=== PATIENT | female | born 1980 | race Caucasian/White ===

== ENCOUNTER → 2023-05-06 | Outpatient (CLI) | payer OTHER, SELFPAY | END | disposition home or self-care (01) | LOC: RAD 12:03 | PROVIDERS: PCP Internal Medicine; Referring Provider Chiropractor; Visit Provider Chiropractor | DX: M54.30 Sciatica, unspecified side (principal); M99.03 Segmental and somatic dysfunction of lumbar region; M99.05 Segmental and somatic dysfunction of pelvic region | CPT/HCPCS: 72110 ==

== ENCOUNTER 2023-05-29 17:00 | Outpatient (RCR) | payer OTHER, SELFPAY ==
--- NOTE | 2023-05-01 18:08 | HP.PTEVAL_ITS ---
Patient's Visit Information Visit Information Visit Information: SUSY MACIAS is a 43 year old F referred to Physical Therapy by ISACC Jaimes with a diagnosis of R LE sciatica. Date of Evaluation: 05/01/23 Physical Therapist: Constantine Valentin, PT, ATC Visit Plan Frequency: 2x /Week Duration: 2-4 Weeks Plan: Piriformis stretching, DTR R glute, core strengthening. Re-examine REIL with small intervals. Subjective Subjective: Pt reports she has had sciatica for 3 months now. Pt reports she has pain that originates in her R glute and descends down his R LE all the way to her foot. Pt reports she has had no recent Dx tests performed at this time. Pt reports she has had pain like this in the past, but nothing this severe. Pt reports she has no LBP at this time, its just in her leg. Pt reports sleep difficulty at this time secondary to pain. Pt reports increase pain with sit to stand transfers, prolonged standing, and exercising at the gym. Movement is the only thing that helps to decrease her pain. 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 9/10 pain in her R LE at this time while sitting here in the clinic, 10/10 pain when at worst. Pain R LE: Pain Intensity (Out of 10): 9 Pain Intensity Range: 10 Objective Objective: Neuro: B LE sensation is WNL to light touch. B patellar reflex= 1/3 MMT: B LE's are grossly 5/5 throughout ROM: Pt is minimally limited with flex and ext. Both movements increase R LE radiculopathy Special tests: pos piriformis sign Repeated movements: RFIS 10x3 worse, REIL and AMBER increases her pain in R LE Balance/Special Test Scores Lower Extremity Functional Score: 45 Goals Goal 1:: Decrease R LE radiculopathy x 50% to aid with sleep Goal Time Frame: 2-4 Weeks Goal 2:: Increase L/S ext ROM x 1 grade to aid with decreasing pain Goal Time Frame: 2-4 Weeks Goal 3:: I with HEP Rehabilitation Potential Physical Therapy Diagnosis: Pt has R LE radiculopathy, limited L/S ROM, and difficulty with prolonged standing secondary to piriformis syndrome Rehabilitation Potential: Good Anticipated Interventions Patient/Client Instruction: Educate patient on: Condition and Plan of Care For the Purpose of:: To improve self management Therapeutic Exercise to Include: Strength training, Postural training, Flexibilty training, Active ROM, Dynamic Lumbar Stabilization and Meagan Exercises For the Purpose of:: To decrease pain, To increase ROM and To improve muscle performance and motor function Text: Thank you for the opportunity to evaluate your patient. For Medicare and Medicare HMO plans, please review the plan of care and approve it. It will need to be FAXED BACK to us at [phone] for Medicare purposes. For Medicare only, by signing this I certify the plan of care. Please let me know if there are questions or concerns regarding this plan of care. Physician Signature: _Date:
--- NOTE | 2023-09-16 08:52 | HP.PT.NRP ---
Patient Information Patient Information: SUSY MACIAS was seen in my office for initial evaluation on 05/01/23. The following Plan of Care was established for this patient: POC Established Initial Frequency: 2x /Week Initial Duration: 2-4 Weeks Anticipated Interventions Patient/Client Instruction: Educate patient on: Condition and Plan of Care For the Purpose of:: To improve self management Therapeutic Exercise to Include: Strength training, Postural training, Flexibilty training, Active ROM, Dynamic Lumbar Stabilization and Meagan Exercises For the Purpose of:: To decrease pain, To increase ROM and To improve muscle performance and motor function Last Seen Last Seen: This patient was last seen in our office . Pertinent comments regarding their Physical therapy will appear below: Pt was treated for low back pain for 7 visits through the date of 05/29/23. Pt has not returned through todays date and is discontinued at this time. At this point I will be discontinuing this patient from physical therapy. I would be happy to see this patient again in the future if found appropriate by the physician. Thank you! Constantine Valentin, PT, ATC Balance/Gait/Functional tests Balance/Special Test Scores Lower Extremity Functional Score: 45
== END 2023-05-29 19:00 | disposition home or self-care (01) ==
LOC: PT 17:00
PROVIDERS: Referring Provider Physician Assistant Surgical; Visit Provider Physician Assistant Surgical
DX: M54.30 Sciatica, unspecified side (principal)
CPT/HCPCS: 97014; 97035; 97110; 97161; 97530; G0283

== ENCOUNTER → 2023-06-17 | Outpatient (CLI) | payer OTHER, SELFPAY ==
--- NOTE | 2023-06-17 06:40 | MRI_ITS ---
STUDY: MRI LUMBAR SPINE WITHOUT CONTRAST REASON FOR EXAM: Female, 43 years old. R sciatica TECHNIQUE: Standardized fat and water weighted pulse sequences were obtained in the sagittal and axial planes. COMPARISON: X-ray the lumbar spine dated May 06, 2023 FINDINGS: There is straightening of the normal lumbar lordosis. There is no substantial scoliosis. Normal conus medullaris that terminates at the T11-T12 level. No marrow edema or fracture or compression deformity is present. T12-L1: Normal endplates. Normal disc height, hydration and morphology. Normal bilateral facet joints. Normal central canal and bilateral lateral recesses. Normal bilateral intervertebral neural foramina. L1-2: Normal endplates. Normal disc height, hydration and morphology. Normal bilateral facet joints. Normal central canal and bilateral lateral recesses. Normal bilateral intervertebral neural foramina. L2-3: Normal endplates. Normal disc height, hydration and morphology. Normal bilateral facet joints. Normal central canal and bilateral lateral recesses. Normal bilateral intervertebral neural foramina. L3-4: Normal endplates. Normal disc height, hydration and morphology. Normal bilateral facet joints. Normal central canal and bilateral lateral recesses. Normal bilateral intervertebral neural foramina. L4-5: Normal endplates. Normal disc height. Diffuse disc desiccation with a small posterior annular tear of the disc but no bulging or herniation. Normal bilateral facet joints. Normal central canal and bilateral lateral recesses. Normal bilateral intervertebral neural foramina. L5-S1: Normal endplates. Diffuse disc desiccation with mild disc space narrowing and posterior annular bulging. Superimposed moderate size right paracentral disc protrusion measures 9.7 mm in diameter and causes right lateral recess stenosis with nerve root compression. Normal bilateral facet joints. Normal central canal and bilateral lateral recesses. Normal bilateral intervertebral neural foramina. Normal visualized sacral ala. Normal visualized paraspinous soft tissue structures. MRI/Spine Lumbar (Routine) IMPRESSION: 1. Moderate size 9.7 mm right paracentral disc protrusion at L5-S1 causing right lateral recess stenosis with nerve root compression Electronically Signed: Otto Tam MD at 11:56 EDT ,
== END | disposition home or self-care (01) ==
LOC: MRI 06:38
PROVIDERS: PCP Internal Medicine; Referring Provider Chiropractor; Visit Provider Chiropractor
DX: M54.30 Sciatica, unspecified side (principal); M99.03 Segmental and somatic dysfunction of lumbar region; M99.05 Segmental and somatic dysfunction of pelvic region
CPT/HCPCS: 72148

== ENCOUNTER → 2023-09-24 | Outpatient (CLI) | payer OTHER, SELFPAY ==
[2023-09-26 16:09] LABS: HPV APTIMA, High Risk Negative (Negative)
== END | disposition home or self-care (01) ==
LOC: LABSPEC 11:00
PROVIDERS: PCP Internal Medicine; Referring Provider Nurse Practitioner Women's Health; Visit Provider Nurse Practitioner Women's Health
DX: Z12.4 Encounter for screening for malignant neoplasm of cervix (principal)
CPT/HCPCS: 87624; 88175; G0145

== ENCOUNTER → 2023-10-03 | Outpatient (CLI) | payer OTHER, SELFPAY ==
--- NOTE | 2023-10-03 13:32 | BI_ITS ---
MAMMOGRAPHY - BILATERAL SCREENING 3-D TOMOSYNTHESIS REASON FOR EXAM: Female, 43 years old. Screening for breast cancer. PERTINENT HISTORY: No significant family history. TECHNIQUE: 2-D mammograms and 3-D Tomosynthesis of the breast (s) were performed. CAD was performed. COMPARISON: None. Baseline examination. FINDINGS: The breast composition is almost entirely fat. Normal lymph nodes and scattered benign calcifications. No dominant masses, suspicious microcalcifications, asymmetries, skin thickening or nipple retraction. BI/SCRN MAMM (CAD)W/DION BILAT IMPRESSION: No mammographic signs of malignancy. Routine yearly mammograms recommended. ASSESSMENT CATEGORY: BIRADS Category 2: Benign. A letter regarding these results will be sent to the patient by the facility within 30 days. FOLLOW UP RECOMMENDATION: Yearly follow up mammogram recommended. (A) Approximately 10% of breast cancers are not detected by mammography. A normal mammogram should not delay biopsy of a clinically suspicious abnormality. Electronically Signed: Delta Brown MD at 15:27 EST ,
== END | disposition home or self-care (01) ==
LOC: OPBI 13:30
PROVIDERS: PCP Internal Medicine; Referring Provider Nurse Practitioner Women's Health; Visit Provider Nurse Practitioner Women's Health
DX: Z12.31 Encounter for screening mammogram for malignant neoplasm of breast (principal)
CPT/HCPCS: 77063; 77067

== ENCOUNTER → 2023-11-28 | Outpatient (CLI) | payer OTHER, SELFPAY ==
--- OUTSIDE RECORDS SUMMARY | 2023-11-28 07:16 | XMS RPT_ITS | CCD ---
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 Name Role Phone Haagen POLISHER EYEGLASS FRAMES.JEN, Annie Primary Care Provider HAAGEN, ANNIE Primary Care Unavailable HAAGEN, ANNIE Attending Unavailable HAAGEN, ANNIE Primary Care Unavailable HAAGEN, ANNIE Attending Unavailable HAAGEN, ANNIE Primary Care Unavailable HAAGEN, ANNIE Primary Care Unavailable HAAGEN, ANNIE Attending Unavailable HAAGEN, ANNIE Primary Care Unavailable HAAGEN, ANNIE Attending Unavailable HAAGEN, ANNIE Primary Care Unavailable HAAGEN, ANNIE Attending Unavailable Haagen POLISHER EYEGLASS FRAMES.JEN, Annie Primary Care Provider Allergies Allergy Classification Reported Allergen(s) Allergy Type Date of Onset Reaction(s) Facility (14 sources) Oxymetazoline; Translations: [OXYMETAZOLINE HCL] Drug Allergy 0 [facility] Work Phone: (12 sources) Environmental allergies [Other] Propensity to adverse reactions 6 [facility] (2 sources) Grass pollen; Translations: [GRASS POLLEN] Propensity to adverse reactions to drug (disorder) 4 Other: See Comments [facility] (2 sources) Oxymetazoline; Translations: [OXYMETAZOLINE] Drug Allergy 3 Shortness of Breath [facility] (2 sources) Ragweed pollen; Translations: [RAGWEED POLLEN] Propensity to adverse reactions to drug (disorder) 4 Other: See Comments [facility] (2 sources) CAT DANDER; Translations: [CAT DANDER] Propensity to adverse reactions to drug (disorder) 4 Other: See Comments [facility] (2 sources) DOG DANDER; Translations: [DOG DANDER] Propensity to adverse reactions to drug (disorder) Other: See Comments [facility] (1 source) OTHER; Translations: [OTHER] Propensity to adverse reactions (disorder) 6 [facility] Medications Current Medications Medication Drug Class(es) Dates Sig (Normalized) Sig (Original) phentermine hydrochloride 37.5 mg oral tablet (4 sources) Sympathomimetic Amine Anorectic Start: 01-22-2023 End: 02-21-2023 take 1 tablet by mouth once daily Phentermine HCl (ADIPEX-P) 37.5 mg tablet Indications: Obesity, Class III, BMI 40-49.9 (morbid obesity) (HCC) Take 1 tablet by mouth once daily for 30 days. BMI - 40.95 30 tablet 2 01/22/2023 02/21/2023 Active Completed/Discontinued Medications Medication Drug Class(es) Dates Sig (Normalized) Sig (Original) acetaminophen 325 mg / HYDROcodone bitartrate 5 mg oral tablet (1 source) Opioid Agonist Start: 06-30-2023 HYDROcodone-aceta minophen (NORCO) 5-325 mg per tablet [id number] 200 actuat albuterol 0.09 mg/actuat metered dose inhaler (20 sources) beta2-Adrenergic Agonist Start: 09-09-2022 take 2.5 mg by inhalation every four hours as needed albuterol (PROVENTIL) 2.5 mg /3 mL (0.083 %) nebulizer solution Use 3 mL via nebulizer every 4 hours as needed for wheezing/shortnes s of breath. ONE TREATMENT EVERY 4 HOURS NEEDED 50 mL 1 09/09/2022 Active Problems Active Problems Problem Classification Problem Date Documented Da te Episodic/Chronic Anxiety disorders (4 sources) Mixed anxiety and depressive disorder; Translations: [Other specified anxiety disorders] Onset: 12-02-2022 Chronic Asthma (18 sources) Mild intermittent asthma; Translations: [Mild intermittent asthma, uncomplicated] Onset: 11-01-2006 Chronic Diabetes mellitus without complication (1 source) Impaired fasting glucose; Translations: [Elevated fasting glucose] Onset: 10-13-2023 Episodic Headache; including migraine (2 sources) Migraine; Translations: [Other migraine, not intractable, without status migrainosus] Onset: 11-04-2023 Chronic Other circulatory disease (1 source) Elevated blood-pressure reading, without diagnosis of hypertension; Translations: [Elevated blood pressure reading without diagnosis of hypertension] Onset: 11-04-2023 Episodic Other connective tissue disease (3 sources) Pain in left foot; Translations: [Pain in left foot] Episodic Other gastrointestinal disorders (17 sources) Irritable bowel syndrome; Translations: [Irritable bowel syndrome without diarrhea] Onset: 10-17-2009 Chronic Other gastrointestinal disorders (1 source) Irritable bowel syndrome without diarrhea; Translations: [Irritable bowel syndrome, unspecified type] Onset: 10-01-2021 Chronic Other nutritional; endocrine; and metabolic disorders (1 source) Body mass index 30+ - obesity; Translations: [Obesity, unspecified] Chronic Other nutritional; endocrine; and metabolic disorders (2 sources) Body mass index 40+ - severely obese; Translations: [Morbid (severe) obesity due to excess calories] Chronic Other nutritional; endocrine; and metabolic disorders (2 sources) Morbid (severe) obesity due to excess calories; Translations: [Class 3 severe obesity with body mass index (BMI) of 40.0 to 44.9 in adult, unspecified obesity type, unspecified whether serious comorbidity present (HCC)] Onset: 01-22-2023 Chronic Other nutritional; endocrine; and metabolic disorders (1 source) Body mass index (BMI) 40.0-44.9, adult; Translations: [Class 3 severe obesity with body mass index (BMI) of 40.0 to 44.9 in adult, unspecified obesity type, unspecified whether serious comorbidity present (HCC)] Onset: 11-04-2023 Chronic Other screening for suspected conditions (not mental disorders or infectious disease) (1 source) Patient encounter status; Translations: [Encounter for screening mammogram for malignant neoplasm of breast] Episodic Other upper respiratory disease (13 sources) Chronic rhinitis; Translations: [Chronic rhinitis] Onset: 09-01-2007 09-01-2007 Chronic Past or Other Problems Problem Classification Problem Date Documented Da te Episodic/Chronic Abdominal pain (13 sources) Finding of sensation of abdomen; Translations: [Unspecified abdominal pain] Onset: 05-31-2014 06-02-2014 Episodic Nausea and vomiting (13 sources) Nausea; Translations: [Nausea] Onset: 07-12-2013 07-12-2013 Episodic Other gastrointestinal disorders (13 sources) Diarrhea; Translations: [Diarrhea, unspecified] Onset: 06-10-2007 07-19-2013 Episodic Residual codes; unclassified (17 sources) Insomnia; Translations: [Insomnia, unspecified] Onset: 04-16-2011 Episodic Residual codes; unclassified (1 source) Insomnia, unspecified; Translations: [Insomnia, unspecified type] Onset: 07-19-2013 Episodic Spondylosis; intervertebral disc disorders; other back problems (2 sources) Acute back pain with sciatica; Translations: [Lumbago with sciatica, right side] Onset: 03-31-2023 Episodic Results Test Name Value Interpretation Reference Range Facil ity Vital Signs Date Time Vital Sign Value Performing Clinician Reyna villanueva 03-31-2023 17:44-0400 Body height 168.9 cm Annie Haagen POLISHER EYEGLASS FRAMES.CANE PUSHER Work Phone: [facility] 03-31-2023 17:44-0400 Body weight 112.49 kg Annie Haagen POLISHER EYEGLASS FRAMES.CANE PUSHER Work Phone: [facility] 03-31-2023 17:44-0400 Diastolic blood pressure 80 mm[Hg] Annie Haagen POLISHER EYEGLASS FRAMES.CANE PUSHER Work Phone: [facility] 03-31-2023 17:44-0400 Heart rate 74 /min Annie Haagen POLISHER EYEGLASS FRAMES.CANE PUSHER Work Phone: [facility] 03-31-2023 17:44-0400 Respiratory rate 16 /min Annie Haagen POLISHER EYEGLASS FRAMES.CANE PUSHER Work Phone: [facility] 03-31-2023 17:44-0400 Systolic blood pressure 138 mm[Hg] Annie Haagen POLISHER EYEGLASS FRAMES.CANE PUSHER Work Phone: [facility] 01-22-2023 15:38-0400 Body weight 112.49 kg Annie Haagen POLISHER EYEGLASS FRAMES.CANE PUSHER Work Phone: [facility] 01-22-2023 15:38-0400 Diastolic blood pressure 90 mm[Hg] Annie Haagen POLISHER EYEGLASS FRAMES.CANE PUSHER Work Phone: [facility] 01-22-2023 15:38-0400 Heart rate 88 /min Annie Haagen POLISHER EYEGLASS FRAMES.CANE PUSHER Work Phone: [facility] 01-22-2023 15:38-0400 Respiratory rate 18 /min Annie Haagen POLISHER EYEGLASS FRAMES.CANE PUSHER Work Phone: [facility] 01-22-2023 15:38-0400 SaO2% (BldA) [Mass fraction] 98 % Annie Haagen POLISHER EYEGLASS FRAMES.CANE PUSHER Work Phone: [facility] 01-22-2023 15:38-0400 Systolic blood pressure 132 mm[Hg] Annie Haagen POLISHER EYEGLASS FRAMES.CANE PUSHER Work Phone: [facility] 12-02-2022 15:39-0500 Body weight 112.95 kg Annie Haagen POLISHER EYEGLASS FRAMES.CANE PUSHER Work Phone: [facility] 12-02-2022 15:39-0500 Diastolic blood pressure 90 mm[Hg] Annie Haagen POLISHER EYEGLASS FRAMES.CANE PUSHER Work Phone: [facility] 12-02-2022 15:39-0500 Heart rate 81 /min Annie Haagen POLISHER EYEGLASS FRAMES.CANE PUSHER Work Phone: [facility] 12-02-2022 15:39-0500 Respiratory rate 18 /min Annie Haagen POLISHER EYEGLASS FRAMES.CANE PUSHER Work Phone: [facility] 12-02-2022 15:39-0500 SaO2% (BldA) [Mass fraction] 96 % Annie Haagen POLISHER EYEGLASS FRAMES.CANE PUSHER Work Phone: [facility] 12-02-2022 15:39-0500 Systolic blood pressure 124 mm[Hg] Annie Haagen POLISHER EYEGLASS FRAMES.CANE PUSHER Work Phone: [facility] 01-07-2022 14:06-0400 Body weight 108.86 kg Annie Haagen POLISHER EYEGLASS FRAMES.CANE PUSHER Work Phone: [facility] 01-07-2022 14:06-0400 Diastolic blood pressure 82 mm[Hg] Annie Haagen POLISHER EYEGLASS FRAMES.CANE PUSHER Work Phone: [facility] 01-07-2022 14:06-0400 Heart rate 83 /min Annie Haagen POLISHER EYEGLASS FRAMES.CANE PUSHER Work Phone: [facility] 01-07-2022 14:06-0400 Respiratory rate 18 /min Annie Cohen APRN.JEN Work Phone: [facility] 01-07-2022 14:06-0400 SaO2% (BldA) [Mass fraction] 98 % Annie Cohen APRN.JEN Work Phone: [facility] 01-07-2022 14:06-0400 Systolic blood pressure 150 mm[Hg] Annie Cohen APRN.CANE PUSHER Work Phone: [facility] Encounters Encounter Date Encounter Type Care Provider Facility Start: 11-16-2023 Orders Only Annie Cohen APRN.CNP Work Phone: [facility] Start: 11-04-2023 End: 11-05-2023 ambulatory [facility] Facility:[place] Start: 10-13-2023 End: 10-14-2023 ambulatory [facility] Facility:[place] Start: 03-31-2023 End: 04-01-2023 [facility] Facility:[place] Start: 03-31-2023 End: 03-31-2023 Office outpatient visit 15 minutes Annie Cohen APRN.CNP Work Phone: [facility] Procedures Date Procedure Procedure Detail Performing Clinician Start: 02-24-2021 Adult depression screening assessment Annie Cohen APRN.CNP Work Phone: Plan of Treatment Date Care Activity Detail Author Start: 01-29-2033 Urine microalbumin profile DTaP,Tdap,Td Vaccine (4 - Td or Tdap) [facility] Start: 11-04-2024 Annual PCP Team Chronic Disease Visit Annual PCP Team Chronic Disease Visit [facility] Start: 03-31-2024 ANNUAL PCP TEAM CHRONIC DISEASE VISIT ANNUAL PCP TEAM CHRONIC DISEASE VISIT [facility] Start: 01-23-2024 ANNUAL PCP TEAM CHRONIC DISEASE VISIT ANNUAL PCP TEAM CHRONIC DISEASE VISIT [facility] Start: 12-02-2023 ANNUAL PCP TEAM CHRONIC DISEASE VISIT ANNUAL PCP TEAM CHRONIC DISEASE VISIT [facility] Start: 10-06-2023 Depression Assessment Depression Assessment [facility] Start: 06-06-2023 Covid-19 Vaccine ( season) Covid-19 Vaccine ( season) [facility] Start: 06-06-2023 Influenza vaccination INFLUENZA (Season Ended) [facility] Start: 05-15-2023 HPV TESTING HPV TESTING [facility] Start: 05-15-2023 PAP TESTING PAP TESTING [facility] Start: 05-15-2023 Screening for malignant neoplasm of cervix [facility] Start: 02-04-2023 ANNUAL PCP TEAM CHRONIC DISEASE VISIT ANNUAL PCP TEAM CHRONIC DISEASE VISIT [facility] Start: 01-07-2023 ANNUAL PCP TEAM CHRONIC DISEASE VISIT ANNUAL PCP TEAM CHRONIC DISEASE VISIT [facility] Start: 10-06-2022 DEPRESSION ASSESSMENT DEPRESSION ASSESSMENT [facility] Start: 06-06-2022 Influenza vaccination [facility] Start: 2022 Mammography MAMMOGRAM [facility] Start: 2022 Screening for malignant neoplasm of breast Mammogram Screening [facility] Start: 02-24-2022 Adult depression screening assessment DEPRESSION SCREENING [facility] Start: 11-13-2021 COVID-19 VACCINE (4 - Booster for Moderna series) COVID-19 VACCINE (4 - Booster for Moderna series) [facility] Start: 10-06-2021 DEPRESSION ASSESSMENT DEPRESSION ASSESSMENT [facility] Start: 10-21-2018 Urine microalbumin profile DTAP,TDAP,TD (3 - Tdap) [facility] Start: 07-06-2014 Pneumococcal vaccination Pneumococcal Vaccine (2 of 2 - PCV) [facility] Start: 07-02-2014 PNEUMOCOCCAL (2 - PCV) PNEUMOCOCCAL (2 - PCV) [facility] Start: 10-22-2008 Urine microalbumin profile DTAP,TDAP,TD (1 - Tdap) [facility] Start: 2000 HEPATITIS C SCREENING HEPATITIS C SCREENING [facility] Start: 2000 Hepatitis C screening Hepatitis C Screening [facility] Start: 2000 HIV SCREENING HIV SCREENING [facility] Start: 2000 HIV screening HIV Screening [facility] Start: 2000 SPIROMETRY SPIROMETRY [facility] Start: 1982 HEPATITIS B (1 of 3 - 3-dose series) HEPATITIS B (1 of 3 - 3-dose series) [facility] Start: 1982 Hepatitis B Vaccine (1 of 3 - 3-dose series) Hepatitis B Vaccine (1 of 3 - 3-dose series) [facility] End: 06-14-2023 Screening mammography bi 2-view breast inc cad [facility] SCREENING Radiology Routine Encounter for screening mammogram for breast cancer 1 Occurrences starting 05/15/2022 until 06/14/2023 [facility] Work Phone: Immunizations Immunization Date Immunization Notes Care Provider Angela jaime 09-18-2021 COVID-19 original vaccine, full dose, monovalent (MODERNA) Annie Haagen POLISHER EYEGLASS FRAMES.CANE PUSHER Work Phone: [facility] 01-05-2021 COVID-19 original vaccine, full dose, monovalent (MODERNA) Annie Haagen POLISHER EYEGLASS FRAMES.CANE PUSHER Work Phone: [facility] 12-02-2020 COVID-19 original vaccine, full dose, monovalent (MODERNA) Annie Haagen POLISHER EYEGLASS FRAMES.CANE PUSHER Work Phone: [facility] 08-16-2016 influenza, injectabl e, quadrivalent, contains preservative Annie Haagen POLISHER E[employer]GL[employer] FRAMES.CANE PUSHER Work Phone: [facility] Work Phone: 07-02-2013 influenza virus vacc ine, unspecified formulation Annie Haagen POLISHER EYEGLASS FRAMES.CANE PUSHER Work Phone: [facility] Work Phone: 07-02-2013 pneumococcal polysaccharide vaccine, 23 valent Annie Haagen POLISHER E[employer]GLASS FRAMES.CANE PUSHER Work Phone: [facility] Work Phone: 07-05-2012 influenza virus vacc ine, unspecified formulation Annie Haagen POLISHER E[employer]GLASS FRAMES.CANE PUSHER Work Phone: [facility] Work Phone: 07-25-2011 influenza virus vacc ine, unspecified formulation Annie Haagen POLISHER EYEGLASS FRAMES.CANE PUSHER Work Phone: [facility] Work Phone: 08-08-2009 influenza virus vacc ine, unspecified formulation Annie Haagen POLISHER EYEGLASS FRAMES.CANE PUSHER Work Phone: [facility] 10-21-2008 tetanus and diphther ia toxoids, adsorbed, preservative free, for adult use (2 Lf of tetanus toxoid and 2 Lf of diphtheria toxoid) Annie Cohen POLISHER EYEGLASS FRAMES.CANE PUSHER Work Phone: [facility] Work Phone: 08-16-2008 influenza virus vacc ine, unspecified formulation Annie Cohen POLISHER EYEGLASS FRAMES.CANE PUSHER Work Phone: [facility] 09-01-2007 influenza virus vacc ine, unspecified formulation Annie Cohen POLISHER E[employer]GLASS FRAMES.CANE PUSHER Work Phone: [facility] 09-12-1997 diphtheria and tetan us toxoids, adsorbed for pediatric use Annie Cohen POLISHER EYEGLASS FRAMES.CANE PUSHER Work Phone: [facility] Payers Date Payer Category Payer Private Health Insurance [id number] 2023 Private Health Insurance [facility] [place] [facility] [id number] 2023-Present [phone] [address] [place] [address] PPO [id number] 2022 Medicaid [id number] 2022 Medicaid [id number] 2018 Medicaid [employer] [id number] 2018-Present [phone] [address] [place] [address] Medicaid [id number] 2018 Medicaid [id number] Social History Date Type Detail Facility Start: 10-28-2011 Tobacco smoking status NHIS Never smoked tobacco [facility] Start: 01-07-2022 End: 11-04-2023 Alcohol intake Current drinker of alcohol (finding) [facility] Start: 12-04-2021 End: 03-31-2023 History SDOH Alcohol Frequency 2 [facility] Start: 12-04-2021 End: 03-31-2023 History SDOH Alcohol Std Drinks 1 [facility] Start: 02-03-2013 History SDOH Alcohol Comment Rarely [facility] Start: 12-04-2021 End: 03-31-2023 History SDOH Social Connections Phone 5 [facility] Start: 12-04-2021 End: 03-31-2023 History SDOH Social Connections Get Together 3 [facility] Start: 12-04-2021 End: 03-31-2023 History SDOH Physical Activity MPS 6 [facility] Start: 12-04-2021 End: 03-31-2023 History SDOH Financial 4 [facility] Start: 05-17-2020 Education 21 [facility] Start: 1980 Sex Assigned At Female [facility] Start: 10-28-2011 Tobacco use and exposure Smokeless tobacco non-user [facility] Work Phone: Start: 03-31-2023 History SDOH Social Connections Living 7 [facility] Start: 02-24-2021 End: 03-30-2023 History of Social function [facility] Start: 02-24-2021 End: 03-30-2023 Social connection and isolation panel [facility] Do you belong to any clubs or organizations such as sabianist groups, unions, fraternal or athletic groups, or school groups? Yes [facility] Are you now , , , , never or living with a partner? Never [facility] How often to you hav e a drink containing alcohol? Monthly or less [facility] How many standard dr inks containing alcohol do you have on a typical day? 1 or 2 [facility] How often do you hav e 6 or more drinks on 1 occasion? Less than monthly [facility] How hard is it for y ou to pay for the very basics like food, housing, medical care, and heating Somewhat hard [facility] Adult Depression Screening Assessment 2 [facility] Do you feel stress - tense, restless, nervous, or anxious, or unable to sleep at night because your mind is troubled all the time - these days [OSQ] Very much [facility] (I/We) worried wheth er (my/our) food would run out before (I/we) got money to buy more. Never true [facility] In the past 12 month s, was there a time when you were not able to pay the mortgage or rent on time? No [facility] Start: 06-06-2019 Gender identity Identifies as female gender (finding) [facility] Start: 06-06-2019 Sexual orientation Heterosexual (finding) [facility] Clinical Notes 07-31-2007 to 11-04-2023 Patient InstructionsChristy APRN. NoelCANE PUSHER - 03/31/2023 6:10 PM EDTTelephone Encounter - Jp Rubio PERISHABLE FRUIT INSPECTOR - 02/14/2023 8:19 AM EDTPatient InstructionsPatient InstructionsPatient Instructions Note Date & Type Note Facility 11-04-2023 Note HNO ID: [id number] Author: ANNIE COHEN APRN.CANE PUSHER Service: ? Author Type: Nurse Practitioner Type: Progress Notes Filed: 11/04/2023 17:35 Note Text: This is a 43 year old female who presents today with: Patient presents with: Recheck: BP check HISTORY OF PRESENT ILLNESS: Susy Bateman is a 43 year old female. Patient presents with: Recheck: BP check Pt presents today for BP recheck. At last visit, BP was elevated. Prior to visit, patient had ingested caffeine, and Adipex, and used her albuterol inhaler. Today BP improved. Refers that she cut back caffeine. Headaches. Using the flexeril. Has found that this has been helpful. Using the qulipta, but was not aware that this was a daily prophylactic medication. No side effects to the Qulipta. PAST MEDICAL HISTORY: PAST MEDICAL HISTORY Diagnosis Date Anal fistula ASTHMA UNSPECIFIED 11/01/2006 Hospitalized in 08-08 for exacerbation: saw Nilda in 09-07 (Peak flows 300 on Advair) PFT 09-07: ratio 59%, FVC 2.49 (61%), FEV1 1.46 (44%)-10% p BD, TLC 3.76 (70%), NL D/VA-mixed CT chest normal in 12-07: ordered by Nilda for possible bronchiectasis IgE 50 (3.5-58), Alpha 1 AT 206 (100-220), Aspergillus Ab neg in 12-07 Titoo rec Xolair in 04-08: omalizumab-IgG monoclonal Ab that binds IgE to prevent Chronic rhinitis 09/01/2007 Rec nasal saline as of 08-12: consider nasal steroids if not satisfied DIARRHEA NOS 06/10/2007 Reportedly symptoms over the previous year from 05-12: eval for an anal fistula per Dakotah Gliadin Ab negative in 05-12 ESR 9 in 05-12 NL iron studies in 05-12 No studies done as of 06-12 as the stool was formed O and P negative in 07-12 Fecal leukocytes negative in 07-12: discuss at 08-12 appt IBS (irritable bowel syndrome) 10/17/2009 OBESITY NOS 07/31/2007 TSH 1 in 02-09 Unspecified asthma, with status asthmaticus PAST SURGICAL HISTORY Procedure Laterality Date COLONOSCOPY W/BIOPSY SINGLE/MULTIPLE 12/18/09 FISTULOTOMY SUBCUT anal PAST SURGICAL HISTORY OF staightening pectoral-breast bone SURG TX ANAL FISTULA 2ND STAGE 03/24/2007 TREATMENT OF COLLAPSED LUNG 10/05/13 tx by ALLERGIES Oxymetazoline, Afrin [Oxymetazoline Hcl], Cat Dander, Dog Dander, Grass Pollen, and Ragweed Pollen MEDICATIONS Current Outpatient Medications Medication Sig cyclobenzaprine (FLEXERIL) 10 mg tablet DULoxetine (CYMBALTA) 30 mg capsule gabapentin (NEURONTIN) 300 mg capsule HYDROcodone-acetaminophen (NORCO) 5-325 mg per tablet traZODone (DESYREL) 100 mg tablet Take 200 mg by mouth daily at bedtime. buPROPion XL (WELLBUTRIN XL) 150 mg 24 hr tablet atogepant (QULIPTA) 60 mg tablet Take 1 tablet (60 mg) by mouth once daily. hyoscyamine SR (LEVBID) 0.375 mg 12 hr tablet take 1 tablet by mouth once daily if needed for IBS FLARES etodolac (LODINE) 400 mg tablet Take 1 tablet by mouth twice daily. tiZANidine (ZANAFLEX) 4 mg tablet Take 1 tablet by mouth every 8 hours as needed (muscle spasms). Norethindrone, Contraceptive, (TULANA) 0.35 mg tablet Take 1 tablet by mouth once daily. albuterol HFA (VENTOLIN HFA) 90 mcg/actuation inhaler Inhale 2 Puffs as instructed every 6 hours as needed for wheezing/shortness of breath. sertraline (ZOLOFT) 100 mg tablet Take 1 tablet by mouth once daily. albuterol (PROVENTIL) 2.5 mg /3 mL (0.083 %) nebulizer solution Use 3 mL via nebulizer every 4 hours as needed for wheezing/shortness of breath. ONE TREATMENT EVERY 4 HOURS NEEDED buPROPion XL (WELLBUTRIN XL) 300 mg 24 hr tablet Take 1 tablet by mouth once daily. fluticasone-salmeterol (ADVAIR, WIXELA) 250-50 mcg/dose inhaler Inhale 1 Puff as instructed twice daily. SUMAtriptan (IMITREX) 100 mg tablet Take 1 tablet by mouth as needed when migraine starts. May repeat in 2 hours if headache continues or returns. Do not exceed 2 tablets in 24 hours. Nebulizers Use nebulizer every 4 hours as needed for wheeze/shortness of breath. riboflavin, vitamin B2, 400 mg tab Take 1 tablet by mouth once daily. Nebulizer 1 Each once daily. NEBULIZER/accessories FOR HOME USE. DX: J45.909 Nebulizer Accessories (REUSABLE NEBULIZER KIT) kit 1 Each once daily. NEBULIZERS KIT Nebulizer with accesories. Diagnosis: asthma 493.90 No current facility-administered medications for this visit. FAMILY HISTORY Problem Relation Age of Onset Thyroid Mother graves Hypertension Father Alzheimer's Disease Maternal Grandmother Prostate Cancer Maternal Grandfather Cancer Paternal Grandfather lung Social History Tobacco Use Smoking status: Never Smokeless tobacco: Never Substance Use Topics Alcohol use: Yes Comment: Rarely Drug use: No EXAM: BP 128/92 Pulse 98 Resp 16 LMP 01/13/2023 (Approximate) SpO2 98% PHYSICAL EXAM: General Appearance: Well appearing, alert, in no acute distress, well-hydrated, well nourished.. Skin: Skin color, texture, turgor normal, no suspicious rashes or lesions. Head: Normoce (more content not included)... [facility] 10-13-2023 Note HNO ID: [id number] Author: ANNIE COHEN APRN.CANE PUSHER Service: ? Author Type: Nurse Practitioner Type: Progress Notes Filed: 10/13/2023 19:57 Note Text: This is a 43 year old female who presents today with: Patient presents with: Follow Up HISTORY OF PRESENT ILLNESS: Susy Bateman is a 43 year old female. Patient presents with: Follow Up Pt presents today to follow-up. She hasn't been in for awhile. She is working at [employer]. Because she changed insurance, thought that she would eval primary care there; however, would like to stay here. Obesity Started on naltrexone with the wellbutrin. Wellbutrin increased to 450 mg daily. Didn't like how she felt with the naltrexone. Stopped that. Interested in seeing women's health discuss weight management. Back pain Seen by pain management. Refers has a bulging disc. Did see Dr. Bennett -- did not recommend surgery at this time. Injections in the back in July. Refers improved. Gabapentin at bedtime. Headaches. Changing from sertraline to cymbalta. Tried to get nurtec covered, but denied by insurance. Gets headaches several times a week. Will wake up overnight with the pain in head. Has tried triptans in the past, but had side effects or minimal effectiveness. Has an upcoming appt with Dr. Tafoya in February. Psychiatrist. Hoping to get adjusted on medications. Would like to get off the trazodone. PAST MEDICAL HISTORY: PAST MEDICAL HISTORY Diagnosis Date Anal fistula ASTHMA UNSPECIFIED 11/01/2006 Hospitalized in 08-08 for exacerbation: saw Nilda in 09-07 (Peak flows 300 on Advair) PFT 09-07: ratio 59%, FVC 2.49 (61%), FEV1 1.46 (44%)-10% p BD, TLC 3.76 (70%), NL D/VA-mixed CT chest normal in 12-07: ordered by Nilda for possible bronchiectasis IgE 50 (3.5-58), Alpha 1 AT 206 (100-220), Aspergillus Ab neg in 12-07 [facility] rec Xolair in 04-08: omalizumab-IgG monoclonal Ab that binds IgE to prevent Chronic rhinitis 09/01/2007 Rec nasal saline as of 08-12: consider nasal steroids if not satisfied DIARRHEA NOS 06/10/2007 Reportedly symptoms over the previous year from 05-12: eval for an anal fistula per [facility] Gliadin Ab negative in 05-12 ESR 9 in 05-12 NL iron studies in 05-12 No studies done as of 06-12 as the stool was formed O and P negative in 07-12 Fecal leukocytes negative in 07-12: discuss at 11-07 appt IBS (irritable bowel syndrome) 10/17/2009 OBESITY NOS 07/31/2007 TSH in - Unspecified asthma, with status asthmaticus PAST SURGICAL HISTORY Procedure Laterality Date COLONOSCOPY W/BIOPSY SINGLE/MULTIPLE 12/18/09 FISTULOTOMY SUBCUT anal PAST SURGICAL HISTORY OF staightening pectoral-breast bone SURG TX ANAL FISTULA 2ND STAGE 03/24/2007 TREATMENT OF COLLAPSED LUNG 10/05/13 tx by ALLERGIES Afrin [Oxymetazoline Hcl] and Environmental Allergies [Other] MEDICATIONS Current Outpatient Medications Medication Sig cyclobenzaprine (FLEXERIL) 10 mg tablet DULoxetine (CYMBALTA) 30 mg capsule gabapentin (NEURONTIN) 300 mg capsule HYDROcodone-acetaminophen (NORCO) 5-325 mg per tablet traZODone (DESYREL) 100 mg tablet Take 200 mg by mouth daily at bedtime. buPROPion XL (WELLBUTRIN XL) 150 mg 24 hr tablet hyoscyamine SR (LEVBID) 0.375 mg 12 hr tablet take 1 tablet by mouth once daily if needed for IBS FLARES etodolac (LODINE) 400 mg tablet Take 1 tablet by mouth twice daily. tiZANidine (ZANAFLEX) 4 mg tablet Take 1 tablet by mouth every 8 hours as needed (muscle spasms). Norethindrone, Contraceptive, (TULANA) 0.35 mg tablet Take 1 tablet by mouth once daily. albuterol HFA (VENTOLIN HFA) 90 mcg/actuation inhaler Inhale 2 Puffs as instructed every 6 hours as needed for wheezing/shortness of breath. sertraline (ZOLOFT) 100 mg tablet Take 1 tablet by mouth once daily. albuterol (PROVENTIL) 2.5 mg /3 mL (0.083 %) nebulizer solution Use 3 mL via nebulizer every 4 hours as needed for wheezing/shortness of breath. ONE TREATMENT EVERY 4 HOURS NEEDED buPROPion XL (WELLBUTRIN XL) 300 mg 24 hr tablet Take 1 tablet by mouth once daily. fluticasone-salmeterol (ADVAIR, WIXELA) 250-50 mcg/dose inhaler Inhale 1 Puff as instructed twice daily. SUMAtriptan (IMITREX) 100 mg tablet Take 1 tablet by mouth as needed when migraine starts. May repeat in 2 hours if headache continues or returns. Do not exceed 2 tablets in 24 hours. Nebulizers Use nebulizer every 4 hours as needed for wheeze/shortness of breath. riboflavin, vitamin B2, 400 mg tab Take 1 tablet by mouth once daily. Nebulizer 1 Each once daily. NEBULIZER/accessories FOR HOME USE. DX: J45.909 Nebulizer Accessories (REUSABLE NEBULIZER KIT) kit 1 Each once daily. NEBULIZERS KIT Nebulizer with accesories. Diagnosis: asthma 493.90 No current facility-administered medications for this visit. FAMILY HISTORY Problem Relation Age of Onset Thyroid Mother graves Hypertension Father Alzheimer's Disease Maternal Grandmoth (more content not included)... [facility] 04-23-2023 Note Patient Outreach (IN [facility]) SUSY BATEMAN ([id number]) 1980 F Date Time Provider Department 04/23/23 ANNIE COHEN During your visit today, we recorded the following information about you: Allergies As of Date: 04/23/2023 Noted Allergy Reaction AFRIN (OXYMETAZOLINE HCL) 01/02/2010 7 - Swelling Environmental allergies [Other] 07/10/2006 Comments: Cats, dogs, dust mites, weeds, ragweed, grasses Date Reviewed: 02/11/2023 Reviewed by: Jp Riojas APRN.CANE PUSHER - Fully Assessed Visit Diagnosis:Encounter for screening mammogram for breast cancer [Z12.31] Order(s):[facility] SCREENING [[id number]] Order #: [id number] FUTURE Prescriptions as of 04/28/2023 - hyoscyamine SR (LEVBID) 0.375 mg 12 hr tablet take 1 tablet by mouth once daily if needed for IBS FLARES - etodolac (LODINE) 400 mg tablet Take 1 tablet by mouth twice daily. - tiZANidine (ZANAFLEX) 4 mg tablet Take 1 tablet by mouth every 8 hours as needed (muscle spasms). - Norethindrone, Contraceptive, (TULANA) 0.35 mg tablet Take 1 tablet by mouth once daily. - traZODone (DESYREL) 100 mg tablet Take 2 tablets by mouth daily at bedtime. - albuterol HFA (VENTOLIN HFA) 90 mcg/actuation inhaler Inhale 2 Puffs as instructed every 6 hours as needed for wheezing/shortness of breath. - sertraline (ZOLOFT) 100 mg tablet Take 1 tablet by mouth once daily. - albuterol (PROVENTIL) 2.5 mg /3 mL (0.083 %) nebulizer solution Use 3 mL via nebulizer every 4 hours as needed for wheezing/shortness of breath. ONE TREATMENT EVERY 4 HOURS NEEDED - buPROPion XL (WELLBUTRIN XL) 300 mg 24 hr tablet Take 1 tablet by mouth once daily. - fluticasone-salmeterol (ADVAIR, WIXELA) 250-50 mcg/dose inhaler Inhale 1 Puff as instructed twice daily. - SUMAtriptan (IMITREX) 100 mg tablet Take 1 tablet by mouth as needed when migraine starts. May repeat in 2 hours if headache continues or returns. Do not exceed 2 tablets in 24 hours. - Nebulizers Use nebulizer every 4 hours as needed for wheeze/shortness of breath. - riboflavin, vitamin B2, 400 mg tab Take 1 tablet by mouth once daily. - Nebulizer 1 Each once daily. NEBULIZER/accessories FOR HOME USE. DX: J45.909 - Nebulizer Accessories (REUSABLE NEBULIZER KIT) kit 1 Each once daily. - NEBULIZERS KIT Nebulizer with accesories. Diagnosis: asthma 493.90 Problem List As Of Date 04/23/2023 Noted Resolved Asthma [J45.909] 11/01/2006 Anal Fistula [K60.3] 11/18/2006 09/26/2009 Diarrhea [R19.7] 06/10/2007 Routine general medical examination at [facility]*06/10/2007 03/01/2014 Obesity, Class III, BMI 40-49.9 (morbid obesity*07/31/2007 05/26/2018 CHRONIC RHINITIS [J31.0] 09/01/2007 IBS (irritable bowel syndrome) [K58.9] 10/17/2009 Insomnia [G47.00] 04/16/2011 Nausea [R11.0] 07/12/2013 Abdominal cramping [R10.9] 05/31/2014 Encounter Status:Closed by EPIC, PRODUSER on 04/28/23 [facility] 03-31-2023 Note HNO ID: [id number] Author: Annie Cohen APRN.CANE PUSHER Service: ? Author Type: Nurse Practitioner Type: Progress Notes Filed: 03/31/2023 7:45 PM Note Text: This is a 42 year old female who presents today with: Patient presents with: Nerve Pain HISTORY OF PRESENT ILLNESS: Susy Bateman is a 42 year old female. Patient presents with: Nerve Pain Pt presents today with c/o sciatic nerve pain. Refers that she went to urgent care about a month ago. Prescribed prednisone, which didn't work. Has been trying to walk. No injury. Refers frustrated because she can't go to the gym. Refers hurts in the bottom of her right buttock down the posterior leg to her ankle. Refers that she will get some numbness/tingling. No changes of bowel/bladder. No saddle anesthesia. Has been taking ibuprofen 800 mg. Has been working on stretching. PAST MEDICAL HISTORY: PAST MEDICAL HISTORY Diagnosis Date Anal fistula ASTHMA UNSPECIFIED 11/01/2006 Hospitalized in 08-08 for exacerbation: saw Nilda in 09-07 (Peak flows 300 on Advair) PFT 09-07: ratio 59%, FVC 2.49 (61%), FEV1 1.46 (44%)-10% p BD, TLC 3.76 (70%), NL D/VA-mixed CT chest normal in 12-07: ordered by Nilda for possible bronchiectasis IgE 50 (3.5-58), Alpha 1 AT 206 (100-220), Aspergillus Ab neg in 12-07 Nilda rec Xolair in 04-08: omalizumab-IgG monoclonal Ab that binds IgE to prevent Chronic rhinitis 09/01/2007 Rec nasal saline as of 08-12: consider nasal steroids if not satisfied DIARRHEA NOS 06/10/2007 Reportedly symptoms over the previous year from 05-12: eval for an anal fistula per [facility] Gliadin Ab negative in 05-12 ESR 9 in 05-12 NL iron studies in 05-12 No studies done as of 06-12 as the stool was formed O and P negative in 07-12 Fecal leukocytes negative in 07-12: discuss at 08-12 appt IBS (irritable bowel syndrome) 10/17/2009 OBESITY NOS 07/31/2007 TSH 1 in 02-09 Unspecified asthma, with status asthmaticus PAST SURGICAL HISTORY Procedure Laterality Date COLONOSCOPY W/BIOPSY SINGLE/MULTIPLE 12/18/09 FISTULOTOMY SUBCUT anal PAST SURGICAL HISTORY OF staightening pectoral-breast bone SURG TX ANAL FISTULA 2ND STAGE 03/24/2007 TREATMENT OF COLLAPSED LUNG 10/05/13 tx by ALLERGIES Afrin [Oxymetazoline Hcl] and Environmental Allergies [Other] MEDICATIONS Current Outpatient Medications Medication Sig Norethindrone, Contraceptive, (TULANA) 0.35 mg tablet Take 1 tablet by mouth once daily. traZODone (DESYREL) 100 mg tablet Take 2 tablets by mouth daily at bedtime. hyoscyamine SR (LEVBID) 0.375 mg 12 hr tablet take 1 tablet by mouth once daily if needed for IBS FLARES albuterol HFA (VENTOLIN HFA) 90 mcg/actuation inhaler Inhale 2 Puffs as instructed every 6 hours as needed for wheezing/shortness of breath. sertraline (ZOLOFT) 100 mg tablet Take 1 tablet by mouth once daily. albuterol (PROVENTIL) 2.5 mg /3 mL (0.083 %) nebulizer solution Use 3 mL via nebulizer every 4 hours as needed for wheezing/shortness of breath. ONE TREATMENT EVERY 4 HOURS NEEDED buPROPion XL (WELLBUTRIN XL) 300 mg 24 hr tablet Take 1 tablet by mouth once daily. ibuprofen (MOTRIN) 800 mg tablet Take 1 tablet by mouth every 8 hours as needed for pain. Take with food. fluticasone-salmeterol (ADVAIR, WIXELA) 250-50 mcg/dose inhaler Inhale 1 Puff as instructed twice daily. SUMAtriptan (IMITREX) 100 mg tablet Take 1 tablet by mouth as needed when migraine starts. May repeat in 2 hours if headache continues or returns. Do not exceed 2 tablets in 24 hours. Nebulizers Use nebulizer every 4 hours as needed for wheeze/shortness of breath. riboflavin, vitamin B2, 400 mg tab Take 1 tablet by mouth once daily. Nebulizer 1 Each once daily. NEBULIZER/accessories FOR HOME USE. DX: J45.909 Nebulizer Accessories (REUSABLE NEBULIZER KIT) kit 1 Each once daily. NEBULIZERS KIT Nebulizer with accesories. Diagnosis: asthma 493.90 No current facility-administered medications for this visit. FAMILY HISTORY Problem Relation Age of Onset Thyroid Mother graves Hypertension Father Alzheimer's Disease Maternal Grandmother Prostate Cancer Maternal Grandfather Cancer Paternal Grandfather lung Social History Tobacco Use Smoking status: Never Smokeless tobacco: Never Substance Use Topics Alcohol use: Yes Comment: Rarely Drug use: No EXAM: BP 138/80 Pulse 74 Resp 16 Ht 168.9 cm (5' 6.5 ) Wt 112.5 kg (248 lb) LMP 01/13/2023 (Approximate) BMI 39.43 kg/m? PHYSICAL EXAM: General Appearance: Well appearing, alert, in no acute distress, well-hydrated, well nourished.. Skin: Skin color, texture, turgor normal, no suspicious rashes or lesions. Head: Normocephalic, no masses, lesions, tenderness or abnormalities. Eyes: Anicteric sclera. Extraocular movements are intact. . Back:no pain to palpation of vertebrae, good flexion and extension, good range of motion, motor and sensory appear to be normal, no evidence o (more content not included)... [facility] 03-31-2023 Instructions Annie Cohen APRN.JEN - 03/31/2023 6:29 PM EDT Start the etodolac twice daily. Take with food. Try the tizanidine. Be careful taking with trazodone, it may make you too tired. Moist heat/ice to the back. Stretching. Consider physical therapy. documented in this encounter [facility] 03-31-2023 History of Presen t illness Narrative This is a 42 year old female who presents today with: Patient presents with: Nerve Pain HISTORY OF PRESENT ILLNESS: Susy Bateman is a 42 year old female. Patient presents with: Nerve Pain Pt presents today with c/o sciatic nerve pain. Refers that she went to urgent care about a month ago. Prescribed prednisone, which didn't work. Has been trying to walk. No injury. Refers frustrated because she can't go to the gym. Refers hurts in the bottom of her right buttock down the posterior leg to her ankle. Refers that she will get some numbness/tingling. No changes of bowel/bladder. No saddle anesthesia. Has been taking ibuprofen 800 mg. Has been working on stretching. PAST MEDICAL HISTORY: PAST MEDICAL HISTORY Diagnosis Date Anal fistula ASTHMA UNSPECIFIED 11/01/2006 Hospitalized in 08-08 for exacerbation: saw Nilda in 09-07 (Peak flows 300 on Advair) PFT 09-07: ratio 59%, FVC 2.49 (61%), FEV1 1.46 (44%)-10% p BD, TLC 3.76 (70%), NL D/VA-mixed CT chest normal in 12-07: ordered by Nilda for possible bronchiectasis IgE 50 (3.5-58), Alpha 1 AT 206 (100-220), Aspergillus Ab neg in 12-07 [facility] rec Xolair in 04-08: omalizumab-IgG monoclonal Ab that binds IgE to prevent Chronic rhinitis 09/01/2007 Rec nasal saline as of 08-12: consider nasal steroids if not satisfied DIARRHEA NOS 06/10/2007 Reportedly symptoms over the previous year from 05-12: eval for an anal fistula per [facility] Gliadin Ab negative in 05-12 ESR 9 in 05-12 NL iron studies in 05-12 No studies done as of 06-12 as the stool was formed O and P negative in 07-12 Fecal leukocytes negative in 07-12: discuss at 08-12 appt IBS (irritable bowel syndrome) 10/17/2009 OBESITY NOS 07/31/2007 TSH 1 in 02-09 Unspecified asthma, with status asthmaticus PAST SURGICAL HISTORY Procedure Laterality Date COLONOSCOPY W/BIOPSY SINGLE/MULTIPLE 12/18/09 FISTULOTOMY SUBCUT anal PAST SURGICAL HISTORY OF staightening pectoral-breast bone SURG TX ANAL FISTULA 2ND STAGE 03/24/2007 TREATMENT OF COLLAPSED LUNG 10/05/13 tx by ALLERGIES Afrin [Oxymetazoline Hcl] and Environmental Allergies [Other] MEDICATIONS Current Outpatient Medications Medication Sig Norethindrone, Contraceptive, (TULANA) 0.35 mg tablet Take 1 tablet by mouth once daily. traZODone (DESYREL) 100 mg tablet Take 2 tablets by mouth daily at bedtime. hyoscyamine SR (LEVBID) 0.375 mg 12 hr tablet take 1 tablet by mouth once daily if needed for IBS FLARES albuterol HFA (VENTOLIN HFA) 90 mcg/actuation inhaler Inhale 2 Puffs as instructed every 6 hours as needed for wheezing/shortness of breath. sertraline (ZOLOFT) 100 mg tablet Take 1 tablet by mouth once daily. albuterol (PROVENTIL) 2.5 mg /3 mL (0.083 %) nebulizer solution Use 3 mL via nebulizer every 4 hours as needed for wheezing/shortness of breath. ONE TREATMENT EVERY 4 HOURS NEEDED buPROPion XL (WELLBUTRIN XL) 300 mg 24 hr tablet Take 1 tablet by mouth once daily. ibuprofen (MOTRIN) 800 mg tablet Take 1 tablet by mouth every 8 hours as needed for pain. Take with food. fluticasone-salmeterol (ADVAIR, WIXELA) 250-50 mcg/dose inhaler Inhale 1 Puff as instructed twice daily. SUMAtriptan (IMITREX) 100 mg tablet Take 1 tablet by mouth as needed when migraine starts. May repeat in 2 hours if headache continues or returns. Do not exceed 2 tablets in 24 hours. Nebulizers Use nebulizer every 4 hours as needed for wheeze/shortness of breath. riboflavin, vitamin B2, 400 mg tab Take 1 tablet by mouth once daily. Nebulizer 1 Each once daily. NEBULIZER/accessories FOR HOME USE. DX: J45.909 Nebulizer Accessories (REUSABLE NEBULIZER KIT) kit 1 Each once daily. NEBULIZERS KIT Nebulizer with accesories. Diagnosis: asthma 493.90 No current facility-administered medications for this visit. FAMILY HISTORY Problem Relation Age of Onset Thyroid Mother graves Hypertension Father Alzheimer's Disease Maternal Grandmother Prostate Cancer Maternal Grandfather Cancer Paternal Grandfather lung Social History Tobacco Use Smoking status: Never Smokeless tobacco: Never Substance Use Topics Alcohol use: Yes Comment: Rarely Drug use: No EXAM: BP 138/80 Pulse 74 Resp 16 Ht 168.9 cm (5' 6.5 ) Wt 112.5 kg (248 lb) LMP 01/13/2023 (Approximate) BMI 39.43 kg/m PHYSICAL EXAM: General Appearance: Well appearing, alert, in no acute distress, well-hydrated, well nourished.. Skin: Skin color, texture, turgor normal, no suspicious rashes or lesions. Head: Normocephalic, no masses, lesions, tenderness or abnormalities. Eyes: Anicteric sclera. Extraocular movements are intact. . Back:no pain to palpation of vertebrae, good flexion and extension, good range of motion, motor and sensory appear to be normal, no evidence of scoliosis. Pain at the bottom of right buttock -- tender to palpate. + SLR. Extremities: No deformities, edema, skin discoloration, clubbing or cyanosis. Good capillary refill. = strength. No foot drop. Neurologic: Gait normal. ASSESSMENT/PLAN: 1. Acute right-sided low back pain with right-sided sciatica - ICD9: 724.2, 724.3, ICD10: M54.41 - Ice for localized tenderness - Warm moist heat for 20 min three times a day - NSAIDS- see orders - Muscle relaxant- see orders Declines physical therapy at this time. Stretching discussed. Update provider in two weeks, sooner if needed or new symptoms. Discussed treatment plan and patient voices understanding. Patient's questions answered appropriately. Medications and potential side effects were discussed and patient voices understanding. Return to the office as scheduled or as needed for worsening/no improvement. Annie Cohen APRN.JEN documented in this encounter [facility] 02-14-2023 Miscellaneous Notes Patient phones requesting refills as follows: Requested Prescriptions Pending Prescriptions Disp Refills hyoscyamine SR (LEVBID) 0.375 mg 12 hr tablet 15 tablet 2 Sig: take 1 tablet by mouth once daily if needed for IBS FLARES Please review and advise. Jp Rubio LPN documented in this encounter [facility] 02-11-2023 Note HNO ID: [id number] Author: Jp Riojas APRN.JEN Service: ? Author Type: Nurse Practitioner Type: Progress Notes Filed: 02/11/2023 5:46 PM Note Text: Subjective HPI Nontoxic-appearing female presents urgent care chief complaint back pain. Duration of symptoms 2 weeks. Associated symptoms right lower back pain. Patient states pain has been staying persistently has worsened over the last few days. Has been using Motrin. This is helped with discomfort. States pain is reproducible. Worse with sitting. Denies any known trauma. Denies any saddle anesthesia incontinence change in bowel or bladder habits. Denies chance is not breast-feeding. Denies any fever body aches chills productive cough chest pain shortness of breath pleuritic pain hemoptysis nausea vomiting abdominal pain change in bowel or bladder habits. Past medical history prescription medication use and allergies reviewed. .Patient presents with: Back Pain: Pt reported lower (RT) back pain x2 wks. PAST MEDICAL HISTORY Diagnosis Date Anal fistula ASTHMA UNSPECIFIED 11/01/2006 Hospitalized in 08-08 for exacerbation: saw Nilda in 09-07 (Peak flows 300 on Advair) PFT 09-07: ratio 59%, FVC 2.49 (61%), FEV1 1.46 (44%)-10% p BD, TLC 3.76 (70%), NL D/VA-mixed CT chest normal in 12-07: ordered by [facility] for possible bronchiectasis IgE 50 (3.5-58), Alpha 1 AT 206 (100-220), [facility] omalizumab-IgG monoclonal Ab that binds IgE to prevent Chronic rhinitis 09/01/2007 Rec nasal saline as of 08-12: consider nasal steroids if not satisfied DIARRHEA NOS 06/10/2007 Reportedly symptoms over the previous year from 05-12: eval for an anal fistula per [facility] Gliadin Ab negative in 05-12 ESR 9 in 05-12 NL iron studies in 05-12 No studies done as of 06-12 as the stool was formed O and P negative in 07-12 Fecal leukocytes negative in 07-12: discuss at 08-12 appt IBS (irritable bowel syndrome) 10/17/2009 OBESITY NOS 07/31/2007 TSH 1 in 02-09 Unspecified asthma, with status asthmaticus PAST SURGICAL HISTORY Procedure Laterality Date COLONOSCOPY W/BIOPSY SINGLE/MULTIPLE 12/18/09 FISTULOTOMY SUBCUT anal PAST SURGICAL HISTORY OF staightening pectoral-breast bone SURG TX ANAL FISTULA 2ND STAGE 03/24/2007 TREATMENT OF COLLAPSED LUNG 10/05/13 tx by ALLERGIES Afrin [Oxymetazoline Hcl] and Environmental Allergies [Other] MEDICATIONS Phentermine HCl (ADIPEX-P) 37.5 mg tablet Take 1 tablet by mouth once daily for 30 days. BMI - 40.95 albuterol HFA (VENTOLIN HFA) 90 mcg/actuation inhaler Inhale 2 Puffs as instructed every 6 hours as needed for wheezing/shortness of breath. hyoscyamine SR (LEVBID) 0.375 mg 12 hr tablet take 1 tablet by mouth once daily if needed for IBS FLARES sertraline (ZOLOFT) 100 mg tablet Take 1 tablet by mouth once daily. traZODone (DESYREL) 100 mg tablet Take 2 tablets by mouth daily at bedtime. albuterol (PROVENTIL) 2.5 mg /3 mL (0.083 %) nebulizer solution Use 3 mL via nebulizer every 4 hours as needed for wheezing/shortness of breath. ONE TREATMENT EVERY 4 HOURS NEEDED buPROPion XL (WELLBUTRIN XL) 300 mg 24 hr tablet Take 1 tablet by mouth once daily. ibuprofen (MOTRIN) 800 mg tablet Take 1 tablet by mouth every 8 hours as needed for pain. Take with food. fluticasone-salmeterol (ADVAIR, WIXELA) 250-50 mcg/dose inhaler Inhale 1 Puff as instructed twice daily. Norethindrone, Contraceptive, (TULANA) 0.35 mg tablet Take 1 tablet by mouth once daily. SUMAtriptan (IMITREX) 100 mg tablet Take 1 tablet by mouth as needed when migraine starts. May repeat in 2 hours if headache continues or returns. Do not exceed 2 tablets in 24 hours. Nebulizers Use nebulizer every 4 hours as needed for wheeze/shortness of breath. riboflavin, vitamin B2, 400 mg tab Take 1 tablet by mouth once daily. Nebulizer 1 Each once daily. NEBULIZER/accessories FOR HOME USE. DX: J45.909 Nebulizer Accessories (REUSABLE NEBULIZER KIT) kit 1 Each once daily. NEBULIZERS KIT Nebulizer with accesories. Diagnosis: asthma 493.90 FAMILY HISTORY Problem Relation Age of Onset Thyroid Mother graves Hypertension Father Alzheimer's Disease Maternal Grandmother Prostate Cancer Maternal Grandfather Cancer Paternal Grandfather lung Social History Tobacco Use Smoking status: Never Smokeless tobacco: Never Substance Use Topics Alcohol use: Yes Comment: Rarely Drug use: No BP 138/84 Pulse 82 Temp 37 ?C (98.6 ?F) (Tympanic) Resp 18 Wt 114.5 kg (252 lb 6.4 oz) LMP 01/13/2023 (Approximate) SpO2 97% BMI 41.68 kg/m? Review of Systems Constitutional: Negative for chills, fever and malaise/fatigue. HENT: Negative for congestion, ear discharge, ear pain, sinus pain and sore throat. Eyes: Negative for blurred vision, pain, discharge and redness. Respiratory: Negative for cough, hemoptysis, sputum production, shortness of breath, wheezing (more content not included)... [facility] 01-22-2023 Note HNO ID: [id number] Author: Annie Cohen APRN.CANE PUSHER Service: ? Author Type: Nurse Practitioner Type: Progress Notes Filed: 01/22/2023 5:14 PM Note Text: CC: Susy Bateman is a 42 year old female who presents for weight loss medication. HPI Currently taking nothing. Going to be starting a new job. Going to be working for [employer]. If DM any hypo/hyperglycemiaNot applicable DIET Serving of fruits:2-3 Servings of vegetables:2-3 Servings of protein:3-4 Fluid intake:Coffee/tea: three times weekly Water: 4 glasses per day Juice: 0 glasses per day Milk: once weekly Soda: 1 can of zero daily Sport Drink: once daily Other: ETOH - rarely: Do you Skip meals:NO Which meals do you tend to skip? Sometimes will skip breakfast if day off. If she eats breakfast, may skip lunch. Food Behaviors: Eat quickly and stress eating. Eating away from home:1-2 times weekly. Nutrition consult placed Not applicable Exercise routine: YES -- walking Weight/BMI Last 1 Encounter Wt Readings: Date: Wt: 01/22/2023 112.5 kg (248 lb) BMI 40.95 kg/(m2) Last visit Wt: 112.9 kg (249 lb) BMI: 41.12 kg/(m2) ROS as above, otherwise non-contributory. Reviewed PMHx, PSHx, social Hx, medications and allergies. PHYSICAL EXAM BP 132/90 Pulse 88 Resp 18 Wt 112.5 kg (248 lb) LMP 12/31/2021 SpO2 98% BMI 40.95 kg/m? General Appearance: well appearing, in no acute distress, alert, obese Pysch: mood and affect broad and appropriate Lungs: Lungs clear to auscultation. No wheezing, rhonchi, rales Heart: RRR without murmur, gallop, or rubs. No ectopy Abdomen: Abdomen soft, non-tender. Bowel sounds normal. No masses, organomegaly ASSESSMENT/PLAN: 1. Obesity, Class III, BMI 40-49.9 (morbid obesity) (HCC) - ICD9: 278.01, ICD10: E66.01 Stable - Pharmacological intervention - PHENTERMINE 37.5 MG TABLET - Continue diet consisting of portion control and healthy choices. - Reduce sugary drinks of artificial juices and sodas and replace with water and low calorie Crystal Light. - Healthy Snack alternatives have been discussed and will attempt more fruits and vegetables. - encouraged 3 meals a day - Continue exercise or meaningful activity for 20 minutes at lest 3 times a week PDMP website checked and validated. All prescriptions have been APPROPRIATELY filled. No suspicious activity was identified. 01/22/2023 by Annie Cohen APRN.JEN - reviewed SE, medication expectations, required weight loss of 5% -- Goal weight -- 235.6 pounds in three months. [facility] 01-22-2023 Instructions Annie Cohen APRN.CNP - 01/22/2023 4:06 PM EDT Recheck in 3 months. documented in this encounter [facility] 01-22-2023 History of Presen t illness Narrative CC: Susy Bateman is a 42 year old female who presents for weight loss medication. HPI Currently taking nothing. Going to be starting a new job. Going to be working for [employer]. If DM any hypo/hyperglycemiaNot applicable DIET Serving of fruits:2-3 Servings of vegetables:2-3 Servings of protein:3-4 Fluid intake:Coffee/tea: three times weekly Water: 4 glasses per day Juice: 0 glasses per day Milk: once weekly Soda: 1 can of zero daily Sport Drink: once daily Other: ETOH - rarely: Do you Skip meals:NO Which meals do you tend to skip? Sometimes will skip breakfast if day off. If she eats breakfast, may skip lunch. Food Behaviors: Eat quickly and stress eating. Eating away from home:1-2 times weekly. Nutrition consult placed Not applicable Exercise routine: YES -- walking Weight/BMI Last 1 Encounter Wt Readings: Date: Wt: 01/22/2023 112.5 kg (248 lb) BMI 40.95 kg/(m^2) Last visit Wt: 112.9 kg (249 lb) BMI: 41.12 kg/(m^2) ROS as above, otherwise non-contributory. Reviewed PMHx, PSHx, social Hx, medications and allergies. PHYSICAL EXAM BP 132/90 Pulse 88 Resp 18 Wt 112.5 kg (248 lb) LMP 12/31/2021 SpO2 98% BMI 40.95 kg/m General Appearance: well appearing, in no acute distress, alert, obese Pysch: mood and affect broad and appropriate Lungs: Lungs clear to auscultation. No wheezing, rhonchi, rales Heart: RRR without murmur, gallop, or rubs. No ectopy Abdomen: Abdomen soft, non-tender. Bowel sounds normal. No masses, organomegaly ASSESSMENT/PLAN: 1. Obesity, Class III, BMI 40-49.9 (morbid obesity) (HCC) - ICD9: 278.01, ICD10: E66.01 Stable - Pharmacological intervention - PHENTERMINE 37.5 MG TABLET - Continue diet consisting of portion control and healthy choices. - Reduce sugary drinks of artificial juices and sodas and replace with water and low calorie Crystal Light. - Healthy Snack alternatives have been discussed and will attempt more fruits and vegetables. - encouraged 3 meals a day - Continue exercise or meaningful activity for 20 minutes at lest 3 times a week PDMP website checked and validated. All prescriptions have been APPROPRIATELY filled. No suspicious activity was identified. 01/22/2023 by Annie Cohen APRN.CANE PUSHER - reviewed SE, medication expectations, required weight loss of 5% -- Goal weight -- 235.6 pounds in three months. documented in this encounter [facility] 12-02-2022 Note HNO ID: [id number] Author: Annie Cohen APRN.JEN Service: ? Author Type: Nurse Practitioner Type: Progress Notes Filed: 12/02/2022 4:36 PM Note Text: CC: Susy Bateman is a 42 year old female who presents for weight loss medication follow up. Also have some right back pain. Around shoulder blade. Some heart burn/indigestion. Started omeprazole. No abdominal pain. No known injury. Mood: Controlled on the wellbutrin and sertraline. Insomnia. Takes trazodone. Still early rises (around 4:30). HPI Currently taking nothing. Starting Month 1 of 3 Interested in restarting adipex. Restart mealplan. If DM any hypo/hyperglycemiaNot applicable DIET Serving of fruits: 2-3 Servings of vegetables: 2 Servings of protein: 3-4. Fluid intake:Coffee/tea: 1 glasses per day sometimes. Water: fills a large container twice (holds two 16 oz bottles). Juice: 0 glasses per day Milk: 1-2 times weekly, unless in protein shake. Soda: 4 ounces daily Sport Drink: 1/2-1 daily (like propel zero). Other: ETOH : 0 glasses per day Do you Skip meals:YES Which meals do you tend to skip? Either breakfast or lunch. Food Behaviors: Eat unitl uncomfortable, Eat when not hungry, Out of control eating, and Binge eating Eating away from home:YES 1 X weekly Nutrition consult placed Not applicable Exercise routine: YES -- going to the gym three times weekly. Weight/BMI Last 1 Encounter Wt Readings: Date: Wt: 12/02/2022 112.9 kg (249 lb) BMI 41.12 kg/(m2) Last visit Wt: 105.7 kg (233 lb) BMI: 38.48 kg/(m2) ROS as above, otherwise non-contributory. Reviewed PMHx, PSHx, social Hx, medications and allergies. PHYSICAL EXAM BP 124/90 Pulse 81 Resp 18 Wt 112.9 kg (249 lb) LMP 12/31/2021 SpO2 96% BMI 41.12 kg/m? General Appearance: well appearing, in no acute distress, alert, obese Pysch: mood and affect broad and appropriate Lungs: Lungs clear to auscultation. No wheezing, rhonchi, rales Heart: RRR without murmur, gallop, or rubs. No ectopy Abdomen: Abdomen soft, non-tender. Bowel sounds normal. No masses, organomegaly Back: some tenderness to palpation of the right thoracic back. ASSESSMENT/PLAN: 1. Obesity, Class III, BMI 40-49.9 (morbid obesity) (HCC) - ICD9: 278.01, ICD10: E66.01 (primary diagnosis) Weight increasing - Pharmacological intervention - PHENTERMINE 37.5 MG TABLET - Continue diet consisting of meal planning. - Reduce sugary drinks of artificial juices and sodas and replace with water and low calorie Crystal Light. - Healthy Snack alternatives have been discussed and will attempt more fruits and vegetables. - encouraged 3 meals a day - Continue exercise or meaningful activity for 20 minutes at lest 3 times a week - reviewed SE, medication expectations, required weight loss of 5%, required monthly monitoring and medication duration of use (3 months on 6 months off) 2. Mild intermittent asthma without complication - ICD9: 493.90, ICD10: J45.20 Mild intermittent Asthma stable - Continue current meds - Avoidance of triggers recommended - ALBUTEROL SULFATE HFA 90 MCG/ACTUATION AEROSOL INHALER 3. Irritable bowel syndrome, unspecified type - ICD9: 564.1, ICD10: K58.9 Stable. Keeps medication on hand for prn use. - HYOSCYAMINE ER 0.375 MG TABLET,EXTENDED RELEASE,12 HR 4. Anxiety with depression - ICD9: 300.4, ICD10: F41.8 Stable. - SERTRALINE 100 MG TABLET 5. Insomnia, unspecified type - ICD9: 780.52, ICD10: G47.00 Improved w/ medication. - TRAZODONE 100 MG TABLET PDMP website checked and validated. All prescriptions have been APPROPRIATELY filled. No suspicious activity was identified. 12/02/2022 by Annie Cohen APRN.CANE PUSHER Discussed treatment plan and patient voices understanding. Patient's questions answered appropriately. Medications and potential side effects were discussed and patient voices understanding. Return to the office as scheduled or as needed for worsening/no improvement. Annie Cohen APRN.CNP [facility] 12-02-2022 Instructions Annie Cohen APRN.JEN - 12/02/2022 4:06 PM EST Start the adipex. Recheck in a month. documented in this encounter [facility] 12-02-2022 History of Presen t illness Narrative CC: Susy Bateman is a 42 year old female who presents for weight loss medication follow up. Also have some right back pain. Around shoulder blade. Some heart burn/indigestion. Started omeprazole. No abdominal pain. No known injury. Mood: Controlled on the wellbutrin and sertraline. Insomnia. Takes trazodone. Still early rises (around 4:30). HPI Currently taking nothing. Starting Month 1 of 3 Interested in restarting adipex. Restart mealplan. If DM any hypo/hyperglycemiaNot applicable DIET Serving of fruits: 2-3 Servings of vegetables: 2 Servings of protein: 3-4. Fluid intake:Coffee/tea: 1 glasses per day sometimes. Water: fills a large container twice (holds two 16 oz bottles). Juice: 0 glasses per day Milk: 1-2 times weekly, unless in protein shake. Soda: 4 ounces daily Sport Drink: 1/2-1 daily (like propel zero). Other: ETOH : 0 glasses per day Do you Skip meals:YES Which meals do you tend to skip? Either breakfast or lunch. Food Behaviors: Eat unitl uncomfortable, Eat when not hungry, Out of control eating, and Binge eating Eating away from home:YES 1 X weekly Nutrition consult placed Not applicable Exercise routine: YES -- going to the gym three times weekly. Weight/BMI Last 1 Encounter Wt Readings: Date: Wt: 12/02/2022 112.9 kg (249 lb) BMI 41.12 kg/(m^2) Last visit Wt: 105.7 kg (233 lb) BMI: 38.48 kg/(m^2) ROS as above, otherwise non-contributory. Reviewed PMHx, PSHx, social Hx, medications and allergies. PHYSICAL EXAM BP 124/90 Pulse 81 Resp 18 Wt 112.9 kg (249 lb) LMP 12/31/2021 SpO2 96% BMI 41.12 kg/m General Appearance: well appearing, in no acute distress, alert, obese Pysch: mood and affect broad and appropriate Lungs: Lungs clear to auscultation. No wheezing, rhonchi, rales Heart: RRR without murmur, gallop, or rubs. No ectopy Abdomen: Abdomen soft, non-tender. Bowel sounds normal. No masses, organomegaly Back: some tenderness to palpation of the right thoracic back. ASSESSMENT/PLAN: 1. Obesity, Class III, BMI 40-49.9 (morbid obesity) (HCC) - ICD9: 278.01, ICD10: E66.01 (primary diagnosis) Weight increasing - Pharmacological intervention - PHENTERMINE 37.5 MG TABLET - Continue diet consisting of meal planning. - Reduce sugary drinks of artificial juices and sodas and replace with water and low calorie Crystal Light. - Healthy Snack alternatives have been discussed and will attempt more fruits and vegetables. - encouraged 3 meals a day - Continue exercise or meaningful activity for 20 minutes at lest 3 times a week - reviewed SE, medication expectations, required weight loss of 5%, required monthly monitoring and medication duration of use (3 months on 6 months off) 2. Mild intermittent asthma without complication - ICD9: 493.90, ICD10: J45.20 Mild intermittent Asthma stable - Continue current meds - Avoidance of triggers recommended - ALBUTEROL SULFATE HFA 90 MCG/ACTUATION AEROSOL INHALER 3. Irritable bowel syndrome, unspecified type - ICD9: 564.1, ICD10: K58.9 Stable. Keeps medication on hand for prn use. - HYOSCYAMINE ER 0.375 MG TABLET,EXTENDED RELEASE,12 HR 4. Anxiety with depression - ICD9: 300.4, ICD10: F41.8 Stable. - SERTRALINE 100 MG TABLET 5. Insomnia, unspecified type - ICD9: 780.52, ICD10: G47.00 Improved w/ medication. - TRAZODONE 100 MG TABLET PDMP website checked and validated. All prescriptions have been APPROPRIATELY filled. No suspicious activity was identified. 12/02/2022 by Annie Cohen APRN.CANE PUSHER Discussed treatment plan and patient voices understanding. Patient's questions answered appropriately. Medications and potential side effects were discussed and patient voices understanding. Return to the office as scheduled or as needed for worsening/no improvement. Annie Cohen APRN.CANE PUSHER documented in this encounter [facility] 09-09-2022 Miscellaneous Notes Opened in error Refills addressed on another encounter documented in this encounter [facility] 09-09-2022 Miscellaneous Notes Patient phones requesting refills as follows: Requested Prescriptions Pending Prescriptions Disp Refills fluticasone-salmeterol (ADVAIR, WIXELA) 250-50 mcg/dose inhaler 3 Each 3 Sig: Inhale 1 Puff as instructed twice daily. BASILIO-02/04/22 Labs-04/03/21 NOV-none med filled 04/09/22 Please review and advise. Florecita Dowd LPN documented in this encounter [facility] 09-09-2022 Miscellaneous Notes Patient phones requesting refills as follows: Requested Prescriptions Pending Prescriptions Disp Refills buPROPion XL (WELLBUTRIN XL) 300 mg 24 hr tablet 90 tablet 3 Sig: Take 1 tablet by mouth once daily. albuterol HFA (VENTOLIN HFA) 90 mcg/actuation inhaler 18 g 5 Sig: Inhale 2 Puffs as instructed every 6 hours as needed for wheezing/shortness of breath. hyoscyamine SR (LEVBID) 0.375 mg 12 hr tablet 15 tablet 2 Sig: take 1 tablet by mouth once daily if needed for IBS FLARES sertraline (ZOLOFT) 100 mg tablet 30 tablet 1 Sig: Take 1 tablet by mouth once daily. ibuprofen (MOTRIN) 800 mg tablet 60 tablet 1 Sig: Take 1 tablet by mouth every 8 hours as needed for pain. Take with food. traZODone (DESYREL) 100 mg tablet 60 tablet 2 Sig: Take 2 tablets by mouth daily at bedtime. BASILIO-02/04/22 Labs-04/03/21 NOV-none Please review and advise. Florecita Dowd LPN documented in this encounter [facility] 06-12-2022 Miscellaneous Notes Last office visit: 02/24/22 Next appointment scheduled: not scheduled as of this time Patient has been identified by name and date of : Yes Requested Prescriptions Pending Prescriptions Disp Refills traZODone (DESYREL) 100 mg tablet 60 tablet 2 Sig: Take 2 tablets by mouth daily at bedtime. RX INSTRUCTIONS: Patient aware RX will be sent to pharmacy. No need to notify patient. Fiona Lemons Pss documented in this encounter [facility] 05-27-2022 Miscellaneous Notes Patient phones requesting refills as follows: Requested Prescriptions Pending Prescriptions Disp Refills ibuprofen (MOTRIN) 800 mg tablet 60 tablet 1 Sig: Take 1 tablet by mouth every 8 hours as needed for pain. Take with food. BASILIO 02/04/22 NOV no upcoming appt Please review and advise. Jp Rubio LPN documented in this encounter [facility] 01-07-2022 Instructions Annie Cohen APRN.JEN - 01/07/2022 2:47 PM EDT 1. Increase the zoloft to 100 mg daily. 2. Continue the adipex. 3. Recheck in 1 month. documented in this encounter [facility] 01-07-2022 History of Presen t illness Narrative This is a 41 year old female who presents today with: Patient presents with: Recheck: 1 month follow up Adipex HISTORY OF PRESENT ILLNESS: Susy Bateman is a 41 year old female. Patient presents with: Recheck: 1 month follow up Adipex Pt presents today for adipex follow-up. Her weight is down about 2-1/2 pounds. She reports that this is been a stressful month. She has had some relationship issues with a potential boyfriend. She also had a of an acquaintance. She has been working 6 days a week. She continues to try to work on diet and exercise. She did change from the Prozac to the sertraline. She does feel that this is sometimes beneficial and sometimes not beneficial. PAST MEDICAL HISTORY: PAST MEDICAL HISTORY Diagnosis Date Anal fistula ASTHMA UNSPECIFIED 11/01/2006 Hospitalized in 08-08 for exacerbation: saw Nilda in 09-07 (Peak flows 300 on Advair) PFT 09-07: ratio 59%, FVC 2.49 (61%), FEV1 1.46 (44%)-10% p BD, TLC 3.76 (70%), NL D/VA-mixed CT chest normal in 12-07: ordered by Nilda for possible bronchiectasis IgE 50 (3.5-58), Alpha 1 AT 206 (100-220), Aspergillus Ab neg in 12-07 Leano rec Xolair in 04-08: omalizumab-IgG monoclonal Ab that binds IgE to prevent Chronic rhinitis 09/01/2007 Rec nasal saline as of 08-12: consider nasal steroids if not satisfied DIARRHEA NOS 06/10/2007 Reportedly symptoms over the previous year from 05-12: eval for an anal fistula per [facility] Gliadin Ab negative in 05-12 ESR 9 in 05-12 NL iron studies in 05-12 No studies done as of 06-12 as the stool was formed O and P negative in 07-12 Fecal leukocytes negative in 07-12: discuss at 08-12 appt IBS (irritable bowel syndrome) 10/17/2009 OBESITY NOS 07/31/2007 TSH 1 in 02-09 Unspecified asthma, with status asthmaticus PAST SURGICAL HISTORY Procedure Laterality Date COLONOSCOPY W/BIOPSY SINGLE/MULTIPLE 12/18/09 FISTULOTOMY SUBCUT anal PAST SURGICAL HISTORY OF staightening pectoral-breast bone SURG TX ANAL FISTULA 2ND STAGE 03/24/2007 TREATMENT OF COLLAPSED LUNG 10/05/13 tx by ALLERGIES Afrin [Oxymetazoline Hcl] and Environmental Allergies [Other] MEDICATIONS Current Outpatient Medications Medication Sig buPROPion XL (WELLBUTRIN XL) 300 mg 24 hr tablet Take 1 tablet by mouth once daily. sertraline (ZOLOFT) 50 mg tablet Week one: Take prozac 20 mg and sertraline 25 mg; Week two: Take prozac 10 mg and sertraline 50 mg; Week three: Stop the prozac and continue on the sertraline 50 mg. SUMAtriptan (IMITREX) 100 mg tablet Take 1 tablet by mouth as needed when migraine starts. May repeat in 2 hours if headache continues or returns. Do not exceed 2 tablets in 24 hours. traZODone (DESYREL) 100 mg tablet Take 2 tablets by mouth daily at bedtime. ibuprofen (MOTRIN) 800 mg tablet Take 1 tablet by mouth every 8 hours as needed for pain. Take with food. hyoscyamine SR (LEVBID) 0.375 mg 12 hr tablet take 1 tablet by mouth once daily if needed for IBS FLARES benzonatate (TESSALON PERLE) 100 mg capsule Take 1-2 capsules by mouth three times daily as needed for cough. albuterol HFA (VENTOLIN HFA) 90 mcg/actuation inhaler Inhale 2 Puffs as instructed every 6 hours as needed for wheezing/shortness of breath. Norethindrone, Contraceptive, (TULANA) 0.35 mg tablet Take 1 tablet by mouth once daily. fluticasone-salmeterol (ADVAIR, WIXELA) 250-50 mcg/dose Inhale 1 Puff as instructed twice daily. albuterol (PROVENTIL) 2.5 mg /3 mL (0.083 %) nebulizer solution Use 3 mL via nebulizer every 4 hours as needed for Wheezing/Shortness of Breath. ONE TREATMENT EVERY 4 HOURS NEEDED Nebulizers Use nebulizer every 4 hours as needed for wheeze/shortness of breath. Nebulizer 1 Each once daily. NEBULIZER/accessories FOR HOME USE. DX: J45.909 Nebulizer Accessories (REUSABLE NEBULIZER KIT) kit 1 Each once daily. NEBULIZERS KIT Nebulizer with accesories. Diagnosis: asthma 493.90 FLUoxetine (PROZAC) 10 mg capsule Week one: Take prozac 20 mg and sertraline 25 mg; Week two: Take prozac 10 mg and sertraline 50 mg; Week three: Stop the prozac and continue on the sertraline 50 mg. spironolactone (ALDACTONE) 50 mg tablet Take 1 tablet by mouth twice daily. riboflavin, vitamin B2, 400 mg tab Take 1 tablet by mouth once daily. No current facility-administered medications for this visit. FAMILY HISTORY Problem Relation Age of Onset Thyroid Mother graves Hypertension Father Alzheimer's Disease Maternal Grandmother Prostate Cancer Maternal Grandfather Cancer Paternal Grandfather lung Social History Tobacco Use Smoking status: Never Smoker Smokeless tobacco: Never Used Substance Use Topics Alcohol use: Yes Comment: Rarely Drug use: No EXAM: BP 150/82 Pulse 83 Resp 18 Wt 108.9 kg (240 lb) LMP 12/31/2021 SpO2 98% BMI 39.63 kg/m PHYSICAL EXAM: General Appearance: Well appearing, alert, in no acute distress, well-hydrated, well nourished.. Skin: Skin color, texture, turgor normal, no suspicious rashes or lesions. Head: Normocephalic, no masses, lesions, tenderness or abnormalities. Eyes: Anicteric sclera. Extraocular movements are intact.. Lungs: Lungs clear to auscultation. No wheezing, rhonchi, rales.. Heart: RRR without murmur, gallop, or rubs. No ectopy. Neurologic: Gait normal. ASSESSMENT/PLAN: 1. Obesity (BMI 35.0-39.9 without comorbidity) - ICD9: 278.00, ICD10: E66.9 (primary diagnosis) Weight decreasing - Pharmacological intervention and - Continue current medications - PHENTERMINE 37.5 MG TABLET Recheck in 1 month. 2. Mild intermittent asthma without complication - ICD9: 493.90, ICD10: J45.20 Mild intermittent Asthma stable - Continue current meds - Avoidance of triggers recommended - FLUTICASONE 250 MCG-SALMETEROL 50 MCG/DOSE BLISTR POWDR FOR INHALATION - ALBUTEROL SULFATE HFA 90 MCG/ACTUATION AEROSOL INHALER 3. Anxiety with depression - ICD9: 300.4, ICD10: F41.8 We will go ahead and increase sertraline to 100 mg daily. Recheck in 1 month. - SERTRALINE 100 MG TABLET 4. Foot pain, left - ICD9: 729.5, ICD10: M79.672 Refill: - IBUPROFEN 800 MG TABLET 5. Insomnia, unspecified type - ICD9: 780.52, ICD10: G47.00 Refill: - TRAZODONE 100 MG TABLET 6. Other migraine without status migrainosus, not intractable - ICD9: 346.80, ICD10: G43.809 Refill: - SUMATRIPTAN 100 MG TABLET 7. Irritable bowel syndrome, unspecified type - ICD9: 564.1, ICD10: K58.9 Refill: - HYOSCYAMINE ER 0.375 MG TABLET,EXTENDED RELEASE,12 HR Discussed treatment plan and patient voices understanding. Patient's questions answered appropriately. Medications and potential side effects were discussed and patient voices understanding. Return to the office as scheduled or as needed for worsening/no improvement. Annie Cohen APRN.JEN This note was partially generated using [employer] voice recognition system. Note was reviewed for accuracy. There may be minor misspellings or grammar miscues with [employer] voice recognition. documented in this encounter [facility] documented as of this encounter (statuses as of 01/08/2022) [facility]10-26-2007 History of Past illness Narrative* Problem Noted Date Resolved Date Obesity, Class III, BMI 40-49.9 (morbid obesity) 07/31/2007 05/26/2018 Overview: TSH 1 in 02-09 Last Assessment & Plan: Has lost 60 pounds In the last year which was intentional. Spoke to her about her current plateau as she wants to reduce weight. Spoke about portions sizs, carbs. She is doing really good. Routine general medical exam ination at a health care facility 06/10/2007 03/01/2014 Overview: Creat 0.8 in 05-12 Plans to get her Flu shot at [facility] as of 08-12 Strep positive in 12-11: [place] treated with Augmentin PPD negative in 10-14 Anal fistula 11/18/2006 09/26/2009 Overview: [facility] did anterior fisulotomy on 12-05-06 and 03-24-07 (loose stool preceded this) documented as of this encounter (statuses as of 05/20/2022) [facility] History of Past illness Narrative* Problem Noted Date Resolved Date Obesity, Class III, BMI 40-49.9 (morbid obesity) 07/31/2007 05/26/2018 Overview: TSH 1 in 02-09 Last Assessment & Plan: Has lost 60 pounds In the last year which was intentional. Spoke to her about her current plateau as she wants to reduce weight. Spoke about portions sizs, carbs. She is doing really good. Routine general medical exam ination at a [facility] care facility 06/10/2007 03/01/2014 Overview: Creat 0.8 in 05-12 Plans to get her Flu shot at [facility] as of 08-12 Strep positive in 12-11: [place] treated with Augmentin PPD negative in - Anal fistula 11/18/2006 09/26/2009 Overview: [place] did anterior fisulotomy on 12-05-06 and 03-24-07 (loose stool preceded this) documented as of this encounter (statuses as of 05/27/2022) [facility]10-26-2007 History of Past illness Narrative* Problem Noted Date Resolved Date Obesity, Class III, BMI 40-49.9 (morbid obesity) 07/31/2007 05/26/2018 Overview: TSH 1 in 02-09 Last Assessment & Plan: Has lost 60 pounds In the last year which was intentional. Spoke to her about her current plateau as she wants to reduce weight. Spoke about portions sizs, carbs. She is doing really good. Routine general medical exam ination at a health care facility 06/10/2007 03/01/2014 Overview: Creat 0.8 in 05-12 Plans to get her Flu shot at [facility] as of 08-12 Strep positive in 12-11: [place] treated with Augmentin PPD negative in - Anal fistula 11/18/2006 09/26/2009 Overview: [place] did anterior fisulotomy on 12-05-06 and 03-24-07 (loose stool preceded this) documented as of this encounter (statuses as of 06/12/2022) [facility]10-26-2007 History of Past illness Narrative* Problem Noted Date Resolved Date Obesity, Class III, BMI 40-49.9 (morbid obesity) 07/31/2007 05/26/2018 Overview: TSH 1 in 02-09 Last Assessment & Plan: Has lost 60 pounds In the last year which was intentional. Spoke to her about her current plateau as she wants to reduce weight. Spoke about portions sizs, carbs. She is doing really good. Routine general medical exam ination at a [facility] care facility 06/10/2007 03/01/2014 Overview: Creat 0.8 in 05-12 Plans to get her Flu shot at [facility] as of 08-12 Strep positive in 08: [place] treated with Augmentin PPD negative in - Anal fistula 11/18/2006 09/26/2009 Overview: [place] did anterior fisulotomy on 12-05-06 and 03-24-07 (loose stool preceded this) documented as of this encounter (statuses as of 09/09/2022) [facility]10-[facility]-2007 History of Past illness Narrative* Problem Noted Date Resolved Date Obesity, Class III, BMI 40-49.9 (morbid obesity) 07/31/2007 05/26/2018 Overview: TSH 1 in 02-09 Last Assessment & Plan: Has lost 60 pounds In the last year which was intentional. Spoke to her about her current plateau as she wants to reduce weight. Spoke about portions sizs, carbs. She is doing really good. Routine general medical exam ination at a health care facility 06/10/2007 03/01/2014 Overview: Creat 0.8 in 8- Plans to get her Flu shot at [facility] as of 08-12 Strep positive in 3-08: [place] treated with Augmentin PPD negative in 1- Anal fistula 11/18/2006 09/26/2009 Overview: [place] did anterior fisulotomy on 12-05-06 and 03-24-07 (loose stool preceded this) documented as of this encounter (statuses as of 09/09/2022) [facility]2007 History of Past illness Narrative* Problem Noted Date Resolved Date Obesity, Class III, BMI 40-49.9 (morbid obesity) 07/31/2007 05/26/2018 Overview: TSH 1 in 02-09 Last Assessment & Plan: Has lost 60 pounds In the last year which was intentional. Spoke to her about her current plateau as she wants to reduce weight. Spoke about portions sizs, carbs. She is doing really good. Routine general medical exam ination at a health care facility 06/10/2007 03/01/2014 Overview: Creat 0.8 in 05-12 Plans to get her Flu shot at [facility] as of 08-12 Strep positive in 3-08: [place] treated with Augmentin PPD negative in 1- Anal fistula 11/18/2006 09/26/2009 Overview: [place] did anterior fisulotomy on 12-05-06 and 03-24-07 (loose stool preceded this) documented as of this encounter (statuses as of 09/09/2022) [facility]2007 History of Past illness Narrative* Problem Noted Date Resolved Date Obesity, Class III, BMI 40-49.9 (morbid obesity) 07/31/2007 05/26/2018 Overview: TSH 1 in 02-09 Last Assessment & Plan: Has lost 60 pounds In the last year which was intentional. Spoke to her about her current plateau as she wants to reduce weight. Spoke about portions sizs, carbs. She is doing really good. Routine general medical exam ination at a health care facility 06/10/2007 03/01/2014 Overview: Creat 0.8 in 05-12 Plans to get her Flu shot at [facility] as of 08-12 Strep positive in 12-11: [place] treated with Augmentin PPD negative in 10-14 Anal fistula 11/18/2006 09/26/2009 Overview: [place] did anterior fisulotomy on 12-05-06 and 03-24-07 (loose stool preceded this) documented as of this encounter (statuses as of 09/09/2022) [facility]2007 History of Past illness Narrative* Problem Noted Date Resolved Date Obesity, Class III, BMI 40-49.9 (morbid obesity) 07/31/2007 05/26/2018 Overview: TSH 1 in 02-09 Last Assessment & Plan: Has lost 60 pounds In the last year which was intentional. Spoke to her about her current plateau as she wants to reduce weight. Spoke about portions sizs, carbs. She is doing really good. Routine general medical exam ination at a health care facility 06/10/2007 03/01/2014 Overview: Creat 0.8 in 05-12 Plans to get her Flu shot at [facility] as of 08-12 Strep positive in 12-11: [place] treated with Augmentin PPD negative in 10-14 Anal fistula 11/18/2006 09/26/2009 Overview: [place] did anterior fisulotomy on 12-05-06 and 03-24-07 (loose stool preceded this) documented as of this encounter (statuses as of 12/03/2022) [facility]2007 History of Past illness Narrative* Problem Noted Date Resolved Date Obesity, Class III, BMI 40-49.9 (morbid obesity) 07/31/2007 05/26/2018 Overview: TSH 1 in 02-09 Last Assessment & Plan: Has lost 60 pounds In the last year which was intentional. Spoke to her about her current plateau as she wants to reduce weight. Spoke about portions sizs, carbs. She is doing really good. Routine general medical exam ination at a health care facility 06/10/2007 03/01/2014 Overview: Creat 0.8 in 05-12 Plans to get her Flu shot at [facility] as of 08-12 Strep positive in 12-11: [place] treated with Augmentin PPD negative in 10-14 Anal fistula 11/18/2006 09/26/2009 Overview: [place] did anterior fisulotomy on 12-05-06 and 03-24-07 (loose stool preceded this) documented as of this encounter (statuses as of 01/23/2023) [facility] History of Past illness Narrative* Problem Noted Date Resolved Date Obesity, Class III, BMI 40-49.9 (morbid obesity) 07/31/2007 05/26/2018 Overview: TSH 1 in 02-09 Last Assessment & Plan: Has lost 60 pounds In the last year which was intentional. Spoke to her about her current plateau as she wants to reduce weight. Spoke about portions sizs, carbs. She is doing really good. Routine general medical exam ination at a health care facility 06/10/2007 03/01/2014 Overview: Creat 0.8 in 05-12 Plans to get her Flu shot at [facility] as of 08-12 Strep positive in 3-08: [place] treated with Augmentin PPD negative in 10-14 Anal fistula 11/18/2006 09/26/2009 Overview: [place] did anterior fisulotomy on 12-05-06 and 03-24-07 (loose stool preceded this) documented as of this encounter (statuses as of 02/14/2023) [facility]2007 History of Past illness Narrative* Problem Noted Date Resolved Date Obesity, Class III, BMI 40-49.9 (morbid obesity) 07/31/2007 05/26/2018 Overview: TSH 1 in 02-09 Last Assessment & Plan: Has lost 60 pounds In the last year which was intentional. Spoke to her about her current plateau as she wants to reduce weight. Spoke about portions sizs, carbs. She is doing really good. Routine general medical exam ination at a [facility] care facility 06/10/2007 03/01/2014 Overview: Creat 0.8 in 05-12 Plans to get her Flu shot at [facility] as of 08-12 Strep positive in 12-11: [place] treated with Augmentin PPD negative in 10-14 Anal fistula 11/18/2006 09/26/2009 Overview: [place] did anterior fisulotomy on 12-05-06 and 03-24-07 (loose stool preceded this) documented as of this encounter (statuses as of 04/01/2023) [facility] History of Past illness Narrative* Problem Noted Date Diagnosed Date Resolved Date Obesity, Class III, BMI 40-4 9.9 (morbid obesity) 07/31/2007 05/26/2018 Overview: TSH 1 in 02-09 Last Assessment & Plan: Has lost 60 pounds In the last year which was intentional. Spoke to her about her current plateau as she wants to reduce weight. Spoke about portions sizs, carbs. She is doing really good. Routine general medical exam ination at a health care facility 06/10/2007 03/01/2014 Overview: Creat 0.8 in 8- Plans to get her Flu shot at [facility] as of 08-12 Strep positive in 12-11: [place] treated with Augmentin PPD negative in 10-14 Anal fistula 11/18/2006 09/26/2009 Overview: [place] did anterior fisulotomy on 12-05-06 and 03-24-07 (loose stool preceded this) documented as of this encounter (statuses as of 11/16/2023) [facility] Diagnosis Obesity (BMI 35.0-39.9 without comorbidity)- Primary Obesity, unspecified Mild intermittent asthma without complication Unspecified asthma Anxiety with depression Foot pain, left Pain in limb Insomnia, unspecified type Other migraine without status migrainosus, not intractable Irritable bowel syndrome, unspecified type documented in this encounter [facility] note* Diagnosis Encounter for screening mammogram for breast cancer documented in this encounter [facility] note* Diagnosis Foot pain, left Pain in limb [facility]* Diagnosis Insomnia, unspecified type documented in this encounter [facility] note* Diagnosis Mild intermittent asthma without complication Unspecified asthma [facility] Diagnosis Anxiety with depression Mild intermittent asthma without complication Unspecified asthma Irritable bowel syndrome, unspecified type Foot pain, left Pain in limb Insomnia, unspecified type [facility] Diagnosis Obesity, Class III, BMI 40-49.9 (morbid obesity) (HCC)- Primary Morbid obesity Mild intermittent asthma without complication Unspecified asthma Irritable bowel syndrome, unspecified type Anxiety with depression Insomnia, unspecified type documented in this encounter [facility] note* Diagnosis Obesity, Class III, BMI 40-49.9 (morbid obesity) (HCC) Morbid obesity [facility] Diagnosis Irritable bowel syndrome, unspecified type documented in this encounter [facility] note* Diagnosis Acute right-sided low back pain with right-sided sciatica- Primary documented in this encounter [facility] for referral (narrative)* Diagnostic Procedure Only (Routine) - Pending Review Specialty Diagnoses / Procedures Referred By Contmerrill t Referred To Contact [facility] Diagnoses Encounter for screening mammogram for breast cancer Procedures BG SCREENING SCREENING MAMMOGRAPHY BI 2-VIEW BREAST INC Annie Mensah, POLISHER EYEGLASS FRAMES.CANE PUSHER [address] [place] [address] [facility] [address] [place] [address] Referral ID Status Reason Start Date Expiration Date Visits Requested Visits Authorized [id number] Pending Review Auto-Generat ed Referral 05/15/2022 06/14/2023 1 1 [facility] Reason for Referral Specialty Diagnoses / Procedures Referred By Jake lopez Referred To Contact Diagnoses Mild intermittent asthma without complication Annie Cohen APRN.CNP [address] [place] [address] Referral ID Status Reason Start Date Expiration Date Visits Re quested Visits Authorized [id number] Closed 1 1 Referral ID Status Reason Start Date Expiration Date Visits Re quested Visits Authorized [id number] Closed 1 1 Advance Directives Documents on File Type Date Recorded 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 Advance Directive(s) Summary Purpose Family History No Family History Records Found Additional Source Comments Source Comments (unrecognize d section and content) In the event this informatio n is protected by the Federal Confidentiality of Alcohol and Drug Abuse Patient Records regulations: The Federal rules restrict any use of the information to criminally investigate or prosecute any alcohol or drug abuse patient.[facility] this information is protected by the Federal Confidentiality of Alcohol and Drug Abuse Patient Records regulations: The Federal rules restrict any use of the information to criminally investigate or prosecute any alcohol or drug abuse patient.[facility] event this information is protected by the Federal Confidentiality of Alcohol and Drug Abuse Patient Records regulations: The Federal rules restrict any use of the information to criminally investigate or prosecute any alcohol or drug abuse patient.[facility] event this information is protected by the Federal Confidentiality of Alcohol and Drug Abuse Patient Records regulations: The Federal rules restrict any use of the information to criminally investigate or prosecute any alcohol or drug abuse patient.[facility] event this information is protected by the Federal Confidentiality of Alcohol and Drug Abuse Patient Records regulations: The Federal rules restrict any use of the information to criminally investigate or prosecute any alcohol or drug abuse patient.[facility] event this information is protected by the Federal Confidentiality of Alcohol and Drug Abuse Patient Records regulations: The Federal rules restrict any use of the information to criminally investigate or prosecute any alcohol or drug abuse patient.[facility] event this information is protected by the Federal Confidentiality of Alcohol and Drug Abuse Patient Records regulations: The Federal rules restrict any use of the information to criminally investigate or prosecute any alcohol or drug abuse patient.[facility] event this information is protected by the Federal Confidentiality of Alcohol and Drug Abuse Patient Records regulations: The Federal rules restrict any use of the information to criminally investigate or prosecute any alcohol or drug abuse patient.[facility] event this information is protected by the Federal Confidentiality of Alcohol and Drug Abuse Patient Records regulations: The Federal rules restrict any use of the information to criminally investigate or prosecute any alcohol or drug abuse patient.[facility] the event this information is protected by the Federal Confidentiality of Alcohol and Drug Abuse Patient Records regulations: The Federal rules restrict any use of the information to criminally investigate or prosecute any alcohol or drug abuse patient.[facility] event this information is protected by the Federal Confidentiality of Alcohol and Drug Abuse Patient Records regulations: The Federal rules restrict any use of the information to criminally investigate or prosecute any alcohol or drug abuse patient.[facility] event this information is protected by the Federal Confidentiality of Alcohol and Drug Abuse Patient Records regulations: The Federal rules restrict any use of the information to criminally investigate or prosecute any alcohol or drug abuse patient.[facility] event this information is protected by the Federal Confidentiality of Alcohol and Drug Abuse Patient Records regulations: The Federal rules restrict any use of the information to criminally investigate or prosecute any alcohol or drug abuse patient.[facility] Reason for Visit (unrecogniz ed section and content) Reason Onset Date Comments Refill Request 05/26/2022 Reason Onset Date Comments Refill Request 06/12/2022 Reason Comments Opened In Error Reason Onset Date Comments Refill Request 09/07/2022 Reason Comments Recheck Adipex refill Reason Onset Date Comments Refill Request 02/12/2023 Reason Comments Nerve Pain Care Teams (unrecognized sec tion and content) [employer]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 End Date Annie Cohen, POLISHER EYEGLASS FRAMES.CANE PUSHER [address] [facility] [place] [address] PCP - General Family Practice 02/22/19 [employer]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 End Date Annie Cohen, POLISHER EYEGLASS FRAMES.CANE PUSHER [address] [place] [address] PCP - General Family Practice 02/22/19 [employer]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 End Date Annie Cohen, POLISHER EYEGLASS FRAMES.CANE PUSHER [address] [place] [address] PCP - General Family Practice 02/22/19 [employer]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 End Date Annie Cohen, POLISHER EYEGLASS FRAMES.CANE PUSHER [address] [place] [address] PCP - General Family Medicine 02/22/19 [employer]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 End Date Annie Cohen, POLISHER EYEGLASS FRAMES.CANE PUSHER [address] [facility] [place] [address] PCP - General Family Medicine 02/22/19 [employer]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 End Date Annie Cohen, POLISHER EYEGLASS FRAMES.CANE PUSHER [address] [facility] [place] [address] PCP - General Family Medicine 02/22/19 [employer]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 End Date Annie Cohen, POLISHER EYEGLASS FRAMES.CANE PUSHER [address] [facility] [place] [address] PCP - General Family Medicine 02/22/19 [employer]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 End Date Annie Cohen, POLISHER EYEGLASS FRAMES.CANE PUSHER [address] [place] [address] PCP - General Family Medicine 02/22/19 [employer]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 This clinical summary was aggregated from multiple sources. Caution should be exercised in using it in the provision of clinical care. This summary normalizes information from multiple sources, and as a consequence, information in this document may materially change the coding, format and clinical context of patient data. In addition, data may be omitted in some cases. CLINICAL DECISIONS SHOULD BE BASED ON THE PRIMARY CLINICAL RECORDS. [facility]. provides no warranty or guarantee of the accuracy or completeness of information in this document.
[2023-11-28 07:41] LABS: Absolute Lymphocyte Count 1.77 X10^3/uL (0.83-4.51); Absolute Neutrophil Count 4.7 X10^3/uL (2.0-7.7); Basophil# 0.04 X10^3/uL; Basophil% 0.6 % (0-1); Eosinophil# 0.06 X10^3/uL; Eosinophils% 0.9 % (0-5); Hematocrit 39.3 % (37-47); Hemoglobin 12.4 g/dL (12.0-15.0); Lymphocyte # 1.77 X10^3/ul (0.83-4.51); Lymphocyte % 25.2 % (19-41); Mean Corp Hgb Conc 31.6 g/dL (32-36); Mean Corpuscular Hgb 27.3 pg (27.0-32.0); Mean Corpuscular Volume 86.4 fL (81-99); Mean Platelet Vol. 8.8 fl (6.2-12.0); Monocyte# 0.46 X10^3/uL; Monocyte% 6.5 % (0-10); NRBC Flagged by Analyzer 0 % (0-5); Neutrophil # 4.67 X10^3/uL (2.7-7.7); Neutrophil % 66.4 % (47-70); Platelet Count 249 K/mm3 (150-450); Red Blood Count 4.55 M/mm3 (4.2-5.4)
[2023-11-28 08:00] LABS: ALB/GLOB Ratio 0.9 RATIO (0.9-2.4); AST(SGOT) 10 U/L (15-37); Alanine Aminotransfer ALT/SGPT 21 U/L (13-56); Albumin, Serum 3.3 g/dL (3.2-5.0); Alkaline Phosphatase 72 U/L (45-117); Anion Gap 3 (5-15); BUN 13 mg/dL (7-18); BUN/Creat Ratio 14.6 RATIO (10-20); Calcium,Total 8.5 mg/dL (8.5-10.1); Chloride 108 mmol/L (98-107); Cholesterol 160 mg/dL (200); Creatinine, Serum 0.89 mg/dL (0.55-1.02); EST Glomerular Filtration Rate 74 mL/min (>60); Est Glom Filt Rate - Afr Amer 90 mL/min (>60); Globulin 3.6 g/dL (2.2-4.2); Glucose 130 mg/dL (74-106); High Density Lipoprotein 44 mg/dL; Potassium 4.2 mmol/L (3.5-5.1); Protein, Total 6.9 g/dL (6.4-8.2); Sodium Level 140 mmol/L (136-145); Thyroid Stim Hormone (TSH) 1.56 uIU/mL (0.358-3.74); Triglycerides 74 mg/dL; Very Low Density Lipoprotein 15 mg/dL (5-40)
[2023-11-28 08:07] LABS: Hemoglobin A1c 5.7 % (3.8-5.6)
== END | disposition home or self-care (01) ==
LOC: LAB 07:08
PROVIDERS: PCP Registered Nurse; Referring Provider Registered Nurse; Visit Provider Registered Nurse
DX: E66.01 Morbid (severe) obesity due to excess calories (principal); Z68.41 Body mass index [BMI] 40.0-44.9, adult; F41.8 Other specified anxiety disorders
CPT/HCPCS: 36415; 80053; 80061; 83036; 84443; 85025

== ENCOUNTER → 2023-12-09 | Outpatient (CLI) | payer OTHER, SELFPAY ==
--- OUTSIDE RECORDS SUMMARY | 2023-12-09 09:59 | XMS RPT_ITS | CCD ---
Author Name Unknown Address [address] [place] [address] Organization [facility] Care Team Providers Care Foreign Exchange Student Coordinator Name Role Phone Noel CONTENT PRODUCTION SPECIALIST.JEN, Annie Primary Care Provider ANNIE COHEN Attending Unavailable HAAGEN, ANNIE Primary Care Unavailable HAAGEN, ANNIE Primary Care Unavailable HAJOLYNN, ANNIE Attending Unavailable HAAGEN, ANNIE Primary Care Unavailable HAAGEN, ANNIE Referring Unavailable HAAGEN, ANNIE Primary Care Unavailable STEPHANIE GAYLE Attending Unavailable HAAGEN, ANNIE Primary Care Unavailable HAAGEN, ANNIE Attending Unavailable HAAGEN, ANNIE Attending Unavailable HAAGEN, ANNIE Primary Care Unavailable Allergies Allergy Classification Reported Allergen(s) Allergy Type Date of Onset Reaction(s) Facility (15 sources) Oxymetazoline; Translations: [OXYMETAZOLINE HCL] Drug Allergy 0 Swelling [facility] Work Phone: (12 sources) Environmental allergies [Other] Propensity to adverse reactions 6 [facility] (3 sources) Grass pollen; Translations: [GRASS POLLEN] Propensity to adverse reactions to drug 4 Other: See Comments [facility] (3 sources) Oxymetazoline; Translations: [OXYMETAZOLINE] Drug Allergy 3 Shortness of Breath [facility] (3 sources) Ragweed pollen; Translations: [RAGWEED POLLEN] Propensity to adverse reactions to drug 4 Other: See Comments [facility] (3 sources) Cat Dander; Translations: [CAT DANDER] Propensity to adverse reactions to drug 4 Other: See Comments [facility] (3 sources) Dog Dander; Translations: [DOG DANDER] Propensity to adverse reactions to drug 4 Other: See Comments [facility] (1 source) OTHER; Translations: [OTHER] Propensity to adverse reactions (disorder) 6 [facility] Repository Medications Current Medications Medication [...] / HYDROcodone bitartrate 5 mg oral tablet (2 sources) Opioid Agonist Start: 06-30-2023 HYDROcodone-aceta minophen (NORCO) 5-325 mg per tablet [id number] 200 actuat albuterol 0.09 mg/actuat metered dose [...] Date Documented Da te Episodic/Chronic Anxiety disorders (5 sources) Mixed anxiety and depressive disorder; Translations: [Other specified anxiety disorders] Onset: 3 Chronic Asthma (18 sources) Mild intermittent asthma; Translations: [Mild intermittent asthma, uncomplicated] Onset: 7 Chronic Diabetes mellitus without complication (1 source) Impaired fasting glucose; Translations: [Elevated fasting glucose] Onset: 4 Episodic Esophageal disorders (1 source) Gastroesophageal reflux disease; Translations: [Gastro-esophageal reflux disease without esophagitis] 11-28-2023 Chronic Headache; including migraine (3 sources) Migraine; Translations: [Other migraine, not intractable, without status migrainosus] Onset: 4 Chronic Headache; including migraine (1 source) Morning headache; Translations: [Morning headache] 11-28-2023 Episodic Malaise and fatigue (1 source) Malaise and fatigue; Translations: [Other malaise] 11-28-2023 Episodic Other circulatory disease (1 source) Elevated blood-pressure reading, without diagnosis of hypertension; Translations: [Elevated blood pressure reading without diagnosis of hypertension] Onset: 4 Episodic Other connective tissue disease (3 sources) Pain in left foot; Translations: [Pain in left foot] Episodic Other gastrointestinal disorders (18 sources) Irritable bowel syndrome; Translations: [Irritable bowel syndrome without diarrhea] Onset: 0 Chronic Other nutritional; endocrine; and metabolic disorders (1 source) Body mass index 30+ - obesity; Translations: [Obesity, unspecified] Chronic Other nutritional; endocrine; and metabolic disorders (2 sources) Body mass index 40+ - severely obese; Translations: [Morbid (severe) obesity due to excess calories] Chronic Other nutritional; endocrine; and metabolic disorders (1 source) Severe obesity; Translations: [Morbid (severe) obesity due to excess calories] 11-28-2023 Chronic Other nutritional; endocrine; and metabolic disorders (2 sources) Morbid (severe) obesity due to excess calories; Translations: [Class 3 severe obesity with body mass index (BMI) of 40.0 to 44.9 in adult, unspecified obesity type, unspecified whether serious comorbidity present (HCC)] Onset: 3 Chronic Other nutritional; endocrine; and metabolic disorders (1 source) Body mass index (BMI) 40.0-44.9, adult; Translations: [Class 3 severe obesity with body mass index (BMI) of 40.0 to 44.9 in adult, unspecified obesity type, unspecified whether serious comorbidity present (HCC)] Onset: 4 Chronic Other screening for suspected conditions (not mental disorders or infectious disease) (4 sources) Patient encounter status; Translations: [Encounter for screening mammogram for malignant neoplasm of breast] Episodic Other upper respiratory disease (14 sources) Chronic rhinitis; Translations: [Chronic rhinitis] Onset: 7 09-01-2007 Chronic Residual codes; unclassified (1 source) Daytime somnolence; Translations: [Other hypersomnia] 11-28-2023 Chronic Past or Other Problems Problem Classification Problem Date Documented Da te Episodic/Chronic Abdominal pain (14 sources) Finding of sensation of abdomen; Translations: [Unspecified abdominal pain] Onset: 05-31-2014 06-02-2014 Episodic Nausea and vomiting (14 sources) Nausea; Translations: [Nausea] Onset: 07-12-2013 07-12-2013 Episodic Other gastrointestinal disorders (14 sources) Diarrhea; Translations: [Diarrhea, unspecified] Onset: 06-10-2007 07-19-2013 Episodic Residual codes; unclassified (18 sources) Insomnia; Translations: [Insomnia, unspecified] Onset: 04-16-2011 Episodic Residual codes; unclassified (1 source) Insomnia, unspecified; Translations: [Insomnia, unspecified type] Onset: 07-19-2013 Episodic Spondylosis; intervertebral disc disorders; other back problems (2 sources) Acute back pain with sciatica; Translations: [Lumbago with sciatica, right side] Onset: 03-31-2023 Episodic Results Test Name Value Interpretation Reference Range [facility] it Vital Signs Date Time Vital Sign Value Performing Clinician Reyna villanueva 11-28-2023 07:49-0500 Body height 165.7 cm Stephanie Gayle APRN.DIVE MASTER Work Phone: [facility] 11-28-2023 07:49-0500 Body weight 122.47 kg Stephanie Gayle APRN.CNP Work Phone: [facility] 11-28-2023 07:49-0500 Diastolic blood pressure 79 mm[Hg] Stephanie Gayle APRN.DIVE MASTER Work Phone: [facility] 11-28-2023 07:49-0500 Heart rate 92 /min Stephanie Gayle APRN.DIVE MASTER Work Phone: [facility] 11-28-2023 07:49-0500 Systolic blood pressure 134 mm[Hg] Stephanie Gayle APRN.DIVE MASTER Work Phone: [facility] 03-31-2023 17:44-0400 Body height 168.9 cm Annie Cohen APRN.CNP Work Phone: [facility] 03-31-2023 17:44-0400 Body weight 112.49 kg Annie Haagen CONTENT PRODUCTION SPECIALIST.DIVE MASTER Work Phone: [facility] 03-31-2023 17:44-0400 Diastolic blood pressure 80 mm[Hg] Annie Haagen CONTENT PRODUCTION SPECIALIST.DIVE MASTER Work Phone: [facility] 03-31-2023 17:44-0400 Heart rate 74 /min Annie Haagen CONTENT PRODUCTION SPECIALIST.DIVE MASTER Work Phone: [facility] 03-31-2023 17:44-0400 Respiratory rate 16 /min Annie Haagen CONTENT PRODUCTION SPECIALIST.DIVE MASTER Work Phone: [facility] 03-31-2023 17:44-0400 Systolic blood pressure 138 mm[Hg] Annie Haagen CONTENT PRODUCTION SPECIALIST.DIVE MASTER Work Phone: [facility] 01-22-2023 15:38-0400 Body weight 112.49 kg Annie Haagen CONTENT PRODUCTION SPECIALIST.DIVE MASTER Work Phone: [facility] 01-22-2023 15:38-0400 Diastolic blood pressure 90 mm[Hg] Annie Haagen CONTENT PRODUCTION SPECIALIST.DIVE MASTER Work Phone: [facility] 01-22-2023 15:38-0400 Heart rate 88 /min Annie Haagen CONTENT PRODUCTION SPECIALIST.DIVE MASTER Work Phone: [facility] 01-22-2023 15:38-0400 Respiratory rate 18 /min Annie Haagen CONTENT PRODUCTION SPECIALIST.DIVE MASTER Work Phone: [facility] 01-22-2023 15:38-0400 SaO2% (BldA) [Mass fraction] 98 % Annie Haagen CONTENT PRODUCTION SPECIALIST.DIVE MASTER Work Phone: [facility] 01-22-2023 15:38-0400 Systolic blood pressure 132 mm[Hg] Annie Haagen CONTENT PRODUCTION SPECIALIST.DIVE MASTER Work Phone: [facility] 12-02-2022 15:39-0500 Body weight 112.95 kg Annie Haagen CONTENT PRODUCTION SPECIALIST.DIVE MASTER Work Phone: [facility] 12-02-2022 15:39-0500 Diastolic blood pressure 90 mm[Hg] Annie Haagen CONTENT PRODUCTION SPECIALIST.DIVE MASTER Work Phone: [facility] 12-02-2022 15:39-0500 Heart rate 81 /min Annie Haagen CONTENT PRODUCTION SPECIALIST.DIVE MASTER Work Phone: [facility] 12-02-2022 15:39-0500 Respiratory rate 18 /min Annie Haagen CONTENT PRODUCTION SPECIALIST.DIVE MASTER Work Phone: [facility] 12-02-2022 15:39-0500 SaO2% (BldA) [Mass fraction] 96 % Annie Hajolynn CONTENT PRODUCTION SPECIALIST.DIVE MASTER Work Phone: [facility] 12-02-2022 15:39-0500 Systolic blood pressure 124 mm[Hg] Annie Haagen CONTENT PRODUCTION SPECIALIST.DIVE MASTER Work Phone: [facility] 01-07-2022 14:06-0400 Body weight 108.86 kg Annie Cohen CONTENT PRODUCTION SPECIALIST.DIVE MASTER Work Phone: [facility] 01-07-2022 14:06-0400 Diastolic blood pressure 82 mm[Hg] Annie Haagen CONTENT PRODUCTION SPECIALIST.DIVE MASTER Work Phone: [facility] 01-07-2022 14:06-0400 Heart rate 83 /min Annie Haagen CONTENT PRODUCTION SPECIALIST.DIVE MASTER Work Phone: [facility] 01-07-2022 14:06-0400 Respiratory rate 18 /min Annie Hajolynn CONTENT PRODUCTION SPECIALIST.DIVE MASTER Work Phone: [facility] 01-07-2022 14:06-0400 SaO2% (BldA) [Mass fraction] 98 % Annie Cohen CONTENT PRODUCTION SPECIALIST.DIVE MASTER Work Phone: [facility] 01-07-2022 14:06-0400 Systolic blood pressure 150 mm[Hg] Annie Haagen CONTENT PRODUCTION SPECIALIST.DIVE MASTER Work Phone: [facility] Encounters Encounter Date Encounter Type Care Provider Facility Start: 11-28-2023 End: 11-28-2023 ambulatory ANNIE COHEN Facility:[facility] Start: 11-28-2023 End: 11-28-2023 Patient encounter procedure Stephanie Gayle APRN.DIVE MASTER Work Phone: OB/Gynecology Procedures Date Procedure Procedure Detail Performing Clinician Start: 02-24-2021 Adult depression screening assessment Annie Cohen APRN.CNP Work Phone: Plan of Treatment Date Care Activity Detail Author Start: 01-29-2033 Urine microalbumin profile DTaP,Tdap,Td Vaccine (4 - Td or Tdap) [facility] Start: 11-04-2024 Annual PCP Team Tennis Player geronimo Disease Visit Annual PCP Team Chronic Disease Visit [facility] Start: 03-31-2024 ANNUAL PCP TEAM REAL ESTATE EXECUTIVE ASSISTANT GERONIMO DISEASE VISIT ANNUAL PCP TEAM CHRONIC DISEASE VISIT [facility] Start: 01-23-2024 ANNUAL PCP TEAM REAL ESTATE EXECUTIVE ASSISTANT GERONIMO DISEASE VISIT ANNUAL PCP TEAM CHRONIC DISEASE VISIT [facility] Start: 12-02-2023 ANNUAL PCP TEAM REAL ESTATE EXECUTIVE ASSISTANT GERONIMO DISEASE VISIT ANNUAL PCP TEAM CHRONIC DISEASE VISIT [facility] Start: 11-28-2023 End: 02-27-2024 25-hydroxyvitamin D3 [Mass/volume] in Serum or Plasma VITAMIN D 25 HYDROXY Lab Routine Encounter for vitamin deficiency screening Morning headache Malaise and fatigue Expected: 11/28/2023, Expires: 02/27/2024 [facility] Work Phone: Immunizations Immunization Date Immunization Notes Care Provider Angela jaime 09-18-2021 COVID-19 original vaccine, full dose, monovalent (MODERNA) Annie Cohen APRN.DIVE MASTER Work Phone: [facility] 01-05-2021 COVID-19 original vaccine, full dose, monovalent (MODERNA) Annie Cohen APRN.DIVE MASTER Work Phone: [facility] 12-02-2020 COVID-19 original vaccine, full dose, monovalent (MODERNA) Annie Cohen APRN.DIVE MASTER Work Phone: [facility] 08-16-2016 influenza, injectabl e, quadrivalent, contains preservative Annie Cohen APRN.DIVE MASTER Work Phone: [facility] Work Phone: 07-02-2013 influenza virus vacc ine, unspecified formulation Annie Cohen APRN.DIVE MASTER Work Phone: [facility] Work Phone: 07-02-2013 pneumococcal polysaccharide vaccine, 23 valent Annie Cohen CONTENT PRODUCTION SPECIALIST.DIVE MASTER Work Phone: [facility] Work Phone: 07-05-2012 influenza virus vacc ine, unspecified formulation Annie Cohen CONTENT PRODUCTION SPECIALIST.DIVE MASTER Work Phone: [facility] Work Phone: 07-25-2011 influenza virus vacc ine, unspecified formulation Annie Cohen CONTENT PRODUCTION SPECIALIST.DIVE MASTER Work Phone: [facility] Work Phone: 08-08-2009 influenza virus vacc ine, unspecified formulation Annie Cohen CONTENT PRODUCTION SPECIALIST.DIVE MASTER Work Phone: [facility] 10-21-2008 tetanus and diphther ia toxoids, adsorbed, preservative free, for adult use (2 Lf of tetanus toxoid and 2 Lf of diphtheria toxoid) Annie Cohen CONTENT PRODUCTION SPECIALIST.[employer] Work Phone: [facility] Work Phone: 08-16-2008 influenza virus vacc ine, unspecified formulation Annie Cohen CONTENT PRODUCTION SPECIALIST.DIVE MASTER Work Phone: [facility] 09-01-2007 influenza virus vacc ine, unspecified formulation Annie Cohen CONTENT PRODUCTION SPECIALIST.DIVE MASTER Work Phone: [facility] 09-12-1997 diphtheria and tetan us toxoids, adsorbed for pediatric use Annie Cohen CONTENT PRODUCTION SPECIALIST.DIVE MASTER Work Phone: [facility] Payers Date Payer Category Payer Private Health Insurance [facility] [place] [facility] [id number] 2023-Present [phone] [address] [place] [id number] [facility] [id number] 2023 Private Health Insurance [id number] 2022 Medicaid [id number] 2018 Medicaid [employer] [id number] 2018-Present [phone] [address] [place] [address] Medicaid [id number] 2018 Medicaid [id number] Social History Date Type Detail Facility Start: 10-28-2011 Tobacco smoking status NHIS Never smoked tobacco [facility] Start: 01-07-2022 End: 11-30-2023 Alcohol intake Current drinker of alcohol (finding) [facility] Start: 12-04-2021 End: 03-31-2023 History SDOH Alcohol Frequency 2 [facility] Start: 12-04-2021 End: 03-31-2023 History SDOH Alcohol Std Drinks 1 [facility] Start: 02-03-2013 History SDOH Alcohol Comment Rarely [facility] Start: 12-04-2021 End: 03-31-2023 History SDOH Social Connections Phone 5 [facility] Start: 12-04-2021 End: 03-31-2023 History SDOH Social Connections Get Together 3 [facility] Start: 12-04-2021 End: 03-31-2023 History SDOH Physical Activity MPS 6 [facility] Start: 12-04-2021 End: 03-31-2023 History SDOH Financial 4 [facility] Start: 05-17-2020 Education 21 [facility] Start: 1980 Sex Assigned At Female [facility] Start: 10-28-2011 Tobacco use and exposure Smokeless tobacco non-user [facility] Work Phone: Start: 03-31-2023 History SDOH Social Connections Living 7 [facility] Start: 02-24-2021 End: 03-30-2023 History of Social function [facility] Start: 02-24-2021 End: 03-30-2023 Social connection and isolation panel [facility] Do you belong to any clubs or organizations such as latter-day groups, unions, fraternal or athletic groups, or school groups? Yes [facility] Are you now , , , , never or living with a partner? Never [facility] How often to you hav e a drink containing alcohol? Monthly or less [facility] How many standard dr inks containing alcohol do you have on a typical day? 1 or 2 [facility] How often do you hav e 6 or more drinks on 1 occasion? Less than monthly [facility] How hard is it for y ou to pay for the very basics like food, housing, medical care, and heating Somewhat hard [facility] Adult Depression Screening Assessment 2 [facility] Do you feel stress - tense, restless, nervous, or anxious, or unable to sleep at night because your mind is troubled all the time - these days [OSQ] Very much [facility] (I/We) worried wheth er (my/our) food would run out before (I/we) got money to buy more. Never true [facility] In the past 12 month s, was there a time when you were not able to pay the mortgage or rent on time? No [facility] Start: 06-06-2019 Gender identity Identifies as female gender (finding) [facility] Start: 06-06-2019 Sexual orientation Heterosexual (finding) [facility] Clinical Notes 07-31-2007 to 11-28-2023 Patient InstructionsStephanie Gayle APRN.CNP - 11/28/2023 7:42 AM ESTPatient InstructionsChristy MAIRSELA Cohen - 03/31/2023 6:10 PM EDTTelephone Encounter - Jp Allisonjean claude CLIENT DELIVERY MANAGER - 02/14/2023 8:19 AM EDT Note Date & Type Note Facility 11-28-2023 Note HNO ID: [id number] Author: STEPHANIE GAYLE APRN.JEN Service: ? Author Type: Nurse Practitioner Type: Progress Notes Filed: 11/30/2023 21:40 Note Text: Patient Summary: Susy Bateman is a 43 year old female with obesity who presents for an initial evaluation of overweight/obesity to treat and prevent co-morbidities and is interested in open to all options. Motivation for seeking treatment for the disease of overweight/obesity : wants to feel better about self Goal weight: 175 lbs Lowest recall weight: 198 lb Highest recall weight: 278 lb Patient identified barriers to weight loss: back pain, food cravings, lives alone and eats for comfort, parents comment on weight Weight History: She reports a strong family history of obesity and childhood weight gain. She states her weight gain is related to the following factors, including exposure to a weight gain promoting medication, gabapentin, SSRI. , reduced physical activity, and consumption of unhealthy foods. - Last Wt 11/28/23 : 270 lb (122.5 kg) 5% weight loss = 252 lbs, 10% weight loss = 239 lbs WEIGHT GRAPH: Diet/Nutrition overview: Awake - 0700 or 0900 B - 09 - yogurt parfait with granola and fruit if at work or SKIP on WE S - never L - 1200 or 1-2pm cafe soup or salad or tacos or chicken/noodles/ if at home - pizza, chicken, lunch meat, yogurt S - work - pickled eggs or pudding/home - pretzels or cheese or peanut butter on tortilla D - 5-8pm [employer] - tomato soup and mac n cheese or pizza [employer] thin crust with steak AND cheese or canned soup or frozen dinner or pork chop with veg S - cookies, chips, ice cream, cereal, sweetened, with milk Fluids - water, Diet pop, Smoothies/starbucks sometimes at office Bedtime - asleep 2300 Quality of diet: 24hr recall suggests unhealthy diet. Characterization of diet:Structured, unhealthy snacking, excessive cravings, and evening snacking. Bow Maker Gift Wrapping of impaired eating habits:lack of satiety, mindlessness , boredom, emotion, and stress Eating Disorder no Cravings: cereal, peanut butter Sleep: Duration: 7-8 hours. Not rested. RIA NO ; CPAP NO Loud snoring, PALOMO in am Takes trazodone. STOP BANG Questionnaire 1. Snoring Do you snore loudly (louder than talking or loud enough to be heard through closed doors)? YES 2. Tired Do you often feel tired, fatigued, or sleepy during daytime? YES 3. Observed Has anyone observed you stop breathing during your sleep? NO 4. Blood Pressure Do you have or are you being treated for high blood pressure? YES 5. BMI BMI more than 35 kg/m2? YES 6. Age Age over 50 yr old? NO 7. Neck circumference Neck circumference greater than 40 cm? YES 8. Gender Gender male? NO High risk of RIA: answering yes to three or more items Score - 5 Stress: Stress:yes , Cause:Work, personal, financial Obesity Related Comorbidities: Prior Weight Loss Surgery:No PAST MEDICAL HISTORY Diagnosis Date Anal fistula [...] TREATMENT OF COLLAPSED LUNG 10/05/13 tx by FAMILY HISTORY Problem Relation Age of Onset Thyroid Mother graves Hypertension Father Alzheimer's Disease Maternal Grandmother Prostate Cancer Maternal Grandfather Cancer Paternal Grandfather lung Social History Tobacco Use Smoking status: Never Smokeless tobacco: Never Substance Use Topics Alcohol use: Yes Comment: Rarely Drug use: No Medications: Bupropion 450 mg 24 hr tablet Naltrexone 50 mg once a day - bothers her stomach Weight Promoting Medications: Duloxetine - started 09/2023 Gabapentin 300 mg at bedtime back pain Diet/weight loss History: Past weight loss attempts? commercial diets, self-directed, exercise program, health coa (more content not included)... [facility] 11-28-2023 Instructions Stephanie Gayle APRN.[employer] - 11/28/2023 7:43 AM EST Weight Management: You have taken the initiative to become a healthier version of yourself and to decrease the risks that come with the diagnosis of obesity or being overweight. We are happy to help you along this journey but know this is a lifetime commitment to yourself. Losing just 3-10 % of your body weight can decrease your risks of many other serious diseases like diabetes, heart disease, osteoarthritis, hypertension, cancer and so many others. During this time you will have triumphs, setbacks and plateaus- your body will fight against you but we are here to give you the tools and the resources to continue to reach your goals. We recommend during this time that you track your weight daily or at least five times per week as well as tracking your nutrition. You may track your activity but do not use hitting your fitness goals as a reward system as this can derail your success. We recommend weekly physical activity of 150-200 min/week-although physical exercise can help with maintaining weight loss it adds only a little benefit for group home weight loss success. However, exercise can have many other benefits including improving mental health and cardiovascular health. Do not feel overwhelmed- we will discuss this more at your visits. Our time will be limited with each visit but we will try to touch on factors that are important to you and to your overall goals. We will try to set a goal at the end of each visit and then decide on what we want to accomplish with your upcoming visits. On your After Visit Summary (AVS), we will provide you with information that may be useful during this journey so please remember to read the information given. Check your AVS a few days after your appointment because we may have added more information specifically for you. Remember that if you are placed on medications, they are tools that can help you succeed but you must put in the work. Your nutrition will be the main factor. There are medications that work well for some and not for others- so it may take time to find the right combination for your body's needs. Please remember that factors such as other health co-morbidities one might have, as well as insurance coverage, will play a factor in determining which medications you can take. Most of the newer medications that are all the craze ,injectables, may not be covered or will only be covered if you fail months of oral medications- so please be patient with the process. It would be beneficial for you to determine what your insurance covers as far as Anti-Obesity Medications (AOMs), Nutritional Counseling, behavioral intervention and weight loss surgery. Please call your health insurance prior to your first appointment and write down coverage for each of those therapies. Most importantly, remember that ultimately our goal is to help you get to a healthier weight which will decrease your overall health risks. We will work together as a team and try to reach your personalized goals as well. We appreciate that you have entrusted us with your health and know that we are committed to this process with you. Sincerely, Gina Armstrong MD, ERIC MARIE & Stephanie Gayle, DIVE MASTER Obesity Obesity is a disease that affects nearly one-third of the adult [place] population (approximately 60 million). The number of overweight and obese Americans has continued to increase since 1959, a trend that is not slowing down. Today, 64.5 percent of adult Americans (about 127 million) are categorized as being overweight or obese. Each year, obesity causes at least 300,000 excess deaths in the [place] and healthcare costs of [place] adults with obesity amount to approximately $100 billion. (AOA) Obesity is a complex, multi-factorial chronic disease involving: Environmental (social and cultural) The tendency toward obesity is a result of our environment: lack of physical activity along with high-calorie, low-cost foods. Home, work, school, and even the community can inhibit a healthy lifestyle. Genetic (Hereditary plays a large role in determining how susceptible people are to overweight and obesity). Genes also influence how the body hirsch calories for energy and stores fat. Physiologic, metabolic, behavioral (eating too many calories while not getting enough exercise) and psychological components. It is the second leading cause of preventable in the [place] Behavioral changes brought on by economic development, modernization and urbanization have been linked to the rise in global obesity. Calculating BMI Body Mass Index (BMI) is a measurement tool used to determine excess body weight. Overweight is defined as a BMI of 25 or more, obesity is 30 or more, and severe obesity is 40 or more. You can visit www.nhlbi.nih.gov to estimate your BMI. Obesity Related Health Conditions The morbidity and mortality risk from being overweight is proportional to its degree. Individuals with morbid obesity, therefore, have the highest risk for developing numerous illnesses that often reduce mobility and quality of life due to their excess weight. In particular, type 2 diabetes, gallbladder disease and osteoarthritis have been found to increase concurrently with higher BMI. Premature , a 20-year shorter life span, has also been found in individuals with morbid obesity. All of the systems that make the body function are affected by morbid obesity. Type 2 diabetes Gallbladder disease and gallstones Liver disease Osteoarthritis, a disease in which the joints deteriorate. This is possibly the result of excess weight on the joints. Gout, another disease affecting the joints Pulmonary (breathing) problems, including sleep apnea in which a person can stop breathing for a short time during sleep Reproductive problems in women, including menstrual irregularities and infertility Gastroesophageal reflux/heartburn Hypertension Heart Disease Depression Psychological disorders/social impairments Urinary Stress Incontinence Obesity is also linked to higher rates of certain types of cancer. Obese men are more likely than non-obese men to from cancer of the colon, rectum, or prostate. Obese women are more likely than non-obese women to from cancer of the gallbladder, breast, uterus, cervix, or ovaries [email or web address]-[email or web address] Nutrition - Eat primarily whole foods. Limit carbs, especially processed carbs. - Do not drink your calories - 30 grams of protein for breakfast decreases your hunger during the day by up to 40 % Premier Protein or generic 30 gm protein 1 gm sugar - Walk for 15 minutes immediately a meal. Omron wrist BP - $70-80 range documented in this encounter [facility] 11-28-2023 History of Presen t illness Narrative Images from the original note were not included. Patient Summary: Susy Bateman is a 43 year old female with obesity who presents for an initial evaluation of overweight/obesity to treat and prevent co-morbidities and is interested in open to all options. Motivation for seeking treatment for the disease of overweight/obesity : wants to feel better about self Goal weight: 175 lbs Lowest recall weight: 198 lb Highest recall weight: 278 lb Patient identified barriers to weight loss: back pain, food cravings, lives alone and eats for comfort, parents comment on weight Weight History: She reports a strong family history of obesity and childhood weight gain. She states her weight gain is related to the following factors, including exposure to a weight gain promoting medication, gabapentin, SSRI. , reduced physical activity, and consumption of unhealthy foods. - Last Wt 11/28/23 : 270 lb (122.5 kg) 5% weight loss = 252 lbs, 10% weight loss = 239 lbs WEIGHT GRAPH: Diet/Nutrition overview: Awake - 0700 or 0900 B - 09 - yogurt parfait with granola and fruit if at work or SKIP on WE S - never L - 1200 or 1-2pm cafe soup or salad or tacos or chicken/noodles/ if at home - pizza, chicken, lunch meat, yogurt S - work - pickled eggs or pudding/home - pretzels or cheese or peanut butter on tortilla D - 5-8pm [employer] - tomato soup and mac n cheese or pizza Gulshan's thin crust with steak & cheese or canned soup or frozen dinner or pork chop with veg S - cookies, chips, ice cream, cereal, sweetened, with milk Fluids - water, Diet pop, Smoothies/starbucks sometimes at office Bedtime - asleep 2300 Quality of diet: 24hr recall suggests unhealthy diet. Characterization of diet:Structured, unhealthy snacking, excessive cravings, and evening snacking. Bow Maker Gift Wrapping of impaired eating habits:lack of satiety, mindlessness , boredom, emotion, and stress Eating Disorder no Cravings: cereal, peanut butter Sleep: Duration: 7-8 hours. Not rested. RIA NO ; CPAP NO Loud snoring, PALOMO in am Takes trazodone. STOP BANG Questionnaire 1. Snoring Do you snore loudly (louder than talking or loud enough to be heard through closed doors)? YES 2. Tired Do you often feel tired, fatigued, or sleepy during daytime? YES 3. Observed Has anyone observed you stop breathing during your sleep? NO 4. Blood Pressure Do you have or are you being treated for high blood pressure? YES 5. BMI BMI more than 35 kg/m2? YES 6. Age Age over 50 yr old? NO 7. Neck circumference Neck circumference greater than 40 cm? YES 8. Gender Gender male? NO High risk of RIA: answering yes to three or more items Score - 5 Stress: Stress:yes , Cause:Work, personal, financial Obesity Related Comorbidities: Prior Weight Loss Surgery:No PAST MEDICAL HISTORY Diagnosis Date Anal fistula [...] 206 (100-220), Aspergillus Ab neg in 12-07 [facility] rec Xolair in 04-08: omalizumab-IgG monoclonal Ab [...] TREATMENT OF COLLAPSED LUNG 10/05/13 tx by FAMILY HISTORY Problem Relation Age of Onset Thyroid Mother graves Hypertension Father Alzheimer's Disease Maternal Grandmother Prostate Cancer Maternal Grandfather Cancer Paternal Grandfather lung Social History Tobacco Use Smoking status: Never Smokeless tobacco: Never Substance Use Topics Alcohol use: Yes Comment: Rarely Drug use: No Medications: Bupropion 450 mg 24 hr tablet Naltrexone 50 mg once a day - bothers her stomach Weight Promoting Medications: Duloxetine - started 09/2023 Gabapentin 300 mg at bedtime back pain Diet/weight loss History: Past weight loss attempts? commercial diets, self-directed, exercise program, health college coach, dietitian, and anti-obesity medications Naltrexone/bupropion (Contrave). Atkins diet, Cabbage Soup diet, Caloric restriction, Diet pills, Imaging Clerk, Exercise/increased activity, HCG, Josseline Crowe, Keto, Low Carbohydrate diet, Low Fat diet, MyFitnessPal, Noom, Nutrisystems, Physician directed diet, Slimfast, [place] Diet, and Starvation, Weight watchers Phentermine caused hypertension Exercise: Regular exercise: no Strength/resistance exercise:yes Barriers to regular exercise? Yes. Back pain Work-related activity:Sedentary. 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 Current Contraception: Progestin - only contraceptives Obesity ROS/ FHx GEN: Fatigue:yes CV: h/o palpitations/cardiac arrhythmia, Chest pain: no HTN: yes- watching blood pressure currently PULM: Asthma:yes GI: GERD:yes ; Gallstones:no ; Fatty liver disease:no Pancreatitis: no MSK: Joint Pain:yes : Nephrolithiasis: no Symptoms of PCOS: no NEURO: Migraines/PALOMO: yes ; H/o seizures: no Glaucoma:no; Cataracts no Symptoms of or History of pseudotumor cerebri:no Family or personal History of MEN2 or Medullary thyroid cancer: no PE BP 134/79 Pulse 92 Ht 5' 5.25 (1.657 m) Wt 270 lb (122.5 kg) LMP 11/15/2023 (Approximate) BMI 44.59 kg/m Waist Circumference: 52.5 in Neck Circumference: 17.5 in GENERAL: Female in NAD. Central adiposity. SKIN: acanthosis nigricans yes , Skin tags: yes Hirsutism: yes HEENT: PERRL, No supraclavicular adiposity. No dorsal adiposity. RESPIRATORY: CBTA CARDIAC: RRR ABDOMEN: Small pannus; EXTREMITIES: peripheral edema: no Results: reviewed with the patient Results Only on 10/29/2023 Component Date Value Ref Range Status Global Program Manager 10/29/2023 In process Value:Provider BRIDGETT your patient SUSY BATEMAN has been assigned their Yair program. The date to complete this order is 11-28-2023 The Yari program is: [facility] WHAT TO EXPECT AT YOUR APPOINTMENT The patient access code to view the Yari program is: [id number] To view the Yari program go to: [email or web address] Impression: Susy Bateman is a 43 year old Female with Class III obesity (Body mass index is 44.59 kg/m .) who has childhood onset obesity with several periods of weight loss followed by weight gain . The causes of her obesity are multifactorial, biological, psychological and social and environmental. Specific factors include a genetic component related to a strong family of obesity, exposure to weight gain promoting medication(s) , increased consumption of high calorie/process foods, irregular eating patterns , suboptimal physical activity, and poor sleep quality. She has few weight-related medical comorbidities which increase her cardiovascular mortality risk. There are additional metabolic obesity complications including hypertension and obstructive sleep apnea. Other medical conditions as above. Regarding her lifestyle, as above, she has several behavioral contributors; her physical activity is non-existent. Overall, it is clear that her quality of life is moderately compromised by her weight. It is likely a combination of weight loss therapies will be needed. She appears motivated today. ASSESSMENT/PLAN: 1. Gastroesophageal reflux disease, unspecified whether esophagitis present - ICD9: 530.81, ICD10: K21.9 (primary diagnosis) - benefits of weight loss discussed - CONSULT TO NUTRITION THERAPY 2. Excessive daytime sleepiness - ICD9: 780.54, ICD10: G47.19 - CONSULT TO SLEEP MEDICINE - ADULT - StopBang score 5 3. Morning headache - ICD9: 784.0, ICD10: R51.9 - VITAMIN D 25 HYDROXY - INSULIN ASSAY BLOOD - CONSULT TO SLEEP MEDICINE - ADULT 4. Malaise and fatigue - ICD9: 780.79, ICD10: R53.81, R53.83 - VITAMIN D 25 HYDROXY - CONSULT TO SLEEP MEDICINE - ADULT 5. Intractable migraine without status migrainosus, unspecified migraine type - ICD9: 346.91, ICD10: G43.919 - atogepant Qulipta started 10/2023 - side effect of weight loss 6. Screening for diabetes mellitus - ICD9: V77.1, ICD10: Z13.1 - INSULIN ASSAY BLOOD 7. Screening for metabolic disorder - ICD9: V77.99, ICD10: Z13.228 - INSULIN ASSAY BLOOD 8. Encounter for vitamin deficiency screening - ICD9: V77.99, ICD10: Z13.21 - VITAMIN D 25 HYDROXY 9. Class 3 severe obesity with body mass index (BMI) of 40.0 to 44.9 in adult, unspecified obesity type, unspecified whether serious comorbidity present (HCC) - ICD9: 278.01, V85.41, ICD10: E66.01, Z68.41 Weight increasing-- Based on the severity and resistance of the obesity/overweight with co-morbidities, I believe a surgical intervention is the best and most appropriate group home therapeutic option. Surgery is an exclusion from her health insurance. We will use behavioral and pharmaceutical therapies. - [facility] employee - orders printed and given to pt - CONSULT TO SLEEP MEDICINE - ADULT - [facility] - CONSULT TO NUTRITION THERAPY - [facility] Whole food balanced protein low-carb nutrition - Currently taking bupropion 24 hr tab total of 450 mg daily and naltrexone 50 mg once day. The naltrexone has been causing stomach discomfort - she is instructed to take 1/2 tablet twice a day - encouraged to take BP to monitor BP -- We discussed several strategies to track food intake and increase mindfulness around eating while will decrease calorie intake. She was counseled on the following: Eating primarily whole foods. Limit carbs, especially processed carbs. Do not drink your calories 30 grams of protein for breakfast decreases your hunger during the day by up to 40 % Premier Protein or generic 30 gm protein 1 gm sugar Walk for 15 minutes immediately a meal. -- Encouraged the patient to improve her physical activity. Although cardiovascular exercise is most beneficial for weight loss initially, we discussed healthy muscle from a combination of resistance training and cardiovascular exercise is the best group home plan. An overall goal of 150-200 minutes per week of exercise has been effective in weight loss and maintenance. -- Reviewed that monitoring weight daily and food intake can have a positive impact on overall weight loss and maintenance of weight loss. Activity tracking can be used to stay on target for exercise however should not be used to reward oneself She understands that there can be limitations of pharmacotherapy due to contraindications, side effects and cost. Patient was told to contact her insurance company to see what AOMs and supervised behavioral medical appointments are currently covered. Patient understands she will have more success when following a healthy lifestyle. We reviewed continued use of online tracking of daily weights, food journal and if desired physical activity. We reviewed that during management she is to report any concerning side effects of any pharmacotherapy she is placed on. She understands that she will need routine follow up in the office. Prior to any virtual visits in the future she will need to check her Blood pressure, weight, and pulse. -- follow-up visit in 4 weeks for management of above interventions Stephanie Gayle APRN.CNP Advanced Education from the Obesity [employer] Association I spent a total of 74 minutes on the date of the service which included preparing to see the patient, [id number] patient care, completing clinical documentation, obtaining and/or reviewing separately obtained history, performing a medically appropriate examination, counseling and educating the patient/family/caregiver, and ordering medications, tests, or procedures. documented in this encounter [facility] 11-04-2023 Note HNO ID: [id number] Author: ANNIE COHEN APRN.CNP Service: ? Author Type: Nurse Practitioner Type: [...] lesions. Head: Normoce (more content not included)... [facility] 10-13-2023 Note HNO ID: [id number] Author: ANNIE COHEN APRN.DIVE MASTER Service: ? Author Type: Nurse Practitioner Type: Progress Notes Filed: 10/13/2023 19:57 Note Text: This is a 43 year old female who presents today with: Patient presents with: Follow Up HISTORY OF PRESENT ILLNESS: Susy Bateman is a 43 year old female. Patient presents with: Follow Up Pt presents today to follow-up. She hasn't been in for awhile. She is working at [employer]. Because she changed insurance, thought that she [...] 11/01/2006 Hospitalized in 08-08 for exacerbation: saw Titoo in 09-07 (Peak flows 300 on Advair) [...] Disease Maternal Grandmoth (more content not included)... [facility] 04-23-2023 Note Patient Outreach (IN TMMN) SUSY BATEMAN ([id number]) 1980 F Date Time Provider Department 04/23/23 ANNIE COHEN During your visit today, we recorded the following information about you: Allergies As of Date: 04/23/2023 Noted Allergy Reaction AFRIN (OXYMETAZOLINE HCL) 01/02/2010 7 - Swelling Environmental allergies [Other] 07/10/2006 Comments: Cats, dogs, dust mites, weeds, ragweed, grasses Date Reviewed: 02/11/2023 Reviewed by: pJ Riojas APRN.DIVE MASTER - Fully Assessed Visit Diagnosis:Encounter for screening mammogram for breast cancer [Z12.31] Order(s):[facility] SCREENING [[id number]] Order #: [id number] FUTURE Prescriptions as of 04/28/2023 - hyoscyamine [...] [R19.7] 06/10/2007 Routine general medical examination at [facility]*06/10/2007 03/01/2014 Obesity, Class III, BMI 40-49.9 (morbid obesity*07/31/2007 05/26/2018 CHRONIC RHINITIS [J31.0] 09/01/2007 IBS (irritable bowel syndrome) [K58.9] 10/17/2009 Insomnia [G47.00] 04/16/2011 Nausea [R11.0] 07/12/2013 Abdominal cramping [R10.9] 05/31/2014 Encounter Status:Closed by Crossfader, PRODUSER on 04/28/23 [facility] 03-31-2023 Note HNO ID: [id number] Author: Annie Cohen APRN.DIVE MASTER Service: ? Author Type: Nurse Practitioner Type: [...] no evidence o (more content not included)... [facility] 03-31-2023 Instructions Annie Cohne APRN.JEN - 03/31/2023 6:29 PM EDT Start the etodolac twice daily. Take with food. Try the tizanidine. Be careful taking with trazodone, it may make you too tired. Moist heat/ice to the back. Stretching. Consider physical therapy. documented in this encounter [facility] 03-31-2023 History of Presen t illness Narrative [...] as needed for worsening/no improvement. Annie Cohen APRN.DIVE MASTER documented in this encounter [facility] 02-14-2023 Miscellaneous Notes Patient phones requesting refills as follows: Requested Prescriptions Pending Prescriptions Disp Refills hyoscyamine SR (LEVBID) 0.375 mg 12 hr tablet 15 tablet 2 Sig: take 1 tablet by mouth once daily if needed for IBS FLARES Please review and advise. Jp Rubio LPN documented in this encounter [facility] 02-11-2023 Note HNO ID: [id number] Author: Jp Riojas APRN.JEN Service: ? Author [...] of breath, wheezing (more content not included)... [facility] 01-22-2023 Note HNO ID: [id number] Author: Annie Cohen APRN.DIVE MASTER Service: ? Author Type: Nurse Practitioner Type: Progress Notes Filed: 01/22/2023 5:14 PM Note Text: CC: Susy Bateman is a 42 year old female who presents for weight loss medication. HPI Currently taking nothing. Going to be starting a new job. Going to be working for [employer]. If DM any hypo/hyperglycemiaNot applicable DIET [...] activity was identified. 01/22/2023 by Annie Cohen APRN.DIVE MASTER - reviewed SE, medication expectations, required weight loss of 5% -- Goal weight -- 235.6 pounds in three months. [facility] 01-22-2023 Instructions Annie Cohen APRN.JEN - 01/22/2023 4:06 PM EDT Recheck in 3 months. documented in this encounter [facility] 01-22-2023 History of Presen t illness Narrative CC: Susy Bateman is a 42 year old female who presents for weight loss medication. HPI Currently taking nothing. Going to be starting a new job. Going to be working for [employer]. If DM any hypo/hyperglycemiaNot applicable DIET Serving [...] or [facility] PDMP website checked and validated. All prescriptions have been APPROPRIATELY filled. No suspicious activity was identified. 01/22/2023 by Annie Cohen APRN.CNP - reviewed SE, medication expectations, required weight loss of 5% -- Goal weight -- 235.6 pounds in three months. documented in this encounter [facility] 12-02-2022 Instructions Annie Cohen APRN.CNP - 12/02/2022 4:06 PM EST Start the adipex. Recheck in a month. documented in this encounter [facility] 12-02-2022 History of Presen t illness Narrative [...] activity was identified. 12/02/2022 by Annie Cohen APRN.DIVE MASTER Discussed treatment plan and patient voices understanding. Patient's questions answered appropriately. Medications and potential side effects were discussed and patient voices understanding. Return to the office as scheduled or as needed for worsening/no improvement. Annie Cohen APRN.DIVE MASTER documented in this encounter [facility] 09-09-2022 Miscellaneous Notes Opened in error Refills addressed on another encounter Electronically signed by Tanya Kelley [facility] at 09/09/2022 4:35 PM EST documented in this encounter [facility] 09-09-2022 Miscellaneous Notes Patient phones requesting refills as follows: Requested Prescriptions Pending Prescriptions Disp Refills fluticasone-salmeterol (ADVAIR, WIXELA) 250-50 mcg/dose inhaler 3 Each 3 Sig: Inhale 1 Puff as instructed twice daily. BASILIO-02/04/22 Labs-04/03/21 NOV-none med filled 04/09/22 Please review and advise. Florecita Dowd LPN documented in this encounter [facility] 09-09-2022 Miscellaneous Notes Patient phones requesting refills [...] Florecita Dowd LPN documented in this encounter [facility] 06-12-2022 Miscellaneous Notes Last office visit: 02/24/22 [...] Fiona Lemons Pss documented in this encounter [facility] 05-27-2022 Miscellaneous Notes Patient phones requesting refills as follows: Requested Prescriptions Pending Prescriptions Disp Refills ibuprofen (MOTRIN) 800 mg tablet 60 tablet 1 Sig: Take 1 tablet by mouth every 8 hours as needed for pain. Take with food. BASILIO 02/04/22 NOV no upcoming appt Please review and advise. Jp Rubio LPN documented in this encounter [facility] 01-07-2022 Instructions Annie Cohen APRN.DIVE MASTER - 01/07/2022 2:47 PM EDT 1. Increase the zoloft to 100 mg daily. 2. Continue the adipex. 3. Recheck in 1 month. documented in this encounter [facility] 01-07-2022 History of Presen t illness Narrative [...] APRN.JEN This note was partially generated using [employer] recognition system. Note was reviewed for accuracy. There may be minor misspellings or grammar miscues with [employer] voice recognition. documented in this encounter [facility] documented as of this encounter (statuses as of 01/08/2022) [facility]2007 History of Past illness Narrative* Problem Noted [...] Plans to get her Flu shot at [facility] as of 08-12 Strep positive in 12-11: [place] treated with Augmentin PPD negative in 10-14 Anal fistula 11/18/2006 09/26/2009 Overview: [place] did anterior fisulotomy on 12-05-06 and 03-24-07 (loose stool preceded this) documented as of this encounter (statuses as of 05/20/2022) [facility] History of Past illness Narrative* Problem Noted [...] Plans to get her Flu shot at [facility] as of 08-12 Strep positive in 3-08: [place] treated with Augmentin PPD negative in 10-14 Anal fistula 11/18/2006 09/26/2009 Overview: [place] did anterior fisulotomy on 12-05-06 and 03-24-07 (loose stool preceded this) documented as of this encounter (statuses as of 05/27/2022) [facility] History of Past illness Narrative* Problem Noted [...] Routine general medical exam ination at a [facility] 06/10/2007 03/01/2014 Overview: Creat 0.8 in 05-12 Plans to get her Flu shot at [facility] as of 08-12 Strep positive in 12-11: [place] treated with Augmentin PPD negative in - Anal fistula 11/18/2006 09/26/2009 Overview: [place] did anterior fisulotomy on 12-05-06 and 03-24-07 (loose stool preceded this) documented as of this encounter (statuses as of 06/12/2022) [facility] History of Past illness Narrative* Problem Noted [...] Plans to get her Flu shot at [facility] as of 08-12 Strep positive in 12-11: [place] treated with Augmentin PPD negative in - Anal fistula 11/18/2006 09/26/2009 Overview: [place] did anterior fisulotomy on 12-05-06 and 03-24-07 (loose stool preceded this) documented as of this encounter (statuses as of 09/09/2022) [facility] History of Past illness Narrative* Problem Noted [...] Routine general medical exam ination at a [facility] 06/10/2007 03/01/2014 Overview: Creat 0.8 in 05-12 Plans to get her Flu shot at [facility] as of 08-12 Strep positive in 12-11: [place] treated with Augmentin PPD negative in 10-14 Anal fistula 11/18/2006 09/26/2009 Overview: [place] did anterior fisulotomy on 12-05-06 and 03-24-07 (loose stool preceded this) documented as of this encounter (statuses as of 09/09/2022) [facility] History of Past illness Narrative* Problem Noted [...] Plans to get her Flu shot at [facility] as of 08-12 Strep positive in 3-08: [place] treated with Augmentin PPD negative in 1-09 Anal fistula 11/18/2006 09/26/2009 Overview: [place] did anterior fisulotomy on 12-05-06 and 03-24-07 (loose stool preceded this) documented as of this encounter (statuses as of 09/09/2022) [facility] History of Past illness Narrative* Problem Noted [...] Plans to get her Flu shot at [facility] as of 08-12 Strep positive in 3-08: [place] treated with Augmentin PPD negative in 1- Anal fistula 11/18/2006 09/26/2009 Overview: [place] did anterior fisulotomy on 12-05-06 and 03-24-07 (loose stool preceded this) documented as of this encounter (statuses as of 09/09/2022) [facility] History of Past illness Narrative* Problem Noted [...] Plans to get her Flu shot at [facility] as of 08-12 Strep positive in 12-11: [place] treated with Augmentin PPD negative in 10-14 Anal fistula 11/18/2006 09/26/2009 Overview: [place] did anterior fisulotomy on 12-05-06 and 03-24-07 (loose stool preceded this) documented as of this encounter (statuses as of 12/03/2022) [facility] History of Past illness Narrative* Problem Noted [...] Plans to get her Flu shot at [facility] as of 08-12 Strep positive in -: [place] treated with Augmentin PPD negative in 10-14 Anal fistula 11/18/2006 09/26/2009 Overview: [place] did anterior fisulotomy on 12-05-06 and 03-24-07 (loose stool preceded this) documented as of this encounter (statuses as of 01/23/2023) [facility] History of Past illness Narrative* Problem Noted [...] Plans to get her Flu shot at [facility] as of 08-12 Strep positive in 3-08: [place] treated with Augmentin PPD negative in - Anal fistula 11/18/2006 09/26/2009 Overview: [place] did anterior fisulotomy on 12-05-06 and 03-24-07 (loose stool preceded this) documented as of this encounter (statuses as of 02/14/2023) [facility] History of Past illness Narrative* Problem Noted [...] Plans to get her Flu shot at [facility] as of 08-12 Strep positive in 3-08: [place] treated with Augmentin PPD negative in - Anal fistula 11/18/2006 09/26/2009 Overview: [place] did anterior fisulotomy on 12-05-06 and 03-24-07 (loose stool preceded this) documented as of this encounter (statuses as of 04/01/2023) [facility] History of Past illness Narrative* Problem Noted [...] Routine general medical exam ination at a [facility] 06/10/2007 03/01/2014 Overview: Creat 0.8 in 05-12 Plans to get her Flu shot at [facility] as of 08-12 Strep positive in 12-11: [place] treated with Augmentin PPD negative in 10-14 Anal fistula 11/18/2006 09/26/2009 Overview: [place] did anterior fisulotomy on 12-05-06 and 03-24-07 (loose stool preceded this) documented as of this encounter (statuses as of 11/16/2023) [facility] History of Past illness Narrative* Problem Noted [...] Plans to get her Flu shot at [facility] as of 08-12 Strep positive in 12-11: [place] treated with Augmentin PPD negative in 10-14 Anal fistula 11/18/2006 09/26/2009 Overview: [place] did anterior fisulotomy on 12-05-06 and 03-24-07 (loose stool preceded this) documented as of this encounter (statuses as of 12/01/2023) [facility]* Diagnosis Obesity (BMI 35.0-39.9 without comorbidity)- Primary Obesity, unspecified Mild intermittent asthma without complication Unspecified asthma Anxiety with depression Foot pain, left Pain in limb Insomnia, unspecified type Other migraine without status migrainosus, not intractable Irritable bowel syndrome, unspecified type documented [facility]* Diagnosis Encounter for screening mammogram for breast cancer documented [facility] this encounter [facility]* Diagnosis Foot pain, left Pain in limb [facility] Diagnosis Insomnia, unspecified type documented [facility]* Diagnosis Mild intermittent asthma without complication Unspecified asthma documented [facility] encounter [facility]* Diagnosis Anxiety with depression Mild intermittent asthma without complication Unspecified asthma Irritable bowel syndrome, unspecified type Foot pain, left Pain in limb Insomnia, unspecified type [facility]* Diagnosis Obesity, Class III, BMI 40-49.9 (morbid obesity) ([facility])- Primary Morbid obesity Mild intermittent asthma without complication Unspecified asthma Irritable bowel syndrome, unspecified type Anxiety with depression Insomnia, unspecified type [facility] Diagnosis Obesity, Class III, BMI 40-49.9 (morbid obesity) ([facility]) Morbid obesity [facility]* Diagnosis Irritable bowel syndrome, unspecified type documented [facility] Diagnosis Acute right-sided low back pain with right-sided sciatica- Primary [facility]* Diagnosis Gastroesophageal reflux disease, unspecified whether esophagitis present- Primary Excessive daytime sleepiness Morning headache Headache Malaise and fatigue Other malaise and fatigue Intractable migraine without status migrainosus, unspecified migraine type Screening for diabetes mellitus Screening for metabolic disorder Encounter for vitamin deficiency screening Screening for other and unspecified endocrine, nutritional, metabolic, and immunity disorders Class 3 severe obesity with body mass index (BMI) of 40.0 to 44.9 in adult, unspecified obesity type, unspecified whether serious comorbidity present (HCC) [facility] this [facility]ative)* Diagnostic Procedure Only (Routine) - Pending Review Specialty Diagnoses / Procedures Referred By Contac t Referred To Contact [facility] Diagnoses Encounter for screening mammogram for breast cancer Procedures BG SCREENING SCREENING MAMMOGRAPHY BI 2-VIEW BREAST INC CAD Annie Cohen APRN.DIVE MASTER [address] [place] [address] [facility] [address] [place] [address] Referral ID Status Reason Start Date Expiration Date Visits Requested Visits Authorized [id number] Pending Review Auto-Generat ed Referral 05/15/2022 06/14/2023 1 1 [facility] Reason for Referral Specialty Diagnoses / Procedures Referred By Contmerrill t Referred To Contact Diagnoses Mild intermittent asthma without complication Annie Cohen APRN.DIVE MASTER [address] [place] [address] Referral ID Status Reason Start Date Expiration Date Visits Re quested Visits Authorized [id number] Closed 1 1 Referral ID Status Reason Start Date Expiration Date Visits Re quested Visits Authorized [id number] Closed 1 1 Specialty Diagnoses / Procedures Referred By Contac t Referred To Contact Nutrition Diagnoses Gastroesophageal reflux disease, unspecified whether esophagitis present Class 3 severe obesity with body mass index (BMI) of 40.0 to 44.9 in adult, unspecified obesity type, unspecified whether serious comorbidity present (HCC) Procedures CONSULT TO NUTRITION THERAPY MEDICAL NUTRITION ASSMT&IVNTJ INDIV EACH 15 MA MEDICAL NUTRITION ASSMT&IVNTJ INDIV EACH 15 MA MEDICAL NUTRITION ASSMT&IVNTJ INDIV EACH 15 MA MEDICAL NUTRITION ASSMT&IVNTJ INDIV EACH 15 MA Stephanie Gayle APRN.[place] [address] Referral ID Status Reason Start Date Expiration Date Visits Requested Visits Authorized [id number] Authorized PCP Requested Referral 11/28/2023 11/27/2024 1 1 Specialty Diagnoses / Procedures Referred By Jake lopez Referred To Contact Diagnoses Excessive daytime sleepiness Morning headache Malaise and fatigue Class 3 severe obesity with body mass index (BMI) of 40.0 to 44.9 in adult, unspecified obesity type, unspecified whether serious comorbidity present (HCC) Procedures CONSULT TO SLEEP MEDICINE - ADULT OFFICE/OUTPATIENT [facility] 60 MINUTES Stephanie Gayle APRN.DIVE MASTER [address] [place] [address] Referral ID Status Reason Start Date Expiration Date Visits Requested Visits Authorized [id number] Authorized PCP Requested Referral 11/28/2023 11/27/2024 1 1 Advance Directives No Advanced Directives Records FoundDocuments on File Type Date Recorded 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 Advance Directive(s) Summary Purpose Family History No Family History Records Found Additional Source Comments Source Comments (unrecognize d section and content) In the event this informatio n is protected by the Federal Confidentiality of Alcohol and Drug Abuse Patient Records regulations: The Federal rules restrict any use of the information to criminally investigate or prosecute any alcohol or drug abuse patient.[facility] the event this information is protected by the Federal Confidentiality of Alcohol and Drug Abuse Patient Records regulations: The Federal rules restrict any use of the information to criminally investigate or prosecute any alcohol or drug abuse patient.[facility] the event this information is protected by the Federal Confidentiality of Alcohol and Drug Abuse Patient Records regulations: The Federal rules restrict any use of the information to criminally investigate or prosecute any alcohol or drug abuse patient.[facility] the event this information is protected by the Federal Confidentiality of Alcohol and Drug Abuse Patient Records regulations: The Federal rules restrict any use of the information to criminally investigate or prosecute any alcohol or drug abuse patient.[facility] the event this information is protected by the Federal Confidentiality of Alcohol and Drug Abuse Patient Records regulations: The Federal rules restrict any use of the information to criminally investigate or prosecute any alcohol or drug abuse patient.[facility] the event this information is protected by the Federal Confidentiality of Alcohol and Drug Abuse Patient Records regulations: The Federal rules restrict any use of the information to criminally investigate or prosecute any alcohol or drug abuse patient.[facility] the event this information is protected by the Federal Confidentiality of Alcohol and Drug Abuse Patient Records regulations: The Federal rules restrict any use of the information to criminally investigate or prosecute any alcohol or drug abuse patient.[facility] the event this information is protected by the Federal Confidentiality of Alcohol and Drug Abuse Patient Records regulations: The Federal rules restrict any use of the information to criminally investigate or prosecute any alcohol or drug abuse patient.[facility] the event this information is protected by the Federal Confidentiality of Alcohol and Drug Abuse Patient Records regulations: The Federal rules restrict any use of the information to criminally investigate or prosecute any alcohol or drug abuse patient.[facility] the event this information is protected by the Federal Confidentiality of Alcohol and Drug Abuse Patient Records regulations: The Federal rules restrict any use of the information to criminally investigate or prosecute any alcohol or drug abuse patient.[facility] the event this information is protected by the Federal Confidentiality of Alcohol and Drug Abuse Patient Records regulations: The Federal rules restrict any use of the information to criminally investigate or prosecute any alcohol or drug abuse patient.[facility] the event this information is protected by the Federal Confidentiality of Alcohol and Drug Abuse Patient Records regulations: The Federal rules restrict any use of the information to criminally investigate or prosecute any alcohol or drug abuse patient.[facility] the event this information is protected by the Federal Confidentiality of Alcohol and Drug Abuse Patient Records regulations: The Federal rules restrict any use of the information to criminally investigate or prosecute any alcohol or drug abuse patient.[facility] the event this information is protected by the Federal Confidentiality of Alcohol and Drug Abuse Patient Records regulations: The Federal rules restrict any use of the information to criminally investigate or prosecute any alcohol or drug abuse patient.[facility] Reason for Visit (unrecogniz ed section and content) Reason Onset Date Comments Refill Request 05/26/2022 Reason Onset Date Comments Refill Request 06/12/2022 Reason Comments Opened In Error Reason Onset Date Comments Refill Request 09/07/2022 Reason Comments Recheck Adipex refill Reason Onset Date Comments Refill Request 02/12/2023 Reason Comments Nerve Pain Reason Onset Date Comments Weight Management 11/28/2023 Specialty Diagnoses / Procedures Referred By Jake lopez Referred To Contact Diagnoses Class 3 severe obesity with body mass index (BMI) of 40.0 to 44.9 in adult, unspecified obesity type, unspecified whether serious comorbidity present (HCC) Procedures CONSULT TO [facility] WEIGHT MANAGEMENT PROGRAM OFFICE/OUTPATIENT NEW HIGH MDM 60 MINUTES Annie Cohen APRN.DIVE MASTER [address] [place] [address] Referral ID Status Reason Start Date Expiration Date V isits Requested Visits Authorized [id number] Closed PCP Requested Referral Auto-Generated Referral 10/13/2023 10/12/2024 1 1 Care Teams (unrecognized sec tion and content) Foreign Exchange Student Coordinator Relationship Specialty Start Date End Date Annie Cohen APRN.DIVE MASTER [address], [place] [id number] PCP - General Family Practice 02/22/19 Foreign Exchange Student Coordinator Relationship Specialty Start Date End Date Annie Cohen APRN.DIVE MASTER [address], [place] [id number] PCP - General Family Practice 02/22/19 Foreign Exchange Student Coordinator Relationship Specialty Start Date End Date Annie Cohen APRN.DIVE MASTER [address], [place] [address] PCP - General Family Practice 02/22/19 Foreign Exchange Student Coordinator Relationship Specialty Start Date End Date Annie Cohen APRN.DIVE MASTER [address] [place] [address] PCP - General Family Medicine 02/22/19 Foreign Exchange Student Coordinator Relationship Specialty Start Date End Date Annie Cohen, CONTENT PRODUCTION SPECIALIST.DIVE MASTER [address] [place] [address] PCP - General Family Medicine 02/22/19 Foreign Exchange Student Coordinator Relationship Specialty Start Date End Date Annie Cohen, CONTENT PRODUCTION SPECIALIST.DIVE MASTER [address] [place] [address] PCP - General Family Medicine 02/22/19 Foreign Exchange Student Coordinator Relationship Specialty Start Date End Date Annie Cohen, CONTENT PRODUCTION SPECIALIST.DIVE MASTER [address] [place] [address] PCP - General Family Medicine 02/22/19 Foreign Exchange Student Coordinator Relationship Specialty Start Date End Date Annie Cohen, CONTENT PRODUCTION SPECIALIST.DIVE MASTER [address] [place] [address] PCP - General Family Medicine 02/22/19 Foreign Exchange Student Coordinator Relationship Specialty Start Date End Date Annie Cohen, CONTENT PRODUCTION SPECIALIST.DIVE MASTER [address] [place] [address] PCP - General Family Medicine 02/22/19 Foreign Exchange Student Coordinator Relationship Specialty Start Date End Date Annie Cohen, CONTENT PRODUCTION SPECIALIST.DIVE MASTER [address] [place] [address] PCP - General Family Medicine 02/22/19 Foreign Exchange Student Coordinator Relationship Specialty Start Date End Date Annie Cohen, CONTENT PRODUCTION SPECIALIST.DIVE MASTER [address] [place] [address] PCP - General Family Medicine 02/22/19 INFORMATION [...] BE BASED ON THE PRIMARY CLINICAL RECORDS. [facility]. provides no warranty or guarantee of the accuracy or completeness of information in this document.
[2023-12-09 10:08] LABS: Vitamin D,25 Hydroxy 41.3 ng/mL
== END | disposition home or self-care (01) ==
LOC: LAB 09:12
PROVIDERS: PCP Registered Nurse; Referring Provider Nurse Practitioner Family; Visit Provider Nurse Practitioner Family
DX: Z13.21 Encounter for screening for nutritional disorder (principal); R51.9 Headache, unspecified; R53.81 Other malaise; R53.83 Other fatigue; Z13.1 Encounter for screening for diabetes mellitus
CPT/HCPCS: 36415; 82306; 83525

== ENCOUNTER → 2024-03-11 | Outpatient (CLI) | payer OTHER, SELFPAY | END | disposition home or self-care (01) | LOC: CVS 08:59 | PROVIDERS: PCP Internal Medicine; Referring Provider Internal Medicine Cardiovascular Disease; Visit Provider Internal Medicine Cardiovascular Disease | DX: I10 Essential (primary) hypertension (principal) | CPT/HCPCS: 93788 ==

== ENCOUNTER → 2024-03-12 | Outpatient (CLI) | payer OTHER, SELFPAY ==
[2024-03-12 08:50] LABS: Hematocrit 40.2 % (37-47); Hemoglobin 12.5 g/dL (12.0-15.0); Mean Corp Hgb Conc 31.1 g/dL (32-36); Mean Corpuscular Hgb 26.5 pg (27.0-32.0); Mean Corpuscular Volume 85.4 fL (81-99); Mean Platelet Vol. 8.9 fl (6.2-12.0); Platelet Count 304 K/mm3 (150-450); RBC Distribution Width CV 13.1 % (11.6-14.6); RBC Distribution Width SD 40.3 fl (35.1-43.9); Red Blood Count 4.71 M/mm3 (4.2-5.4)
[2024-03-12 09:22] LABS: Cholesterol 166 mg/dL (200); High Density Lipoprotein 61 mg/dL; Triglycerides 130 mg/dL; Very Low Density Lipoprotein 26 mg/dL (5-40)
[2024-03-14 13:07] LABS: C-Peptide 4.1 ng/mL (1.1-4.4); Insulin Level 25.9 uIU/mL (2.6-24.9)
== END | disposition home or self-care (01) ==
LOC: LAB 07:51
PROVIDERS: PCP Internal Medicine; Referring Provider Internal Medicine Cardiovascular Disease; Visit Provider Internal Medicine Cardiovascular Disease
DX: R63.5 Abnormal weight gain (principal); I10 Essential (primary) hypertension; R73.03 Prediabetes; J45.909 Unspecified asthma, uncomplicated
CPT/HCPCS: 80061; 83525; 84681; 85027

== ENCOUNTER → 2024-03-23 | Day surgery (SDC) | payer OTHER, SELFPAY ==
[2024-03-23 08:45] LABS: Anion Gap 5 (5-15); BUN 13 mg/dL (7-18); BUN/Creat Ratio 14.7 RATIO (10-20); Calcium,Total 9.1 mg/dL (8.5-10.1); Chloride 102 mmol/L (98-107); Creatinine, Serum 0.88 mg/dL (0.55-1.02); EST Glomerular Filtration Rate 75 mL/min (>60); Est Glom Filt Rate - Afr Amer 90 mL/min (>60); Glucose 129 mg/dL (74-106); Potassium 4.2 mmol/L (3.5-5.1); Sodium Level 137 mmol/L (136-145)
[2024-03-23 13:38] LABS: Hemoglobin A1c 5.8 % (3.8-5.6)
== END | disposition home or self-care (01) ==
PROVIDERS: PCP Internal Medicine; Referring Provider Internal Medicine Cardiovascular Disease; Visit Provider Internal Medicine Cardiovascular Disease
DX: I10 Essential (primary) hypertension (principal); R73.01 Impaired fasting glucose; J45.909 Unspecified asthma, uncomplicated; E66.9 Obesity, unspecified; G47.10 Hypersomnia, unspecified
CPT/HCPCS: 36415; 80048; 83036

== ENCOUNTER → 2024-03-31 | Outpatient (CLI) | payer OTHER, SELFPAY ==
--- NOTE | 2024-03-31 06:47 | ECHOCS_ITS ---
Reason For Study: HTN Procedure This was a 2D Doppler, Color Flow transthoracic echocardiogram. The study was technically difficult. Exam performed in department. Left Ventricle Normal LV size. Left ventricular systolic function is normal. The estimated ejection fraction is 60 %. Normal diastololic function. No regional wall motion abnormalities noted. Right Ventricle Normal RV size. Normal systolic function. Atria The left and right atria are normal. Mitral Valve The mitral valve is structurally normal. No prolapse or stenosis seen. Tricuspid Valve Normal tricuspid valve. Unable to estimate RV systolic pressure due to insufficient tricuspid regurgitant envelope. Aortic Valve The aortic valve is not well visualized in the short axis view. There is no aortic stenosis. Pulmonic Valve The pulmonic valve is not well visualized. Great Vessels Normal aortic root. Pericardium/Pleural No pericardial effusion. Medication 22 gauge I.V. with prn adaptor inserted into right arm. Diluted definity 1.5ml given slow IV push to enhance endocardial definition. MMode/2D Measurements & Calculations LVIDd: 4.6 cm IVSd: 1.1 cm Ao root diam: 2.3 cm LVIDs: 3.1 cm LVPWd: 1.1 cm RVDd: 2.5 cm FS: 31.8 % LAV(MOD-bp): 23.4 ml LA A4 area: 11.7 cm2 LA dimension(2D): 3.6 cm LAV(MOD-bp) Indexed: 10.5 ml/m2 LAV(MOD-sp2): 21.8 ml LAV(MOD-sp4): 22.7 ml RA A4 area: 10.8 cm2 Time Measurements MV dec time: 0.19 sec Doppler Measurements & Calculations MV E max shahbaz: 69.1 cm/sec Lat Peak E' Shahbaz: 5.5 cm/sec Med Peak E' Shahbaz: 7.9 cm/sec MV A max shahbaz: 54.3 cm/sec E/E' lat: 12.6 E/E' med: 8.8 MV E/A: 1.3 MV dec slope: 374.5 cm/sec2 Ao V2 max: 141.5 cm/sec LV V1 max: 92.0 cm/sec Ao max P.0 mmHg LV V1 max P.4 mmHg Ao V2 mean: 97.6 cm/sec LV V1 mean P.0 mmHg Ao mean P.4 mmHg LV V1 mean: 67.4 cm/sec Ao V2 VTI: 28.2 cm LV V1 VTI: 18.2 cm AV (velocity ratio): 0.64 PA V2 max: 90.4 cm/sec PA V2 mean: 61.0 cm/sec ECHO/Echo Complete W/ Contrast Interpretation Summary The estimated ejection fraction is 60 %. Normal diastololic function. Structurally normal valves The study was technically difficult. Contrast injection was performed. Ordering Physician: Brook Cole Referring Physician: Zeke Xavier Performed By: Aure Geronimo RDCS, RVT
== END | disposition home or self-care (01) ==
LOC: CVS 06:46
PROVIDERS: PCP Internal Medicine; Referring Provider Internal Medicine Cardiovascular Disease; Visit Provider Internal Medicine Cardiovascular Disease
DX: I10 Essential (primary) hypertension (principal)
CPT/HCPCS: 93306; Q9957; A4216; C8929

== ENCOUNTER → 2024-04-06 | Outpatient (CLI) | payer OTHER, SELFPAY | END | disposition home or self-care (01) | LOC: SL 20:11 | PROVIDERS: PCP Internal Medicine; Visit Provider Nurse Practitioner Family | DX: G47.10 Hypersomnia, unspecified (principal) | CPT/HCPCS: 95810 ==

== ENCOUNTER → 2024-05-13 | Outpatient (CLI) | payer OTHER, SELFPAY ==
[2024-05-13 17:06] LABS: Absolute Lymphocyte Count 2.75 X10^3/uL (0.83-4.51); Absolute Neutrophil Count 7.2 X10^3/uL (2.0-7.7); Basophil# 0.07 X10^3/uL; Basophil% 0.7 % (0-1); Eosinophil# 0.08 X10^3/uL; Eosinophils% 0.7 % (0-5); Hematocrit 37.8 % (37-47); Hemoglobin 11.8 g/dL (12.0-15.0); Lymphocyte # 2.75 X10^3/ul (0.83-4.51); Lymphocyte % 25.6 % (19-41); Mean Corp Hgb Conc 31.2 g/dL (32-36); Mean Corpuscular Hgb 26.8 pg (27.0-32.0); Mean Corpuscular Volume 85.7 fL (81-99); Monocyte# 0.57 X10^3/uL; Monocyte% 5.3 % (0-10); NRBC Flagged by Analyzer 0 % (0-5); Neutrophil # 7.23 X10^3/uL (2.7-7.7); Neutrophil % 67.4 % (47-70); Platelet Count 289 K/mm3 (150-450); RBC Distribution Width CV 13.3 % (11.6-14.6); RBC Distribution Width SD 40.8 fl (35.1-43.9); Red Blood Count 4.41 M/mm3 (4.2-5.4); White Blood Count 10.7 K/mm3 (4.4-11.0)
[2024-05-13 17:31] LABS: ALB/GLOB Ratio 0.9 RATIO (0.9-2.4); AST(SGOT) 17 U/L (15-37); Alanine Aminotransfer ALT/SGPT 34 U/L (13-56); Albumin, Serum 3.6 g/dL (3.2-5.0); Alkaline Phosphatase 67 U/L (45-117); Amylase 31 U/L (25-115); Anion Gap 6 (5-15); BUN 16 mg/dL (7-18); BUN/Creat Ratio 17.8 RATIO (10-20); Calcium,Total 9.6 mg/dL (8.5-10.1); Chloride 102 mmol/L (98-107); EST Glomerular Filtration Rate 73 mL/min (>60); Est Glom Filt Rate - Afr Amer 89 mL/min (>60); Ferritin 12 ng/mL (8-252); Globulin 4.1 g/dL (2.2-4.2); Glucose 91 mg/dL (74-106); Iron 43 ug/dL (50-170); Iron Binding Capacity,Total 443 ug/dL (250-450); Lipase 22 U/L (13-75); Potassium 3.8 mmol/L (3.5-5.1); Protein, Total 7.7 g/dL (6.4-8.2); Sodium Level 136 mmol/L (136-145)
== END | disposition home or self-care (01) ==
LOC: SL 16:25
PROVIDERS: PCP Internal Medicine; Referring Provider Nurse Practitioner Family; Visit Provider Nurse Practitioner Family
DX: Z00.00 Encounter for general adult medical examination without abnormal findings (principal); I10 Essential (primary) hypertension; R73.03 Prediabetes; E66.9 Obesity, unspecified; K58.9 Irritable bowel syndrome, unspecified
CPT/HCPCS: 36415; 80053; 82150; 82728; 83540; 83550; 83690; 85025

== ENCOUNTER → 2024-10-19 | Outpatient (CLI) | payer SELFPAY | END | disposition home or self-care (01) | LOC: OPBD 08:19 | PROVIDERS: PCP Internal Medicine; Referring Provider Physician Assistant Medical; Visit Provider Physician Assistant Medical | DX: E66.812 Obesity, class 2 (principal); E66.01 Morbid (severe) obesity due to excess calories; Z68.38 Body mass index [BMI] 38.0-38.9, adult; Z76.89 Persons encountering health services in other specified circumstances ==

== ENCOUNTER → 2024-10-25 | Outpatient (CLI) | payer OTHER, SELFPAY ==
--- NOTE | 2024-10-25 16:11 | BI_ITS ---
MAMMOGRAPHY - BILATERAL SCREENING REASON FOR EXAM: Female, 44 years old. Routine annual screening examination. PERTINENT HISTORY: Non-contributory. TECHNIQUE: Digital bilateral breast dion (3D mammographic acquisition) in the CC and MLO projections. 2-D mediolateral oblique (MLO) and craniocaudad (CC) views of both breasts were obtained. CAD: Full Field Digital Mammography with Computer Added Detection was performed. COMPARISON: Comparison is made with prior study dated October 03, 2023. FINDINGS: Breast Composition: The breasts are almost entirely fatty. There are no dominant masses or suspicious calcifications. No other significant abnormalities are identified. There has been no significant change since the prior study. BI/SCRN MAMM (CAD)W/DION BILAT IMPRESSION: Stable bilateral screening mammogram. Yearly follow-up mammogram recommended. (A) ASSESSMENT CATEGORY: BIRADS Category 1: Negative. A letter regarding these results will be sent to the patient by the facility within 30 days. Approximately 10% of breast cancers are not detected by mammography. A normal mammogram should not delay biopsy of a clinically suspicious abnormality. [id number] Electronically Signed: Wesley Cabrera MD at 9:40 EST ,
== END | disposition home or self-care (01) ==
LOC: OPBI 16:10
PROVIDERS: PCP Physician Assistant; Referring Provider Nurse Practitioner Women's Health; Visit Provider Nurse Practitioner Women's Health
DX: Z12.31 Encounter for screening mammogram for malignant neoplasm of breast (principal)
CPT/HCPCS: 77063; 77067

== ENCOUNTER → 2024-10-27 | Outpatient (CLI) | payer OTHER, SELFPAY ==
[2024-10-27 10:00] LABS: Absolute Lymphocyte Count 1.63 X10^3/uL (0.83-4.51); Absolute Neutrophil Count 6.9 X10^3/uL (2.0-7.7); Basophil# 0.06 X10^3/uL; Basophil% 0.6 % (0-1); Eosinophil# 0.04 X10^3/uL; Eosinophils% 0.4 % (0-5); Hematocrit 40.7 % (37-47); Lymphocyte # 1.63 X10^3/ul (0.83-4.51); Lymphocyte % 17.6 % (19-41); Mean Corp Hgb Conc 31.9 g/dL (32-36); Mean Corpuscular Hgb 28.2 pg (27.0-32.0); Mean Corpuscular Volume 88.3 fL (81-99); Mean Platelet Vol. 9.2 fl (6.2-12.0); Monocyte% 6.5 % (0-10); NRBC Flagged by Analyzer 0 % (0-5); Neutrophil # 6.88 X10^3/uL (2.7-7.7); Neutrophil % 74.6 % (47-70); Platelet Count 320 K/mm3 (150-450); RBC Distribution Width CV 12.9 % (11.6-14.6); RBC Distribution Width SD 41.1 fl (35.1-43.9); Red Blood Count 4.61 M/mm3 (4.2-5.4); White Blood Count 9.2 K/mm3 (4.4-11.0)
[2024-10-27 10:32] LABS: AST(SGOT) 10 U/L (15-37); Alanine Aminotransfer ALT/SGPT 25 U/L (13-56); Albumin, Serum 3.6 g/dL (3.2-5.0); Alkaline Phosphatase 73 U/L (45-117); Amylase 50 U/L (25-115); Anion Gap 6 (5-15); BUN 17 mg/dL (7-18); BUN/Creat Ratio 20.6 RATIO (10-20); Calcium,Total 8.8 mg/dL (8.5-10.1); Chloride 106 mmol/L (98-107); Creatinine, Serum 0.82 mg/dL (0.55-1.02); EST Glomerular Filtration Rate 81 mL/min (>60); Est Glom Filt Rate - Afr Amer 97 mL/min (>60); Globulin 3.7 g/dL (2.2-4.2); Glucose 99 mg/dL (74-106); Iron 45 ug/dL (50-170); Lipase 39 U/L (13-75); Potassium 4.1 mmol/L (3.5-5.1); Protein, Total 7.3 g/dL (6.4-8.2); Sodium Level 139 mmol/L (136-145); T4 Free Direct 0.87 ng/dL (0.76-1.46)
== END | disposition home or self-care (01) ==
LOC: POLAB3 09:33
PROVIDERS: PCP Physician Assistant; Visit Provider Nurse Practitioner Family
DX: G47.10 Hypersomnia, unspecified (principal); R73.03 Prediabetes; I10 Essential (primary) hypertension; G47.33 Obstructive sleep apnea (adult) (pediatric); K58.9 Irritable bowel syndrome, unspecified; E66.9 Obesity, unspecified; F41.9 Anxiety disorder, unspecified; F32.A Depression, unspecified; Z76.89 Persons encountering health services in other specified circumstances
CPT/HCPCS: 36415; 80053; 82150; 83036; 83540; 83690; 84439; 84443; 85025

== ENCOUNTER → 2025-05-25 | Outpatient (CLI) | payer SELFPAY | END | disposition home or self-care (01) | PROVIDERS: PCP Physician Assistant; Referring Provider Physician Assistant; Visit Provider Physician Assistant | DX: E66.812 Obesity, class 2 (principal); E66.01 Morbid (severe) obesity due to excess calories; Z68.38 Body mass index [BMI] 38.0-38.9, adult; Z76.89 Persons encountering health services in other specified circumstances | CPT/HCPCS: 76499 ==

== ENCOUNTER → 2025-05-26 | Outpatient (CLI) | payer OTHER, SELFPAY | END | disposition home or self-care (01) | LOC: LABSPEC 14:30 | PROVIDERS: PCP Physician Assistant; Referring Provider Nurse Practitioner Family; Visit Provider Nurse Practitioner Family | DX: N89.8 Other specified noninflammatory disorders of vagina (principal) | CPT/HCPCS: 87070; 87205 ==

== ENCOUNTER → 2025-08-23 | Outpatient (CLI) | payer OTHER, SELFPAY ==
[2025-08-23 08:55] LABS: Hematocrit 40.9 % (37-47); Hemoglobin 13.2 g/dL (12.0-15.0); Immature Granulocytes Count 0.030 X10^3/uL (0.0-0.0); Mean Corp Hgb Conc 32.3 g/dL (32-36); Mean Corpuscular Volume 87.4 fL (81-99); Mean Platelet Vol. 8.9 fl (6.2-12.0); NRBC Flagged by Analyzer 0 % (0-5); Platelet Count 296 K/mm3 (150-450); RBC Distribution Width CV 11.8 % (11.6-14.6); RBC Distribution Width SD 37.6 fl (35.1-43.9); Red Blood Count 4.68 M/mm3 (4.2-5.4); White Blood Count 7.7 K/mm3 (4.4-11.0)
--- OUTSIDE RECORDS SUMMARY | 2025-08-23 09:30 | XMS RPT_ITS | CCD ---
Author Organization [facility] Care Team Providers Care Foreign Food Cook Specialty Name Role Phone Haagen MODEL BUILDER DISPLAY.MASON HELPER, Annie Primary Care Provider ISACC Falk Attending Provider [phone] Dr. Alida Andrade Attending Provider Dr. Zeke Xavier Primary Care Provider Dr. Zeke Xavier Referring Provider Haagen MODEL BUILDER DISPLAY.MASON HELPER, Annie Primary Care Provider Haagen MODEL BUILDER DISPLAY.MASON HELPER, [facility] Primary Care Provider Haagen MODEL BUILDER DISPLAY.MASON HELPER, Annie Primary Care Provider Quiana PA, Matt Primary Care Unavailable Gianni Cardenas Attending Unavailable Theresa Gianni Referring Unavailable Nicole Cardenass Attending Unavailable Wayt PA, Matt Primary Care Unavailable Oleghe, Efewongbe Primary Care Unavailable Madie Aburto Referring Unavail able Madie Aburto M Attending Unavail able Janeth Rodríguez Referring Unavailable Wayt PA, Matt Primary Care Unavailable Janeth Rodríguez Attending Unavailable Janina Middleton Attending Unavailable Oleghe, Efewongbe Primary Care Unavailable Wayt PA, Matt Primary Care Unavailable Wayt PA, Matt Referring Unavailable Wayt PA, Matt Attending Unavailable Janina Middleton Attending Unavailable Wayt PA, Matt Primary Care Unavailable [place] FRONT END WEB DESIGNER, Delfina Referring Unavailable [place] FRONT END WEB DESIGNER, Delfina Attending Unavailable Wayt PA, Matt Primary Care Unavailable aJnina Middleton Attending Unavailable Wayt PA, Matt Primary Care Unavailable Wayt PA, Matt Primary Care Unavailable Wayt PA, Matt Referring Unavailable Wayt PA, Matt Attending Unavailable Janina Middleton Attending Unavailable Wayt PA, Matt Primary Care Unavailable Janina Middleton Attending Unavailable Wayt PA, Matt Primary Care Unavailable Nunu Butler Attending Unavailable Wayt PA, Matt Primary Care Unavailable Wayt PA, Matt Primary Care Unavailable Wayt PA, Matt Referring Unavailable Wayt PA, Matt Attending Unavailable Nunu Butler Attending Unavailable Wayt PA, Matt Primary Care Unavailable Jnaina Middleton Attending Unavailable Wayt PA, Matt Primary Care Unavailable Wayt PA, Matt Referring Unavailable Wayt PA, Matt Attending Unavailable Wayt PA, Matt Primary Care Unavailable Janina Middleton Attending Unavailable Wayt PA, Matt Primary Care Unavailable Janina Middleton Attending Unavailable Wayt PA, Matt Primary Care Unavailable Oleghe, Efewongbe Referring Unavailable Wayt PA, Matt Primary Care Unavailable Wayt PA, Matt Attending Unavailable Janina Middleton Attending Unavailable Wayt PA, Matt Primary Care Unavailable Janeth Rodríguez Attending Unavailable Wayt PA, Matt Primary Care Unavailable Wayt PA, Matt Referring Unavailable Wayt PA, Matt Attending Unavailable Wayt PA, Matt Primary Care Unavailable Wayt PA, Matt Referring Unavailable Wayt PA, Matt Primary Care Unavailable Wayt PA, Matt Referring Unavailable Wayt PA, Matt Attending Unavailable Nunu Butler Attending Unavailable Wayt PA, Matt Primary Care Unavailable Janina Middleton Attending Unavailable Wayt PA, Matt Primary Care Unavailable Janina Middleton Attending Unavailable Wayt PA, Matt Primary Care Unavailable Janina Middleton Attending Unavailable Wayt PA, Matt Primary Care Unavailable Janina Middleton Attending Unavailable Wayt PA, Matt Primary Care Unavailable Oleghe, Efewongbe Primary Care Unavailable Oleghe, Efewongbe Referring Unavailable Schuyler FRONT END WEB DESIGNERDelfina Attending Unavailable Oleghe, Efewongbe Primary Care Unavailable Leonie Davis NP Attending Unavailable Oleghe, Efewongbe Referring Unavailable Nunu Butler Attending Unavailable Oleghe, Efewongbe Primary Care Unavailable Nunu Butler Attending Unavailable Wayt PA, Matt Primary Care Unavailable Janina Middleton Attending Unavailable Wayt PA, Matt Primary Care Unavailable Janina Middleton Attending Unavailable Wayt ISACC, Matt Primary Care Unavailable Janina Middleton Attending Unavailable Vicente Xavierbe Primary Care Unavailable Wayt ISACC, Matt Primary Care Unavailable Nunu Butler Attending Unavailable Wayt PA, Matt Primary Care Unavailable Janina Middleton Attending Unavailable Janina Middleton Attending Unavailable Wayt PA, Matt Primary Care Unavailable Nunu Butler Attending Unavailable Wayt PA, Matt Primary Care Unavailable Wayt PA, Matt Attending Unavailable Wayt PA, Matt Primary Care Unavailable Wayt PA, Matt Referring Unavailable Janina Middleton Attending Unavailable Wayt PA, Matt Primary Care Unavailable Zeke Xavier Referring Unavailable Ryan FRONT END WEB DESIGNER, Leonie Attending Unavailable Wayt PA, Matt Primary Care Unavailable Jamey Richard Attending Unavailable Wayt PA, Matt Primary Care Unavailable Allergies Allergy Classification Reported Allergen(s) Allergy Type Date of Onset Reaction(s) Facility Oxymetazoline (2 sources) Oxymetazoline Drug Allergy 0 Swelling, Shortness of Breath [facility] Pollen (2 sources) Grass pollen Substance Allergy 4 Other: See Comments [facility] (16 sources) Oxymetazoline Drug Allergy 0 Swelling [facility] Work Phone: (12 sources) Environmental allergies [Other] Propensity to adverse reactions 6 [facility] (6 sources) Oxymetazoline Drug Allergy 3 Shortness of Breath [facility] (4 sources) Grass pollen Propensity to adverse reactions to drug 4 Other: See Comments [facility] (4 sources) Ragweed pollen Propensity to adverse reactions to drug 4 Other: See Comments [facility] (5 sources) Cat Dander Propensity to adverse reactions to drug 4 Other: See Comments [facility] (5 sources) Dog Dander Propensity to adverse reactions to drug 4 Other: See Comments [facility] (1 source) Oxymetazoline Drug Allergy 5 [facility] Repository Medications Current Medications Medication Drug Class(es) Dates Sig (Normalized) Sig (Original) acetaminophen 325 mg / HYDROcodone bitartrate 5 mg oral tablet (5 sources) Opioid Agonist Start: 06-30-2023 HYDROcodone-aceta minophen (NORCO) 5-325 mg per tablet 06/30/2023 Active [id number] 200 actuat albuterol 0.09 mg/actuat metered dose inhaler (20 sources) beta2-Adrenergic Agonist Start: 09-09-2022 take 2.5 mg by inhalation every four hours as needed albuterol (PROVENTIL) 2.5 mg /3 mL (0.083 %) nebulizer solution Use 3 mL via nebulizer every 4 hours as needed for wheezing/shortnes s of breath. ONE TREATMENT EVERY 4 HOURS NEEDED 50 mL 1 09/09/2022 Active Start: 09-09-2022 End: 12-02-2022 take 2 puff(s) by inhalation every six hours as needed for wheezing albuterol HFA (VENTOLIN HFA) 90 mcg/actuation inhaler Indications: Mild intermittent asthma without complication (HCC) Inhale 2 Puffs as instructed every 6 hours as needed for wheezing/shortness of breath. 18 g 5 12/02/2022 Active Start: 04-02-2021 End: 09-07-2022 take 2 puff(s) by inhalation every six hours as needed for wheezing albuterol HFA (VENTOLIN HFA) 90 mcg/actuation inhaler Indications: Mild intermittent asthma without complication Inhale 2 Puffs as instructed every 6 hours as needed for wheezing/shortness of breath. 18 g 5 01/07/2022 09/07/2022 Discontinued Start: 11-18-2019 End: 09-07-2022 take 2.5 mg by inhalation every four hours as needed albuterol (PROVENTIL) 2.5 mg /3 mL (0.083 %) nebulizer solution Use 3 mL via nebulizer every 4 hours as needed for Wheezing/Shortness of Breath. ONE TREATMENT EVERY 4 HOURS NEEDED 50 Vial 3 11/18/2019 09/07/2022 Discontinued Start: 10-04-2013 take 2.5 mg by inhal ation every two hours as needed Albuterol Sulfate Active 2.5 MG INHALATION EVERY 2 HOURS NEEDED October 04, 2013 1:00am Comment on above: Use 3 mL via nebuliz er every 4 hours as needed for Wheezing/Shortness of Breath. ONE TREATMENT EVERY 4 HOURS NEEDED Inhale 2 Puffs as in structed every 6 hours as needed for wheezing/shortness of breath. Albuterol Sulfate (Proair Hfa) 1 PUFF inhaler (2 sources) Start: 013 take 1 puff(s) by inhalation every four hours as needed Albuterol Sulfate (Proair Hfa) 1 PUFF inhaler Active 1 PUFF INHALATION EVERY 4 HOURS NEEDED October 04, 2013 1:00am atogepant (QULIPTA) 60 mg tablet (5 sources) Start: 024 take 1 tablet by mouth once daily atogepant (QULIPTA) 60 mg tablet Indications: Other migraine without status migrainosus, not intractable Take 1 tablet (60 mg) by mouth once daily. 30 tablet 11 10/13/2023 Active Comment on above: Take 1 tablet (60 mg ) by mouth once daily. 24 hr buPROPion hydrochloride 150 mg extended release oral tablet (20 sources) Aminoketone Start: buPROPion XL (WELLBUTRIN XL) 150 mg 24 hr tablet 07/17/2023 Active Start: 04-21-2023 take 1 tablet by jerilny th once daily in the morning Bupropion Hcl (Wellbutrin Sr) 150 mg tablet sustained-release 12 hr Active 150 MG PO EVERY MORNING April 21, 2023 12:00am Start: 09-09-2022 take 1 tablet by jerilyn th once daily buPROPion XL (WELLBUTRIN XL) 300 mg 24 hr tablet Indications: Anxiety with depression Take 1 tablet by mouth once daily. 90 tablet 3 09/09/2022 Active Start: 12-05-2021 End: 09-07-2022 take 1 tablet by mouth once daily buPROPion XL (WELLBUTRIN XL) 300 mg 24 hr tablet Indications: Anxiety with depression Take 1 tablet by mouth once daily. 90 tablet 3 12/05/2021 09/07/2022 Discontinued Comment on above: Take 1 tablet by jerilyn th once daily. cyclobenzaprine hydrochloride 10 mg oral tablet (7 sources) Muscle Relaxant Start: 07-17-2023 cyclobenzaprine (FLEXERIL) 10 mg tablet 07/17/2023 Active Start: 04-21-2023 take 10 mg by mouth three times daily Cyclobenzaprine Active 10 MG PO THREE TIMES A DAY April 21, 2023 12:00am Dicyclomine (4 sources) Anticholinergic dicyclomine HCl (BENTYL ORAL) Take by mouth as needed. Active dicyclomine HCl (BENTYL ORAL) Take by mouth as needed. 0 Active Comment on above: Take by mouth as nee ded. DULoxetine 30 mg delayed release oral capsule (5 sources) Serotonin and Norepinephrine Reuptake Inhibitor Start: 3 DULoxetine (CYMBALTA) 30 mg capsule 10/03/2023 Active etodolac 400 mg oral tablet (3 sources) Nonsteroidal Anti-inflammatory Drug Start: 3 take 400 mg by mouth twice daily Etodolac Active 400 MG PO TWICE A DAY April 21, 2023 12:00am Start: 03-31-2023 take 1 tablet by jerilyn th twice daily etodolac (LODINE) 400 mg tablet Take 1 tablet by mouth twice daily. 60 tablet 0 03/31/2023 Active Comment on above: Take 1 tablet by jerilyn th twice daily. FLUoxetine 20 mg oral capsule (3 sources) Serotonin Reuptake Inhibitor Start: 04-21-2023 take 1 capsule by mouth once daily Fluoxetine (Prozac) 20 mg capsule Active 20 MG PO DAILY April 21, 2023 12:00am Start: 12-05-2021 End: 01-07-2022 FLUoxetine (PROZAC) 10 mg ca psule Indications: Anxiety with depression Week one: Take prozac 20 mg and sertraline 25 mg; Week two: Take prozac 10 mg and sertraline 50 mg; Week three: Stop the prozac and continue on the sertraline 50 mg. 21 capsule 0 12/05/2021 01/07/2022 Discontinued Comment on above: Week one: Take proza c 20 mg and sertraline 25 mg; Week two: Take prozac 10 mg and sertraline 50 mg; Week three: Stop the prozac and continue on the sertraline 50 mg. fluticasone / salmeterol (20 sources) Corticosteroid, beta2-Adrenergic Agonist Start: 09-09-20 take 1 puff(s) by inhalation twice daily fluticasone-salmeter ol (ADVAIR, WIXELA) 250-50 mcg/dose inhaler Indications: Mild intermittent asthma without complication (HCC) Inhale 1 Puff as instructed twice daily. 3 Each 3 09/09/2022 Active Start: 09-09-2022 take 1 puff(s) by in halation twice daily fluticasone-salmeterol (ADVAIR, WIXELA) 250-50 mcg/dose inhaler Indications: Mild intermittent asthma without complication Inhale 1 Puff as instructed twice daily. 3 Each 3 09/09/2022 Active Start: 04-09-2022 End: 09-07-2022 take 1 puff(s) by inhalation twice daily fluticasone-salmeterol (ADVAIR, WIXELA) 250-50 mcg/dose inhaler Indications: Mild intermittent asthma without complication Inhale 1 Puff as instructed twice daily. 3 Each 3 04/09/2022 09/07/2022 Discontinued Start: 04-09-2022 take 1 puff(s) by in halation twice daily fluticasone-salmeterol (ADVAIR, WIXELA) 250-50 mcg/dose inhaler Indications: Mild intermittent asthma without complication Inhale 1 Puff as instructed twice daily. 3 Each 3 04/09/2022 Active Start: 02-09-2021 End: 01-07-2022 take 1 puff(s) by inhalation twice daily fluticasone-salmeterol (ADVAIR, WIXELA) 250-50 mcg/dose inhaler Indications: Mild intermittent asthma without complication Inhale 1 Puff as instructed twice daily. 3 Each 3 01/07/2022 Active Start: 10-06-2013 take 1 puff(s) by in halation twice daily Fluticasone Propion-Salmeterol (Advair 250/50 Mcg Diskus) 1 PUFF inhaler Active 1 PUFF INHALATION TWICE A DAY October 06, 2013 1:00am for 10 days Comment on above: Inhale 1 Puff as ins tructed twice daily. gabapentin 300 mg oral capsule (5 sources) Anti-epileptic Agent Start: 3 take 1 capsule by mouth once daily at bedtime gabapentin (NEURONTIN) 300 mg capsule Take 300 mg by mouth daily at bedtime. 09/10/2023 Active Comment on above: Take 300 mg by mouth daily at bedtime. naltrexone hydrochloride 50 mg oral tablet (4 sources) Opioid Antagonist Start: 4 take 1 tablet by mouth once daily naltrexone 50 mg tablet Take 50 mg by mouth once daily. 11/17/2023 Active Comment on above: Take 50 mg by mouth once daily. Nebulizer (17 sources) Start: 6 Nebulizer 1 Each once daily. NEBULIZER/accessori es FOR HOME USE. DX: J45.909 1 Each 0 10/31/2015 Active Comment on above: 1 Each once daily. N EBULIZER/accessories FOR HOME USE. DX: J45.909 Nebulizer Accessories (REUSABLE NEBULIZER KIT) kit (17 sources) Start: 6 Nebulizer Accessories (REUSABLE NEBULIZER KIT) kit 1 Each once daily. 1 Kit 2 10/30/2015 Active Comment on above: 1 Each once daily. Nebulizers (17 sources) Start: 0 Nebulizers Use nebulizer every 4 hours as needed for wheeze/shortness of breath. 1 Each 11/18/2019 Active Start: 11-18-2019 Nebulizers Use nebulizer every 4 hours as needed for wheeze/shortness of breath. 1 Each 0 11/18/2019 Active Comment on above: Use nebulizer every 4 hours as needed for wheeze/shortness of breath. NEBULIZERS KIT (17 sources) Start: 12-29-19 08 NEBULIZERS KIT Nebulizer with accesories. Diagnosis: asthma 493.90 1 0 12/29/2007 Active Comment on above: Nebulizer with acces ories. Diagnosis: asthma 493.90 norethindrone 0.35 mg oral tablet (18 sources) Start: 02-25-20 23 take 1 tablet by mouth once daily Norethindrone, Contraceptive, (TULANA) 0.35 mg tablet Take 1 tablet by mouth once daily. 28 tablet 5 02/24/2023 Active Start: 09-03-2022 take 1 tablet by jerilyn th once daily Norethindrone, Contraceptive, (TULANA) 0.35 mg tablet Take 1 tablet by mouth once daily. 28 tablet 5 09/03/2022 Active Start: 02-09-2021 End: 01-07-2022 take 1 tablet by mouth once daily Norethindrone, Contraceptive, (TULANA) 0.35 mg tablet Take 1 tablet by mouth once daily. 28 tablet 5 01/07/2022 Active Comment on above: Take 1 tablet by jerilyn once daily. ondansetron 4 mg disintegrating oral tablet (4 sources) Serotonin-3 Receptor Antagonist Start: ondansetron orally disintegrating (ZOFRAN ODT) 4 mg disintegrating tablet 10/27/2023 Active phentermine hydrochloride 37.5 mg oral tablet (4 sources) Sympathomimetic Amine Anorectic Start: End: take 1 tablet by mouth once daily Phentermine HCl (ADIPEX-P) 37.5 mg tablet Indications: Obesity, Class III, BMI 40-49.9 (morbid obesity) ([facility]) Take 1 tablet by mouth once daily for 30 days. BMI - 40.95 30 tablet 2 01/22/2023 02/21/2023 Active Start: 12-02-2022 End: 01-01-2023 take 1 tablet by mouth once daily Phentermine HCl (ADIPEX-P) 37.5 mg tablet Indications: Obesity, Class III, BMI 40-49.9 (morbid obesity) (HCC) Take 1 tablet by mouth once daily for 30 days. BMI - 41.12 30 tablet 0 12/02/2022 01/01/2023 Active Start: 01-07-2022 End: 02-06-2022 take 1 tablet by mouth once daily Phentermine HCl (ADIPEX-P) 37.5 mg tablet Indications: Obesity (BMI 35.0-39.9 without comorbidity) Take 1 tablet by mouth once daily for 30 days. BMI - 40.03 30 tablet 0 01/07/2022 02/06/2022 Active Comment on above: Take 1 tablet by jerilyn once daily for 30 days. BMI - 40.03 Take 1 tablet by jerilyn once daily for 30 days. BMI - 41.12 Take 1 tablet by jerilyn once daily for 30 days. BMI - 40.95 predniSONE 10 mg oral tablet (3 sources) Start: 02-11-2023 End: 02-16-2023 take 4 tablets by mouth once daily predniSONE (DELTASONE) 10 mg tablet Take 4 tablets by mouth once daily for 5 days. 20 tablet 0 02/11/2023 02/16/2023 Active Start: 10-04-2013 End: 10-06-2013 take 10 mg by mouth once daily Prednisone Discontinued 10 MG PO DAILY October 04, 2013 1:00am October 06, 2013 9:50am Comment on above: Take 4 tablets by mo [facility] once daily for 5 days. tiZANidine 4 mg oral capsule (5 sources) Central alpha-2 Adrenergic Agonist Start: 04-21-2023 take 4 mg by mouth every eight hours Tizanidine Active 4 MG PO Q8H April 21, 2023 12:00am Start: 03-31-2023 End: 11-28-2023 take 1 tablet by mouth every eight hours as needed tiZANidine (ZANAFLEX) 4 mg tablet Take 1 tablet by mouth every 8 hours as needed (muscle spasms). 60 tablet 0 03/31/2023 11/28/2023 Discontinued Comment on above: [facility] as needed (muscle spasms). traZODone hydrochloride 100 mg oral tablet (20 sources) Serotonin Reuptake Inhibitor Start: take 2 tablets by mouth once daily at bedtime traZODone (DESYREL) 100 mg tablet Take 2 tablets by mouth daily at bedtime. 180 tablet 1 12/09/2023 Active Start: 09-10-2023 take 2 tablets by mo [facility] once daily at bedtime traZODone (DESYREL) 100 mg tablet Take 200 mg by mouth daily at bedtime. 0 09/10/2023 Active Start: 09-09-2022 End: 05-25-2023 take 2 tablets by mouth once daily at bedtime traZODone (DESYREL) 100 mg tablet Indications: Insomnia, unspecified type Take 2 tablets by mouth daily at bedtime. 180 tablet 1 02/24/2023 05/25/2023 Active Start: 10-10-2021 End: 09-07-2022 take 2 tablets by mouth once daily at bedtime traZODone (DESYREL) 100 mg tablet Indications: Insomnia, unspecified type Take 2 tablets by mouth daily at bedtime. 60 tablet 2 06/12/2022 09/07/2022 Discontinued Start: 10-04-2013 take 50 mg by mouth at bedtime Trazodone Active 50 MG PO AT BEDTIME October 04, 2013 1:00am Comment on above: Take 2 tablets by mo uth daily at bedtime. Take 200 mg by mouth daily at bedtime. Completed/Discontinued Medications Medication Drug Class(es) Dates Sig (Normalized) Sig (Original) benzonatate 100 mg oral capsule (9 sources) Non-narcotic Antitussive Start: 05-15-2021 End: 12-02-2022 take 1 capsule by mouth three times daily as needed benzonatate (TESSALON PERLE) 100 mg capsule Indications: Mild intermittent asthma with exacerbation Take 1-2 capsules by mouth three times daily as needed for cough. 30 capsule 0 05/15/2021 12/02/2022 Discontinued (Other) Comment on above: Take 1-2 capsules by mouth three times daily as needed for cough. Norgestimate-Ethin yl Estradiol (2 sources) Progestin, Estrogen Start: 10-04-2013 End: 04-21-2023 take 1 tablet by mouth once daily Norgestimate-Ethin yl Estradiol (Sprintec (28)) 1 EACH tablet Discontinued 1 EACH PO DAILY October 04, 2013 1:00am April 21, 2023 5:22pm 12 hr hyoscyamine sulfate 0.375 mg extended release oral tablet (18 sources) Start: 04-25-2023 End: 11-28-2023 take 1 tablet by mouth once daily hyoscyamine SR (LEVBID) 0.375 mg 12 hr tablet Indications: Irritable bowel syndrome, unspecified type take 1 tablet by mouth once daily if needed for IBS FLARES 15 tablet 2 04/25/2023 11/28/2023 Discontinued Start: 02-14-2023 take 1 tablet by jerilyn once daily hyoscyamine SR (LEVBID) 0.375 mg 12 hr tablet Indications: Irritable bowel syndrome, unspecified type take 1 tablet by mouth once daily if needed for IBS FLARES 15 tablet 2 02/14/2023 Active Start: 09-09-2022 End: 02-12-2023 take 1 tablet by mouth once daily hyoscyamine SR (LEVBID) 0.375 mg 12 hr tablet Indications: Irritable bowel syndrome, unspecified type take 1 tablet by mouth once daily if needed for IBS FLARES 15 tablet 2 12/02/2022 02/12/2023 Discontinued Start: 08-27-2021 End: 09-07-2022 take 1 tablet by mouth once daily hyoscyamine SR (LEVBID) 0.375 mg 12 hr tablet Indications: Irritable bowel syndrome, unspecified type take 1 tablet by mouth once daily if needed for IBS FLARES 15 tablet 2 01/07/2022 09/07/2022 Discontinued Comment on above: take 1 tablet by jerilyn th once daily if needed for IBS FLARES ibuprofen 800 mg oral tablet (15 sources) Nonsteroidal Anti-inflammatory Drug Start: 2 End: 3 take 1 tablet by mouth every eight hours as needed for pain ibuprofen (MOTRIN) 800 mg tablet Indications: Foot pain, left Take 1 tablet by mouth every 8 hours as needed for pain. Take with food. 60 tablet 1 09/09/2022 03/31/2023 Discontinued (Other) Start: 03-06-2022 End: 09-07-2022 take 1 tablet by mouth every eight hours as needed for pain ibuprofen (MOTRIN) 800 mg tablet Indications: Foot pain, left Take 1 tablet by mouth every 8 hours as needed for pain. Take with food. 60 tablet 1 05/27/2022 09/07/2022 Discontinued Start: 08-27-2021 End: 01-07-2022 take 1 tablet by mouth every eight hours as needed for pain ibuprofen (MOTRIN) 800 mg tablet Indications: Foot pain, left Take 1 tablet by mouth every 8 hours as needed for pain. Take with food. 60 tablet 1 01/07/2022 Active Comment on above: Take 1 tablet by jerilyn th every 8 hours as needed for pain. Take with food. levoFLOXacin 750 mg oral tablet (2 sources) Quinolone Antimicrobial Start: 10-06-19 14 End: 04-21-20 23 take 750 mg by mouth once daily Levofloxacin Discontinued 750 MG PO DAILY October 06, 2013 1:00am April 21, 2023 5:22pm riboflavin 400 mg oral tablet (12 sources) Start: 06-11-20 19 take 1 tablet by mouth once daily riboflavin, vitamin B2, 400 mg tab Indications: Other migraine without status migrainosus, not intractable Take 1 tablet by mouth once daily. 30 tablet 5 06/11/2019 Active Comment on above: Take 1 tablet by jerilyn th once daily. sertraline 100 mg oral tablet (17 sources) Serotonin Reuptake Inhibitor Start: 09-09-20 End: 11-28-19 24 take 1 tablet by mouth once daily sertraline (ZOLOFT) 100 mg tablet Indications: Anxiety with depression Take 1 tablet by mouth once daily. 90 tablet 1 12/02/2022 11/28/2023 Discontinued Start: 01-07-2022 End: 09-07-2022 take 1 tablet by mouth once daily sertraline (ZOLOFT) 100 mg tablet Indications: Anxiety with depression Take 1 tablet by mouth once daily. 30 tablet 1 01/07/2022 09/07/2022 Discontinued Start: 12-05-2021 End: 01-07-2022 sertraline (ZOLOFT) 50 mg ta blet Indications: Anxiety with depression Week one: Take prozac 20 mg and sertraline 25 mg; Week two: Take prozac 10 mg and sertraline 50 mg; Week three: Stop the prozac and continue on the sertraline 50 mg. 30 tablet 1 12/05/2021 01/07/2022 Discontinued Comment on above: Take 1 tablet by jerilyn th once daily. Week one: Take proza c 20 mg and sertraline 25 mg; Week two: Take prozac 10 mg and sertraline 50 mg; Week three: Stop the prozac and continue on the sertraline 50 mg. spironolactone 50 mg oral tablet (9 sources) Aldosterone Antagonist Start: 05-02-20 End: 12-02-19 take 1 tablet by mouth twice daily spironolactone (ALDACTONE) 50 mg tablet Indications: Acne vulgaris Take 1 tablet by mouth twice daily. 60 tablet 1 05/02/2021 12/02/2022 Discontinued (Other) Comment on above: Take 1 tablet by jerilyn th twice daily. SUMAtriptan 100 mg oral tablet (17 sources) Serotonin-1b and Serotonin-1d Receptor Agonist Start: 10-10-19 End: 11-28-19 24 take 1 tablet by mouth every two hours as needed, then take 2 tablets by mouth every twenty-four hours as needed SUMAtriptan (IMITREX) 100 mg tablet Indications: Other migraine without status migrainosus, not intractable Take 1 tablet by mouth as needed when migraine starts. May repeat in 2 hours if headache continues or returns. Do not exceed 2 tablets in 24 hours. 30 tablet 0 01/07/2022 11/28/2023 Discontinued Comment on above: Take 1 tablet by jerilyn th as needed when migraine starts. May repeat in 2 hours if headache continues or returns. Do not exceed 2 tablets in 24 hours. Problems Active Problems Problem Classification Problem Date Documented Da te Episodic/Chronic Anxiety disorders (8 sources) Mixed anxiety and depressive disorder; Translations: [Other specified anxiety disorders] Onset: 3 Chronic Asthma (20 sources) Mild intermittent asthma; Translations: [Mild intermittent asthma, uncomplicated] Onset: 7 Chronic Esophageal disorders (1 source) Gastroesophageal reflux disease; Translations: [Gastro-esophageal reflux disease without esophagitis] 11-28-2023 Chronic Essential hypertension (1 source) Essential (primary) hypertension; Translations: [Essential (primary) hypertension] Onset: 5 Chronic Headache; including migraine (2 sources) Migraine; Translations: [Other migraine, not intractable, without status migrainosus] Chronic Headache; including migraine (1 source) Morning headache; Translations: [Morning headache] 11-28-2023 Episodic Malaise and fatigue (2 sources) Malaise and fatigue; Translations: [Other malaise] Onset: 5 11-28-2023 Episodic Mood disorders (1 source) Major depressive disorder, recurrent, moderate; Translations: [Major depressive disorder, recurrent, moderate] Onset: 5 Chronic Other bone disease and musculoskeletal deformities (4 sources) Segmental and somatic dysfunction; Translations: [Segmental and somatic dysfunction of lumbar region] 05-05-2023 Episodic Other bone disease and musculoskeletal deformities (6 sources) Segmental and somatic dysfunction of lumbar region; Translations: [Nonallopathic lesions, lumbar region] 05-05-2023 Episodic Other bone disease and musculoskeletal deformities (6 sources) Segmental and somatic dysfunction of pelvic region; Translations: [Nonallopathic lesions, pelvic region] 05-05-2023 Episodic Other connective tissue disease (3 sources) Pain in left foot; Translations: [Pain in left foot] Episodic Other female genital disorders (1 source) Other specified noninflammatory disorders of vagina; Translations: [Other specified noninflammatory disorders of vagina] Onset: 5 Episodic Other gastrointestinal disorders (20 sources) Irritable bowel syndrome; Translations: [Irritable bowel syndrome without diarrhea] Onset: 0 Chronic Other nutritional; endocrine; and metabolic disorders (1 source) Body mass index 30+ - obesity; Translations: [Obesity, unspecified] Chronic Other nutritional; endocrine; and metabolic disorders (1 source) Severe obesity; Translations: [Morbid (severe) obesity due to excess calories] 11-28-2023 Chronic Other nutritional; endocrine; and metabolic disorders (1 source) Obesity, unspecified; Translations: [Obesity, unspecified] Onset: 5 Chronic Other nutritional; endocrine; and metabolic disorders (1 source) Morbid (severe) obesity due to excess calories; Translations: [Morbid (severe) obesity due to excess calories] Onset: 5 Chronic Other nutritional; endocrine; and metabolic disorders (1 source) Body mass index (BMI) 38.0-38.9, adult; Translations: [Body mass index [BMI] 38.0-38.9, adult] Onset: 5 Chronic Other upper respiratory disease (17 sources) Chronic rhinitis; Translations: [Chronic rhinitis] Onset: 7 09-01-2007 Chronic Residual codes; unclassified (1 source) Daytime somnolence; Translations: [Other hypersomnia] 11-28-2023 Chronic Residual codes; unclassified (1 source) Hypersomnia, unspecified; Translations: [Hypersomnia, unspecified] Onset: Chronic Spondylosis; intervertebral disc disorders; other back problems (17 sources) Acute back pain with sciatica; Translations: [Lumbago with sciatica, right side] Episodic Unclassified (1 source) Obesity, class 2; Translations: [Obesity, class 2] Onset: 5 Past or Other Problems Problem Classification Problem Date Documented Da te Episodic/Chronic Abdominal pain (17 sources) Finding of sensation of abdomen; Translations: [Unspecified abdominal pain] Onset: 05-31-2014 06-02-2014 Episodic Administrative/social admission (1 source) Persons encountering health services in other specified circumstances; Translations: [Persons encountering health services in other specified circumstances] Onset: 05-06-2025 Episodic Anal and rectal conditions (2 sources) Anal fistula; Translations: [Anal fistula] Onset: 11-18-2006 Resolved: 09-26-2009 09-26-2009 Episodic Nausea and vomiting (17 sources) Nausea; Translations: [Nausea] Onset: 07-12-2013 07-12-2013 Episodic Other gastrointestinal disorders (17 sources) Diarrhea; Translations: [Diarrhea, unspecified] Onset: 06-10-2007 07-19-2013 Episodic Other nutritional; endocrine; and metabolic disorders (4 sources) Body mass index 40+ - severely obese; Translations: [Morbid (severe) obesity due to excess calories] Onset: 07-31-2007 Resolved: 05-26-2018 Chronic Other screening for suspected conditions (not mental disorders or infectious disease) (8 sources) Patient encounter status; Translations: [Encounter for screening mammogram for malignant neoplasm of breast] Onset: 10-04-2024 Episodic Residual codes; unclassified (20 sources) Insomnia; Translations: [Insomnia, unspecified] Onset: 04-16-2011 Episodic Unclassified (1 source) Patient encounter status 03-01-2025 Results Test Name Value Interpretation Reference Range Facil ity MR/BMS.BPon 08-14-2025 MR/BMS.BP [address], [address] [place] [address] OFFICE VISIT Date of Service: 08/12/25 MR#: [id number] Acct: [id number] Name: SUSY BATEMAN Rep #: [id number] : 1980 [facility] Age/Sex: 45/F Location: [facility]BP Status: Signed Intake Vital Signs 01/21/25 14:32 07/30/25 09:49 08/14/25 10:04 Height 5 ft 7 in 5 ft 6 in 5 ft 6 in BP Intake Visit Reasons: Follow up Allergies oxymetazoline (From Afrin (oxymetazoline)) Adverse Reaction (Intermediate, Verified 08/12/25 15:08) Shortness of breath [facility] Medical History Hypertension Tremor Borderline type 2 diabetes mellitus Depression, unspecified Anxiety Status post pneumothorax Back problem Chronic back pain Obesity (BMI 30-39.9) Anxiety and depression 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 Anal fissure Pectus excavatum IBS (irritable bowel syndrome) Migraine Asthma Segmental and somatic dysfunction of pelvic region Segmental and somatic dysfunction of lumbar region Sciatica Surgical History Hx of chest tube placement Family History Mother Graves disease CVA (cerebral vascular accident) Father Diabetes Grandfather Myocardial infarction CAD (coronary artery disease) Pacemaker Social History adopted: No household members: none number of children: 0 current occupational status: employed 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 Susy identified ongoing sleep difficulties. She reported continuing to utilize medication, sleep hygiene strategies, and coping skills despite their ineffectiveness. Susy reported struggling with negative view of her body and past fitness abilities. She identified regularly exercising at the gym regardless of negative thoughts. Susy stated that she continues to feel sad, angry, and frustrated about not being accepted to participate in a special work program. She identified financial stressors and frequent feelings of loneliness. The main themes of the session were dealing with loneliness, exploration of body anxiety and body image, and working towards improved self-esteem and confidence. Encouraged verbalization of emotions while providing support. Reinforced attempts to use skills and good sleep hygiene to address sleep. Reinforced working out despite negative thoughts about exercise performance and body. Addressed self-critical thought patterns using CBT interventions and strategies. Explored triggers for negative body image. Reinforced efforts to explore education programs despite no being accepted into work program. Strategies for the next session will include interventions for loneliness and relaxation technique for sleep. No SI. Future-oriented. Exam Mental Status Exam - Psych Appearance well kempt Attitude cooperative, calm and engaged Activity/Motor Behavior MSE activity/motor behavior finding no adventitious movements and appropriate eye contact Speech regular rate, regular volume and regular prosody Mood sad, anxious and other (frustrated) Affect full range Thought Process linear, logical and coherent Thought Content no delusions and no hallucinations Suicidal Ideation none Homicidal Ideation none Attention impaired (Per pt. report.) Concentration impaired (Per pt. report.) Sensorium/Orientation awake, alert and oriented x3 Memory/Cognition intact Insight good Judgement good Assessment Plan Assessment Plan (1) ANNE (generalized anxiety disorder): Plan: BH therapy using CBT, DBT, and ACT interventions to address thought patterns contributing to anxious symptoms and to teach coping skills. Psychiatric services to monitor anxious symptoms and medication effectiveness. (2) MDD (major depressive disorder): Qualifiers: Major depression recurrence: recurrent Active/Remission status: currently active Major depression episode severity: moderate Qualified Code(s): F33.1 - Major depressive disorder, recurrent, moderate Plan: BH therapy using CBT, DBT, and ACT interventions to address thought patterns contrib (more content not included)... Normal [facility] Internal Medicine Office Vis iton 08-12-2025 Internal Medicine Office Visit [facility] Internal Medicine [address] [place] [address] [place] [address] OFFICE VISIT Date of Service: 08/12/25 MR#: [id number] Acct: [id number] Name: SUSY BATEMAN Rep #: [id number] : 1980 Provider: ISACC Fonseca Age/Sex: 45/F Location: [facility]BIM Status: Signed Intake Vital Signs 06/30/25 09:04 07/30/25 09:49 08/12/25 15:08 Height 5 ft 6 in 5 ft 6 in 5 ft 6 in Weight: 222 lb BMI 35.8 BP 128/78 H Blood Pressure Location Rt brachial Position Sitting Respiration 16 Pulse 90 Pulse Source Monitor Temp 97.8 F Temp Source Temporal Pulse Oximetry (%) 97 Oxygen Delivery Method room air Intake Visit Reasons: Chief Complaint: FOLLOW UP Stock Plan Administrator Required: No Accompanied by: Self Is patient in pain?: No Allergies oxymetazoline (From Afrin (oxymetazoline)) Adverse Reaction (Intermediate, Verified 08/12/25 15:08) Shortness of breath Medications ???Medication ???Instructions ???Recorded ???Confirmed ???Type albuterol sulfate 2.5 mg/3 mL 2.5 mg inhalation Q2H PRN PRN /08/12/25 History (0.083 %) solution for nebulization Shortness Of Breath dicyclomine 20 mg tablet 20 mg PO TID PRN abdominal pain 08/12/25 Rx #90 tabs cyclobenzaprine 10 mg tablet 10 mg PO TID PRN muscle spasm #90 11/17/23 08/12/25 Rx tabs fexofenadine 180 mg tablet 180 mg PO DAILY 02/13/24 08/12/25 History (May Allergy) blood builder PO 07/23/24 08/12/25 History pen needle, diabetic 32 gauge x #100 ea 09/28/24 08/12/25 Rx 10/11 (NovoFine Plus) norethindrone (contraceptive) 0.35 0.35 mg PO DAILY #84 tabs 08/12/25 Rx mg tablet beef organ capsule PO DAILY 01/21/25 08/12/25 History cholecalciferol (vitamin D3) 25 25 mcg PO QDAY 01/21/25 08/12/25 H istory mcg (1,000 unit) capsule gabapentin 300 mg capsule 600 mg PO QHS 01/21/25 08/12/25 Hi story PO DAILY 01/21/25 08/12/25 History metformin 500 mg tablet,extended 500 mg PO QDAY #90 tabs 02/01/25 1 10/12/24 Rx release 24 hr Held on 06/10/25. Instructions: Order Changed ibuprofen 800 mg tablet 800 mg PO DAILY PRN pain #30 tabs 02/23/25 08/12/25 Rx albuterol sulfate 90 mcg/actuation 2 inh inhalation Q4-6H PRN 03/1508/12/25 Rx breath activated powder inhaler shortness of breath or wheezing #1 ea budesonide-formoterol HFA 160 2 puff inhalation BID #10.2 grams 03/15/25 08/12/25 Rx mcg-4.5 mcg/actuation aerosol inhaler (Symbicort) trazodone 100 mg tablet 100 mg PO QHS #90 tabs 03/15/25 Rx buspirone 15 mg tablet 15 mg PO BID #180 tabs 05/05/25 Rx escitalopram oxalate 20 mg tablet 20 mg PO QDAY #90 tabs 05/05/25 1 10/12/24 Rx lorazepam 0.5 mg tablet 0.5 mg PO QDAY PRN anxiety #14 tab s 05/05/25 08/12/25 Rx tirzepatide 7.5 mg/0.5 mL 7.5 mg (0.5 mL) subcut QWEEK #2 mL 06/03/25 08/12/25 Rx subcutaneous pen injector phentermine 37.5 mg tablet 18.75 mg (1/2 x 37.5 mg) PO QDAY 0 06/10/25 08/12/25 Rx (Adipex-P) #30 tabs hydroxyzine HCl 25 mg tablet 25 mg PO QHS PRN anxiety #30 tabs 06/30/25 08/12/25 Rx ondansetron 4 mg disintegrating 4 mg PO Q8H PRN nausea and 5 08/12/25 Rx tablet vomiting #30 tabs Nurse's Note: discuss going back on metformin pamela is moving [facility] to [address] [place] [address] Medical History Hypertension Tremor Borderline type 2 diabetes mellitus Depression, unspecified Anxiety Status post pneumothorax Back problem Chronic back pain Obesity (BMI 30-39.9) Anxiety and depression 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 Anal fissure Pectus excavatum IBS (irritable bowel syndrome) Migraine Asthma Segmental and somatic dysfunction of pelvic region Segmental and somatic dysfunction of lumbar region Sciatica Surgical History Hx of chest tube placement Family History Mother Graves disease CVA (cerebral vascular accident) Father Diabetes Grandfather Myocardial infarction CAD (coronary artery disease) Pacemaker Social History adopted: No household members: none number of children: 0 current occupational status: employed 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 Normal [facility] MR/BMS.BPon 07-30-2025 MR/BMS.BP [facility] [address], [address] [place] [address] OFFICE VISIT Date of Service: 07/29/25 MR#: [id number] Acct: [id number] Name: SUSY BATEMAN Rep #: [id number] : 1980 [facility] Age/Sex: 45/F Location: [facility]BP Status: Signed Intake Vital Signs 01/21/25 14:32 07/17/25 06:53 07/30/25 09:49 Height 5 ft 7 in 5 ft 6 in 5 ft 6 in BP Intake Visit Reasons: Follow up Allergies oxymetazoline (From Afrin (oxymetazoline)) Adverse Reaction (Intermediate, Verified 06/10/25 13:28) Shortness of breath PFSH Medical History Hypertension Tremor Borderline type 2 diabetes mellitus Depression, unspecified Anxiety Status post pneumothorax Back problem Chronic back pain Obesity (BMI 30-39.9) Anxiety and depression 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 Anal fissure Pectus excavatum IBS (irritable bowel syndrome) Migraine Asthma Segmental and somatic dysfunction of pelvic region Segmental and somatic dysfunction of lumbar region Sciatica Surgical History Hx of chest tube placement Family History Mother Graves disease CVA (cerebral vascular accident) Father Diabetes Grandfather Myocardial infarction CAD (coronary artery disease) Pacemaker Social History adopted: No household members: none number of children: 0 current occupational status: employed 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 She reported a difficult two weeks resulting in her messaging this therapist the previous week regarding a high level of anxiety and sleep disturbance. Susy identified trying many of the skills suggested by this therapist and stated that they did not reduce symptoms. Encouraged verbalization of emotions while providing support. Normalized emotions. Explored triggers to increased negative emotions and sleep disturbance with Susy identifying not being approved for a work program, emergency while dog sitting, father having surgery, financial stressors, and general work stressors. She identified disappointment of not being excepted into the work program as the primary stressor that exacerbated her symptoms and made the other stressors difficult to manage. 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 Explored psychiatric services. Susy reported that she was prescribed good options for managing anxiety, panic, and sleep and did not need an earlier psychiatric appointment. Worked on coping with disappointment using a CBT approach. Reviewed writing she completed for coping. Susy continues to utilize a coping skills johny, which was also reinforced. No SI. Future-oriented. Exam Mental Status Exam - Psych Appearance well kempt Attitude cooperative, calm and engaged Activity/Motor Behavior MSE activity/motor behavior finding no adventitious movements and appropriate eye contact Speech regular rate, regular volume and regular prosody Mood sad, anxious and other (frustrated) Affect full range Thought Process linear, logical and coherent Thought Content no delusions and no hallucinations Suicidal Ideation none Homicidal Ideation none Attention impaired (Per pt. report.) Concentration impaired (Per pt. report.) Sensorium/Orientation awake, alert and oriented x3 Memory/Cognition intact Insight good Judgement good Assessment Plan Assessment Plan (1) ANNE (generalized anxiety disorder): Plan: therapy using CBT, DBT, and ACT interventions to address thought patterns contributing to anxious symptoms and to teach coping skills. Psychiatric services to monitor anxious symptoms and medication effectiveness. (2) MDD (major depressive disorder): Qualifiers: Major depression recurrence: recurrent Active/Remission status: currently active Major depression episode severity: moderate Qualified Code(s): F33.1 - Major depressive disorder, recurrent, moderate Plan: BH therapy using CBT, DBT, and ACT interventions to address thought patterns contributing (more content not included)... Normal [facility] MR/BMS.BPon 07-17-2025 MR/BMS.BP [facility], [address] [place] [address] OFFICE VISIT Date of Service: 07/15/25 MR#: [id number] Acct: [id number] Name: SUSY BATEMAN Rep #: [id number] : 1980 [facility] Age/Sex: 45/F Location: [facility].BP Status: Signed Intake Vital Signs 01/21/25 14:32 06/30/25 09:04 07/17/25 06:53 Height 5 ft 7 in 5 ft 6 in 5 ft 6 in BP Intake Visit Reasons: Follow up Allergies oxymetazoline (From Afrin (oxymetazoline)) Adverse Reaction (Intermediate, Verified 06/10/25 13:28) Shortness of breath PFSH Medical History Hypertension Tremor Borderline type 2 diabetes mellitus Depression, unspecified Anxiety Status post pneumothorax Back problem Chronic back pain Obesity (BMI 30-39.9) Anxiety and depression 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 Anal fissure Pectus excavatum IBS (irritable bowel syndrome) Migraine Asthma Segmental and somatic dysfunction of pelvic region Segmental and somatic dysfunction of lumbar region Sciatica Surgical History Hx of chest tube placement Family History Mother Graves disease CVA (cerebral vascular accident) Father Diabetes Grandfather Myocardial infarction CAD (coronary artery disease) Pacemaker Social History adopted: No household members: none number of children: 0 current occupational status: employed current occupation: [employer] pets and animals: No Smoking Status: Never smoker alcohol intake: current alcohol intake frequency: holidays/special occasions only substance use type: does not use caffeine: Yes (1) Type: other what type of physical activity do you participate in: none seatbelt use: always do you feel safe at home: Yes additional social history: Single HPI History of Present Illness HPI: Susy Bateman is a 45 year-old female returning for therapy. She reported not being accepted into a MA program and feeling disappointment. Susy identified that her anxiety and depression were fairly well managed in spite of recent disappointment. She reported that work was going well. Susy expressed some worry about father's health. She identified few stressors in interactions with her parents and avoiding areas of discussion that typically result in conflict. Susy described financial stressors and stressors related to organizing her household. Encouraged verbalization of emotions while providing support. Normalized emotions. Explored coping with Susy identifying that she is continuing to utilize a coping johny. and that she is consistently exercising. Reinforced use of coping skills. Worked on coping and self-care. Encouraged use of self-compassion. No SI. Future-oriented. Exam Mental Status Exam - Psych Appearance casually dressed and well kempt Attitude cooperative, calm, engaged, pleasant and friendly Activity/Motor Behavior MSE activity/motor behavior finding no adventitious movements and appropriate eye contact Speech regular rate, regular volume and regular prosody Mood euythmic and OK Affect full range Thought Process linear, logical and coherent Thought Content no delusions and no hallucinations Suicidal Ideation none Homicidal Ideation none Attention impaired (Per pt. report.) Concentration impaired (Per pt. report.) Sensorium/Orientation awake, alert and oriented x3 Memory/Cognition intact Insight good Judgement good Assessment Plan Assessment Plan (1) ANNE (generalized anxiety disorder): Plan: therapy using CBT, DBT, and ACT interventions to address thought patterns contributing to anxious symptoms and to teach coping skills. Psychiatric services to monitor anxious symptoms and medication effectiveness. (2) MDD (major depressive disorder): Qualifiers: Major depression recurrence: recurrent Active/Remission status: currently active Major depression episode severity: moderate Qualified Code(s): F33.1 - Major depressive disorder, recurrent, moderate Plan: therapy using CBT, DBT, and ACT interventions to address thought patterns contributing to depressive symptoms and teach coping skills. Continued psychiatric services to monitor depressive symptoms and medication effectiveness. Pt. to call 911, call suicide prevention hotline, or go to ER if experiencing suicidal ideation with plan and intent and/or feel unable to ensure own safety. Plan TREATMENT PLAN Goal 1 - Reduce overall frequency, intensity, and duration of anxiety so daily f (more content not included)... Normal [facility] MR/BMS.BPon 06-30-2025 MR/BMS.BP [facility] [address], [address] [place] [address] OFFICE VISIT Date of Service: 06/30/25 MR#: [id number] Acct: [id number] Name: SUSY BATEMAN Rep #: [id number] : 1980 Provider: JOSE ANGEL williamson Age/Sex: 45/F Location: [facility].BP Status: Signed Intake Vital Signs 05/05/25 07:52 06/23/25 17:18 06/30/25 09:04 Height 5 ft 6 in 5 ft 6 in 5 ft 6 in BP Intake Visit Reasons: 8wfu Allergies oxymetazoline (From Afrin (oxymetazoline)) Adverse Reaction (Intermediate, Verified 06/10/25 13:28) Shortness of breath PFSH Medical History Hypertension Tremor Borderline type 2 diabetes mellitus Depression, unspecified Anxiety Status post pneumothorax Back problem Chronic back pain Obesity (BMI 30-39.9) Anxiety and depression 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 Anal fissure Pectus excavatum IBS (irritable bowel syndrome) Migraine Asthma Segmental and somatic dysfunction of pelvic region Segmental and somatic dysfunction of lumbar region Sciatica Surgical History Hx of chest tube placement Family History Mother Graves disease CVA (cerebral vascular accident) Father Diabetes Grandfather Myocardial infarction CAD (coronary artery disease) Pacemaker Social History adopted: No household members: none number of children: 0 current occupational status: employed current occupation: [employer] pets and animals: No Smoking Status: Never smoker alcohol intake: current alcohol intake frequency: holidays/special occasions only substance use type: does not use caffeine: Yes (1) Type: other what type of physical activity do you participate in: none seatbelt use: always do you feel safe at home: Yes additional social history: Single HPI History of Present Illness History provided by: patient HPI: Susy Bateman is a 45 year old female patient presenting today for a follow up evaluation. Reports she has been well since last appointment. Does continue to have some concerns with sleep. Has been taking hydroxyzine at night sometimes and this is beneficial most nights. Reports some life stress that contributes to poor sleep. Energy is good throughout the day. Mostly is feeling well rested. Admits to sometime feelings of depression. Denies SI/HI. Has been going to the gym which has been beneficial. Anxiety is worsened at work but does try to use coping skills learning in counseling. Previous similar episode: Yes Age of first onset of symptoms: 21-30 years Review of Systems Constitutional Reports: change in weight (loss); Denies: fever(s), chills or fatigue Eyes Denies: change in vision Ears, Nose, Mouth, Throat Denies: throat pain Cardiovascular Denies: chest pain, palpitations or dyspnea Respiratory Denies: dyspnea or wheezing Gastrointestinal Denies: abdominal pain, nausea, vomiting or diarrhea Genitourinary Denies: dysuria, urinary frequency or urinary urgency Musculoskeletal Denies: back pain (had injection that has helped with pain) Integumentary/Breast Denies: rash or pruritus Neurological Denies: headache(s) (Reports been better since starting Duloxetine) Psychiatric Reports: anxiety, memory loss and difficulty concentrating; Denies: panic attacks, hopelessness, loss of interest, visual hallucinations, auditory hallucinations, suicidal ideation or homicidal ideation Endocrine Denies: polyuria, polydipsia or fatigue Hematologic/Lymphatic Denies: easy bruising or easy bleeding Allergic/Immunologic Denies: wheezing Exam Mental Status Exam - Psych Appearance casually dressed and well kempt Attitude cooperative, calm, engaged, pleasant and friendly Activity/Motor Behavior MSE activity/motor behavior finding no adventitious movements and appropriate eye contact Speech regular rate, regular volume and regular prosody Mood euythmic Affect full range Thought Process linear, logical and coherent Thought Content no delusions and no hallucinations Suicidal Ideation none Homicidal Ideation none Attention impaired (Per pt. report.) Concentration impaired (Per pt. report.) Sensorium/Orientation awake, alert and oriented x3 Memory/Cognition intact Insight good Judgement good Exam Constitutional Common normals: no acute distress, average body habitus and patient oriented x3 General appearance: well kempt Neuro Common normals: patient oriented x3 Speech: speech normal Gait (neuro): normal gait Psych (more content not included)... Normal [facility] MR/BMS.BPon 06-23-2025 MR/BMS.BP [facility] [address], [address] [place] [address] OFFICE VISIT Date of Service: 06/22/25 MR#: [id number] Acct: [id number] Name: SUSY BATEMAN Rep #: [id number] : 1980 Provider: JIMMY hill Age/Sex: 45/F Location: [facility].BP Status: Signed Intake Vital Signs 05/05/25 07:52 06/12/25 10:14 Height 5 ft 6 in 5 ft 6 in BP Intake Visit Reasons: Follow up Allergies oxymetazoline (From Afrin (oxymetazoline)) Adverse Reaction (Intermediate, Verified 06/10/25 13:28) Shortness of breath PFSH Medical History Hypertension Tremor Borderline type 2 diabetes mellitus Depression, unspecified Anxiety Status post pneumothorax Back problem Chronic back pain Obesity (BMI 30-39.9) Anxiety and depression 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 Anal fissure Pectus excavatum IBS (irritable bowel syndrome) Migraine Asthma Segmental and somatic dysfunction of pelvic region Segmental and somatic dysfunction of lumbar region Sciatica Surgical History Hx of chest tube placement Family History Mother Graves disease CVA (cerebral vascular accident) Father Diabetes Grandfather Myocardial infarction CAD (coronary artery disease) Pacemaker Social History adopted: No household members: none number of children: 0 current occupational status: employed current occupation: [employer] pets and animals: No Smoking Status: Never smoker alcohol intake: current alcohol intake frequency: holidays/special occasions only substance use type: does not use caffeine: Yes (1) Type: other what type of physical activity do you participate in: none seatbelt use: always do you feel safe at home: Yes additional social history: Single HPI History of Present Illness HPI: Susy Bateman is a 45 year-old female returning for therapy. She reported that she was doing well, routinely exercising, and experiencing reduced stressors and reduced anxiety. Susy stated that she is considering participating a work education program to earn a MA degree. She identified not scheduling [employer] we[employer] as heavily resulting in increased free time. Susy reported assisting her father with recovery from surgery. She identified some work stressors. Encouraged verbalization of emotions while providing support. Normalized emotions. Discussed ambivalence about whether or not to participate in education program. Assisted Susy in exploring the pros and cons of participation in the program. Discussed of ex's family member and plan to attend services. Explored history and relationship with late person and feelings of grief. Worked on coping skills. Reinforced use of exercise to lift mood. Problem solved strategies for managing work stressors. Reinforced Susy's continued use of coping johny. No SI. Future-oriented. Exam Mental Status Exam - Psych Appearance casually dressed and well kempt Attitude cooperative, calm, engaged, pleasant and friendly Activity/Motor Behavior MSE activity/motor behavior finding no adventitious movements and appropriate eye contact Speech regular rate, regular volume and regular prosody Mood euythmic Affect full range Thought Process linear, logical and coherent Thought Content no delusions and no hallucinations Suicidal Ideation none Homicidal Ideation none Attention impaired (Per pt. report.) Concentration impaired (Per pt. report.) Sensorium/Orientation awake, alert and oriented x3 Memory/Cognition intact Insight good Judgement good Assessment Plan Assessment Plan (1) ANNE (generalized anxiety disorder): Plan: therapy using CBT, DBT, and ACT interventions to address thought patterns contributing to anxious symptoms and to teach coping skills. Psychiatric services to monitor anxious symptoms and medication effectiveness. (2) MDD (major depressive disorder): Qualifiers: Major depression recurrence: recurrent Active/Remission status: currently active Major depression episode severity: moderate Qualified Code(s): F33.1 - Major depressive disorder, recurrent, moderate Plan: BH therapy using CBT, DBT, and ACT interventions to address thought patterns contributing to depressive symptoms and teach coping skills. Continued psychiatric services to monitor depressive symptoms and medication effectiveness. Pt. to call 911, call suicide prevention hotline, or go to ER if experiencing suicidal ideation with plan and intent and/or feel unable to ensure own sa (more content not included)... Normal [facility] MR/BMS.BPon 06-12-2025 MR/BMS.BP [facility] [address], [address] [place] [address] OFFICE VISIT Date of Service: 06/10/25 MR#: [id number] Acct: [id number] Name: SUSY BATEMAN Rep #: [id number] : 1980 Provider: JIMMY hill Age/Sex: 45/F Location: [facility].BP Status: Signed Intake Vital Signs 01/21/25 14:32 06/10/25 13:28 06/12/25 10:14 Height 5 ft 7 in 5 ft 6 in 5 ft 6 in BP Intake Visit Reasons: Follow up Allergies oxymetazoline (From Afrin (oxymetazoline)) Adverse Reaction (Intermediate, Verified 06/10/25 13:28) Shortness of breath PFSH Medical History Hypertension Tremor Borderline type 2 diabetes mellitus Depression, unspecified Anxiety Status post pneumothorax Back problem Chronic back pain Obesity (BMI 30-39.9) Anxiety and depression 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 Anal fissure Pectus excavatum IBS (irritable bowel syndrome) Migraine Asthma Segmental and somatic dysfunction of pelvic region Segmental and somatic dysfunction of lumbar region Sciatica Surgical History Hx of chest tube placement Family History Mother Graves disease CVA (cerebral vascular accident) Father Diabetes Grandfather Myocardial infarction CAD (coronary artery disease) Pacemaker Social History adopted: No household members: none number of children: 0 current occupational status: employed current occupation: [employer] pets and animals: No Smoking Status: Never smoker alcohol intake: current alcohol intake frequency: holidays/special occasions only substance use type: does not use caffeine: Yes (1) Type: other what type of physical activity do you participate in: none seatbelt use: always do you feel safe at home: Yes additional social history: Single HPI History of Present Illness HPI: Susy Bateman is a 45 year-old female returning for BH therapy. She reported that her anxiety had been a 6.5 on a scale from 1 to 10 with 10 being worst. 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 She expressed uncertainty as to why her anxiety had increased. She reported difficulty losing weight, recent medical appointment to address weight issues, and discontinuing Metformin. Susy identified resuming working out at the gym. Encouraged verbalization of emotions while providing support. Explored triggers to increase in anxiety with Susy recognizing work stressor and stressors related to father recently having surgery and her daily assisting her parents. She also recognized some stressors in recent conversations with parents about vacation. Reinforced resuming exercise exploring how she overcame barrier to do so and impact on mood (reduced depression). Explored family of origin family interaction patterns providing psychoeducation on family dynamics. Reinforced problem solving she reported using with work stressors. Reviewed coping. Susy identified continuing to use a coping johny. and finding it helpful. She reported continuing to utilize squared breathing. Taught 5-5-8-2 breathing as increased exhalation may provide more relaxation than squared breathing. Reinforced progress with household organization she reported with sorting and grouping items. Discussed how to continue applying. No reports of SI. Future-oriented. Exam Mental Status Exam - Psych Appearance casually dressed and well kempt Attitude cooperative, calm, engaged, pleasant and friendly Activity/Motor Behavior MSE activity/motor behavior finding no adventitious movements and appropriate eye contact Speech regular rate, regular volume and regular prosody Mood OK and anxious Affect anxious Thought Process linear, logical and coherent Thought Content no delusions and no hallucinations Suicidal Ideation none Homicidal Ideation none Attention impaired (Per pt. report.) Concentration impaired (Per pt. report.) Sensorium/Orientation awake, alert and oriented x3 Memory/Cognition intact Insight good Judgement good Assessment Plan Assessment Plan (1) ANNE (generalized anxiety disorder): Plan: BH therapy using CBT, DBT, and ACT interventions to address thought patterns contributing to anxious symptoms and to teach coping skills. Psychiatric services to monitor anxious symptoms and medication effectiveness. (2) MDD (major depressive disorder): Qualifiers: Major depression recurrence: recurrent Active/Remission status: currently active Major depression episod (more content not included)... Normal [facility] Internal Medicine Office Vis iton 06-10-2025 Internal Medicine Office Visit [facility] [address] [place], [place] [address] OFFICE VISIT Date of Service: 06/10/25 MR#: [id number] Acct: [id number] Name: SUSY BATEMAN Rep #: [id number] : 1980 Provider: ISACC Fonseca Age/Sex: 45/F Location: [facility]IM Status: Signed Intake Vital Signs 05/06/25 14:04 06/04/25 04:32 06/10/25 13:28 Height 5 ft 6 in 5 ft 6 in 5 ft 6 in Weight: 234 lb BMI 37.8 BP 126/74 H Blood Pressure Location Lt brachial Position Sitting Respiration 18 Pulse 82 Pulse Source Monitor Temp 97.8 F Temp Source Temporal Pulse Oximetry (%) 98 Oxygen Delivery Method room air Intake Visit Reasons: FOLLOW UP Chief Complaint: FOLLOW UP Is patient in pain?: No Allergies oxymetazoline (From Afrin (oxymetazoline)) Adverse Reaction (Intermediate, Verified 06/10/25 13:28) Shortness of breath Medications ???Medication ???Instructions ???Recorded ???Confirmed ???Type albuterol sulfate 2.5 mg/3 mL 2.5 mg inhalation Q2H PRN PRN 09/0706/10/25 History (0.083 %) solution for nebulization Shortness Of Breath dicyclomine 20 mg tablet 20 mg PO TID PRN abdominal pain 06/10/25 Rx #90 tabs cyclobenzaprine 10 mg tablet 10 mg PO TID PRN muscle spasm #90 11/17/23 06/10/25 Rx tabs fexofenadine 180 mg tablet 180 mg PO DAILY 02/13/24 06/10/25 History (May Allergy) ondansetron 4 mg disintegrating 4 mg PO Q8H PRN nausea and 4 06/10/25 Rx tablet vomiting #90 tabs blood builder PO 07/23/24 06/10/25 History pen needle, diabetic 32 gauge x #100 ea 09/28/24 06/10/25 Rx 1/6 (NovoFine Plus) norethindrone (contraceptive) 0.35 0.35 mg PO DAILY #84 tabs 06/10/25 Rx mg tablet beef organ capsule PO DAILY 01/21/25 06/10/25 History cholecalciferol (vitamin D3) 25 25 mcg PO QDAY 01/21/25 06/10/25 H istory mcg (1,000 unit) capsule gabapentin 300 mg capsule 600 mg PO QHS 01/21/25 06/10/25 Hi story PO DAILY 01/21/25 06/10/25 History metformin 500 mg tablet,extended 500 mg PO QDAY #90 tabs 02/01/25 0 06/10/25 Rx release 24 hr Held on 06/10/25. Instructions: Order Changed ibuprofen 800 mg tablet 800 mg PO DAILY PRN pain #30 tabs 02/23/25 06/10/25 Rx albuterol sulfate 90 mcg/actuation 2 inh inhalation Q4-6H PRN 03/1506/10/25 Rx breath activated powder inhaler shortness of breath or wheezing #1 ea budesonide-formoterol HFA 160 2 puff inhalation BID #10.2 grams 03/15/25 06/10/25 Rx mcg-4.5 mcg/actuation aerosol inhaler (Symbicort) trazodone 100 mg tablet 100 mg PO QHS #90 tabs 03/15/25 Rx buspirone 15 mg tablet 15 mg PO BID #180 tabs 05/05/25 Rx escitalopram oxalate 20 mg tablet 20 mg PO QDAY #90 tabs 05/05/25 0 06/10/25 Rx hydroxyzine HCl 25 mg tablet 25 mg PO QHS PRN anxiety #30 tabs 05/05/25 06/10/25 Rx lorazepam 0.5 mg tablet 0.5 mg PO QDAY PRN anxiety #14 tab s 05/05/25 06/10/25 Rx tirzepatide 7.5 mg/0.5 mL 7.5 mg (0.5 mL) subcut QWEEK #2 mL 06/03/25 06/10/25 Rx subcutaneous pen injector phentermine 37.5 mg tablet 18.75 mg (1/2 x 37.5 mg) PO QDAY 0 06/10/25 06/10/25 Rx (Adipex-P) #30 tabs Have you fallen in the past year?: No PFSH Medical History Hypertension Tremor Borderline type 2 diabetes mellitus Depression, unspecified Anxiety Status post pneumothorax Back problem Chronic back pain Obesity (BMI 30-39.9) Anxiety and depression 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 Anal fissure Pectus excavatum IBS (irritable bowel syndrome) Migraine Asthma Segmental and somatic dysfunction of pelvic region Segmental and somatic dysfunction of lumbar region Sciatica Surgical History Hx of chest tube placement Family History Mother Graves disease CVA (cerebral vascular accident) Father Diabetes Grandfather Myocardial infarction CAD (coronary artery disease) Pacemaker Social History adopted: No household members: none number of children: 0 current occupational status: employed current occupation: [employer] pets and animals: No Smoking Status: Never smoker alcohol intake: current alcohol intake frequency: holidays/special occasions only substance use type: does not use caffeine: Yes (1) Type: other what type of physical activity do you participate in: none seatbelt use: always do you feel safe at home: Yes additional social history: Single HPI HPI Chief Complaint: FOLLOW UP Details: SUSY COLLEEN, is a 45 F who (more content not included)... Normal [facility] MR/BMS.BPon 06-04-2025 MR/BMS.BP [facility] [address], [address] [place] [address] OFFICE VISIT Date of Service: 06/03/25 MR#: [id number] Acct: [id number] Name: SUSY BATEMAN Rep #: [id number] : 1980 Provider: [facility] Janina hill Age/Sex: 45/F Location: [facility].BP Status: Signed Intake Vital Signs 12/14/24 07:34 05/26/25 12:59 06/04/25 04:32 Height 5 ft 7 in 5 ft 6 in 5 ft 6 in BP Intake Visit Reasons: Follow up Allergies oxymetazoline (From Afrin (oxymetazoline)) Adverse Reaction (Intermediate, Verified 05/26/25 13:02) Shortness of breath PFSH Medical History Hypertension Tremor Borderline type 2 diabetes mellitus Depression, unspecified Anxiety Status post pneumothorax Back problem Chronic back pain Obesity (BMI 30-39.9) Anxiety and depression 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 Anal fissure Pectus excavatum IBS (irritable bowel syndrome) Migraine Asthma Segmental and somatic dysfunction of pelvic region Segmental and somatic dysfunction of lumbar region Sciatica Surgical History Hx of chest tube placement Family History Mother Graves disease CVA (cerebral vascular accident) Father Diabetes Grandfather Myocardial infarction CAD (coronary artery disease) Pacemaker Social History adopted: No household members: none number of children: 0 current occupational status: employed current occupation: [employer] pets and animals: No Smoking Status: Never smoker alcohol intake: current alcohol intake frequency: holidays/special occasions only substance use type: does not use caffeine: Yes (1) Type: other what type of physical activity do you participate in: none seatbelt use: always do you feel safe at home: Yes additional social history: Single HPI History of Present Illness HPI: Susy Bateman is a 45 year-old female returning for therapy. She reported work stressors associated with an increased workload. Susy identified that her father recently had surgery and assisting parents at times. 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 Susy identified that she continues to have many items in her home and some recent progress organizing and sorting items. Encouraged verbalization of emotions while providing support. Normalized emotions. Problem solved options for coping with work stressors. Encouraged Susy to evaluate pros and cons of options. Worked on value-based options as well as coping and self-care. Susy continues to use a MH johny. that tracks behaviors and use of skills. Discussed implementing johny. to assist with household needs/goals, which she will consider. Explored similarities to father related to dealing with items and pressure from mother regarding household tasks. No SI. FUture-oriented. Exam Mental Status Exam - Psych Appearance casually dressed and well kempt Attitude cooperative, calm, engaged, pleasant and friendly Activity/Motor Behavior MSE activity/motor behavior finding no adventitious movements and appropriate eye contact Speech regular rate, regular volume and regular prosody Mood OK and anxious Affect anxious Thought Process linear, logical and coherent Thought Content no delusions and no hallucinations Suicidal Ideation none Homicidal Ideation none Attention impaired (Per pt. report.) Concentration impaired (Per pt. report.) Sensorium/Orientation awake, alert and oriented x3 Memory/Cognition intact Insight good Judgement good Assessment Plan Assessment Plan (1) ANNE (generalized anxiety disorder): Plan: therapy using CBT, DBT, and ACT interventions to address thought patterns contributing to anxious symptoms and to teach coping skills. Psychiatric services to monitor anxious symptoms and medication effectiveness. (2) MDD (major depressive disorder): Qualifiers: Major depression recurrence: recurrent Active/Remission status: currently active Major depression episode severity: moderate Qualified Code(s): F33.1 - Major depressive disorder, recurrent, moderate Plan: therapy using CBT, DBT, and ACT interventions to address thought patterns contributing to depressive symptoms and teach coping skills. Continued psychiatric services to monitor depressive symptoms and medication effectiveness. Pt. to call 911, call suicide prevention hotline, or go to ER if experiencing suicidal ideation with plan and intent and/or feel unable to ensure own safety. Plan TREATMENT PLAN Goal 1 - Reduce overall frequency, intensity, and duration of anxiety so daily functioning i (more content not included)... Normal [facility] Genital Culture Comprehensiv ashley 05-29-2025 VAC Reason for Exam: vaginal irritation Normal genital maricruz isolated Normal [facility] Comment on above: Performed By: #### M 100.1999, M100.3200 ####[facility] [id number] [place], [place], [address] Gram Stainon 05-26-2025 GS Reason for Exam: vaginal irritation Gram Stain 4+ Gram positive rods 1+ Epithelial cells No Gram negative diplococci Score = 0 Interpretation: 0-3 Normal, 4-6 Intermediate, 7-10 Positive BV Normal [facility] Comment on above: Performed By: #### M 100.1999, M100.3200 ####[facility] [id number] 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 Report [facility] [address], [address] [place] [address] OFFICE VISIT Date of Service: 05/26/25 MR#: [id number] Acct: [id number] Name: SUSY BATEMAN Rep #: [id number] : 1980 Provider: JOSE ANGEL Mcallister Age/Sex: 45/F Location: [facility] Status: Signed Intake Vital Signs 05/23/25 06:39 05/26/25 12:59 Height 5 ft 6 in 5 ft 6 in Weight: 228 lb 3 oz BMI 36.8 BP 123/71 H Intake Visit Reasons: VAGINAL IRRITATION Stock Plan Administrator Required: No Is patient in pain?: No Allergies oxymetazoline (From Afrin (oxymetazoline)) Adverse Reaction (Intermediate, Verified 05/26/25 13:02) Shortness of breath Medications ???Medication ???Instructions ???Recorded ???Confirmed ???Type albuterol sulfate 2.5 mg/3 mL 2.5 mg inhalation Q2H PRN PRN 12/ 013 05/26/25 History (0.083 %) solution for nebulization Shortness Of Breath dicyclomine 20 mg tablet 20 mg PO TID PRN abdominal pain 05/26/25 Rx #90 tabs cyclobenzaprine 10 mg tablet 10 mg PO TID PRN muscle spasm #90 11/17/23 05/26/25 Rx tabs fexofenadine 180 mg tablet 180 mg PO DAILY 02/13/24 05/26/25 History (May Allergy) ondansetron 4 mg disintegrating 4 mg PO Q8H PRN nausea and 4 05/26/25 Rx tablet vomiting #90 tabs blood builder PO 07/23/24 05/26/25 History pen needle, diabetic 32 gauge x #100 ea 09/28/24 05/26/25 Rx 1 (NovoFine Plus) norethindrone (contraceptive) 0.35 0.35 mg PO DAILY #84 tabs 05/26/25 Rx mg tablet beef organ capsule PO DAILY 01/21/25 05/26/25 History cholecalciferol (vitamin D3) 25 25 mcg PO QDAY 01/21/25 05/26/25 H istory mcg (1,000 unit) capsule gabapentin 300 mg capsule 600 mg PO QHS 01/21/25 05/26/25 Hi story PO DAILY 01/21/25 05/26/25 History metformin 500 mg tablet,extended 500 mg PO QDAY #90 tabs 02/01/25 0 05/26/25 Rx release 24 hr ibuprofen 800 mg tablet 800 mg PO DAILY PRN pain #30 tabs 02/23/25 05/26/25 Rx albuterol sulfate 90 mcg/actuation 2 inh inhalation Q4-6H PRN 03/1505/26/25 Rx breath activated powder inhaler shortness of breath or wheezing #1 ea budesonide-formoterol HFA 160 2 puff inhalation BID #10.2 grams 03/15/25 05/26/25 Rx mcg-4.5 mcg/actuation aerosol inhaler (Symbicort) trazodone 100 mg tablet 100 mg PO QHS #90 tabs 03/15/25 Rx tirzepatide 5 mg/0.5 mL 5 mg (0.5 mL) subcut QWEEK #2 mL 0 03/21/25 05/26/25 Rx subcutaneous pen injector buspirone 15 mg tablet 15 mg PO BID #180 tabs 05/05/25 Rx escitalopram oxalate 20 mg tablet 20 mg PO QDAY #90 tabs 05/05/25 0 05/26/25 Rx hydroxyzine HCl 25 mg tablet 25 mg PO QHS PRN anxiety #30 tabs 05/05/25 05/26/25 Rx lorazepam 0.5 mg tablet 0.5 mg PO QDAY PRN anxiety #14 tab s 05/05/25 05/26/25 Rx phentermine 37.5 mg tablet 18.75 mg (1/2 x 37.5 mg) PO QDAY 0 05/10/25 05/26/25 Rx (Adipex-P) #30 tabs fluconazole 150 mg tablet 150 mg PO ONCE #1 TAB 05/20/25 Rx Is last menstrual period known: Yes Last Menstrual Period: 05/19/25 Post menopausal: No Patient : No : No Control Method[facility] Medical History Hypertension Tremor Borderline type 2 diabetes mellitus Depression, unspecified Anxiety Status post pneumothorax Back problem Chronic back pain Obesity (BMI 30-39.9) Anxiety and depression 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 Anal fissure Pectus excavatum IBS (irritable bowel syndrome) Migraine Asthma Segmental and somatic dysfunction of pelvic region Segmental and somatic dysfunction of lumbar region Sciatica Surgical History Hx of chest tube placement Family History Mother Graves disease CVA (cerebral vascular accident) Father Diabetes Grandfather Myocardial infarction CAD (coronary artery disease) Pacemaker Social History adopted: No household members: none number of children: 0 current occupational status: employed 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 This started about a week ago; reports this as a burning when she wipes (more content not included)... Normal [facility] MR/BMS.BPon 05-23-2025 MR/BMS.BP [facility] [address], [address] [place] [address] OFFICE VISIT Date of Service: 05/20/25 MR#: [id number] Acct: [id number] Name: SUSY BATEMAN Rep #: [id number] : 1980 Provider: JIMMY hill Age/Sex: 45/F Location: [facility].BP Status: Signed Intake Vital Signs 12/14/24 07:34 05/06/25 14:04 05/23/25 06:39 Height 5 ft 7 in 5 ft 6 in 5 ft 6 in BP Intake Visit Reasons: Follow up Allergies oxymetazoline (From Afrin (oxymetazoline)) Adverse Reaction (Intermediate, Verified 05/06/25 14:02) Shortness of breath PFSH Medical History Hypertension Tremor Borderline type 2 diabetes mellitus Depression, unspecified Anxiety Status post pneumothorax Back problem Chronic back pain Obesity (BMI 30-39.9) Anxiety and depression 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 Anal fissure Pectus excavatum IBS (irritable bowel syndrome) Migraine Asthma Segmental and somatic dysfunction of pelvic region Segmental and somatic dysfunction of lumbar region Sciatica Surgical History Hx of chest tube placement Family History Mother Graves disease CVA (cerebral vascular accident) Father Diabetes Grandfather Myocardial infarction CAD (coronary artery disease) Pacemaker Social History adopted: No household members: none number of children: 0 current occupational status: employed 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 She reported slight reduction in anxiety recently. Susy identified stressors being recent incident where car broke down, interactions with father, and incident at work where a patient was belligerent. Encouraged verbalization of emotions while providing support. Normalized emotions. Reinforced Susy's handling of stressors as she described appropriate value-based action. Worked on problem solving and self-care. Reviewed coping including relaxation strategies and utilization of supports. Susy continues to use a coping skills johny, which was also reinforced. No SI. Future-oriented. Exam Mental Status Exam - Psych Appearance casually dressed and well kempt Attitude cooperative, calm, engaged, pleasant and friendly Activity/Motor Behavior MSE activity/motor behavior finding no adventitious movements and appropriate eye contact Speech regular rate, regular volume and regular prosody Mood OK and anxious Affect anxious Thought Process linear, logical and coherent Thought Content no delusions and no hallucinations Suicidal Ideation none Homicidal Ideation none Attention impaired (Per pt. report.) Concentration impaired (Per pt. report.) Sensorium/Orientation awake, alert and oriented x3 Memory/Cognition intact Insight good Judgement good Assessment Plan Assessment Plan (1) ANNE (generalized anxiety disorder): Plan: BH therapy using CBT, DBT, and ACT interventions to address thought patterns contributing to anxious symptoms and to teach coping skills. Psychiatric services to monitor anxious symptoms and medication effectiveness. (2) MDD (major depressive disorder): Qualifiers: Major depression recurrence: recurrent Active/Remission status: currently active Major depression episode severity: moderate Qualified Code(s): F33.1 - Major depressive disorder, recurrent, moderate Plan: BH therapy using CBT, DBT, and ACT interventions to address thought patterns contributing to depressive symptoms and teach coping skills. Continued psychiatric services to monitor depressive symptoms and medication effectiveness. Pt. to call 911, call suicide prevention hotline, or go to ER if experiencing suicidal ideation with plan and intent and/or feel unable to ensure own safety. Plan TREATMENT PLAN Goal 1 - Reduce overall frequency, intensity, and duration of anxiety so daily functioning is not impaired AEB pt.'s self-report. Objective 1 - Understand role that cognitive biases play in excessive worry and persistent anxious symptoms. Intervention 1 - Assist pt. in recognizing times of overestimating the probability of threats and underestimating or overlooki (more content not included)... [facility] L3410.9992on 05-11-2025 [facility]. Normal [facility] Comment on above: Order Comment: [id number] 5HEPATITIS B AB Result Comment: TEST RESULTS LIMITS Hep B Surface Ab, Qual Reactive Non Reactive: Not immune to HBV infection. Equivocal: Unable to determine if anti-HBs is present at levels consistent with immunity. Reactive: Anti-HBs concentration detected at greater than 10 mIU/mL. Individual is considered to be immune to infection with HBV. TESTING PERFORMED AT [facility]. ORIGINAL REPORT ON FILE IN LAB CONTAINS ADDITIONAL TEST SITE INFORMATION. Performed By: #### L 3410.9996, L3100.0460, L3410.9992, L3890.6001 ####[facility] [id number] [place], [address] L3410.9996on 05-11-2025 [facility]. 3 [facility] Comment on above: Order Comment: [id number] 0HEP C AB Result Comment: TEST RESULTS LIMITS HCV Antibody RFX to Quant PCR HCV Ab Non Reactive Non Reactive Interpretation: Not infected with HCV unless early or acute infection is suspected (which may be delayed in an immunocompromised individual), or other evidence exists to indicate HCV infection. TESTING PERFORMED AT [facility]. ORIGINAL REPORT ON FILE IN LAB CONTAINS ADDITIONAL TEST SITE INFORMATION. Performed By: #### L 3410.9996, L3100.0460, L3410.9992, L3890.6001 ####[facility] [id number] [place], [address] L3890.6102on 05-11-2025 HEP B Surf Ag Non-Reactive Normal Nonreactive [facility] Comment on above: Result Comment: Reac tive: Presumptive evidence of HBV. Repeatedly reactive samples must be confirmed using a neutralization test ([employer] HBsAg Confirmatory Test) Non-Reactive: HBsAg not detected; does not exclude the possibility of exposure to HBV Performed By: #### L 3890.6102, L3890.6006 ####[facility] [id number] [place], [address] Internal Medicine Office Vis iton 05-06-2025 Internal Medicine Office Visit [facility] [address] [place] [address] [address] [place], [place] [address] OFFICE VISIT Date of Service: 05/06/25 MR#: [id number] Acct: [id number] Name: SUSY BATEMAN Rep #: [id number] : 1980 Provider: ISACC Fonseca Age/Sex: 45/F Location: [facility].BIM Status: Signed Intake Vital Signs 03/18/25 14:36 04/16/25 10:10 05/05/25 07:52 05/06/25 14:04 Height 5 ft 6 in 5 ft 6 in 5 ft 6 in 5 ft 6 in Weight: 231 lb 233 lb BMI 37.3 37.5 BP 126/85 H 138/80 H Blood Pressure Location Lt brachial Lt brachial Position Sitting Sitting Respiration 16 18 Pulse 88 90 Pulse Source Monitor Monitor Temp 97.9 F Temp Source Temporal Pulse Oximetry (%) 95 Oxygen Delivery Method room air Intake Visit Reasons: 6 wk FU Chief Complaint: 6 wk FU Is patient in pain?: No Allergies oxymetazoline (From Afrin (oxymetazoline)) Adverse Reaction (Intermediate, Verified 05/06/25 14:02) Shortness of breath Medications ???Medication ???Instructions ???Recorded ???Confirmed ???Type albuterol sulfate 2.5 mg/3 mL 2.5 mg inhalation Q2H PRN PRN 09/0705/06/25 History (0.083 %) solution for nebulization Shortness Of Breath dicyclomine 20 mg tablet 20 mg PO TID PRN abdominal pain 05/06/25 Rx #90 tabs cyclobenzaprine 10 mg tablet 10 mg PO TID PRN muscle spasm #90 11/17/23 03/18/25 Rx tabs fexofenadine 180 mg tablet 180 mg PO DAILY 02/13/24 05/06/25 History (May Allergy) ondansetron 4 mg disintegrating 4 mg PO Q8H PRN nausea and 4 05/06/25 Rx tablet vomiting #90 tabs blood builder PO 07/23/24 05/06/25 History pen needle, diabetic 32 gauge x #100 ea 09/28/24 03/18/25 Rx 1/6 (NovoFine Plus) norethindrone (contraceptive) 0.35 0.35 mg PO DAILY #84 tabs 05/06/25 Rx mg tablet beef organ capsule PO DAILY 01/21/25 05/06/25 History cholecalciferol (vitamin D3) 25 25 mcg PO QDAY 01/21/25 05/06/25 H istory mcg (1,000 unit) capsule gabapentin 300 mg capsule 600 mg PO QHS 01/21/25 05/06/25 Hi story PO DAILY 01/21/25 05/06/25 History metformin 500 mg tablet,extended 500 mg PO QDAY #90 tabs 02/01/25 0 05/06/25 Rx release 24 hr ibuprofen 800 mg tablet 800 mg PO DAILY PRN pain #30 tabs 02/23/25 05/06/25 Rx albuterol sulfate 90 mcg/actuation 2 inh inhalation Q4-6H PRN 03/1505/06/25 Rx breath activated powder inhaler shortness of breath or wheezing #1 ea budesonide-formoterol HFA 160 2 puff inhalation BID #10.2 grams 03/15/25 05/06/25 Rx mcg-4.5 mcg/actuation aerosol inhaler (Symbicort) trazodone 100 mg tablet 100 mg PO QHS #90 tabs 03/15/25 Rx phentermine 37.5 mg tablet 18.75 mg (1/2 x 37.5 mg) PO QDAY 0 03/18/25 05/06/25 Rx (Adipex-P) #30 tabs tirzepatide 5 mg/0.5 mL 5 mg (0.5 mL) subcut QWEEK #2 mL 0 03/21/25 05/06/25 Rx subcutaneous pen injector buspirone 15 mg tablet 15 mg PO BID #180 tabs 05/05/25 Rx escitalopram oxalate 20 mg tablet 20 mg PO QDAY #90 tabs 05/05/25 0 05/06/25 Rx hydroxyzine HCl 25 mg tablet 25 mg PO QHS PRN anxiety #30 tabs 05/05/25 05/06/25 Rx lorazepam 0.5 mg tablet 0.5 mg PO QDAY PRN anxiety #14 tab s 05/05/25 05/06/25 Rx PFSH Medical History Hypertension Tremor Borderline type 2 diabetes mellitus Depression, unspecified Anxiety Status post pneumothorax Back problem Chronic back pain Obesity (BMI 30-39.9) Anxiety and depression 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 Anal fissure Pectus excavatum IBS (irritable bowel syndrome) Migraine Asthma Segmental and somatic dysfunction of pelvic region Segmental and somatic dysfunction of lumbar region Sciatica Surgical History Hx of chest tube placement Family History Mother Graves disease CVA (cerebral vascular accident) Father Diabetes Grandfather Myocardial infarction CAD (coronary artery disease) Pacemaker Social History adopted: No household members: none number of children: 0 current occupational status: employed 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 Normal [facility] HIVon 05-05-2025 HIV Non-Reactive Normal Nonreactive [facility] Comment on above: Result Comment: Non- Reactive Reactive Repeatedly reactive samples must be confirmed according to CDC recommended confirmatory algorithms. The subresults for either HIVAG or AHIV can be used as an aid in the selection of the confirmation algorithm for reactive samples. Send out specimens with Reactive results to [facility] for confirmation. Order the HIV antibody detection and differentiation: lc#[id number] Performed By: #### L 3890.6102, L3890.6006 ####[facility] [id number] [place], [place], [id number] MR/BMS.BPon 05-05-2025 MR/BMS.BP [address], [address] [place] [address] OFFICE VISIT Date of Service: 05/05/25 MR#: [id number] Acct: [id number] Name: SUSY BATEMAN Rep #: [id number] : 1980 Provider: JOSE ANGEL williamson Age/Sex: 45/F Location: [facility].BP Status: Signed Intake Vital Signs 03/15/25 08:05 05/01/25 07:51 05/05/25 07:52 Height 5 ft 8 in 5 ft 6 in 5 ft 6 in Weight: 231 lb BMI 37.3 BP 126/85 H Blood Pressure Location Lt brachial Position Sitting Respiration 16 Pulse 88 Pulse Source Monitor BP Intake Visit Reasons: 6 wk FU Allergies oxymetazoline (From Afrin (oxymetazoline)) Adverse Reaction (Intermediate, Verified 03/18/25 14:35) Shortness of breath PFSH Medical History Hypertension Tremor Borderline type 2 diabetes mellitus Depression, unspecified Anxiety Status post pneumothorax Back problem Chronic back pain Obesity (BMI 30-39.9) Anxiety and depression 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 Anal fissure Pectus excavatum IBS (irritable bowel syndrome) Migraine Asthma Segmental and somatic dysfunction of pelvic region Segmental and somatic dysfunction of lumbar region Sciatica Surgical History Hx of chest tube placement Family History Mother Graves disease CVA (cerebral vascular accident) Father Diabetes Grandfather Myocardial infarction CAD (coronary artery disease) Pacemaker Social History adopted: No household members: none number of children: 0 current occupational status: employed current occupation: [employer] pets and animals: No Smoking Status: Never smoker alcohol intake: current alcohol intake frequency: holidays/special occasions only substance use type: does not use caffeine: Yes (1) Type: other what type of physical activity do you participate in: none seatbelt use: always do you feel safe at home: Yes additional social history: Single HPI History of Present Illness History provided by: patient HPI: Susy Bateman is a 45 year old female patient presenting today for a follow up evaluation. 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 Reports she has continued to have heightened anxiety. Has been struggling with sleep and has been staying up late and waking up early. Over the last 1-2 weeks anxiety has worsened. Does feel anxiety has worsened between 4-6PM. Admits to sometimes mild feelings of depression. Denies SI/HI. Is struggling to turn her mind off and reduce racing thoughts. Has continued on Monjaro and has lost about 11 pounds since transitioning. Previous similar episode: Yes Age of first onset of symptoms: 21-30 years Review of Systems Constitutional Reports: change in weight (los) and fatigue; Denies: fever(s) or chills Eyes Denies: change in vision Ears, Nose, Mouth, Throat Denies: throat pain Cardiovascular Denies: chest pain, palpitations or dyspnea Respiratory Denies: dyspnea or wheezing Gastrointestinal Denies: abdominal pain, nausea, vomiting or diarrhea Genitourinary Denies: dysuria, urinary frequency or urinary urgency Musculoskeletal Denies: back pain (had injection that has helped with pain) Integumentary/Breast Denies: rash or pruritus Neurological Denies: headache(s) (Reports been better since starting Duloxetine) Psychiatric Reports: anxiety, memory loss and difficulty concentrating; Denies: panic attacks, hopelessness, loss of interest, visual hallucinations, auditory hallucinations, suicidal ideation or homicidal ideation Endocrine Reports: fatigue; Denies: polyuria or polydipsia Hematologic/Lymphatic Denies: easy bruising or easy bleeding Allergic/Immunologic Denies: wheezing Exam Mental Status Exam - Psych Appearance casually dressed and well kempt Attitude cooperative, calm, engaged, pleasant and friendly Activity/Motor Behavior MSE activity/motor behavior finding no adventitious movements and appropriate eye contact Speech regular rate, regular volume and regular prosody Mood anxious Affect anxious Thought Process linear, logical and coherent Thought Content no delusions and no hallucinations Suicidal Ideation none Homicidal Ideation none Attention impaired (Per pt. report.) Concentration impaired (Per pt. report.) Sensorium/Orientation awake, alert and oriented x3 Memory/Cognition intact Insight good Judgement good Exam Constitutional Common normals: no acute distress, average body habitus and patient oriented x (more content not included)... Normal [facility] Hepatitis B Core Ab Totalon 05-03-2025 HEP B CORE,TOT Negative Normal Negative [facility] Comment on above: Result Comment: Perf ormed at: CB - [facility] [address] [id number] [employer] Craftsman: Franc Turpin PhD, Phone: [phone] Performed By: #### L 1222.3637, R2912.3522, X1859.0897, R2541.5007 #### [facility] [address] [place], [address] L3890.6001on 05-02-2025 HEP B Surf Ab Normal [facility] Comment on above: Order Comment: Pleas e add per Dr Cardenas Result Comment: ORDE R IS FOR PREVIOUS ANALYZER. EMAIL SENT TO LAB STAFF Performed By: #### L 3410.9996, L3100.0460, L3410.9992, L3890.6001 #### [facility] [address] [place], [address] HEP B Surf Ag Normal Nonreactive [facility] Comment on above: Order Comment: Pleas e add per Dr Cardenas Result Comment: ORDE R IS FOR PREVIOUS ANALYZER. EMAIL SENT TO LAB STAFF Performed By: #### L 3410.9996, L3100.0460, L3410.9992, L3890.6001 #### [facility] [address] [place], [address] Hepatitis C Ab Normal Nonreactive [facility] Comment on above: Order Comment: Pleas e add per Dr Cardenas Result Comment: ORDE R IS FOR PREVIOUS ANALYZER. EMAIL SENT TO LAB STAFF Performed By: #### L 3410.9996, L3100.0460, L3410.9992, L3890.6001 #### [facility] [address] [place], [place], [id number] MR/BMS.BPon 05-01-2025 MR/BMS.BP [place] [address] [place], [place] [address] OFFICE VISIT Date of Service: 04/29/25 MR#: [id number] Acct: [id number] Name: SUSY BATEMAN Rep #: [id number] : 1980 Provider: [facility] Janina hill Age/Sex: 45/F Location: [facility].BP Status: Signed Intake Vital Signs 12/14/24 07:34 04/16/25 10:10 05/01/25 07:51 Height 5 ft 7 in 5 ft 6 in 5 ft 6 in BP Intake Visit Reasons: Follow up Allergies oxymetazoline (From Afrin (oxymetazoline)) Adverse Reaction (Intermediate, Verified 03/18/25 14:35) Shortness of breath PFSH Medical History Hypertension Tremor Borderline type 2 diabetes mellitus Depression, unspecified Anxiety Status post pneumothorax Back problem Chronic back pain Obesity (BMI 30-39.9) Anxiety and depression 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 Anal fissure Pectus excavatum IBS (irritable bowel syndrome) Migraine Asthma Segmental and somatic dysfunction of pelvic region Segmental and somatic dysfunction of lumbar region Sciatica Surgical History Hx of chest tube placement Family History Mother Graves disease CVA (cerebral vascular accident) Father Diabetes Grandfather Myocardial infarction CAD (coronary artery disease) Pacemaker Social History adopted: No household members: none number of children: 0 current occupational status: employed current occupation: [employer] pets and animals: No Smoking Status: Never smoker alcohol intake: current alcohol intake frequency: holidays/special occasions only substance use type: does not use caffeine: Yes (1) Type: other what type of physical activity do you participate in: none seatbelt use: always do you feel safe at home: Yes additional social history: Single HPI History of Present Illness HPI: Susy Bateman is a 45 year-old female returning for therapy. She identified increase in anxiety over the last week attributing it to work stressors. Encouraged verbalization of emotions while providing support. Normalized emotions. Explored coping. Susy identified continuing to utilize coping skills including a coping skills johny, which was reinforced. Examined thought patterns that may be contributing to anxiety using CBT interventions. Worked with Susy to problem solve options for managing work stressors. 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 Susy reported no progress in organizing her home as her schedule has been busy. No SI. Future-oriented. Exam Mental Status Exam - Psych Appearance casually dressed and well kempt Attitude cooperative, calm, engaged, pleasant and friendly Activity/Motor Behavior MSE activity/motor behavior finding no adventitious movements and appropriate eye contact Speech regular rate, regular volume and regular prosody Mood anxious Affect full range Thought Process linear, logical and coherent Thought Content no delusions and no hallucinations Suicidal Ideation none Homicidal Ideation none Attention impaired (Per pt. report.) Concentration impaired (Per pt. report.) Sensorium/Orientation awake, alert and oriented x3 Memory/Cognition intact Insight good Judgement good Assessment Plan Assessment Plan (1) ANNE (generalized anxiety disorder): Plan: BH therapy using CBT, DBT, and ACT interventions to address thought patterns contributing to anxious symptoms and to teach coping skills. Psychiatric services to monitor anxious symptoms and medication effectiveness. (2) MDD (major depressive disorder): Qualifiers: Major depression recurrence: recurrent Active/Remission status: currently active Major depression episode severity: moderate Qualified Code(s): F33.1 - Major depressive disorder, recurrent, moderate Plan: BH therapy using CBT, DBT, and ACT interventions to address thought patterns contributing to depressive symptoms and teach coping skills. Continued psychiatric services to monitor depressive symptoms and medication effectiveness. Pt. to call 911, call suicide prevention hotline, or go to ER if experiencing suicidal ideation with plan and intent and/or feel unable to ensure own safety. Plan TREATMENT PLAN Goal 1 - Reduce overall frequency, intensity, and duration of anxiety so daily functioning is not impaired AEB pt.'s self-report. Objective 1 - Understand role that cognitive biases play in excessive worry and persistent anxious symptoms. Intervention 1 - Assist pt. in recognizing times of overestimating the proba (more content not included)... [facility] MR/BMS.BPon 04-16-2025 MR/BMS.BP [facility] [address], [address] [place] [address] OFFICE VISIT Date of Service: 04/15/25 MR#: [id number] Acct: [id number] Name: SUSY BATEMAN Rep #: [id number] : 1980 Provider: [facility] Janina hill Age/Sex: 45/F Location: BMS.BP Status: Signed Intake Vital Signs 12/14/24 07:34 03/18/25 17:47 04/16/25 10:10 Height 5 ft 7 in 5 ft 6 in 5 ft 6 in BP Intake Visit Reasons: follow up Allergies oxymetazoline (From Afrin (oxymetazoline)) Adverse Reaction (Intermediate, Verified 03/18/25 14:35) Shortness of breath PFSH Medical History Hypertension Tremor Borderline type 2 diabetes mellitus Depression, unspecified Anxiety Status post pneumothorax Back problem Chronic back pain Obesity (BMI 30-39.9) Anxiety and depression 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 Anal fissure Pectus excavatum IBS (irritable bowel syndrome) Migraine Asthma Segmental and somatic dysfunction of pelvic region Segmental and somatic dysfunction of lumbar region Sciatica Surgical History Hx of chest tube placement Family History Mother Graves disease CVA (cerebral vascular accident) Father Diabetes Grandfather Myocardial infarction CAD (coronary artery disease) Pacemaker Social History adopted: No household members: none number of children: 0 current occupational status: employed current occupation: [employer] pets and animals: No Smoking Status: Never smoker alcohol intake: current alcohol intake frequency: holidays/special occasions only substance use type: does not use caffeine: Yes (1) Type: other what type of physical activity do you participate in: none seatbelt use: always do you feel safe at home: Yes additional social history: Single HPI History of Present Illness HPI: Susy Bateman is a 45 year-old female returning for therapy. 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 Susy identified being asked to take on additional duties at work, which is concerning for her as her job is already busy. She was appropriately assertive with supervisors and is uncertain about what she will decide. Assisted Susy with identifying pros and cons of options suggesting she also complete a written pros and cons list to aid with her decision- making. 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 Worked on how she could appropriately assert herself with customers. Discussed her excellent organization at work and with her business but struggle with organization at home and with finances. Encouraged verbalization of emotions while providing support. Explored areas where she recently has been successful with her identifying several household tasks she was able to complete. Examined positive impact on her. Worked on reframing home organization related to her own enjoyment, pleasure, and self-care. Susy reported positive management of anxious symptoms but some physical tiredness. Worked on getting adequate rest and self-care. No SI. Future-oriented. Exam Mental Status Exam - Psych Appearance casually dressed and well kempt Attitude cooperative, calm, engaged, pleasant and friendly Activity/Motor Behavior MSE activity/motor behavior finding no adventitious movements and appropriate eye contact Speech regular rate, regular volume and regular prosody Mood OK and anxious Affect full range Thought Process linear, logical and coherent Thought Content no delusions and no hallucinations Suicidal Ideation none Homicidal Ideation none Attention impaired (Per pt. report.) Concentration impaired (Per pt. report.) Sensorium/Orientation awake, alert and oriented x3 Memory/Cognition intact Insight good Judgement good Assessment Plan Assessment Plan (1) ANNE (generalized anxiety disorder): Plan: therapy using CBT, DBT, and ACT interventions to address thought patterns contributing to anxious symptoms and to teach coping skills. Psychiatric services to monitor anxious symptoms and medication effectiveness. (2) MDD (major depressive disorder): Qualifiers: Active/Remission status: currently active Major depression episode severity: moderate Major depression recurrence: recurrent Qualified Code(s): F33.1 - Major depressive disorder, recurrent, moderate Plan: therapy using CBT, DBT, and ACT interventions to address thought patterns contributing to depressive symptoms and teach coping skills. Continued psychiatric services to monitor depressive symptoms and medication e (more content not included)... [facility] Internal Medicine Office Vis naresh 03-18-2025 Internal Medicine Office Visit [facility] [address] [place] [address] [address] [place], [place] [address] OFFICE VISIT Date of Service: 03/18/25 MR#: [id number] Acct: [id number] Name: SUSY BATEMAN Rep #: [id number] : 1980 Provider: [facility] Fonseca Age/Sex: 44/F Location: [facility] Status: Signed Intake Vital Signs 02/18/25 14:41 03/15/25 08:05 03/18/25 14:36 Height 5 ft 8 in 5 ft 8 in 5 ft 6 in Weight: 236 lb 227 lb BMI 35.9 36.6 BP 135/85 H 128/72 H Blood Pressure Location Lt brachial Lt brachial Position Sitting Sitting Respiration 16 18 Pulse 77 83 Pulse Source Monitor Monitor Temp 98.2 F Temp Source Temporal Pulse Oximetry (%) 96 Oxygen Delivery Method room air Intake Visit Reasons: 1 M FU Chief Complaint: 1 M FU Is patient in pain?: No Allergies oxymetazoline (From Afrin (oxymetazoline)) Adverse Reaction (Intermediate, Verified 03/18/25 14:35) Shortness of breath Medications ???Medication ???Instructions ???Recorded ???Confirmed ???Type albuterol sulfate 2.5 mg/3 mL 2.5 mg inhalation Q2H PRN PRN 09/0703/18/25 History (0.083 %) solution for nebulization Shortness Of Breath dicyclomine 20 mg tablet 20 mg PO TID PRN abdominal pain 03/18/25 Rx #90 tabs cyclobenzaprine 10 mg tablet 10 mg PO TID PRN muscle spasm #90 11/17/23 03/18/25 Rx tabs fexofenadine 180 mg tablet 180 mg PO DAILY 02/13/24 03/18/25 History (May Allergy) ondansetron 4 mg disintegrating 4 mg PO Q8H PRN nausea and 4 03/18/25 Rx tablet vomiting #90 tabs blood builder PO 07/23/24 03/18/25 History pen needle, diabetic 32 gauge x #100 ea 09/28/24 03/18/25 Rx / (NovoFine Plus) norethindrone (contraceptive) 0.35 0.35 mg PO DAILY #84 tabs 03/18/25 Rx mg tablet lorazepam 0.5 mg tablet 0.5 mg PO QDAY PRN anxiety #14 tab s 01/18/25 03/18/25 Rx fluconazole 150 mg tablet 150 mg PO Q3D 2 doses #2 tabs 01/0403/18/25 Rx beef organ capsule PO DAILY 01/21/25 03/18/25 History cholecalciferol (vitamin D3) 25 25 mcg PO QDAY 01/21/25 03/18/25 H istory mcg (1,000 unit) capsule gabapentin 300 mg capsule 600 mg PO QHS 01/21/25 03/18/25 Hi story PO DAILY 01/21/25 03/18/25 History tirzepatide 2.5 mg/0.5 mL 2.5 mg (0.5 mL) subcut QWEEK #2 mL 01/31/25 03/18/25 Rx subcutaneous pen injector (Mounjaro) metformin 500 mg tablet,extended 500 mg PO QDAY #90 tabs 02/01/25 0 03/18/25 Rx release 24 hr ibuprofen 800 mg tablet 800 mg PO DAILY PRN pain #30 tabs 02/23/25 03/18/25 Rx albuterol sulfate 90 mcg/actuation 2 inh inhalation Q4-6H PRN 03/1503/18/25 Rx breath activated powder inhaler shortness of breath or wheezing #1 ea budesonide-formoterol HFA 160 2 puff inhalation BID #10.2 grams 03/15/25 03/18/25 Rx mcg-4.5 mcg/actuation aerosol inhaler (Symbicort) buspirone 15 mg tablet 15 mg PO BID #60 tabs 03/15/25 Rx escitalopram oxalate 20 mg tablet 20 mg PO QDAY #30 tabs 03/15/25 0 03/18/25 Rx trazodone 100 mg tablet 100 mg PO QHS #90 tabs 03/15/25 Rx phentermine 37.5 mg tablet 18.75 mg (1/2 x 37.5 mg) PO QDAY 0 03/18/25 03/18/25 Rx (Adipex-P) #30 tabs PFSH Medical History Hypertension Tremor Borderline type 2 diabetes mellitus Depression, unspecified Anxiety Status post pneumothorax Back problem Chronic back pain Obesity (BMI 30-39.9) Anxiety and depression 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 Anal fissure Pectus excavatum IBS (irritable bowel syndrome) Migraine Asthma Segmental and somatic dysfunction of pelvic region Segmental and somatic dysfunction of lumbar region Sciatica Surgical History Hx of chest tube placement Family History Mother Graves disease CVA (cerebral vascular accident) Father Diabetes Grandfather Myocardial infarction CAD (coronary artery disease) Pacemaker Social History adopted: No household members: none number of children: 0 current occupational status: employed current occupation: [employer] pets and animals: No Smoking Status: Never smoker alcohol intake: current alcohol intake frequency: holidays/special occasions only substance use type: does not use caffeine: Yes (1) Type: other what type of physical activity do you participate in: none seatbelt use: always do you feel safe at home: Yes additional social history: Single HPI HPI Chief Complaint: 1 M FU Details: SUSY BATEMAN, is a 44 F who presents to the office today for one mon (more content not included)... [facility] MR/BMS.BPon 03-18-2025 MR/BMS.BP [address], [address] [place] [address] OFFICE VISIT Date of Service: 03/18/25 MR#: [id number] Acct: [id number] Name: SUSY BATEMAN Rep #: [id number] : 1980 [facility]/Sex: 44/F Location: [facility] Status: Signed Intake Vital Signs 12/14/24 07:34 03/15/25 08:05 03/18/25 17:47 Height 5 ft 7 in 5 ft 8 in 5 ft 6 in Weight: 236 lb BMI 35.9 BP 135/85 H Blood Pressure Location Lt brachial Position Sitting Respiration 16 Pulse 77 Pulse Source Monitor BP Intake Visit Reasons: follow up Allergies oxymetazoline (From Afrin (oxymetazoline)) Adverse Reaction (Intermediate, Verified 03/18/25 14:35) Shortness of breath PFSH Medical History Hypertension Tremor Borderline type 2 diabetes mellitus Depression, unspecified Anxiety Status post pneumothorax Back problem Chronic back pain Obesity (BMI 30-39.9) Anxiety and depression 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 Anal fissure Pectus excavatum IBS (irritable bowel syndrome) Migraine Asthma Segmental and somatic dysfunction of pelvic region Segmental and somatic dysfunction of lumbar region Sciatica Surgical History Hx of chest tube placement Family History Mother Graves disease CVA (cerebral vascular accident) Father Diabetes Grandfather Myocardial infarction CAD (coronary artery disease) Pacemaker Social History adopted: No household members: none number of children: 0 current occupational status: employed 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 She reported doing well until experiencing increased work stressors the last several days (increased workload). Susy had a recent psychiatric appointment with Nunu Butler CNP. Her Lexapro dose was increased from 10mg to 20mg. Another recent medication change is stopping Ozempic and starting Mounjaro. Susy is remaining busy with her [employer] business when she is not working. She is functioning at a high level at work with both jobs but struggling to maintain her home. Susy recognized that she has little energy left after both of her jobs. Her parents are being less critical of her. Encouraged verbalization of emotions while providing support. Explored and coping. Susy is using breathing, journaling, and grounding activities, which was reinforced. Discussed values contributing to her value-based action at both jobs using ACT interventions. No reports of SI. Future-oriented. Exam Mental Status Exam - Psych Appearance casually dressed and well kempt Attitude cooperative, calm, engaged, pleasant and friendly Activity/Motor Behavior MSE activity/motor behavior finding no adventitious movements and appropriate eye contact Speech regular rate, regular volume and regular prosody Mood OK and anxious Affect full range Thought Process linear, logical and coherent Thought Content no delusions and no hallucinations Suicidal Ideation none Homicidal Ideation none Attention impaired (Per pt. report.) Concentration impaired (Per pt. report.) Sensorium/Orientation awake, alert and oriented x3 Memory/Cognition intact Insight good Judgement good Assessment Plan Assessment Plan (1) ANNE (generalized anxiety disorder): Plan: BH therapy using CBT, DBT, and ACT interventions to address thought patterns contributing to anxious symptoms and to teach coping skills. Psychiatric services to monitor anxious symptoms and medication effectiveness. (2) MDD (major depressive disorder): Qualifiers: Major depression recurrence: recurrent Active/Remission status: currently active Major depression episode severity: moderate Qualified Code(s): F33.1 - Major depressive disorder, recurrent, moderate Plan: BH therapy using CBT, DBT, and ACT interventions to address thought patterns contributing to depressive symptoms and teach coping skills. Continued psychiatric services to monitor depressive symptoms and medication effectiveness. Pt. to call 911, call suicide prevention hotline, or go to ER if experiencing s (more content not included)... [facility] MR/BMS.BPon 03-15-2025 MR/BMS.BP [facility], [address] [place] [address] OFFICE VISIT Date of Service: 03/15/25 MR#: [id number] Acct: [id number] Name: SUSY BATEMAN Rep #: [id number] : 1980 Provider: JOSE ANGEL williamson Age/Sex: 44/F Location: [facility] Status: Signed Intake Vital Signs 01/18/25 08:00 03/15/25 08:05 Height 5 ft 7 in 5 ft 8 in Weight: 236 lb BMI 35.9 BP 135/85 H Blood Pressure Location Lt brachial Position Sitting Respiration 16 Pulse 77 Pulse Source Monitor BP Intake Visit Reasons: 8wfu Accompanied by: Self Allergies oxymetazoline (From Afrin (oxymetazoline)) Adverse Reaction (Intermediate, Verified 03/15/25 08:08) Shortness of breath Medications ???Medication ???Instructions ???Recorded ???Confirmed ???Type albuterol sulfate 2.5 mg/3 mL 2.5 mg inhalation Q2H PRN PRN 12 0/03/15/25 History (0.083 %) solution for nebulization Shortness Of Breath dicyclomine 20 mg tablet 20 mg PO TID PRN abdominal pain 03/15/25 Rx #90 tabs cyclobenzaprine 10 mg tablet 10 mg PO TID PRN muscle spasm #90 11/17/23 03/15/25 Rx tabs fexofenadine 180 mg tablet 180 mg PO DAILY 02/13/24 03/15/25 History (May Allergy) ondansetron 4 mg disintegrating 4 mg PO Q8H PRN nausea and 4 03/15/25 Rx tablet vomiting #90 tabs blood builder PO 07/23/24 03/15/25 History albuterol sulfate 90 mcg/actuation 2 inh inhalation Q4-6H PRN 09/0803/15/25 Rx breath activated powder inhaler shortness of breath or wheezing #1 ea pen needle, diabetic 32 gauge x #100 ea 09/28/24 03/15/25 Rx 1/6 (NovoFine Plus) norethindrone (contraceptive) 0.35 0.35 mg PO DAILY #84 tabs 03/15/25 Rx mg tablet atogepant 60 mg tablet (Qulipta) 60 mg PO .prn 10/22/24 03/15/25 Hi story budesonide-formoterol HFA 160 2 puff inhalation BID #10.2 grams 10/22/24 03/15/25 Rx mcg-4.5 mcg/actuation aerosol inhaler (Symbicort) lorazepam 0.5 mg tablet 0.5 mg PO QDAY PRN anxiety #14 tab s 01/18/25 03/15/25 Rx fluconazole 150 mg tablet 150 mg PO Q3D 2 doses #2 tabs 01/0403/15/25 Rx beef organ capsule PO DAILY 01/21/25 03/15/25 History cholecalciferol (vitamin D3) 25 25 mcg PO QDAY 01/21/25 03/15/25 H istory mcg (1,000 unit) capsule gabapentin 300 mg capsule 600 mg PO QHS 01/21/25 03/15/25 Hi story PO DAILY 01/21/25 03/15/25 History tirzepatide 2.5 mg/0.5 mL 2.5 mg (0.5 mL) subcut QWEEK #2 mL 01/31/25 03/15/25 Rx subcutaneous pen injector (Mounjaro) metformin 500 mg tablet,extended 500 mg PO QDAY #90 tabs 02/01/25 0 03/15/25 Rx release 24 hr phentermine 37.5 mg tablet 18.75 mg (1/2 x 37.5 mg) PO QDAY 0 02/18/25 03/15/25 Rx (Adipex-P) #21 tabs ibuprofen 800 mg tablet 800 mg PO DAILY PRN pain #30 tabs 02/23/25 03/15/25 Rx buspirone 15 mg tablet 15 mg PO BID #60 tabs 03/15/2507/30 Rx escitalopram oxalate 20 mg tablet 20 mg PO QDAY #30 tabs 03/15/25 0 03/15/25 Rx trazodone 100 mg tablet 100 mg PO QHS #90 tabs 03/15/25 Rx PFSH Medical History Hypertension Tremor Borderline type 2 diabetes mellitus Depression, unspecified Anxiety Status post pneumothorax Back problem Chronic back pain Obesity (BMI 30-39.9) Anxiety and depression 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 Anal fissure Pectus excavatum IBS (irritable bowel syndrome) Migraine Asthma Segmental and somatic dysfunction of pelvic region Segmental and somatic dysfunction of lumbar region Sciatica Surgical History Hx of chest tube placement Family History Mother Graves disease CVA (cerebral vascular accident) Father Diabetes Grandfather Myocardial infarction CAD (coronary artery disease) Pacemaker Social History adopted: No household members: none number of children: 0 current occupational status: employed 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 Reports she has been okay since last appointment. Does voice a large amount of frustr (more content not included)... [facility] Pulmonary Visit Reporton Pulmonary Visit Report [facility] of [address] [place] [address] OFFICE VISIT Date of Service: 03/15/25 MR#: [id number] Acct: [id number] Name: SUSY BATEMAN Rep #: [id number] : 1980 Provider: JOSE ANGEL Davis Age/Sex: 44/F Location: [facility] Status: Signed Assessment and Plan Assessment and Plan (1) Sleep apnea: Status: Chronic Qualifiers: Sleep apnea type: obstructive Qualified Code(s): G47.33 - Obstructive sleep apnea (adult) (pediatric) Comment: AHI 7.8 Plan: Symptomatically stable. Follow up in 6 months. She has been on a new weight loss drug for 2 weeks. We will continue to monitor over the next 6 months. If the patient has a stall in weight loss or suffers weight gain, she would be willing to preform a repeat PSG and consider PAP therapy. She admits that she really prefers not to be started on PAP therapy. (2) Obesity: Status: Chronic Qualifiers: Obesity type: due to excess calories Obesity classification: adult class 2 (BMI 35 - 39.9) Serious obesity comorbidity presence: with serious comorbidity Body mass index: BMI 38.0-38.9 Qualified Code(s): E66.812 - Obesity, class 2; E66.01 - Morbid (severe) obesity due to excess calories; Z68.38 - Body mass index [BMI] 38.0-38.9, adult Plan: Complicates exam, plan, care and prognosis. Was started on Mounjaro 2 weeks ago. Continue to encourage weight loss. (3) Asthma: Status: Chronic Qualifiers: Asthma severity: unspecified severity Asthma persistence: unspecified Asthma complication type: unspecified Qualified Code(s): J45.909 - Unspecified asthma, uncomplicated Plan: Stable, no signs of exacerbation of asthma today. No change in maintenance medications, continue Symbicort and May. No additional testing at this time. Contact the office with any signs of new or worsening symptoms. Follow-up in 6 months. Medications: Refilled budesonide-formoterol 160-4.5 mcg/actuation (Symbicort) 2 puffs inhalation BID 10.2 grams 11RF albuterol sulfate 90 mcg/actuation 2 inhalations inhalation Q4-6H PRN 1 ea 11RF shortness of breath or wheezing J45.909 - Unspecified asthma, uncomplicated Plan Details Additional Comments: This note was generated with [employer] dictation software. It may contain incorrect words, spelling, and punctuation that were not noted in checking the note before signing. Follow Up: 6 Months HPI 6 M FU Chief Complaint: Routine follow-up HPI Comments Details: This patient presents to the office today for follow-up of her obstructive sleep apnea and asthma. She is ambulatory and currently on room air. She has not recently been seen in the ED or urgent care for any respiratory illness. She has not required any antibiotics or prednisone for any breathing problems. She has not had an exacerbation of asthma in greater than 12 months. She is compliant with use of Symbicort 2 puffs twice daily. She does report rinsing her mouth out after each use. She denies any medication side effect such as or throat or thrush. She is also using May daily. She has not recently needed to use her albuterol rescue inhaler. She does occasionally have shortness of breath on exertion. She denies any cough, sputum production, or hemoptysis. She also denies any wheezing, chest tightness, chest pain or palpitations. She has not had any fever, chills or body aches. She continues weight loss with medication assistance. 2 weeks ago she was switched from Ozempic to Mounjaro. Overall the patient feels fairly rested when she wakes up in the morning. She continues to snore. She denies any difficulty with dry mouth or morning headaches. She is not having excessive nocturia. Intake Vital Signs 09/10/24 08:05 03/15/25 07:54 03/15/25 08:05 Height 5 ft 7 in 5 ft 8 in 5 ft 8 in Weight: 229 lb BMI 34.8 BP 135/73 H Blood Pressure Location Rt brachial Position Sitting Respiration 16 Pulse 81 Pulse Source NIBP Temp 97.0 F L Temperature Source Temporal Artery Pulse Oximetry (%) 97 Oxygen Delivery Method room air Intake Visit Reasons: 6 M FU Chief Complaint: 1 month fu Stock Plan Administrator Required: No DME Vendor: N/a Accompanied by: Self Is patient in pain?: No Allergies oxymetazoline (From Afrin (oxymetazoline)) Adverse Reaction (Intermediate, Verified 03/15/25 10:18) Shortness of breath Medications ???Medication ???Instructions ???Recorded ???Confirmed ???Type albuterol sulfate 2.5 mg/3 mL 2.5 mg inhalation Q2H PRN PRN 09/07 003/15/25 History (0.083 %) solution for nebulization Shortness Of Breath dicyclomine 20 mg tablet 20 mg PO TID PRN abdominal pain 03/15/25 Rx #90 tabs cyclobenzaprine 10 mg tablet 10 mg PO TID PRN muscle spasm #90 11/17/23 03/15/25 Rx tabs fexofenadine 180 mg tablet 180 (more content not included)... Normal [facility] MR/BMS.BPon 02-26-2025 MR/BMS.BP [facility] [address] [facility], [address] [place] [id number] OFFICE VISIT Date of Service: 02/25/25 MR#: [id number] Acct: [id number] Name: SUSY BATEMAN Rep #: [id number] : 1980 Provider: [facility] Janina hill Age/Sex: 44/F Location: [facility].BP Status: Signed Intake Vital Signs 12/14/24 07:34 02/18/25 14:41 02/26/25 10:42 Height 5 ft 7 in 5 ft 8 in 5 ft 8 in BP Intake Visit Reasons: Follow up Allergies oxymetazoline (From Afrin (oxymetazoline)) Adverse Reaction (Intermediate, Verified 02/18/25 14:37) Shortness of breath PFSH Medical History Hypertension Tremor Borderline type 2 diabetes mellitus Depression, unspecified Anxiety Status post pneumothorax Back problem Chronic back pain Obesity (BMI 30-39.9) Anxiety and depression 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 Anal fissure Pectus excavatum IBS (irritable bowel syndrome) Migraine Asthma Segmental and somatic dysfunction of pelvic region Segmental and somatic dysfunction of lumbar region Sciatica Surgical History Hx of chest tube placement Family History Mother Graves disease CVA (cerebral vascular accident) Father Diabetes Grandfather Myocardial infarction CAD (coronary artery disease) Pacemaker Social History adopted: No household members: none number of children: 0 current occupational status: employed 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 She denied any panic attacks since starting Escitalopram. Susy presented as considerably less anxious than recent sessions. She expressed uncertainty as to whether or not the Escitalopram was reducing anxious symptoms. Susy discussed frustration and anger regarding a co-worker's communication with her. 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 Encouraged verbalization of emotions while providing support. Normalized emotions. Susy discussed ongoing difficulty with organization at home, which has resulted in her feeling overwhelmed when attempting to improve the level of organization. Examined areas of her life where she has shown a high level of organization including having a history of working more than 1 job at a time and receiving feedback about her high level of organization at work. Explored times when home organization was not as difficult including when she was , when she had a roommate, and when she had more time (the pandemic). Discussed times where she has recently experienced some success. Susy recognized increased effectiveness during times when she does not plan in detail and is spontaneous and times where her anxiety is reduced. Explored thought patterns making it difficult to get rid of items including having spent significant amount on a item or believing she will want the item in the future. Worked on thoughts using CBT interventions. No reports of SI. Future-oriented. Exam Mental Status Exam - Psych Appearance no apparent distress and well kempt Attitude cooperative, calm, engaged, pleasant and friendly Activity/Motor Behavior MSE activity/motor behavior finding no adventitious movements and appropriate eye contact Speech regular rate, regular volume and regular prosody Mood euythmic Affect full range Thought Process linear, logical, coherent and goal directed Thought Content no delusions and no hallucinations Suicidal Ideation none Homicidal Ideation none Attention impaired (Per pt. report.) Concentration impaired (Per pt. report.) Sensorium/Orientation alert and oriented x3 Memory/Cognition intact Insight good Judgement good Assessment Plan Assessment Plan (1) ANNE (generalized anxiety disorder): Plan: BH therapy using CBT, DBT, and ACT interventions to address thought patterns contributing to anxious symptoms and to teach coping skills. Psychiatric services to monitor anxious symptoms and medication effectiveness. (2) MDD (major depressive disorder): Qualifiers: Major depression recurrence: recurrent Activ (more content not included)... Normal [facility] Internal Medicine Office Vis iton 02-18-2025 Internal Medicine Office Visit [facility] [address] [place] [address] OFFICE VISIT Date of Service: 02/18/25 MR#: [id number] Acct: [id number] Name: SUSY BATEMAN Rep #: [id number] : 1980 Provider: ISACC Fonseca Age/Sex: 44/F Location: [facility].BIM Status: Signed Intake Vital Signs 01/21/25 14:32 02/18/25 14:41 Height 5 ft 7 in 5 ft 8 in Weight: 232 lb 229 lb BMI 36.3 34.8 BP 128/82 H 121/79 H Blood Pressure Location Lt brachial Lt brachial Position Sitting Sitting Respiration 18 16 Pulse 91 90 Pulse Source Monitor Monitor Temp 97.6 F L 97.1 F L Temp Source Temporal Temporal Pulse Oximetry (%) 95 95 Oxygen Delivery Method room air room air Intake Visit Reasons: 1 M FU Chief Complaint: 1 month fu Stock Plan Administrator Required: No Accompanied by: Self Is patient in pain?: No Allergies oxymetazoline (From Afrin (oxymetazoline)) Adverse Reaction (Intermediate, Verified 02/18/25 14:37) Shortness of breath Medications ???Medication ???Instructions ???Recorded ???Confirmed ???Type albuterol sulfate 2.5 mg/3 mL 2.5 mg inhalation Q2H PRN PRN 09/07 002/18/25 History (0.083 %) solution for nebulization Shortness Of Breath dicyclomine 20 mg tablet 20 mg PO TID PRN abdominal pain 02/18/25 Rx #90 tabs cyclobenzaprine 10 mg tablet 10 mg PO TID PRN muscle spasm #90 11/17/23 02/18/25 Rx tabs fexofenadine 180 mg tablet 180 mg PO DAILY 02/13/24 02/18/25 History (May Allergy) ondansetron 4 mg disintegrating 4 mg PO Q8H PRN nausea and 4 02/18/25 Rx tablet vomiting #90 tabs blood builder PO 07/23/24 02/18/25 History albuterol sulfate 90 mcg/actuation 2 inh inhalation Q4-6H PRN 09/0802/18/25 Rx breath activated powder inhaler shortness of breath or wheezing #1 ea pen needle, diabetic 32 gauge x #100 ea 09/28/24 02/18/25 Rx 1/6 (NovoFine Plus) norethindrone (contraceptive) 0.35 0.35 mg PO DAILY #84 tabs 02/18/25 Rx mg tablet atogepant 60 mg tablet (Qulipta) 60 mg PO .prn 10/22/24 02/18/25 Hi story budesonide-formoterol HFA 160 2 puff inhalation BID #10.2 grams 10/22/24 02/18/25 Rx mcg-4.5 mcg/actuation aerosol inhaler (Symbicort) trazodone 100 mg tablet 100 mg PO QHS #90 tabs 12/14/24 Rx escitalopram oxalate 10 mg tablet 10 mg PO QDAY #30 tabs 01/18/25 0 02/18/25 Rx lorazepam 0.5 mg tablet 0.5 mg PO QDAY PRN anxiety #14 tab s 01/18/25 02/18/25 Rx fluconazole 150 mg tablet 150 mg PO Q3D 2 doses #2 tabs 01/0402/18/25 Rx beef organ capsule PO DAILY 01/21/25 02/18/25 History buspirone 15 mg tablet 15 mg PO BID 01/21/25 02/18/25 His tory cholecalciferol (vitamin D3) 25 25 mcg PO QDAY 01/21/25 02/18/25 H istory mcg (1,000 unit) capsule gabapentin 300 mg capsule 600 mg PO QHS 01/21/25 02/18/25 Hi story ibuprofen 800 mg tablet 800 mg PO DAILY PRN pain 01/21/25 02/18/25 History PO DAILY 01/21/25 02/18/25 History tirzepatide 2.5 mg/0.5 mL 2.5 mg (0.5 mL) subcut QWEEK #2 mL 01/31/25 02/18/25 Rx subcutaneous pen injector (Keeganunrhiannaro) metformin 500 mg tablet,extended 500 mg PO QDAY #90 tabs 02/01/25 0 02/18/25 Rx release 24 hr phentermine 37.5 mg tablet 18.75 mg (1/2 x 37.5 mg) PO QDAY 0 02/18/25 02/18/25 Rx (Adipex-P) #21 tabs Have you fallen in the past year?: No [facility] Medical History Hypertension Tremor Borderline type 2 diabetes mellitus Depression, unspecified Anxiety Status post pneumothorax Back problem Chronic back pain Obesity (BMI 30-39.9) Anxiety and depression 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 Anal fissure Pectus excavatum IBS (irritable bowel syndrome) Migraine Asthma Segmental and somatic dysfunction of pelvic region Segmental and somatic dysfunction of lumbar region Sciatica Surgical History Hx of chest tube placement Family History Mother Graves disease CVA (cerebral vascular accident) Father Diabetes Grandfather Myocardial infarction CAD (coronary artery disease) Pacemaker Social History adopted: No household members: none number of children: 0 current occupational status: employed current occupation: [employer] pets and animals: No Smoking Status: Never smoker alcohol intake: current alcohol intake frequency: holidays/special occasions only substance use type: does not use caffeine: Yes (1) Type: other what type of physical activity do you participate in: none seatbelt use: always do you feel safe at home: Yes a (more content not included)... Normal [facility] MR/BMS.BPon 02-11-2025 MR/BMS.BP [facility] [address], [address] [place] [address] OFFICE VISIT Date of Service: 02/11/25 MR#: [id number] Acct: [id number] Name: SUSY BATEMAN Rep #: [id number] : 1980 [facility] Age/Sex: 44/F Location: [facility]BP Status: Signed Intake Vital Signs 11/12/24 17:31 01/21/25 14:32 02/11/25 09:51 Height 5 ft 7 in 5 ft 7 in 5 ft 7 in Weight: 232 lb BMI 36.3 BP 128/82 H Blood Pressure Location Lt brachial Position Sitting Respiration 18 Pulse 91 Pulse Source Monitor Temp 97.6 F L Pulse Oximetry (%) 95 Oxygen Delivery Method room air BP Intake Visit Reasons: Follow up Allergies oxymetazoline (From Afrin (oxymetazoline)) Adverse Reaction (Intermediate, Verified 01/21/25 14:27) Shortness of breath PFSH Medical History Hypertension Tremor Borderline type 2 diabetes mellitus Depression, unspecified Anxiety Status post pneumothorax Back problem Chronic back pain Obesity (BMI 30-39.9) Anxiety and depression 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 Anal fissure Pectus excavatum IBS (irritable bowel syndrome) Migraine Asthma Segmental and somatic dysfunction of pelvic region Segmental and somatic dysfunction of lumbar region Sciatica Surgical History Hx of chest tube placement Family History Mother Graves disease CVA (cerebral vascular accident) Father Diabetes Grandfather Myocardial infarction CAD (coronary artery disease) Pacemaker Social History adopted: No household members: none number of children: 0 current occupational status: employed current occupation: [employer] pets and animals: No Smoking Status: Never smoker alcohol intake: current alcohol intake frequency: holidays/special occasions only substance use type: does not use caffeine: Yes (1) Type: other what type of physical activity do you participate in: none seatbelt use: always do you feel safe at home: Yes additional social history: Single HPI History of Present Illness HPI: Susy Bateman is a 44 year-old female returning for therapy. 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 Susy identified stressors related to her father's memory and maintaining household tasks/organization. She presented as less depressed and anxious than previous session. Encouraged verbalization of emotions while providing support. Problem solved options for addressing her concerns with father and addressing his health issues medically. Normalized her emotions. Explored recent times where she has experienced success with household tasks. Explored what led to success doing things, which included doing things as she thinks of them vs. excessive planning and adding to task when she gains momentum. Provided psychoeducation on routines and habits. No SI. Future-oriented. Exam Mental Status Exam - Psych Appearance no apparent distress and well kempt Attitude cooperative, calm, engaged, pleasant and friendly Activity/Motor Behavior MSE activity/motor behavior finding no adventitious movements and appropriate eye contact Speech regular rate, regular volume and regular prosody Mood euythmic Affect full range Thought Process linear, logical, coherent and goal directed Thought Content no delusions, no hallucinations and ruminations (Related to father's health.) Suicidal Ideation none Homicidal Ideation none Attention impaired (Per pt. report.) Concentration impaired (Per pt. report.) Sensorium/Orientation alert and oriented x3 Memory/Cognition intact Insight good Judgement good Assessment Plan Assessment Plan (1) ANNE (generalized anxiety disorder): Plan: BH therapy using CBT, DBT, and ACT interventions to address thought patterns contributing to anxious symptoms and to teach coping skills. Psychiatric services to monitor anxious symptoms and medication effectiveness. (2) MDD (major depressive disorder): Qualifiers: Major depression recurrence: recurrent Active/Remission status: currently active Major depression episode severity: moderate Qualified Code(s): F33.1 - Major depressive disorder, recurrent, moderate Plan: BH therapy using CBT, DBT, and ACT interventions to address thought patterns contributing to depressive symptoms and teach coping skills. Continued psychiatric services to monitor depressive symptoms and medication effectiveness. Pt. to call 911, call suicide prevention hotline, or go to ER if experiencing suicidal ideation with plan and intent and/ (more content not included)... Normal [facility] Internal Medicine Office Vis iton 01-21-2025 Internal Medicine Office Visit [facility] [address] [place] [address] OFFICE VISIT Date of Service: 01/21/25 MR#: [id number] Acct: [id number] Name: SUSY BATEMAN Rep #: [id number] : 1980 Provider: [facility] Fonseca Age/Sex: 44/F Location: [facility] Status: Signed Intake Vital Signs 10/22/24 14:58 01/21/25 06:25 01/21/25 14:32 Height 5 ft 7 in 5 ft 7 in 5 ft 7 in Weight: 232 lb BMI 36.3 BP 128/82 H Blood Pressure Location Lt brachial Position Sitting Respiration 18 Pulse 91 Pulse Source Monitor Temp 97.6 F L Temp Source Temporal Pulse Oximetry (%) 95 Oxygen Delivery Method room air Intake Visit Reasons: 3 M FU Chief Complaint: 3 M FU Is patient in pain?: No Allergies oxymetazoline (From Afrin (oxymetazoline)) Adverse Reaction (Intermediate, Verified 01/21/25 14:27) Shortness of breath Medications ???Medication ???Instructions ???Recorded ???Confirmed ???Type albuterol sulfate 2.5 mg/3 mL 2.5 mg inhalation Q2H PRN PRN 09/0701/21/25 History (0.083 %) solution for nebulization Shortness Of Breath dicyclomine 20 mg tablet 20 mg PO TID PRN abdominal pain 01/21/25 Rx #90 tabs cyclobenzaprine 10 mg tablet 10 mg PO TID PRN muscle spasm #90 11/17/23 01/21/25 Rx tabs fexofenadine 180 mg tablet 180 mg PO DAILY 02/13/24 01/21/25 History (May Allergy) ondansetron 4 mg disintegrating 4 mg PO Q8H PRN nausea and 4 01/21/25 Rx tablet vomiting #90 tabs blood builder PO 07/23/24 01/21/25 History albuterol sulfate 90 mcg/actuation 2 inh inhalation Q4-6H PRN 09/0801/21/25 Rx breath activated powder inhaler shortness of breath or wheezing #1 ea pen needle, diabetic 32 gauge x #100 ea 09/28/24 01/21/25 Rx 1/6 (NovoFine Plus) norethindrone (contraceptive) 0.35 0.35 mg PO DAILY #84 tabs 01/18/25 Rx mg tablet atogepant 60 mg tablet (Qulipta) 60 mg PO .prn 10/22/24 01/21/25 Hi story budesonide-formoterol HFA 160 2 puff inhalation BID #10.2 grams 10/22/24 01/21/25 Rx mcg-4.5 mcg/actuation aerosol inhaler (Symbicort) trazodone 100 mg tablet 100 mg PO QHS #90 tabs 12/14/24 Rx escitalopram oxalate 10 mg tablet 10 mg PO QDAY #30 tabs 01/18/25 0 01/18/25 Rx lorazepam 0.5 mg tablet 0.5 mg PO QDAY PRN anxiety #14 tab s 01/18/25 01/21/25 Rx semaglutide 2 mg/dose (8 mg/3 mL) 2 mg (0.75 mL) subcut QWEEK #3 mL 01/19/25 01/21/25 Rx subcutaneous pen injector (Ozempic) valsartan 160 mg tablet 160 mg PO QDAY #90 tabs 01/19/25 0 01/21/25 Rx valsartan 320 mg tablet 320 mg PO DAILY #90 tabs 01/19/25 01/21/25 Rx fluconazole 150 mg tablet 150 mg PO Q3D 2 doses #2 tabs 01/04 04/29 Rx beef organ capsule PO DAILY 01/21/25 History buspirone 15 mg tablet 15 mg PO BID 01/21/25 History cholecalciferol (vitamin D3) 25 25 mcg PO QDAY 01/21/25 01/21/25 H istory mcg (1,000 unit) capsule gabapentin 300 mg capsule 600 mg PO QHS 01/21/25 01/21/25 Hi story ibuprofen 800 mg tablet 800 mg PO DAILY PRN pain 01/21/25 History metformin 500 mg tablet,extended 500 mg PO QDAY 01/21/25 History release 24 hr PO DAILY 01/21/25 History phentermine 37.5 mg tablet 18.75 mg (1/2 x 37.5 mg) PO QDAY 0 01/25/25 01/25/25 Rx (Adipex-P) #21 tabs Nurse's Note: pt reports that she feels she is not losing any more weight asking if there is something she could take in conjunction with her Ozempic. [facility] Medical History Hypertension Tremor Borderline type 2 diabetes mellitus Depression, unspecified Anxiety Status post pneumothorax Back problem Chronic back pain Obesity (BMI 30-39.9) Anxiety and depression 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 Anal fissure Pectus excavatum IBS (irritable bowel syndrome) Migraine Asthma Segmental and somatic dysfunction of pelvic region Segmental and somatic dysfunction of lumbar region Sciatica Surgical History Hx of chest tube placement Family History Mother Graves disease CVA (cerebral vascular accident) Father Diabetes Grandfather Myocardial infarction CAD (coronary artery disease) Pacemaker Social History adopted: No household members: none number of children: 0 current occupational status: employed current occupation: [employer] pets and animals: No Smoking Status: Never smoker alcohol intake: current alcohol intake frequency: holidays/special occasions only substance use type: does not use caffeine: Yes (1) Type: other what type (more content not included)... Normal [facility] MR/BMS.BPon 01-21-2025 MR/BMS.BP [facility] [address] [place] [address], [address] [place] [address] OFFICE VISIT Date of Service: 01/18/25 MR#: [id number] Acct: [id number] Name: SUSY BATEMAN Roselia Rep #: [id number] : 1980 Provider: JIMMY hill Age/Sex: 44/F Location: [facility]BP Status: Signed Intake Vital Signs 11/02/24 07:39 01/18/25 08:00 01/21/25 06:25 Height 5 ft 7 in 5 ft 7 in 5 ft 7 in BP Intake Visit Reasons: follow up Allergies oxymetazoline (From Afrin (oxymetazoline)) Adverse Reaction (Intermediate, Verified 01/18/25 08:05) Shortness of breath PFSH Medical History Hypertension Tremor Borderline type 2 diabetes mellitus Depression, unspecified Anxiety Status post pneumothorax Back problem Chronic back pain Obesity (BMI 30-39.9) Anxiety and depression 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 Anal fissure Pectus excavatum IBS (irritable bowel syndrome) Migraine Asthma Segmental and somatic dysfunction of pelvic region Segmental and somatic dysfunction of lumbar region Sciatica Surgical History Hx of chest tube placement Family History Mother Graves disease CVA (cerebral vascular accident) Father Diabetes Grandfather Myocardial infarction CAD (coronary artery disease) Pacemaker Social History adopted: No household members: none number of children: 0 current occupational status: employed 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 She reported recent increase in depressive and anxious symptoms, increased work stressors, and stressors related to interactions with parents. Susy had a recent psychiatric appointment and is in the process of changing medications from Fluoxetine to Escitalopram. Encouraged verbalization of emotions while providing support. Normalized emotions. Explored ways to avoid internalization of emotions and increase use of coping skills. Reviewed coping skills. Susy has had success utilizing a [employer] johny. with coping skills. No SI. Future-oriented. Exam Mental Status Exam - Psych Appearance well kempt Attitude cooperative, calm, engaged and pleasant Activity/Motor Behavior MSE activity/motor behavior finding no adventitious movements and appropriate eye contact Speech regular rate, regular volume and regular prosody Mood OK and anxious Affect full range Thought Process linear, logical and coherent Thought Content no delusions and no hallucinations Suicidal Ideation none Homicidal Ideation none Attention impaired (Per pt. report.) Concentration impaired (Per pt. report.) Sensorium/Orientation alert and oriented x3 Memory/Cognition intact Insight good Judgement good Assessment Plan Assessment Plan (1) ANNE (generalized anxiety disorder): Plan: therapy using CBT, DBT, and ACT interventions to address thought patterns contributing to anxious symptoms and to teach coping skills. Psychiatric services to monitor anxious symptoms and medication effectiveness. (2) MDD (major depressive disorder): Qualifiers: Active/Remission status: currently active Major depression episode severity: moderate Major depression recurrence: recurrent Qualified Code(s): F33.1 - Major depressive disorder, recurrent, moderate Plan: therapy using CBT, DBT, and ACT interventions to address thought patterns contributing to depressive symptoms and teach coping skills. Continued psychiatric services to monitor depressive symptoms and medication effectiveness. Pt. to call 911, call suicide prevention hotline, or go to ER if experiencing suicidal ideation with plan and intent and/or feel unable to ensure own safety. Plan TREATMENT PLAN Goal 1 - Reduce overall frequency, intensity, and duration of anxiety so daily functioning is not impaired AEB pt.'s self-report. Objective 1 - Understand role that cognitive biases play in excessive worry and persistent anxious symptoms. Intervention 1 - Assist pt. in recognizing times of overestimating the probability of threats and underestimating or overlooking his ability to manage realistic demands. Intervention 2 - Assist pt. in analyzing his worrie (more content not included)... Normal [facility] MR/BMS.BPon 01-18-2025 MR/BMS.BP [facility] [facility] [address], [address] [place] [address] OFFICE VISIT Date of Service: 01/18/25 MR#: [id number] Acct: [id number] Name: SUSY BATEMAN Roselia Rep #: [id number] : 1980 Provider: JOSE ANGEL williamson Age/Sex: 44/F Location: [facility].BP Status: Signed Intake Vital Signs 12/14/24 07:34 01/18/25 08:00 Height 5 ft 7 in 5 ft 7 in Weight: 234 lb 230 lb BMI 36.6 36.0 BP 115/77 130/78 H Blood Pressure Location Lt brachial Rt radial Position Sitting Sitting Respiration 16 16 Pulse 86 80 Pulse Source Monitor Monitor BP Intake Visit Reasons: 5-6 wfu Accompanied by: Self Allergies oxymetazoline (From Afrin (oxymetazoline)) Adverse Reaction (Intermediate, Verified 01/18/25 08:05) Shortness of breath Medications ???Medication ???Instructions ???Recorded ???Confirmed ???Type albuterol sulfate 2.5 mg/3 mL 2.5 mg inhalation Q2H PRN PRN 09/0701/18/25 History (0.083 %) solution for nebulization Shortness Of Breath dicyclomine 20 mg tablet 20 mg PO TID PRN abdominal pain 01/18/25 Rx #90 tabs cyclobenzaprine 10 mg tablet 10 mg PO TID PRN muscle spasm #90 02/12/24 04/15/25 Rx tabs fexofenadine 180 mg tablet 180 mg PO DAILY 02/13/24 01/18/25 History (May Allergy) gabapentin 300 mg capsule 300 mg PO BID 02/13/24 01/18/25 Hi story ondansetron 4 mg disintegrating 4 mg PO Q8H PRN nausea and 4 01/18/25 Rx tablet vomiting #90 tabs blood builder PO 07/23/24 01/18/25 History ibuprofen 800 mg tablet 800 mg PO Q8H PRN pain #90 tabs 01/18/25 Rx metformin 500 mg tablet,extended 500 mg PO QPM #60 tabs 08/23/24 Rx release 24 hr semaglutide 2 mg/dose (8 mg/3 mL) 2 mg (0.75 mL) subcut QWEEK #3 mL 08/23/24 01/18/25 Rx subcutaneous pen injector (Ozempic) albuterol sulfate 90 mcg/actuation 2 inh inhalation Q4-6H PRN 09/0801/18/25 Rx breath activated powder inhaler shortness of breath or wheezing #1 ea pen needle, diabetic 32 gauge x #100 ea 09/28/24 01/18/25 Rx 1/6 (NovoFine Plus) norethindrone (contraceptive) 0.35 0.35 mg PO DAILY #84 tabs 01/18/25 Rx mg tablet atogepant 60 mg tablet (Qulipta) 60 mg PO .prn 10/22/24 01/18/25 Hi story budesonide-formoterol HFA 160 2 puff inhalation BID #10.2 grams 10/22/24 01/18/25 Rx mcg-4.5 mcg/actuation aerosol inhaler (Symbicort) valsartan 320 mg tablet 320 mg PO DAILY 10/22/24 01/18/25 History buspirone 15 mg tablet 15 mg PO TID #90 tabs 12/14/24 Rx trazodone 100 mg tablet 100 mg PO QHS #90 tabs 12/14/24 Rx escitalopram oxalate 10 mg tablet 10 mg PO QDAY #30 tabs 01/18/25 0 01/18/25 Rx lorazepam 0.5 mg tablet 0.5 mg PO QDAY PRN anxiety #14 tab s 01/18/25 01/18/25 Rx PFSH Medical History Hypertension Tremor Borderline type 2 diabetes mellitus Depression, unspecified Anxiety Status post pneumothorax Back problem Chronic back pain Obesity (BMI 30-39.9) Anxiety and depression 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 Anal fissure Pectus excavatum IBS (irritable bowel syndrome) Migraine Asthma Segmental and somatic dysfunction of pelvic region Segmental and somatic dysfunction of lumbar region Sciatica Surgical History Hx of chest tube placement Family History Mother Graves disease CVA (cerebral vascular accident) Father Diabetes Grandfather Myocardial infarction CAD (coronary artery disease) Pacemaker Social History adopted: No household members: none number of children: 0 current occupational status: employed current occupation: [employer] pets and animals: No Smoking Status: Never smoker alcohol intake: current alcohol intake frequency: holidays/special occasions only substance use type: does not use caffeine: Yes (1) Type: other what type of physical activity do you participate in: none seatbelt use: always do you feel safe at home: Yes additional social history: Single HPI History of Present Illness History provided by: patient HPI: Susy Bateman is a 44 year old female patient presenting today for a follow up evaluation. Reports she has been busy with work lately. Her parents have returned from their vacation so she is also busy with them. Reports she has been okay in terms of mental health. Has been taking lorazepam on the weekend when she is having a panic attack or feels one coming on. Does not feel that is knocks me out but does calm her down and she like this. Admits to feeli (more content not included)... Normal [facility] MR/BMS.BPon 12-30-2024 MR/BMS.BP [facility] [address], [address] [place] [address] OFFICE VISIT Date of Service: 12/28/24 MR#: [id number] Acct: [id number] Name: SUSY BATEMAN Rep #: [id number] : 1980 Provider: JIMMY hill Age/Sex: 44/F Location: [facility].BP Status: Signed Intake Vital Signs 11/02/24 07:39 12/14/24 07:34 12/30/24 09:19 Height 5 ft 7 in 5 ft 7 in 5 ft 7 in Weight: 234 lb BMI 36.6 BP 115/77 Blood Pressure Location Lt brachial Position Sitting Respiration 16 Pulse 86 Pulse Source Monitor BP Intake Visit Reasons: follow up Allergies oxymetazoline (From Afrin (oxymetazoline)) Adverse Reaction (Intermediate, Verified 12/14/24 07:39) Shortness of breath PFSH Medical History Hypertension Tremor Borderline type 2 diabetes mellitus Depression, unspecified Anxiety Status post pneumothorax Back problem Chronic back pain Obesity (BMI 30-39.9) Anxiety and depression 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 Anal fissure Pectus excavatum IBS (irritable bowel syndrome) Migraine Asthma Segmental and somatic dysfunction of pelvic region Segmental and somatic dysfunction of lumbar region Sciatica Surgical History Hx of chest tube placement Family History Mother Graves disease CVA (cerebral vascular accident) Father Diabetes Grandfather Myocardial infarction CAD (coronary artery disease) Pacemaker Social History adopted: No household members: none number of children: 0 current occupational status: employed current occupation: [employer] pets and animals: No Smoking Status: Never smoker alcohol intake: current alcohol intake frequency: holidays/special occasions only substance use type: does not use caffeine: Yes (1) Type: other what type of physical activity do you participate in: none seatbelt use: always do you feel safe at home: Yes additional social history: Single HPI History of Present Illness HPI: Susy Bateman is a 44 year-old female returning for therapy. She identified that work was going well and that she has resumed a dating relationship. Susy identified recent panic resulting in her needing to take Lorazepam. She reported ongoing significant difficulty organizing and maintaining her home, which leads to conflict with parents who own the home and her inability to have dating partner to the home. She had been staying in her parents' home while they were out of state and experienced panic about them returning and the amount of work required to prepare their home for their return. Encouraged verbalization of emotions while providing support. Reinforced Susy's problem solving that allowed her to clean and prepare her parents' home. Explored how parents criticism impacts her functioning resulting in her shutting down. Susy completed and had her mother complete questionnaires for her psychiatric provider to rule out ADHD symptoms. No SI. Future-oriented. Exam Mental Status Exam - Psych Appearance casually dressed and adequately groomed Attitude cooperative, calm, engaged and pleasant Activity/Motor Behavior MSE activity/motor behavior finding no adventitious movements and appropriate eye contact Speech regular rate, regular volume and regular prosody Mood OK and anxious Affect full range Thought Process linear, logical and coherent Thought Content no delusions and no hallucinations Suicidal Ideation none Homicidal Ideation none Attention impaired (Per pt. report.) Concentration impaired (Per pt. report.) Sensorium/Orientation awake, alert and oriented x3 Memory/Cognition intact Insight good Judgement good Assessment Plan Assessment Plan (1) ANNE (generalized anxiety disorder): Plan: therapy using CBT, DBT, and ACT interventions to address thought patterns contributing to anxious symptoms and to teach coping skills. Psychiatric services to monitor anxious symptoms and medication effectiveness. (2) MDD (major depressive disorder): Qualifiers: Major depression recurrence: recurrent Active/Remission status: currently active Major depression episode severity: moderate Qualified Code(s): F33.1 - Major depressive disorder, recurrent, moderate Plan: therapy using CBT, DBT, and ACT interventions to address thought patterns contributing to depressive symptoms and teach coping skills. Continued psychiatric services to monitor depressive symptoms and medication effectiveness. Pt. to call 911, call suicide prevention hotline, or go to ER if experiencing (more content not included)... Normal [facility] MR/BMS.BPon 12-14-2024 MR/BMS.BP [facility] [address], [address] [place] [address] OFFICE VISIT Date of Service: 12/14/24 MR#: [id number] Acct: [id number] Name: SUSY BATEMAN Rep #: [id number] : 1980 Provider: JOSE ANGEL williamson Age/Sex: 44/F Location: [facility].BP Status: Signed Intake Vital Signs 11/02/24 07:39 12/07/24 15:18 12/14/24 07:34 Height 5 ft 7 in 5 ft 7 in 5 ft 7 in Weight: 234 lb BMI 36.6 BP 115/77 Blood Pressure Location Lt brachial Position Sitting Respiration 16 Pulse 86 Pulse Source Monitor BP Intake Visit Reasons: 6wfu Accompanied by: Self Allergies oxymetazoline (From Afrin (oxymetazoline)) Adverse Reaction (Intermediate, Verified 12/14/24 07:39) Shortness of breath Medications ???Medication ???Instructions ???Recorded ???Confirmed ???Type albuterol sulfate 2.5 mg/3 mL 2.5 mg inhalation Q2H PRN PRN 09/07 0/12/14/24 History (0.083 %) solution for nebulization Shortness Of Breath dicyclomine 20 mg tablet 20 mg PO TID PRN abdominal pain 12/14/24 Rx #90 tabs cyclobenzaprine 10 mg tablet 10 mg PO TID PRN muscle spasm #90 11/17/23 12/14/24 Rx tabs fexofenadine 180 mg tablet 180 mg PO DAILY 02/13/24 12/14/24 History (May Allergy) gabapentin 300 mg capsule 300 mg PO BID 02/13/24 12/14/24 Hi story ondansetron 4 mg disintegrating 4 mg PO Q8H PRN nausea and 4 12/14/24 Rx tablet vomiting #90 tabs blood builder PO 07/23/24 12/14/24 History ibuprofen 800 mg tablet 800 mg PO Q8H PRN pain #90 tabs 12/14/24 Rx metformin 500 mg tablet,extended 500 mg PO QPM #60 tabs 08/23/24 Rx release 24 hr semaglutide 2 mg/dose (8 mg/3 mL) 2 mg (0.75 mL) subcut QWEEK #3 mL 08/23/24 12/14/24 Rx subcutaneous pen injector (Ozempic) albuterol sulfate 90 mcg/actuation 2 inh inhalation Q4-6H PRN 09/0812/14/24 Rx breath activated powder inhaler shortness of breath or wheezing #1 ea pen needle, diabetic 32 gauge x #100 ea 09/28/24 12/14/24 Rx 1/6 (NovoFine Plus) norethindrone (contraceptive) 0.35 0.35 mg PO DAILY #84 tabs 12/14/24 Rx mg tablet atogepant 60 mg tablet (Qulipta) 60 mg PO .prn 10/22/24 12/14/24 Hi story budesonide-formoterol HFA 160 2 puff inhalation BID #10.2 grams 10/22/24 12/14/24 Rx mcg-4.5 mcg/actuation aerosol inhaler (Symbicort) valsartan 320 mg tablet 320 mg PO DAILY 10/22/24 12/14/24 History fluoxetine 20 mg capsule 20 mg PO QDAY #90 caps 11/02/24 Rx buspirone 15 mg tablet 15 mg PO TID #90 tabs 12/14/2408/30 Rx fluoxetine 40 mg capsule 40 mg PO DAILY #90 caps 12/14/24 0 12/14/24 Rx lorazepam 0.5 mg tablet 0.5 mg PO QDAY PRN anxiety #14 tab s 12/14/24 12/14/24 Rx trazodone 100 mg tablet 100 mg PO QHS #90 tabs 12/14/24 Rx PFSH Medical History Hypertension Tremor Borderline type 2 diabetes mellitus Depression, unspecified Anxiety Status post pneumothorax Back problem Chronic back pain Obesity (BMI 30-39.9) Anxiety and depression 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 Anal fissure Pectus excavatum IBS (irritable bowel syndrome) Migraine Asthma Segmental and somatic dysfunction of pelvic region Segmental and somatic dysfunction of lumbar region Sciatica Surgical History Hx of chest tube placement Family History Mother Graves disease CVA (cerebral vascular accident) Father Diabetes Grandfather Myocardial infarction CAD (coronary artery disease) Pacemaker Social History adopted: No household members: none number of children: 0 current occupational status: employed current occupation: [employer] pets and animals: No Smoking Status: Never smoker alcohol intake: current alcohol intake frequency: holidays/special occasions only substance use type: does not use caffeine: Yes (1) Type: other what type of physical activity do you participate in: none seatbelt use: always do you feel safe at home: Yes additional social history: Single HPI History of Present Illness History provided by: patient HPI: Susy Bateman is a 44 year old female patient presenting today for a follow up evaluation. Reports she has not been doing well since last appointment. States she has been having panic attacks relatively frequently. Does feel work stress contributes to her panic. Was off of work last week so had a large amount of things to do the week before which increased stress and anxiety. Reports energy has been low. Has not been s (more content not included)... Normal [facility] MR/BMS.BPon 12-07-2024 MR/BMS.BP [facility], [address] [place] [address] OFFICE VISIT Date of Service: 12/07/24 MR#: [id number] Acct: [id number] Name: SUSY BATEMAN Rep #: [id number] : 1980 [facility] Age/Sex: 44/F Location: [facility].BP Status: Signed Intake Vital Signs 11/02/24 07:39 11/12/24 17:31 12/07/24 15:18 Height 5 ft 7 in 5 ft 7 in 5 ft 7 in BP Intake Visit Reasons: follow up Allergies oxymetazoline (From Afrin (oxymetazoline)) Adverse Reaction (Intermediate, Verified 10/22/24 14:52) Shortness of breath PFSH Medical History Hypertension Tremor Borderline type 2 diabetes mellitus Depression, unspecified Anxiety Status post pneumothorax Back problem Chronic back pain Obesity (BMI 30-39.9) Anxiety and depression 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 Anal fissure Pectus excavatum IBS (irritable bowel syndrome) Migraine Asthma Segmental and somatic dysfunction of pelvic region Segmental and somatic dysfunction of lumbar region Sciatica Surgical History Hx of chest tube placement Family History Mother Graves disease CVA (cerebral vascular accident) Father Diabetes Grandfather Myocardial infarction CAD (coronary artery disease) Pacemaker Social History adopted: No household members: none number of children: 0 current occupational status: employed current occupation: [employer] pets and animals: No Smoking Status: Never smoker alcohol intake: current alcohol intake frequency: holidays/special occasions only substance use type: does not use caffeine: Yes (1) Type: other what type of physical activity do you participate in: none seatbelt use: always do you feel safe at home: Yes additional social history: Single HPI History of Present Illness HPI: Susy Bateman is a 44 year-old female returning for therapy. She identified being on vacation but struggling with need for increased sleep. Susy also identified recent panic attacks and difficulty focusing and completing tasks outside of work. Tasks at work now have to be broken down and spread throughout the day. She has a 12-14-2024 psychiatric appointment and will address concentration issues. Encouraged verbalization of emotions while providing support. Normalized emotions.Explored triggers to recent panic with work stressors triggering panic at least some of the time. Susy is also triggered by pressure to clean/organize her home. Worked on coping including breathing and grounding activities. Strategies Susy has previously successfully utilized to increase focus are no longer effective like 600 second rule as she states she is unable to focus longer than 3 minutes on tasks outside of work. No reports of SI. Future-oriented. Exam Mental Status Exam - Psych Appearance casually dressed and well kempt Attitude cooperative, calm, engaged, pleasant and friendly Activity/Motor Behavior appropriate eye contact and fidgeting Speech regular rate, regular volume and regular prosody Mood OK and anxious Affect full range Thought Process linear, logical and coherent Thought Content no delusions and no hallucinations Suicidal Ideation none Homicidal Ideation none Attention impaired (Per pt. report.) Concentration impaired (Per pt. report.) Sensorium/Orientation awake, alert and oriented x3 Memory/Cognition intact Insight good Judgement good Assessment Plan Assessment Plan (1) ANNE (generalized anxiety disorder): Plan: therapy using CBT, DBT, and ACT interventions to address thought patterns contributing to anxious symptoms and to teach coping skills. Psychiatric services to monitor anxious symptoms and medication effectiveness. (2) MDD (major depressive disorder): Qualifiers: Major depression recurrence: recurrent Active/Remission status: currently active Major depression episode severity: moderate Qualified Code(s): F33.1 - Major depressive disorder, recurrent, moderate Plan: therapy using CBT, DBT, and ACT interventions to address thought patterns contributing to depressive symptoms and teach coping skills. Continued psychiatric services to monitor depressive symptoms and medication effectiveness. Pt. to call 911, call suicide prevention hotline, or go to ER if experiencing suicidal ideation with plan and intent and/or feel unable to ensure own safety. Plan Detail Assessment: TREATMENT PLAN (10/12/2024) Goal 1 - Reduce overall frequency, intensity, and duration of anxiety so daily functioning is not impaired (more content not included)... Normal [facility] MR/BMS.BPon 11-12-2024 MR/BMS.BP [facility], [address] [place] [id number] OFFICE VISIT Date of Service: 11/12/24 MR#: [id number] Acct: [id number] Name: SUSY BATEMAN Rep #: [id number] : 1980 [facility] Age/Sex: 44/F Location: [facility]. Status: Signed Intake Vital Signs 11/05/24 11:00 11/12/24 17:31 Height 5 ft 7 in 5 ft 7 in BP Intake Visit Reasons: Follow up Allergies oxymetazoline (From Afrin (oxymetazoline)) Adverse Reaction (Intermediate, Verified 10/22/24 14:52) Shortness of breath PFSH Medical History Hypertension Tremor Borderline type 2 diabetes mellitus Depression, unspecified Anxiety Status post pneumothorax Back problem Chronic back pain Obesity (BMI 30-39.9) Anxiety and depression 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 Anal fissure Pectus excavatum IBS (irritable bowel syndrome) Migraine Asthma Segmental and somatic dysfunction of pelvic region Segmental and somatic dysfunction of lumbar region Sciatica Surgical History Hx of chest tube placement Family History Mother Graves disease CVA (cerebral vascular accident) Father Diabetes Grandfather Myocardial infarction CAD (coronary artery disease) Pacemaker Social History adopted: No household members: none number of children: 0 current occupational status: employed current occupation: [employer] pets and animals: No Smoking Status: Never smoker alcohol intake: current alcohol intake frequency: holidays/special occasions only substance use type: does not use caffeine: Yes (1) Type: other what type of physical activity do you participate in: none seatbelt use: always do you feel safe at home: Yes additional social history: Single HPI History of Present Illness HPI: Susy Bateman is a 44 year-old female returning for therapy. She requested an earlier appointment. Susy reported 2 panic attacks, which occurred 11-08-2024 and 11-10-2024. Explored triggers to panic attacks and skills utilized for coping. Reinforced use of breathing and not avoiding regular activities. Discussed coping thoughts for panic attacks using CBT interventions. Susy stated that she utilized her medication but did not believe it was effective. Nunu Butler CNP briefly joined the session to discuss Susy's symptoms and medication options increasing noon Buspirone dose to 15mg and taking 2 Hydroxyzine during panic attacks. Susy is to call next week to report how she is doing. Met again with Susy discussing continued use of breathing and mindfulness skill for grounding. Discussed implementing breathing regularly to reduce baseline level of anxiety and increase likely that skills would transfer better during times of panic. Discussed johny Susy is using to increase her motivation and routine, which she reports is helpful. Susy reported that she is spending time at home thinking about work. Discussed containing amount of time she spends thinking about work by writing down concern for next day so it does not have to be thought about again and can be used the next day. Worked on transition routine from work to home. No SI. Future-oriented. Exam Mental Status Exam - Psych Appearance well kempt Attitude cooperative, engaged and pleasant Activity/Motor Behavior MSE activity/motor behavior finding no adventitious movements and appropriate eye contact Speech regular rate, regular volume and regular prosody Mood anxious Affect anxious Thought Process linear, logical and coherent Thought Content no delusions, no hallucinations and ruminations (about having panic attacks) Suicidal Ideation none Homicidal Ideation none Attention intact Concentration intact Sensorium/Orientation alert and oriented x3 Memory/Cognition intact Insight good Judgement good Assessment Plan Assessment Plan (1) ANNE (generalized anxiety disorder): Plan: therapy using CBT, DBT, and ACT interventions to address thought patterns contributing to anxious symptoms and to teach coping skills. Psychiatric services to monitor anxious symptoms and medication effectiveness. (2) MDD (major depressive disorder): Qualifiers: Major depression recurrence: recurrent Active/Remission status: currently active Major depression episode severity: moderate Qualified Code(s): F33.1 - Major depressive disorder, recurrent, moderate Plan: therapy using CBT, DBT, and ACT interventions to address thought patterns contributing to depressive symptoms and teach coping skills. Continued p (more content not included)... Normal [facility] MR/BMS.BPon 11-05-2024 MR/BMS.BP [facility], [address] [place] [id number] OFFICE VISIT Date of Service: 11/02/24 MR#: [id number] Acct: [id number] Name: SUSY BATEMAN Rep #: [id number] : 1980 [facility] Age/Sex: 44/F Location: [facility].BP Status: Signed Intake Vital Signs 09/21/24 07:32 11/02/24 07:39 11/05/24 11:00 Height 5 ft 7 in 5 ft 7 in 5 ft 7 in Weight: 231 lb BMI 36.1 BP 126/81 H Blood Pressure Location Lt brachial Position Sitting Respiration 16 Pulse 88 Pulse Source Monitor BP Intake Visit Reasons: Follow up Allergies oxymetazoline (From Afrin (oxymetazoline)) Adverse Reaction (Intermediate, Verified 10/22/24 14:52) Shortness of breath PFSH Medical History Hypertension Tremor Borderline type 2 diabetes mellitus Depression, unspecified Anxiety Status post pneumothorax Back problem Chronic back pain Obesity (BMI 30-39.9) Anxiety and depression 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 Anal fissure Pectus excavatum IBS (irritable bowel syndrome) Migraine Asthma Segmental and somatic dysfunction of pelvic region Segmental and somatic dysfunction of lumbar region Sciatica Surgical History Hx of chest tube placement Family History Mother Graves disease CVA (cerebral vascular accident) Father Diabetes Grandfather Myocardial infarction CAD (coronary artery disease) Pacemaker Social History adopted: No household members: none number of children: 0 current occupational status: employed current occupation: [employer] pets and animals: No Smoking Status: Never smoker alcohol intake: current alcohol intake frequency: holidays/special occasions only substance use type: does not use caffeine: Yes (1) Type: other what type of physical activity do you participate in: none seatbelt use: always do you feel safe at home: Yes additional social history: Single HPI History of Present Illness HPI: Susy Bateman is a 44 year-old female returning for therapy. She reported work has been less stressful. Susy identified recently avoiding maintaining her home as she is staying at her parents while they are out of state. She is making some effort to do some things each week, which was reinforced. Addressed using motivational interviewing. Susy stated that she plans to take vacation to work on her home before her parents return identifying reasons why she wants to resume work on her home. Discussed frustration with dating. Encouraged verbalization of emotions while providing support. Normalized emotions and worked on coping and thought patterns using CBT. No reports of SI. Future-oriented. Exam Mental Status Exam - Psych Appearance well kempt Attitude cooperative, calm, engaged, pleasant and friendly Activity/Motor Behavior MSE activity/motor behavior finding no adventitious movements and appropriate eye contact Speech regular rate, regular volume and regular prosody Mood euythmic Affect full range Thought Process linear, logical and coherent Thought Content no delusions and no hallucinations Suicidal Ideation none Homicidal Ideation none Attention impaired (Per pt. report.) Concentration impaired (Per pt. report.) Sensorium/Orientation alert and oriented x3 Memory/Cognition intact Insight good Judgement good Assessment Plan Assessment Plan (1) ANNE (generalized anxiety disorder): Plan: therapy using CBT, DBT, and ACT interventions to address thought patterns contributing to anxious symptoms and to teach coping skills. Psychiatric services to monitor anxious symptoms and medication effectiveness. (2) MDD (major depressive disorder): Qualifiers: Active/Remission status: currently active Major depression episode severity: moderate Major depression recurrence: recurrent Qualified Code(s): F33.1 - Major depressive disorder, recurrent, moderate Plan: therapy using CBT, DBT, and ACT interventions to address thought patterns contributing to depressive symptoms and teach coping skills. Continued psychiatric services to monitor depressive symptoms and medication effectiveness. Pt. to call 911, call suicide prevention hotline, or go to ER if experiencing suicidal ideation with plan and intent and/or feel unable to ensure own safety. Plan TREATMENT PLAN (10/12/2024) Goal 1 - Reduce overall frequency, intensity, and duration of anxiety so daily functioning is not impaired AEB pt.'s self-report. Objective 1 - Understand role that cognitive biases play in (more content not included)... Normal [facility] MR/BMS.BPon 11-02-2024 MR/BMS.BP [facility] [address], [address] [place] [address] OFFICE VISIT Date of Service: 11/02/24 MR#: [id number] Acct: [id number] Name: SUSY BATEMAN Rep #: [id number] : 1980 Provider: JOSE ANGEL williamson Age/Sex: 44/F Location: [facility] Status: Signed with Addenda ADDENDUM by Yani Pitts on 11/02/24 at 0806 Vital Signs 09/21/24 07:32 10/22/24 14:58 11/02/24 07:39 Height 5 ft 7 in 5 ft 7 in 5 ft 7 in Weight: 231 lb BMI 36.1 BP 126/81 H Blood Pressure Location Lt brachial Position Sitting Respiration 16 Pulse 88 Pulse Source Monitor 11/02/24 0810 Date CarrieAbdielNunu FRONT END WEB DESIGNER-C cc: * Signed Intake Vital Signs 09/21/24 07:32 10/22/24 14:58 11/02/24 07:39 Height 5 ft 7 in 5 ft 7 in 5 ft 7 in Weight: 234 lb BMI 36.6 BP 118/62 Blood Pressure Location Lt brachial Position Sitting Respiration 16 Pulse 96 Pulse Source Monitor Temp 97.6 F L Pulse Oximetry (%) 97 Oxygen Delivery Method room air BP Intake Visit Reasons: 6-8 wfu Allergies oxymetazoline (From Afrin (oxymetazoline)) Adverse Reaction (Intermediate, Verified 10/22/24 14:52) Shortness of breath PFSH Medical History Hypertension Tremor Borderline type 2 diabetes mellitus Depression, unspecified Anxiety Status post pneumothorax Back problem Chronic back pain Obesity (BMI 30-39.9) Anxiety and depression 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 Anal fissure Pectus excavatum IBS (irritable bowel syndrome) Migraine Asthma Segmental and somatic dysfunction of pelvic region Segmental and somatic dysfunction of lumbar region Sciatica Surgical History Hx of chest tube placement Family History Mother Graves disease CVA (cerebral vascular accident) Father Diabetes Grandfather Myocardial infarction CAD (coronary artery disease) Pacemaker Social History adopted: No household members: none number of children: 0 current occupational status: employed current occupation: [employer] pets and animals: No Smoking Status: Never smoker alcohol intake: current alcohol intake frequency: holidays/special occasions only substance use type: does not use caffeine: Yes (1) Type: other what type of physical activity do you participate in: none seatbelt use: always do you feel safe at home: Yes additional social history: Single HPI History of Present Illness History provided by: patient HPI: Susy Bateman is a 44 year old female patient presenting today for a follow up evaluation. Reports she has lost about 45 pounds while on Ozempic and has been trying to work out more recently but does voice concern about her back injections not being effective enough. Has been doing home workout but does plan to resume going to the gym. Does report she is doing okay with mental health. Her parents are snow birding in [place] and she feels this has been some relief. States Xu was weird with her current relationship as he struggles with becoming distant in their relationship. Does still have feelings of depression but feels it is a lot situational with her relationship and with work. Denies SI/HI. Does report having some heightened anxiety as well. States she has been sleeping a lot more than normal. Will get 10 hours of sleep and sometimes still need to nap during the day. Is not ever feeling well rested. Has discontinued use of caffeine as often. Previous similar episode: Yes Age of first onset of symptoms: 21-30 years Review of Systems Constitutional Reports: change in weight (loss of nearly 45 since being on Ozempic) and fatigue; Denies: fever(s) or chills Eyes Denies: change in vision Ears, Nose, Mouth, Throat Denies: throat pain Cardiovascular Denies: chest pain, palpitations or dyspnea Respiratory Denies: dyspnea or wheezing Gastrointestinal Denies: abdominal pain, nausea, vomiting or diarrhea Genitourinary Denies: dysuria, urinary frequency or urinary urgency Musculoskeletal Denies: back pain (had injection that has helped with pain) Integumentary/Breast Denies: rash or pruritus Neurological Denies: headache(s) (Reports been better since starting Duloxetine) Psychiatric Reports: anxiety and difficulty concentrating; Denies: panic attacks, hopelessness (in regards to weight loss ), suicidal ideation or homicidal ideation Endocrine Reports: fatigue; Denies: polyuria or polydipsia Hematologic/Lymphatic Denies: easy bruisin (more content not included)... Normal [facility] Amylaseon 10-27-2024 STEPHANIE 50 U/L Normal 25-115 [facility] Comment on above: Performed By: #### L 100.0100, L506.0400, L503.6150, L500.4050, L501.9520, L501.2400, L501.2450, L501.9985 ####[facility] [address] [place], [address] CBC W/Diff, Automatedon 10-07 Absolute Lymph 1.63 X10 3/uL Normal 0.83-4.51 [facility] Comment on above: Performed By: #### L 100.0100, L506.0400, L503.6150, L500.4050, L501.9520, L501.2400, L501.2450, L501.9985 ####[facility] [address] [place], [address] Absolute Neut 6.9 X10 3/uL Normal 2.0-7.7 [facility] Comment on above: Performed By: #### L 100.0100, L506.0400, L503.6150, L500.4050, L501.9520, L501.2400, L501.2450, L501.9985 ####[facility] [address] [place], [address] Basophils/100 WBC (Bld) 0.6 % Normal 0-1 [facility] Comment on above: Performed By: #### L 100.0100, L506.0400, L503.6150, L500.4050, L501.9520, L501.2400, L501.2450, L501.9985 ####[facility] [address] [place], [address] Eosinophils/100 WBC (Bld) 0.4 % Normal 0-5 [facility] Comment on above: Performed By: #### L 100.0100, L506.0400, L503.6150, L500.4050, L501.9520, L501.2400, L501.2450, L501.9985 ####[facility] [address] [place], [address] Erythrocyte distribution width (RBC) [Ratio] 12.9 % Normal 11.6-14.6 [facility] Comment on above: Performed By: #### L 100.0100, L506.0400, L503.6150, L500.4050, L501.9520, L501.2400, L501.2450, L501.9985 ####[facility] [address] [place], [address] Hematocrit (Bld) [Volume fraction] 40.7 % Normal 37-47 [facility] Comment on above: Performed By: #### L 100.0100, L506.0400, L503.6150, L500.4050, L501.9520, L501.2400, L501.2450, L501.9985 ####[facility] [address], [address] Hemoglobin (Bld) [Mass/Vol] 13.0 g/dL Normal 12.0-15.0 [facility] Comment on above: Performed By: #### L 100.0100, L506.0400, L503.6150, L500.4050, L501.9520, L501.2400, L501.2450, L501.9985 ####[facility] [address] [place], [address] IG% 0.300 Normal 0.0-0.9 [facility] Comment on above: Result Comment: IG% - Immature Granulocytes (promyelocytes, myelocytes and metamyelocytes) > 1% indicates that a LEFT SHIFT is Present. Performed By: #### L 100.0100, L506.0400, L503.6150, L500.4050, L501.9520, L501.2400, L501.2450, L501.9985 ####[facility] [address] [place], [address] Lymphocytes/100 WBC (Bld) 17.6 % Low 19-41 [facility] Comment on above: Performed By: #### L 100.0100, L506.0400, L503.6150, L500.4050, L501.9520, L501.2400, L501.2450, L501.9985 ####[facility] [address] [place], [address] MCH (RBC) [Entitic mass] 28.2 pg Normal 27.0-32.0 [facility] Comment on above: Performed By: #### L 100.0100, L506.0400, L503.6150, L500.4050, L501.9520, L501.2400, L501.2450, L501.9985 ####[facility] [address] [place], [address] MCHC (RBC) [Mass/Vol] 31.9 g/dL Low 32-36 [facility] Comment on above: Performed By: #### L 100.0100, L506.0400, L503.6150, L500.4050, L501.9520, L501.2400, L501.2450, L501.9985 ####[facility] [address] [place], [address] MCV (RBC) [Entitic vol] 88.3 fL Normal 81-99 [facility] Comment on above: Performed By: #### L 100.0100, L506.0400, L503.6150, L500.4050, L501.9520, L501.2400, L501.2450, L501.9985 ####[facility] [address] [place], [address] Monocytes/100 WBC (Bld) 6.5 % Normal 0-10 [facility] Comment on above: Performed By: #### L 100.0100, L506.0400, L503.6150, L500.4050, L501.9520, L501.2400, L501.2450, L501.9985 ####[facility] [address] [place], [address] Neutrophils/100 WBC (Bld) 74.6 % High 47-70 [facility] Comment on above: Performed By: #### L 100.0100, L506.0400, L503.6150, L500.4050, L501.9520, L501.2400, L501.2450, L501.9985 ####[facility] [address] [place], [address] Nucleated RBC (Bld) [#/Vol] 0 10*3/uL Normal 0-5 [facility] Comment on above: Performed By: #### L 100.0100, L506.0400, L503.6150, L500.4050, L501.9520, L501.2400, L501.2450, L501.9985 ####[facility] [address] [place], [address] Platelet mean volume (Bld) [Entitic vol] 9.2 fL Normal 6.2-12.0 [facility] Comment on above: Performed By: #### L 100.0100, L506.0400, L503.6150, L500.4050, L501.9520, L501.2400, L501.2450, L501.9985 ####[facility] [address] [place], [address] Platelets (Bld) [#/Vol] 320 10*3/uL Normal 150-450 [facility] Comment on above: Performed By: #### L 100.0100, L506.0400, L503.6150, L500.4050, L501.9520, L501.2400, L501.2450, L501.9985 ####[facility] [address] [place], [address] RBC (Bld) [#/Vol] 4.61 10*6/uL Normal 4.2-5.4 [facility] Comment on above: Performed By: #### L 100.0100, L506.0400, L503.6150, L500.4050, L501.9520, L501.2400, L501.2450, L501.9985 ####[facility] [address] [place], [address] RDW SD 41.1 fl Normal 35.1-43.9 [facility] Comment on above: Performed By: #### L 100.0100, L506.0400, L503.6150, L500.4050, L501.9520, L501.2400, L501.2450, L501.9985 ####[facility] [address] [place], [address] WBC (Bld) [#/Vol] 9.2 10*3/uL Normal 4.4-11.0 [facility] Comment on above: Performed By: #### L 100.0100, L506.0400, L503.6150, L500.4050, L501.9520, L501.2400, L501.2450, L501.9985 ####[facility] [address] [place], [place], [phone]41) Comprehensive Metabolic Prof ilon 10-27-2024 Albumin [Mass/Vol] 3.6 g/dL Normal 3.2-5.0 [facility] Comment on above: Performed By: #### L 100.0100, L506.0400, L503.6150, L500.4050, L501.9520, L501.2400, L501.2450, L501.9985 ####[facility] [address] [place], [address] Albumin/Globulin [Mass ratio] 1.0 {ratio} Normal 0.9-2.4 [facility] Comment on above: Performed By: #### L 100.0100, L506.0400, L503.6150, L500.4050, L501.9520, L501.2400, L501.2450, L501.9985 ####[facility] [address] [place], [address] ALK P 73 U/L Normal 45-117 [facility] Comment on above: Performed By: #### L 100.0100, L506.0400, L503.6150, L500.4050, L501.9520, L501.2400, L501.2450, L501.9985 ####[facility] [address] [place], [address] ALT [Catalytic activity/Vol] 25 U/L Normal 13-56 [facility] Comment on above: Performed By: #### L 100.0100, L506.0400, L503.6150, L500.4050, L501.9520, L501.2400, L501.2450, L501.9985 ####[facility] [address] [place], [address] AST [Catalytic activity/Vol] 10 U/L Low 15-37 [facility] Comment on above: Performed By: #### L 100.0100, L506.0400, L503.6150, L500.4050, L501.9520, L501.2400, L501.2450, L501.9985 ####[facility] [address] [place], [address] Bilirubin [Mass/Vol] 0.20 mg/dL Normal 0.20-1.00 [facility] Comment on above: Result Comment: For patients on eltrombopag therapy, use of Dimension [place] TBIL is not recommended. Performed By: #### L 100.0100, L506.0400, L503.6150, L500.4050, L501.9520, L501.2400, L501.2450, L501.9985 ####[facility] [address] [place], [address] BUN/CRE 20.6 RATIO High 10-20 [facility] Comment on above: Performed By: #### L 100.0100, L506.0400, L503.6150, L500.4050, L501.9520, L501.2400, L501.2450, L501.9985 ####[facility] [address] [place], [address] CA,Total 8.8 mg/dL Normal 8.5-10.1 [facility] Comment on above: Performed By: #### L 100.0100, L506.0400, L503.6150, L500.4050, L501.9520, L501.2400, L501.2450, L501.9985 ####[facility] [address] [place], [address] Chloride [Moles/Vol] 106 mmol/L Normal 98-107 [facility] Comment on above: Performed By: #### L 100.0100, L506.0400, L503.6150, L500.4050, L501.9520, L501.2400, L501.2450, L501.9985 ####[facility] [address] [place], [address] CO2 [Moles/Vol] 27.0 mmol/L Normal 21.0-32.0 [facility] Comment on above: Performed By: #### L 100.0100, L506.0400, L503.6150, L500.4050, L501.9520, L501.2400, L501.2450, L501.9985 ####[facility] [address] [place], [place], [phone](262) Creatinine [Mass/Vol] 0.82 mg/dL Normal 0.55-1.02 [facility] Comment on above: Result Comment: The validity of the calculated GFR GFRAA in patients over 70 years has not been determined. Clinical correlation is essential. Performed By: #### L 100.0100, L506.0400, L503.6150, L500.4050, L501.9520, L501.2400, L501.2450, L501.9985 ####[facility] [address] [place], [place], [phone] EST GFR - AA 97 mL/min Normal >60 [facility] Comment on above: Result Comment: Afri can Filipino GFR Calc Performed By: #### L 100.0100, L506.0400, L503.6150, L500.4050, L501.9520, L501.2400, L501.2450, L501.9985 ####[facility] [address] [place], [place], [phone]285) GAP 6 Normal 5-15 [facility] Comment on above: Performed By: #### L 100.0100, L506.0400, L503.6150, L500.4050, L501.9520, L501.2400, L501.2450, L501.9985 ####[facility] [address] [place], [address] GFR/1.73 sq M.predicted among non-blacks MDRD (S/P/Bld) [Vol rate/Area] 81 mL/min/{1.73_m2} Normal >60 [facility] Comment on above: Result Comment: Non- GFR Calc Performed By: #### L 100.0100, L506.0400, L503.6150, L500.4050, L501.9520, L501.2400, L501.2450, L501.9985 ####[facility] [address] [place], [address] Globulin (S) [Mass/Vol] 3.7 g/dL Normal 2.2-4.2 [facility] Comment on above: Performed By: #### L 100.0100, L506.0400, L503.6150, L500.4050, L501.9520, L501.2400, L501.2450, L501.9985 ####[facility] [address] [place], [address] Glucose [Mass/Vol] 99 mg/dL Normal 74-106 [facility] Comment on above: Performed By: #### L 100.0100, L506.0400, L503.6150, L500.4050, L501.9520, L501.2400, L501.2450, L501.9985 ####[facility] [address] [place], [address] Potassium [Moles/Vol] 4.1 mmol/L Normal 3.5-5.1 [facility] Comment on above: Performed By: #### L 100.0100, L506.0400, L503.6150, L500.4050, L501.9520, L501.2400, L501.2450, L501.9985 ####[facility] [address] [place], [address] Sodium [Moles/Vol] 139 mmol/L Normal 136-145 [facility] Comment on above: Performed By: #### L 100.0100, L506.0400, L503.6150, L500.4050, L501.9520, L501.2400, L501.2450, L501.9985 ####[facility] [address] [place], [address] T PROT 7.3 g/dL Normal 6.4-8.2 [facility] Comment on above: Performed By: #### L 100.0100, L506.0400, L503.6150, L500.4050, L501.9520, L501.2400, L501.2450, L501.9985 ####[facility] [address] [place], [address] Urea nitrogen [Mass/Vol] 17 mg/dL Normal 7-18 [facility] Comment on above: Performed By: #### L 100.0100, L506.0400, L503.6150, L500.4050, L501.9520, L501.2400, L501.2450, L501.9985 ####[facility] [address] [place], [address] Hemoglobin A1con 10-27-2024 HbA1c (Bld) [Mass fraction] 5.0 % Normal 3.8-5.6 [facility] Comment on above: Result Comment: Norm al < 5.7 % Prediabetic 5.7 - 6.4 % Diabetic >or= 6.5 % Please note range changes. Performed By: #### L 100.0100, L506.0400, L503.6150, L500.4050, L501.9520, L501.2400, L501.2450, L501.9985 ####[facility] [address] [place], [address] Ironon 10-27-2024 Iron [Mass/Vol] 45 ug/dL Low 50-170 [facility] Comment on above: Performed By: #### L 100.0100, L506.0400, L503.6150, L500.4050, L501.9520, L501.2400, L501.2450, L501.9985 ####[facility] [address] [place], [address] Lipaseon 10-27-2024 Lipase [Catalytic activity/Vol] 39 U/L Normal 13-75 [facility] Comment on above: Result Comment: Cat rosado note: LIPASE revised reference range effective 23. New Lipase methodology. Expected to produce lower values than the previous assay method. NEW Reference Range: 13 - 75 U/L Performed By: #### L 100.0100, L506.0400, L503.6150, L500.4050, L501.9520, L501.2400, L501.2450, L501.9985 ####[facility] [address] [facility] [place], [address] T4 Free Directon 10-27-2024 T4 FREE DIRECT 0.87 ng/dL Normal 0.76-1.46 [facility] Comment on above: Performed By: #### L 100.0100, L506.0400, L503.6150, L500.4050, L501.9520, L501.2400, L501.2450, L501.9985 ####[facility] [address] [facility] [address] [place], [place], [id number] Thyroid Stim Hormone (TSH)on 10-27-2024 TSH 1.220 uIU/mL Normal 0.358-3.740 [facility] Comment on above: Performed By: #### L 100.0100, L506.0400, L503.6150, L500.4050, L501.9520, L501.2400, L501.2450, L501.9985 ####[facility] [address] 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 Routine annual screening examination. PERTINENT HISTORY: Non-contributory. TECHNIQUE: Digital bilateral breast dion (3D mammographic acquisition) in the CC and MLO projections. 2-D mediolateral oblique (MLO) and craniocaudad (CC) views of both breasts were obtained. CAD: Full Field Digital Mammography with Computer Added Detection was performed. COMPARISON: Comparison is made with prior study dated October 03, 2023. FINDINGS: Breast Composition: The breasts are almost entirely fatty. There are no dominant masses or suspicious calcifications. No other significant abnormalities are identified. There has been no significant change since the prior study. BI/SCRN MAMM (CAD)W/DION BILAT IMPRESSION: Stable bilateral screening mammogram. Yearly follow-up mammogram recommended. (A) ASSESSMENT CATEGORY: BIRADS Category 1: Negative. A letter regarding these results will be sent to the patient by the facility within 30 days. Approximately 10% of breast cancers are not detected by mammography. A normal mammogram should not delay biopsy of a clinically suspicious abnormality. [id number] Electronically Signed: Wesley Cabrera MD at 9:40 EST , CC: JOSE ANGEL Payan; ISACC Fonseca [employer] Screen Watcher: Signed [facility] Internal Medicine Office Vis iton 10-22-2024 Internal Medicine Office Visit [facility] [address] [place] [address] [place] [address] OFFICE VISIT Date of Service: 10/22/24 MR#: [id number] Acct: [id number] Name: SUSY BATEMAN Rep #: [id number] : 1980 Provider: ISACC Fonseca Age/Sex: 44/F Location: [facility] Status: Signed Intake Vital Signs 07/27/24 07:35 10/12/24 16:12 10/22/24 14:58 Height 5 ft 7 in 5 ft 7 in 5 ft 7 in Weight: 234 lb BMI 36.6 BP 118/62 Blood Pressure Location Lt brachial Position Sitting Respiration 16 Pulse 96 Pulse Source Monitor Temp 97.6 F L Temp Source Temporal Pulse Oximetry (%) 97 Oxygen Delivery Method room air Intake Visit Reasons: Booked from other vendor Chief Complaint: medication managment Stock Plan Administrator Required: No Accompanied by: Self Is patient in pain?: No Allergies oxymetazoline (From Afrin (oxymetazoline)) Adverse Reaction (Intermediate, Verified 10/22/24 14:52) Shortness of breath Medications ???Medication ???Instructions ???Recorded ???Confirmed ???Type albuterol sulfate 2.5 mg/3 mL 2.5 mg inhalation Q2H PRN PRN 10/04/13 10/22/24 History (0.083 %) solution for nebulization Shortness Of Breath dicyclomine 20 mg tablet 20 mg PO TID PRN abdominal pain 10/03/23 10/22/24 Rx #90 tabs cyclobenzaprine 10 mg tablet 10 mg PO TID PRN muscle spasm #90 11/17/23 10/22/24 Rx tabs fexofenadine 180 mg tablet 180 mg PO DAILY 02/13/24 10/22/24 History (May Allergy) gabapentin 300 mg capsule 300 mg PO BID 02/13/24 10/22/24 History ondansetron 4 mg disintegrating 4 mg PO Q8H PRN nausea and 04/16/24 10/22/24 Rx tablet vomiting #90 tabs fluoxetine 40 mg capsule 40 mg PO DAILY #90 caps 06/09/24 10/22/24 Rx blood builder PO 07/23/24 10/22/24 History propranolol 10 mg tablet 10 mg PO BID PRN anxiety #90 tabs 07/27/24 10/22/24 Rx trazodone 100 mg tablet 100 mg PO QHS #90 tabs 07/27/24 10/22/24 Rx ibuprofen 800 mg tablet 800 mg PO Q8H PRN pain #90 tabs 07/28/24 10/22/24 Rx hydroxyzine HCl 25 mg tablet 25 mg PO TID PRN anxiety #60 tabs 08/18/24 10/22/24 Rx metformin 500 mg tablet,extended 500 mg PO QPM #60 tabs 08/23/24 10/22/24 Rx release 24 hr semaglutide 2 mg/dose (8 mg/3 mL) 2 mg (0.75 mL) subcut QWEEK #3 mL 08/23/24 10/22/24 Rx subcutaneous pen injector (Ozempic) albuterol sulfate 90 mcg/actuation 2 inh inhalation Q4-6H PRN 09/08/24 10/22/24 Rx breath activated powder inhaler shortness of breath or wheezing #1 ea buspirone 15 mg tablet 15 mg PO BID #60 tabs 09/15/24 10/22/24 Rx fluoxetine 20 mg capsule 20 mg PO QDAY #30 caps 09/21/24 10/22/24 Rx pen needle, diabetic 32 gauge x #100 ea 09/28/24 10/22/24 Rx 1/6 (NovoFine Plus) norethindrone (contraceptive) 0.35 0.35 mg PO DAILY #84 tabs 10/04/24 10/22/24 Rx mg tablet atogepant 60 mg tablet (Qulipta) 60 mg PO .prn 10/22/24 10/22/24 History budesonide-formoterol HFA 160 2 puff inhalation BID #10.2 grams 10/22/24 10/22/24 Rx mcg-4.5 mcg/actuation aerosol inhaler (Symbicort) valsartan 320 mg tablet 320 mg PO DAILY 10/22/24 History PFSH Medical History Hypertension Tremor Borderline type 2 diabetes mellitus Depression, unspecified Anxiety Status post pneumothorax Back problem Chronic back pain Obesity (BMI 30-39.9) Anxiety and depression 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 Anal fissure Pectus excavatum IBS (irritable bowel syndrome) Migraine Asthma Segmental and somatic dysfunction of pelvic region Segmental and somatic dysfunction of lumbar region Sciatica Surgical History Hx of chest tube placement Family History Mother Graves disease CVA (cerebral vascular accident) Father Diabetes Grandfather Myocardial infarction CAD (coronary artery disease) Pacemaker Social History adopted: No household members: none number of children: 0 current occupational status: employed current occupation: [employer] pets and animals: No Smoking Status: Never smoker alcohol intake: current alcohol intake frequency: holidays/special occasions only substance use type: does not use caffeine: Yes (1) Type: other what type of physical activity do you participate in: none seatbelt use: always do you feel safe at home: Yes additional social history: Single HPI HPI Chief Complaint: medication managment Details: SUSY BATEMAN, is a 44 F who presents to the office today for refills of her Ozempic. Patient has been Ozempic since April and has lost around 45 pounds. She has been really doing a lot better watching her di (more content not included)... [facility] MR/BMS.BPon 10-12-2024 MR/BMS.BP [facility] [address], [address] [place] [address] OFFICE VISIT Date of Service: 10/12/24 MR#: [id number] Acct: [id number] Name: SUSY BATEMAN Rep #: [id number] : 1980 Provider: [facility] Jnaina hill Age/Sex: 44/F Location: [facility] Status: Signed Intake Vital Signs 09/21/24 07:32 10/04/24 14:43 10/12/24 16:12 Height 5 ft 7 in 5 ft 7 in 5 ft 7 in BP Intake Visit Reasons: Follow up Allergies oxymetazoline (From Afrin (oxymetazoline)) Adverse Reaction (Intermediate, Verified 10/04/24 14:37) Shortness of breath PFSH Medical History Hypertension Tremor Borderline type 2 diabetes mellitus Depression, unspecified Anxiety Status post pneumothorax Back problem Chronic back pain Obesity (BMI 30-39.9) Anxiety and depression 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 Anal fissure Pectus excavatum IBS (irritable bowel syndrome) Migraine Asthma Segmental and somatic dysfunction of pelvic region Segmental and somatic dysfunction of lumbar region Sciatica Surgical History Hx of chest tube placement Family History Mother Graves disease CVA (cerebral vascular accident) Father Diabetes Grandfather Myocardial infarction CAD (coronary artery disease) Pacemaker Social History adopted: No household members: none number of children: 0 current occupational status: employed current occupation: P[employer] pets and animals: No Smoking Status: Never smoker alcohol intake: current alcohol intake frequency: holidays/special occasions only substance use type: does not use caffeine: Yes (1) Type: other what type of physical activity do you participate in: none seatbelt use: always do you feel safe at home: Yes additional social history: Single HPI History of Present Illness HPI: Pt. is a 44 year-old female returning for therapy. She reported increased anxiety stating that it was an 8 or 9 on a scale of 1 to 10 with 10 being worst. Pt. attributed increased anxiety to work stressors about work load and chronic back pain. She has recently set some boundaries at work. Pt. is scheduled to get injections soon. She asked aunt to help her clean and organize her home. However, aunt cannot help for a while. Pt. reported excessive buying of items and difficulty getting rid of excessive stuff. She denied hoarding but stated space very cluttered and unorganized. No SI. Future-oriented Therapeutic interventions - Encouraged verbalization of emotions while providing support. Normalized emotions. Reinforced use of boundaries and asking for help. Worked on organization of home and getting rid of excessive items. Examined thought patterns pt. is using that prevent her from getting rid of items and alternative thinking. Worked with pt. to create a list of questions she can use to help with decision making. Exam Mental Status Exam - Psych Appearance casually dressed and well kempt Attitude calm, engaged and pleasant Activity/Motor Behavior MSE activity/motor behavior finding no adventitious movements and appropriate eye contact Speech regular rate, regular volume and regular prosody Mood anxious and irritable Affect congruent Thought Process linear, logical and coherent Thought Content no delusions and no hallucinations Suicidal Ideation none Homicidal Ideation none Attention impaired (Per pt. report.) Concentration impaired (Per pt. report) Sensorium/Orientation alert and oriented x3 Memory/Cognition intact Insight good Judgement good Assessment Plan Assessment Plan (1) Anxiety: Plan: therapy using CBT, DBT, and ACT interventions to address thought patterns contributing to anxious symptoms and to teach coping skills. Psychiatric services to monitor anxious symptoms and medication effectiveness. (2) Depression, unspecified: Qualifiers: Depression Type: unspecified Qualified Code(s): F32.A - Depression, unspecified Plan: therapy using CBT, DBT, and ACT interventions to address thought patterns contributing to depressive symptoms and teach coping skills. Continued psychiatric services to monitor depressive symptoms and medication effectiveness. Pt. to call 911, call suicide prevention hotline, or go to ER if experiencing suicidal ideation with plan and intent and/or feel unable to ensure own safety. Plan TREATMENT PLAN (10/12/2024) Goal 1 - Reduce overall frequency, intensity, and duration of anxiety so daily functioning is not impaired AEB pt.'s self-report. Objective 1 - Understand role that cog (more content not included)... [facility] Escort Vehicle Driver Office Visit Reporton 10-04-2024 Escort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 07-29-2025 ambulatory Janina Middleton [facility] Start: 07-15-2025 End: 07-15-2025 ambulatory Matt Araya PA Facility:[facility] Start: 06-30-2025 End: 06-30-2025 ambulatory Matt Araya PA [facility] Start: 06-22-2025 End: 06-22-2025 ambulatory Janina Middleton [facility] Start: 06-10-2025 End: 06-10-2025 ambulatory Janina Middleton [facility] Start: 06-10-2025 End: 06-10-2025 ambulatory Matt Araya PA Facility:[facility] Start: 06-03-2025 End: 06-03-2025 ambulatory Janina Middleton [facility] Start: 05-26-2025 End: 05-26-2025 ambulatory Janeth Rodríguez [facility] Start: 05-26-2025 End: 05-26-2025 ambulatory Janeth Rodríguez Facility:[facility] Start: 05-25-2025 End: 05-25-2025 ambulatory Matt DEXTER Facility:[facility] Start: 05-20-2025 End: 05-20-2025 ambulatory Janina Middleton [facility] Start: 05-06-2025 End: 05-06-2025 ambulatory Matt DEXTER Facility:[facility] Start: 05-05-2025 ambulatory Matt DEXTER Facilit y:[facility] Start: 05-05-2025 End: 05-05-2025 ambulatory Nunu Butler Facility:[facility] Start: 05-02-2025 ambulatory Gianni Thompsoni ty:[facility] Start: 04-29-2025 End: 04-29-2025 ambulatory Janina Middleton Facility:[facility] Start: 04-15-2025 End: 04-15-2025 ambulatory Janina Middleton Facility:[facility] Start: 03-18-2025 End: 03-18-2025 ambulatory Matt DEXTER Facility:[facility] Start: 03-18-2025 End: 03-18-2025 ambulatory Janina Middleton Facility:[facility] Start: 03-15-2025 End: 03-15-2025 ambulatory Zeke Xavier [facility] Start: 03-15-2025 End: 03-15-2025 ambulatory Nunu Butler Facility:[facility] Start: 03-01-2025 End: 04-01-2025 ambulatory Annie Cohen APRN.CNP Work Phone: [facility] Start: 02-25-2025 End: 02-25-2025 ambulatory Janina Middleton [facility] Start: 02-18-2025 End: 02-18-2025 ambulatory Matt DEXTER Facility:[facility] Start: 02-11-2025 End: 02-11-2025 ambulatory Janina Middleton [facility] Start: 01-21-2025 End: 01-21-2025 ambulatory Matt DEXTER Facility:[facility] Start: 01-18-2025 End: 01-18-2025 ambulatory Janina Middleton [facility] Start: 01-18-2025 End: 01-18-2025 ambulatory Nunu Butler Facility:[facility] Start: 12-28-2024 End: 12-28-2024 ambulatory Janina Middleton [facility] Start: 12-14-2024 End: 12-14-2024 ambulatory Nunu Butler Facility:[facility] Start: 12-07-2024 End: 12-07-2024 ambulatory Janina Middleton [facility] Start: 11-12-2024 End: 11-12-2024 ambulatory Janina Sksarah [facility] Start: 11-02-2024 End: 11-02-2024 [facility] Start: 11-02-2024 End: 11-02-2024 ambulatory Nunu Butler Facility:[facility] Start: 10-27-2024 End: 10-27-2024 ambulatory Jamey Richard Facility:[facility] Start: 10-25-2024 End: 10-25-2024 ambulatory Delfina Payan NP Facility:[facility] Start: 10-22-2024 End: 10-22-2024 ambulatory [facility] Start: 10-19-2024 End: 10-19-2024 ambulatory [facility] Facility:[facility] Start: 10-12-2024 End: 10-12-2024 ambulatory [facility] Start: 10-04-2024 Encounter for gynecological examination (general) (routine) without abnormal findings Delfina Payan NP [facility] Start: 10-04-2024 End: 10-04-2024 ambulatory [facility] Start: 09-21-2024 End: 09-21-2024 [facility] Start: 09-21-2024 End: 09-21-2024 ambulatory Nunu Butler [facility] Start: 09-10-2024 End: 09-10-2024 ambulatory [facility] Start: 03-31-2024 ambulatory Annie Cohen APRN.CNP Work Phone: Internal Medicine [place] [id number] Start: 12-23-2023 Telephone encounter Stephanie shaw APRN.CNP Work Phone: OB/Gynecology Comment on above: referral update Start: 11-28-2023 End: 11-28-2023 Patient encounter procedure Stephanie Gayle APRN.CNP Work Phone: OB/Gynecology Comment on above: Gastroesophageal ref lux disease, unspecified whether esophagitis present (Primary Dx); Excessive daytime sleepiness; Morning headache; Malaise and fatigue; Intractable migraine without status migrainosus, unspecified migraine type; Screening for diabetes mellitus; Screening for metabolic disorder; Encounter for vitamin deficiency screening; Class 3 severe obesity with body mass index (BMI) of 40.0 to 44.9 in adult, unspecified obesity type, unspecified whether serious comorbidity present ([facility]) Start: 11-16-2023 Orders Only Annie Cohen APRN.CNP Work Phone: [facility] Start: 06-19-2023 End: 06-19-[address] Zeke [facility] Work Phone: Start: 06-17-2023 End: 06-17-[address] Zeke Xavier Work Phone: [facility] Work Phone: Start: 06-17-2023 End: 06-17-[address] Zeke Xavier Work Phone: [facility] Work Phone: Start: 06-05-2023 End: 06-05-[address] Zeke [facility] Work Phone: Start: 05-29-[address] Bibi Xavier Work Phone: [facility]-Physical Therapy Work Phone: Start: 05-22-2023 End: 05-22-[address] Zeke [facility] Work Phone: Start: 05-13-2023 End: 05-13-[address] Zeke [facility] Work Phone: Start: 05-12-2023 Registered Recurring ISACC DEXTER Work Phone: [facility]-Physical Therapy Work Phone: Start: 05-12-2023 Non-patient / Non-visit Dr. Perry Xavier [facility] Work Phone: Start: 05-06-2023 End: 05-06-2023 ambulatory ISACC DEXTER Work Phone: [facility] Work Phone: Start: 05-06-2023 End: 05-06-2023 Patient encounter procedure ISACC DEXTER Work Phone: [facility]-Radiology, [facility] Work Phone: Start: 05-05-2023 End: 05-05-2023 Patient encounter procedure ISACC DEXTER Work Phone: [facility] Work Phone: Start: 04-21-2023 End: 04-21-2023 Patient encounter procedure ISACC DEXTER Work Phone: [facility] Work Phone: Start: 03-31-2023 End: 03-31-2023 Office outpatient visit 15 minutes Annie Cohen APRN.MASON HELPER Work Phone: [facility] Comment on above: Acute right-sided lo w back pain with right-sided sciatica (Primary Dx) Start: 02-12-2023 Refill Annie Cohen APRN.MASON HELPER Work Phone: [facility] Comment on above: Refill Request Start: 01-29-2023 Registered Referred ISACC DEXTER Work Phone: [facility] Start: 01-22-2023 End: 01-22-2023 Office outpatient visit 25 minutes Annie Cohen MODEL BUILDER DISPLAY.MASON HELPER Work Phone: [facility] [place] Comment on above: Obesity, Class III, BMI 40-49.9 (morbid obesity) (HCC) Start: 01-22-2023 Registered Recurring ISACC DEXTER Work Phone: [facility] Start: 12-02-2022 End: 12-02-2022 Office outpatient visit 25 minutes Annie Cohen MODEL BUILDER DISPLAY.MASON HELPER Work Phone: [facility] [place] Comment on above: Obesity, Class III, BMI 40-49.9 (morbid obesity) ([facility]) (Primary Dx); Mild intermittent asthma without complication; Irritable bowel syndrome, unspecified type; Anxiety with depression; Insomnia, unspecified type Start: 09-09-2022 Telephone encounter Annie neil MODEL BUILDER DISPLAY.MASON HELPER Work Phone: [facility] [place] Comment on above: Opened In Error Start: 09-07-2022 Refill Carolina Stephens MODEL BUILDER DISPLAY.MASON HELPER Work Phone: [facility] [place] Comment on above: Refill Request Start: 06-12-2022 Refill Annie Cohen MODEL BUILDER DISPLAY.MASON HELPER Work Phone: [facility] [place] Comment on above: Refill Request Start: 05-26-2022 Refill Annie Cohen MODEL BUILDER DISPLAY.MASON HELPER Work Phone: [facility] [place] Comment on above: Refill Request Start: 05-15-2022 ambulatory Annie Cohen MODEL BUILDER DISPLAY.MASON HELPER Work Phone: [facility] [place] Start: 01-07-2022 End: 01-07-2022 Patient encounter procedure Annie Cohen MODEL BUILDER DISPLAY.MASON HELPER Work Phone: [facility] [place] Comment on above: Obesity (BMI 35.0-39 .9 without comorbidity) (Primary Dx); Mild intermittent asthma without complication; Anxiety with depression; Foot pain, left; Insomnia, unspecified type; Other migraine without status migrainosus, not intractable; Irritable bowel syndrome, unspecified type Start: 06-10-2007 End: 03-01-2014 Patient encounter status Annie Cohen MODEL BUILDER DISPLAY.MASON HELPER Work Phone: [facility] Work Phone: Procedures Date Procedure Procedure Detail Performing Clinician Start: 06-17-2023 MRI of lumbar spine Dr. Zeke Xavier Work Phone: Start: 05-06-2023 X-ray of lumbosacral spine ISACC DEXTER Work Phone: Start: 02-24-2021 Adult depression scr eening assessment Annie Cohen MODEL BUILDER DISPLAY.MASON HELPER Work Phone: Plan of Treatment Date Care Activity Detail Author Start: 01-29-2033 Urine microalbumin profile DTaP,Tdap,Td Vaccine (4 - Td or Tdap) [facility] Start: 06-06-2025 Influenza vaccination Influenz a Vaccine (Season Ended) [facility] Start: 11-04-2024 Annual PCP Team Staff Pharmacist geronimo Disease Visit Annual PCP Team Chronic Disease Visit [facility] Start: 06-06-2024 Covid-19 Vaccine ( season) Covid-19 Vaccine ( season) [facility] Start: 06-06-2024 Influenza vaccination Influenza Vacc ine (#1) [facility] Start: 03-31-2024 ANNUAL PCP TEAM SCENARIO WRITER GERONIMO DISEASE VISIT ANNUAL PCP TEAM CHRONIC DISEASE VISIT [facility] Start: 01-23-2024 ANNUAL PCP TEAM SCENARIO WRITER GERONIMO DISEASE VISIT ANNUAL PCP TEAM CHRONIC DISEASE VISIT [facility] Start: 12-02-2023 ANNUAL PCP TEAM SCENARIO WRITER GERONIMO DISEASE VISIT ANNUAL PCP TEAM CHRONIC DISEASE VISIT [facility] Start: 11-28-2023 End: 02-27-2024 25-hydroxyvitamin D3 [Mass/volume] in Serum or Plasma VITAMIN D 25 HYDROXY Lab Routine Encounter for vitamin deficiency screening Morning headache Malaise and fatigue Expected: 11/28/2023, Expires: 02/27/2024 [facility] Work Phone: Comment on above: Expected: 11/28/2023 , Expires: 02/27/2024 Start: 11-28-2023 End: 02-27-2024 Insulin [Units/volume] in Serum or Plasma INSULIN ASSAY BLOOD Lab Routine Screening for diabetes mellitus Morning headache Expected: 11/28/2023, Expires: 02/27/2024 [facility] Work Phone: Comment on above: Expected: 11/28/2023 , Expires: 02/27/2024 Start: 10-06-2023 Behavioral Health Screening Behavioral Health Screening [facility] Start: 10-06-20[address] [facility] Start: 06-19-2023 Patient referral [facility] Work Phone: Start: 06-06-2023 Covid-19 Vaccine ( season) Covid-19 Vaccine () [facility] Start: 06-06-2023 Influenza vaccination INFLUENZ A (Season Ended) [facility] Start: 05-15-2023 HPV TESTING HPV TESTING [facility] Start: 05-15-2023 PAP TESTING PAP TESTING [facility] Start: 05-15-2023 Screening for malign ant neoplasm of cervix [facility] Start: 04-21-2023 Patient referral [facility] Work Phone: Start: 02-04-2023 ANNUAL PCP TEAM SCENARIO WRITER GERONIMO DISEASE VISIT ANNUAL PCP TEAM CHRONIC DISEASE VISIT [facility] Start: 01-07-2023 ANNUAL PCP TEAM SCENARIO WRITER GERONIMO DISEASE VISIT ANNUAL PCP TEAM CHRONIC DISEASE VISIT [facility] Start: 10-06-2022 [facility] Start: 06-06-2022 Influenza vaccination C [facility] Start: 2022 Mammography MAMMOGRAM [facility] Start: 2022 Screening for malign ant neoplasm of breast Mammogram Screening [facility] Start: 02-24-2022 Adult depression screening assessment DEPRESSION SCREENING [facility] Start: 11-13-2021 COVID-19 VACCINE (4 - Booster for Moderna series) COVID-19 VACCINE (4 - Booster for Moderna series) [facility] Start: 10-06-2021 DEPRESSION ASSESSMENT DEPRESSION ASS ESSMENT [facility] Start: 10-21-2018 Urine microalbumin profile DTAP,TDAP,TD (3 - Tdap) [facility] Start: 07-06-2014 Pneumococcal vaccination Pneumococcal Vaccine (2 of 2 - PCV) [facility] Start: 07-02-2014 PNEUMOCOCCAL (2 - PCV) PNEUMOCOCCAL (2 - PCV) [facility] Start: 10-22-2008 Urine microalbumin profile DTAP,TDAP,TD (1 - Tdap) [facility] Start: 2001 Hepatitis B Vaccine (1 of 3 - 19+ 3-dose series) Hepatitis B Vaccine (1 of 3 - 19+ 3-dose series) [facility] Start: 2000 Depression Screening Depression Scre ening [facility] Start: 2000 HEPATITIS C SCREENING HEPATITIS C [facility] Start: 2000 Hepatitis C screening Hepatitis C [facility] Start: 2000 HIV SCREENING HIV SCREENING [facility] Start: 2000 HIV screening HIV Screening [facility] Start: 2000 SPIROMETRY SPIROMETRY [facility] Start: 1982 HEPATITIS B (1 of 3 - 3-dose series) HEPATITIS B (1 of 3 - 3-dose series) [facility] Start: 1982 Hepatitis B Vaccine (1 of 3 - 3-dose series) Hepatitis B Vaccine (1 of 3 - 3-dose series) [facility] End: 04-30-2025 DBT Breast - bilateral screening [facility] Routine Encounter for screening mammogram for breast cancer 1 Occurrences starting 03/31/2024 until 04/30/2025 [facility] Work Phone: Comment on above: 1 Occurrences starti ng 03/31/2024 until 04/30/2025 End: 03-31-2026 DBT Breast - bilateral screening [facility] Routine Encounter for screening mammogram for breast cancer 1 Occurrences starting 03/01/2025 until 03/31/2026 [facility] Work Phone: Comment on above: 1 Occurrences starti ng 03/01/2025 until 03/31/2026 Patient referral [facility] Work Phone: End: 06-14-2023 Screening mammography bi 2-view breast inc cad [facility] Routine Encounter for screening mammogram for breast cancer 1 Occurrences starting 05/15/2022 until 06/14/2023 [facility] Work Phone: Comment on above: 1 Occurrences starti ng 05/15/2022 until 06/14/2023 [facility] Immunizations Immunization Date Immunization Notes Care Provider Angela jaime 08-14-2023 influenza virus vacc ine, unspecified formulation Annie Haagen MODEL BUILDER DISPLAY.MASON HELPER Work Phone: [facility] 03-11-2023 measles, mumps and rubella virus vaccine [facility]ACC D[facility]TER Work Phone: [facility] 02-07-2023 measles, mumps and rubella virus vaccine ISACC DEXTER Work Phone: [facility] 01-29-2023 tetanus toxoid, redu margarito diphtheria toxoid, and acellular pertussis vaccine, adsorbed [facility]ACC DEXTER Work Phone: [facility] 09-18-2021 COVID-19 original vaccine, full dose, monovalent (MODERNA) Annie Haagen MODEL BUILDER DISPLAY.MASON HELPER Work Phone: [facility] 01-05-2021 COVID-19 original vaccine, full dose, monovalent (MODERNA) Annie Haagen MODEL BUILDER DISPLAY.MASON HELPER Work Phone: [facility] 12-02-2020 COVID-19 original vaccine, full dose, monovalent (MODERNA) Annie Haagen MODEL BUILDER DISPLAY.MASON HELPER Work Phone: [facility] 08-16-2016 influenza, injectabl e, quadrivalent, contains preservative Annie Haagen MODEL BUILDER DISPLAY.MASON HELPER Work Phone: [facility] Work Phone: 07-06-2013 Influenza virus vaccine ISACC DEXTER Work Phone: [facility] 07-06-2013 pneumococcal vaccine , unspecified formulation ISACC DEXTER Work Phone: [facility] 07-02-2013 influenza virus vacc ine, unspecified formulation Annie Haagen MODEL BUILDER DISPLAY.MASON HELPER Work Phone: [facility] Work Phone: 07-02-2013 pneumococcal polysaccharide vaccine, 23 valent Annie Haagen MODEL BUILDER DISPLAY.MASON HELPER Work Phone: [facility] Work Phone: 07-05-2012 influenza virus vacc ine, unspecified formulation Annie Haagen MODEL BUILDER DISPLAY.MASON HELPER Work Phone: [facility] Work Phone: 07-25-2011 influenza virus vacc ine, unspecified formulation Annie Haagen MODEL BUILDER DISPLAY.MASON HELPER Work Phone: [facility] Work Phone: 08-08-2009 influenza virus vacc ine, unspecified formulation Annie Haagen MODEL BUILDER DISPLAY.MASON HELPER Work Phone: [facility] 10-21-2008 tetanus and diphther ia toxoids, adsorbed, preservative free, for adult use (2 Lf of tetanus toxoid and 2 Lf of diphtheria toxoid) Annie Cohen MODEL BUILDER DISPLAY.MASON HELPER Work Phone: [facility] Work Phone: 10-21-2008 tuberculin skin test ; purified protein derivative solution, intradermal Annie Cohen APRN.MASON HELPER Work Phone: [facility] 08-16-2008 influenza virus vacc ine, unspecified formulation Annie Haagen MODEL BUILDER DISPLAY.MASON HELPER Work Phone: [facility] 09-01-2007 influenza virus vacc ine, unspecified formulation Annie Haagen MODEL BUILDER DISPLAY.MASON HELPER Work Phone: [facility] 09-12-1997 diphtheria and tetan us toxoids, adsorbed for pediatric use Annie Cohen MODEL BUILDER DISPLAY.MASON HELPER Work Phone: [facility] Payers Date Payer Category Payer Unknown [id number] 2024 Self-pay [id number] 2023 Unknown [id number] 2023 Private Health Insurance [id number] 2018 Medicaid [employer] [id number] 2018-Present [phone] [address] [place] [address] Medicaid [id number] 2018 Medicaid [id number] .[id number] Unknown [id number] 2.16.840.1.817814.3.579.2 .462 Unknown [id number] 2.16.840.1.695242.3.579.2 .462 Unknown [id number] 2.16.840.1.068883.3.579.2 .462 Unknown [id number] 2.16.840.1.256087.3.579.2 .462 Unknown [id number] 2.16.840.1.760892.3.579.2 .462 Unknown [id number] 2.16.840.1.960864.3.579.2 .462 Unknown [id number] 2.16.840.1.860115.3.579.2 .462 Unknown [id number] 2.16.840.1.149440.3.579.2 .462 Unknown [id number] 2.16.840.1.999698.3.579.2 .462 Unknown [id number] 2.16.840.1.664889.3.579.2 .462 Unknown [id number] 2.16.840.1.344864.3.579.2 .462 Unknown [id number] 2.16.840.1.579586.3.579.2 .462 Unknown [id number] 2.16.840.1.465549.3.579.2 .462 Unknown [id number] 2.16.840.1.010066.3.579.2 .462 Unknown [id number] 2.16.840.1.267567.3.579.2 .462 Unknown [id number] 2.840.1.800177.3.579.2 .462 Unknown [id number] 2.840.1.844822.3.579.2 .462 Unknown [id number] 2.840.1.542668.3.579.2 .462 Unknown [id number] 2.840.1.410769.3.579.2 .462 Unknown [id number] 2.840.1.752335.3.579.2 .462 Unknown [id number] 2.840.1.277560.3.579.2 .462 Unknown [id number] 2.840.1.274688.3.579.2 .462 Unknown [id number] 2.840.1.214924.3.579.2 .462 Unknown [id number] 2.840.1.425008.3.579.2 .462 Unknown [id number] 2.840.1.238290.3.579.2 .462 Unknown [id number] .840.1.788555.3.579.2 .462 Unknown [id number] 2.840.1.747264.3.579.2 .462 Unknown [id number] 2.840.1.925685.3.579.2 .462 Unknown [id number] .840.1.897919.3.579.2 .462 Unknown [id number] .840.1.804040.3.579.2 .462 Unknown [id number] 2.840.1.463337.3.579.2 .462 Unknown [id number] 2.840.1.948482.3.579.2 .462 Unknown [id number] 2.840.1.746656.3.579.2 .462 Unknown [id number] 2.16.840.1.607860.3.579.2 .462 Unknown [id number] 2.16.840.1.636046.3.579.2 .462 Unknown [id number] 2.16.840.1.453822.3.579.2 .462 Unknown [id number] 2.16.840.1.078096.3.579.2 .462 Unknown [id number] 2.16.840.1.654645.3.579.2 .462 Unknown [id number] 2.16.840.1.323526.3.579.2 .462 Unknown [id number] 2.16.840.1.109601.3.579.2 .462 Unknown [id number] 2.16.840.1.417346.3.579.2 .462 Unknown [id number] 2.16.840.1.375650.3.579.2 .462 Unknown [id number] 2.16.840.1.395896.3.579.2 .462 Unknown [id number] 2.16.840.1.447416.3.579.2 .462 Social History Date Type Detail Facility Start: 10-28-2011 Tobacco smoking status NHIS Never smoked tobacco [facility] Start: 01-07-2022 End: 11-30-2023 Alcohol intake Current drinker of alcohol (finding) [facility] Start: 12-04-2021 End: 03-31-2023 History SDOH Alcohol Frequency 2 [facility] Start: 12-04-2021 End: 03-31-2023 History SDOH Alcohol Std Drinks 1 [facility] Start: 02-03-2013 History SDOH Alcohol Comment Rarely [facility] Start: 12-04-2021 End: 03-31-2023 History SDOH Social Connections Phone 5 [facility] Start: 12-04-2021 End: 03-31-2023 History SDOH Social Connections Get Together 3 [facility] Start: 12-04-2021 End: 03-31-2023 History SDOH Physical Activity MPS 6 [facility] Start: 12-04-2021 End: 03-31-2023 History SDOH Financial 4 [facility] Start: 05-17-2020 Education 21 [facility] Start: 1980 Sex Assigned At Female [facility] Start: 10-28-2011 Tobacco use and exposure Smokeless tobacco non-user [facility] Work Phone: Start: 03-31-2023 History SDOH Social Connections Living 7 [facility] Start: 05-05-2023 End: 06-19-2023 Tobacco smoking status NHIS Unknown if ever smoked [facility] Start: 10-05-2013 None [facility] Start: 10-05-2013 Alone [facility] Start: 10-05-2013 Cigarettes [facility] Start: 02-24-2021 End: 03-30-2023 History of Social function [facility] Start: 02-24-2021 End: 03-30-2023 Social connection and isolation panel [facility] Do you belong to any clubs or organizations such as sikh groups, unions, fraternal or athletic groups, or school groups? Yes [facility] Are you now , , , , never or living with a partner? Never [facility] How often to you hav e a drink containing alcohol? Monthly or less [facility] How many standard dr inks containing alcohol do you have on a typical day? 1 or 2 [facility] How often do you hav e 6 or more drinks on 1 occasion? Less than monthly [facility] How hard is it for y ou to pay for the very basics like food, housing, medical care, and heating Somewhat hard [facility] Adult Depression Screening Assessment 2 [facility] Do you feel stress - tense, restless, nervous, or anxious, or unable to sleep at night because your mind is troubled all the time - these days [OSQ] Very much [facility] (I/We) worried wheth er (my/our) food would run out before (I/we) got money to buy more. Never true [facility] In the past 12 month s, was there a time when you were not able to pay the mortgage or rent on time? No [facility] Start: 06-06-2019 Gender identity Identifies as female gender (finding) [facility] Start: 06-06-2019 Sexual orientation Heterosexual (finding) [facility] Goals Date Patient Goal Desired Activity /State Functional Status Date Assessment Result Facility 03-14-2015 Are you deaf, or do you have serious difficulty hearing No 03/14/2015 1:39 PM EDT Stefani Mendes MA No [facility] 03-14-2015 Are you blind, or do you have serious difficulty seeing, even when wearing glasses No 03/14/2015 1:39 PM EDT Stefani Mendes MA No [facility] 03-14-2015 Do you have serious difficulty walking or climbing stairs No 03/14/2015 1:39 PM EDT Stefani Mendes MA No [facility] 03-14-2015 Do you have difficul ty dressing or bathing No 03/14/2015 1:39 PM EDT Stefani Mendes MA No [facility] 03-14-2015 Because of a physica l, mental, or emotional condition, do you have difficulty doing errands alone such as visiting a physician's office or shopping No 03/14/2015 1:39 PM EDT Stefani Mendes MA [facility] Mental Status Date Assessment Result Facility 03-14-2015 Because of a physica l, mental, or emotional condition, do you have serious difficulty concentrating, remembering, or making decisions No 03/14/2015 1:39 PM EDT Stefani Mendes MA [facility] Clinical Notes 07-31-2007 to 03-01-2025 Telephone Encounter - Jerica Head RN - 12/23/2023 4:43 PM EDTPatient Stephanie Cardona APRN.CNP - 11/28/2023 7:42 AM ESTPatient InstructionsPatient InstructionsPatient Instructions Note Date & Type Note Facility 03-01-2025 Note Patient Outreach (FA MPWS) SUSY BATEMAN ([id number]) 1980 F Date Time Provider Department 03/01/25 ANNIE COHEN During your visit today, we recorded the following information about you: Allergies As of Date: 03/01/2025 Noted Allergy Reaction OXYMETAZOLINE 04/21/2023 12 - Shortness of Breath AFRIN (OXYMETAZOLINE HCL) 01/02/2010 7 - Swelling CAT DANDER 10/13/2023 14 - Other: See Comments DOG DANDER 10/13/2023 14 - Other: See Comments GRASS POLLEN 10/13/2023 14 - Other: See Comments Comments: Congestion, wheezing RAGWEED POLLEN 10/13/2023 14 - Other: See Comments Date Reviewed: 11/30/2023 Reviewed by: Stephanie Gayle APRN.MASON HELPER - Fully Assessed Visit Diagnosis:Encounter for screening mammogram for breast cancer [Z12.31] Order(s):[facility] SCRE[facility] [9034025] Order #: [id number] FUTURE Prescriptions as of 04/01/2025 - traZODone (DESYREL) 100 mg tablet Take 2 tablets by mouth daily at bedtime. - ondansetron orally disintegrating (ZOFRAN ODT) 4 mg disintegrating tablet - naltrexone 50 mg tablet Take 50 mg by mouth once daily. - dicyclomine HCl (BENTYL ORAL) Take by mouth as needed. - cyclobenzaprine (FLEXERIL) 10 mg tablet - DULoxetine (CYMBALTA) 30 mg capsule - gabapentin (NEURONTIN) 300 mg capsule Take 300 mg by mouth daily at bedtime. - HYDROcodone-acetaminophen (NORCO) 5-325 mg per tablet - buPROPion XL (WELLBUTRIN XL) 150 mg 24 hr tablet - atogepant (QULIPTA) 60 mg tablet Take 1 tablet (60 mg) by mouth once daily. - Norethindrone, Contraceptive, (TULANA) 0.35 mg tablet Take 1 tablet by mouth once daily. - albuterol HFA (VENTOLIN HFA) 90 mcg/actuation inhaler Inhale 2 Puffs as instructed every 6 hours as needed for wheezing/shortness of breath. - albuterol (PROVENTIL) 2.5 mg /3 mL (0.083 %) nebulizer solution Use 3 mL via nebulizer every 4 hours as needed for wheezing/shortness of breath. ONE TREATMENT EVERY 4 HOURS NEEDED - buPROPion XL (WELLBUTRIN XL) 300 mg 24 hr tablet Take 1 tablet by mouth once daily. - fluticasone-salmeterol (ADVAIR, WIXELA) 250-50 mcg/dose inhaler Inhale 1 Puff as instructed twice daily. - Nebulizers Use nebulizer every 4 hours as needed for wheeze/shortness of breath. - Nebulizer 1 Each once daily. NEBULIZER/accessories FOR HOME USE. DX: J45.909 - Nebulizer Accessories (REUSABLE NEBULIZER KIT) kit 1 Each once daily. - NEBULIZERS KIT Nebulizer with accesories. Diagnosis: asthma 493.90 Problem List As Of Date 03/01/2025 Noted Resolved Asthma [J45.909] 11/01/2006 Anal Fistula [K60.30] 11/18/2006 09/26/2009 Diarrhea [R19.7] 06/10/2007 Routine general medical examination at [facility]*06/10/2007 03/01/2014 Obesity, Class III, BMI 40-49.9 (morbid obesity*07/31/2007 05/26/2018 CHRONIC RHINITIS [J31.0] 09/01/2007 IBS (irritable bowel syndrome) [K58.9] 10/17/2009 Insomnia [G47.00] 04/16/2011 Nausea [R11.0] 07/12/2013 Abdominal cramping [R10.9] 05/31/2014 Anxiety disorder, unspecified [F41.9] 07/16/2023 Diagnosed: 11/28/2023 Encounter Status:Closed by TSERING ESQUIVEL on 04/01/25 [facility] 12-23-2023 Miscellaneous Notes Received referral status update from [facility] Nutrition that they have been unable to reach patient. [employer] message sent with information to contact schedule. Jerica Head RN documented in this encounter [facility] 11-28-2023 Instructions Stephanie Gayle APRN.JEN - 11/28/2023 7:43 AM EST Weight Management: [...] it adds only a little benefit for terminal manager weight loss success. However, exercise can have [...] Armstrong MD, ERIC MARIE & Stephanie Gayle, JEN Obesity Obesity is a disease that affects nearly one-third of the adult [place] population (approximately 60 million). The number of overweight and obese Americans has continued to increase since 1959, a trend that is not slowing down. Today, 64.5 percent of adult Americans (about 127 million) are categorized as being overweight or obese. Each year, obesity causes at least 300,000 excess deaths in the [place] and healthcare costs of [place] adults with obesity amount to approximately $100 [...] the gallbladder, breast, uterus, cervix, or ovaries [email or web address] Nutrition - Eat primarily whole foods. Limit carbs, especially processed carbs. - Do not drink your calories - 30 grams of protein for breakfast decreases your hunger during the day by up to 40 % Premier Protein or generic 30 gm protein 1 gm sugar - Walk for 15 minutes immediately a meal. Omron wrist BP - $70-80 range documented in this encounter [facility] 11-28-2023 History of Presen t illness Narrative [...] soup and mac n cheese or pizza [employer] thin crust with steak & cheese or canned soup or frozen dinner or pork chop with veg S - cookies, chips, ice cream, cereal, sweetened, with milk Fluids - water, Diet pop, Smoothies/starbucks sometimes at office Bedtime - asleep 2300 Quality of diet: 24hr recall suggests unhealthy diet. Characterization of diet:Structured, unhealthy snacking, excessive cravings, and evening snacking. Endoscopy Support Specialist of impaired eating habits:lack of satiety, mindlessness [...] attempts? commercial diets, self-directed, exercise program, health process coach, dietitian, and anti-obesity medications Naltrexone/bupropion (Contrave). Atkins diet, Cabbage Soup diet, Caloric restriction, Diet pills, Terminal Worker, Exercise/increased activity, HCG, Josseline Crowe, Keto, Low Carbohydrate diet, Low Fat diet, MyFitnessPal, Noom, Nutrisystems, Physician directed diet, Slimfast, Brandon Diet, and Starvation, Weight watchers Phentermine caused hypertension Exercise: Regular exercise: no Strength/resistance exercise:yes Barriers to regular exercise? Yes. Back pain Work-related activity:Sedentary. 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 The date to complete this order is 11-28-2023 The Yari program is: [facility]ITE [facility] WHAT TO EXPECT AT YOUR APPOINTMENT The patient access code to view the Yari program is: [id number] To view the Yari program go to: [email or web address] Impression: Susy Bateman is a 43 year [...] intervention is the best and most appropriate prison therapeutic option. Surgery is an exclusion from her health insurance. We will use behavioral and pharmaceutical therapies. - [facility] employee - orders printed and given to pt - CONSULT TO SLEEP MEDICINE - ADULT - [facility] - CONSULT TO NUTRITION THERAPY - [facility] Whole food balanced protein low-carb nutrition - [...] training and cardiovascular exercise is the best terminal manager plan. An overall goal of 150-200 minutes [...] which included preparing to see the patient, [id number] patient care, completing clinical documentation, obtaining and/or reviewing separately obtained history, performing a medically appropriate examination, counseling and educating the patient/family/caregiver, and ordering medications, tests, or procedures. documented in this encounter [facility] 03-31-2023 Instructions Annie Cohen APRN.CNP - 03/31/2023 6:29 PM EDT Start the etodolac twice daily. Take with food. Try the tizanidine. Be careful taking with trazodone, it may make you too tired. Moist heat/ice to the back. Stretching. Consider physical therapy. documented in this encounter [facility] 03-31-2023 History of Presen t illness Narrative [...] 74 Resp 16 Ht 168.9 cm (5' 6.5) Wt 112.5 kg (248 lb) LMP 01/13/2023 [...] Annie Cohen APRN.JEN documented in this encounter [facility] 02-14-2023 Miscellaneous Notes Patient phones requesting refills as follows: Requested Prescriptions Pending Prescriptions Disp Refills hyoscyamine SR (LEVBID) 0.375 mg 12 hr tablet 15 tablet 2 Sig: take 1 tablet by mouth once daily if needed for IBS FLARES Please review and advise. Jp Rubio LPN documented in this encounter [facility] 01-22-2023 Instructions Annie Cohen APRN.CNP - 01/22/2023 4:06 PM EDT Recheck in 3 months. documented in this encounter [facility] 01-22-2023 History of Presen t illness Narrative CC: Susy Bateman is a 42 year old female who presents for weight loss medication. HPI Currently taking nothing. Going to be starting a new job. Going to be working for [employer]. If DM any hypo/hyperglycemiaNot applicable DIET [...] in three months. documented in this encounter [facility] 12-02-2022 Instructions Annie Cohen APRN.CNP - 12/02/2022 4:06 PM EST Start the adipex. Recheck in a month. documented in this encounter [facility] 12-02-2022 History of Presen t illness Narrative [...] w/ medication. - [facility] and [facility]. All prescriptions have been APPROPRIATELY filled. No suspicious activity was identified. 12/02/2022 by Annie Cohen APRN.MASON HELPER Discussed treatment plan and patient voices understanding. Patient's questions answered appropriately. Medications and potential side effects were discussed and patient voices understanding. Return to the office as scheduled or as needed for worsening/no improvement. Annie Cohen APRN.MASON HELPER documented in this encounter [facility] 09-09-2022 Miscellaneous Notes Opened in error Refills addressed on another encounter documented in this encounter [facility] 09-09-2022 Miscellaneous Notes Patient phones requesting refills as follows: Requested Prescriptions Pending Prescriptions Disp Refills fluticasone-salmeterol (ADVAIR, WIXELA) 250-50 mcg/dose inhaler 3 Each 3 Sig: Inhale 1 Puff as instructed twice daily. BASILIO-02/04/22 Labs-04/03/21 NOV-none med filled 04/09/22 Please review and advise. Florecita Dowd LPN documented in this encounter [facility] 09-09-2022 Miscellaneous Notes Patient phones requesting refills [...] Florecita Dowd LPN documented in this encounter [facility] 06-12-2022 Miscellaneous Notes Last office visit: 02/24/22 [...] Fiona Lemons Pss documented in this encounter [facility] 05-27-2022 Miscellaneous Notes Patient phones requesting refills as follows: Requested Prescriptions Pending Prescriptions Disp Refills ibuprofen (MOTRIN) 800 mg tablet 60 tablet 1 Sig: Take 1 tablet by mouth every 8 hours as needed for pain. Take with food. [facility] 02/04/22 NOV no upcoming appt Please review and advise. Jp Rubio LPN documented in this encounter [facility] 01-07-2022 Instructions Annie Cohen APRN.CNP - 01/07/2022 2:47 PM EDT 1. Increase the zoloft to 100 mg daily. 2. Continue the adipex. 3. Recheck in 1 month. documented in this encounter [facility] 01-07-2022 History of Presen t illness Narrative [...] as needed for worsening/no improvement. Annie Cohen APRN.MASON HELPER This note was partially generated using [employer] voice recognition system. Note was reviewed for accuracy. There may be minor misspellings or grammar miscues with [employer] voice recognition. documented in this encounter [facility] 07-31-2007 History of Past i llness Narrative Problem Noted Date Resolved Date Obesity, Class III, BMI 40-49.9 (morbid obesity) 07/31/2007 05/26/2018 Overview: TSH 1 in 5-07 Last Assessment & Plan: Has lost 60 pounds In the last year which was intentional. Spoke to her about her current plateau as she wants to reduce weight. Spoke about portions sizs, carbs. She is doing really good. Routine general medical exam ination at a health care facility 06/10/2007 03/01/2014 Overview: Creat 0.8 in 05-12 Plans to get her Flu shot at [facility] as of 08-12 Strep positive in 08: [place] treated with Augmentin PPD negative in - Anal fistula 11/18/2006 09/26/2009 Overview: [place] did anterior fisulotomy on 12-05-06 and 03-24-07 (loose stool preceded this) documented as of this encounter (statuses as of 01/08/2022) [facility] History of Past illness Narrative* Problem Noted [...] Plans to get her Flu shot at [facility] as of 08-12 Strep positive in 08: [place] treated with Augmentin PPD negative in - Anal fistula 11/18/2006 09/26/2009 Overview: [place] did anterior fisulotomy on 12-05-06 and 03-24-07 (loose stool preceded this) documented as of this encounter (statuses as of 05/20/2022) [facility] History of Past illness Narrative* Problem Noted [...] Plans to get her Flu shot at [facility] as of 08-12 Strep positive in 12-11: [place] treated with Augmentin PPD negative in 10-14 Anal fistula 11/18/2006 09/26/2009 Overview: [place] did anterior fisulotomy on 12-05-06 and 03-24-07 (loose stool preceded this) documented as of this encounter (statuses as of 05/27/2022) [facility] History of Past illness Narrative* Problem Noted [...] Plans to get her Flu shot at [facility] as of 08-12 Strep positive in 12-11: [place] treated with Augmentin PPD negative in 10-14 Anal fistula 11/18/2006 09/26/2009 Overview: [place] did anterior fisulotomy on 12-05-06 and 03-24-07 (loose stool preceded this) documented as of this encounter (statuses as of 06/12/2022) [facility] History of Past illness Narrative* Problem Noted [...] Plans to get her Flu shot at [facility] as of 08-12 Strep positive in 3-08: [place] treated with Augmentin PPD negative in - Anal fistula 11/18/2006 09/26/2009 Overview: [place] did anterior fisulotomy on 12-05-06 and 03-24-07 (loose stool preceded this) documented as of this encounter (statuses as of 09/09/2022) [facility] History of Past illness Narrative* Problem Noted [...] Plans to get her Flu shot at [facility] as of 08-12 Strep positive in 3-08: [place] treated with Augmentin PPD negative in - Anal fistula 11/18/2006 09/26/2009 Overview: [place] did anterior fisulotomy on 12-05-06 and 03-24-07 (loose stool preceded this) documented as of this encounter (statuses as of 09/09/2022) [facility] History of Past illness Narrative* Problem Noted [...] Routine general medical exam ination at a [facility] care facility 06/10/2007 03/01/2014 Overview: Creat 0.8 in 05-12 Plans to get her Flu shot at [facility] as of 08-12 Strep positive in 12-11: [place] treated with Augmentin PPD negative in - Anal fistula 11/18/2006 09/26/2009 Overview: [place] did anterior fisulotomy on 12-05-06 and 03-24-07 (loose stool preceded this) documented as of this encounter (statuses as of 09/09/2022) [facility] History of Past illness Narrative* Problem Noted [...] Plans to get her Flu shot at [facility] as of 08-12 Strep positive in 12-11: [place] treated with Augmentin PPD negative in - Anal fistula 11/18/2006 09/26/2009 Overview: [place] did anterior fisulotomy on 12-05-06 and 03-24-07 (loose stool preceded this) documented as of this encounter (statuses as of 09/09/2022) [facility] History of Past illness Narrative* Problem Noted [...] Routine general medical exam ination at a [facility] care facility 06/10/2007 03/01/2014 Overview: Creat 0.8 in 05-12 Plans to get her Flu shot at [facility] as of 08-12 Strep positive in 12-11: [place] treated with Augmentin PPD negative in - Anal fistula 11/18/2006 09/26/2009 Overview: [place] did anterior fisulotomy on 12-05-06 and 03-24-07 (loose stool preceded this) documented as of this encounter (statuses as of 12/03/2022) [facility] History of Past illness Narrative* Problem Noted [...] Plans to get her Flu shot at [facility] as of 08-12 Strep positive in 3-08: [place] treated with Augmentin PPD negative in 1- Anal fistula 11/18/2006 09/26/2009 Overview: [place] did anterior fisulotomy on 12-05-06 and 03-24-07 (loose stool preceded this) documented as of this encounter (statuses as of 01/23/2023) [facility] History of Past illness Narrative* Problem Noted [...] Plans to get her Flu shot at [facility] as of 08-12 Strep positive in 3-08: [place] treated with Augmentin PPD negative in 1- Anal fistula 11/18/2006 09/26/2009 Overview: [place] did anterior fisulotomy on 12-05-06 and 03-24-07 (loose stool preceded this) documented as of this encounter (statuses as of 02/14/2023) [facility] History of Past illness Narrative* Problem Noted [...] Plans to get her Flu shot at [facility] as of 08-12 Strep positive in 12-11: [place] treated with Augmentin PPD negative in 10-14 Anal fistula 11/18/2006 09/26/2009 Overview: [place] did anterior fisulotomy on 12-05-06 and 03-24-07 (loose stool preceded this) documented as of this encounter (statuses as of 04/01/2023) [facility] History of Past illness Narrative* Problem Noted [...] Plans to get her Flu shot at [facility] as of 08-12 Strep positive in 12-11: [place] treated with Augmentin PPD negative in 10-14 Anal fistula 11/18/2006 09/26/2009 Overview: [place] did anterior fisulotomy on 12-05-06 and 03-24-07 (loose stool preceded this) documented as of this encounter (statuses as of 11/16/2023) [facility] History of Past illness Narrative* Problem Noted [...] Plans to get her Flu shot at [facility] as of 08-12 Strep positive in 3-08: [place] treated with Augmentin PPD negative in - Anal fistula 11/18/2006 09/26/2009 Overview: [place] did anterior fisulotomy on 12-05-06 and 03-24-07 (loose stool preceded this) documented as of this encounter (statuses as of 12/01/2023) [facility] History of Past illness Narrative* Problem Noted [...] Plans to get her Flu shot at [facility] as of 08-12 Strep positive in 3-08: [place] treated with Augmentin PPD negative in - Anal fistula 11/18/2006 09/26/2009 Overview: [place] did anterior fisulotomy on 12-05-06 and 03-24-07 (loose stool preceded this) documented as of this encounter (statuses as of 12/24/2023) [facility]* Diagnosis Obesity (BMI 35.0-39.9 without comorbidity)- Primary Obesity, unspecified Mild intermittent asthma without complication Unspecified asthma Anxiety with depression Foot pain, left Pain in limb Insomnia, unspecified type Other migraine without status migrainosus, not intractable Irritable bowel syndrome, unspecified type documented [facility]* Diagnosis Encounter for screening mammogram for breast cancer documented [facility]* Diagnosis Foot pain, left Pain in limb documented [facility]* Diagnosis Insomnia, unspecified type [facility]* Diagnosis Mild intermittent asthma without complication Unspecified asthma [facility]* Diagnosis Anxiety with depression Mild intermittent asthma without complication Unspecified asthma Irritable bowel syndrome, unspecified type Foot pain, left Pain in limb Insomnia, unspecified type [facility]* Diagnosis Obesity, Class III, BMI 40-49.9 (morbid obesity) ([facility])- Primary Morbid obesity Mild intermittent asthma without complication Unspecified asthma Irritable bowel syndrome, unspecified type Anxiety with depression Insomnia, unspecified type [facility]* Diagnosis Obesity, Class III, BMI 40-49.9 (morbid obesity) (HCC) Morbid obesity [facility]* Diagnosis Irritable bowel syndrome, unspecified type documented in this encounter [facility] note* Diagnosis Acute right-sided low back pain with right-sided sciatica- Primary documented in this encounter [facility] note* Diagnosis Onset Date Resolution Status Sciatica acute Sciatica acute Segmental and somatic dysfunction of lumbar region acute Segmental and somatic dysfunction of pelvic region acute [facility] Work Phone: Evaluation note* Diagnosis Onset Date Resolution Status Sciatica acute Sciatica acute Segmental and somatic dysfunction of lumbar region acute Segmental and somatic dysfunction of pelvic region acute Sciatica acute Segmental and somatic dysfunction of lumbar region acute Segmental and somatic dysfunction of pelvic region acute Back pain noneactive Sciatica acute Segmental and somatic dysfunction of lumbar region acute Segmental and somatic dysfunction of pelvic region acute Back pain noneactive Sciatica acute Segmental and somatic dysfunction of lumbar region acute Segmental and somatic dysfunction of pelvic region acute Back pain noneactive Herniation of lumbar interve rtebral disc with radiculopathy acute Sciatica acute Segmental and somatic dysfunction of lumbar region acute Segmental and somatic dysfunction of pelvic region acute Back pain noneactive [facility] Work Phone: Evaluation note* Diagnosis Gastroesophageal reflux disease, unspecified whether [...] comorbidity present (HCC) [facility]* Diagnosis Encounter for screening mammogram for breast cancer documented in this encounter [facility] note* Diagnosis IBS (irritable bowel syndrome)- Primary Irritable bowel syndrome ASTHMA UNSPECIFIED Unspecified asthma OBESITY NOS Obesity, unspecified Need for prophylactic vaccination and inoculation against influenza ASTHMA UNSPECIFIED- Primary Unspecified asthma IBS (irritable bowel syndrome) Irritable bowel syndrome Insomnia Insomnia, unspecified Insomnia- Primary Insomnia, unspecified ASTHMA UNSPECIFIED Unspecified asthma IBS (irritable bowel syndrome) Irritable bowel syndrome Need for prophylactic vaccination against Streptococcus pneumoniae (pneumococcus) Need for prophylactic vaccination against streptococcus pneumoniae (pneumococcus) Need for prophylactic vaccination and inoculation against influenza Diarrhea- Primary Nausea Nausea alone DIARRHEA NOS- Primary Diarrhea OBESITY NOS Obesity, unspecified Annual physical exam Routine general medical examination at a health care facility Unspecified asthma(493.90) Unspecified asthma Insomnia Insomnia, unspecified Routine health maintenance- Primary Routine general medical examination at a health care facility Abdominal cramping Abdominal pain, unspecified site Encounter for screening mammogram for breast cancer documented in this encounter [facility] Discharge instructionsAmbulatory Orders* Pain Management Location: None Selected [facility] Work Phone: Reason for referral (narrative)* Diagnostic Procedure Only (Routine) - Pending Review Specialty Diagnoses / Procedures Referred By Jake lopez Referred To Contact [facility] Diagnoses Encounter for screening mammogram for breast cancer Procedures BG SCREENING SCREENING MAMMOGRAPHY BI 2-VIEW BREAST INC CAD Annie Cohen APRN.MASON HELPER [address] [place] [address] [facility] [address] [place] [address] Referral ID Status Reason Start Date Expiration Date Visits Requested Visits Authorized [id number] Pending Review Auto-Generat ed Referral 05/15/2022 06/14/2023 1 1 [facility] Diagnostic Procedure Only (Routine) - Pending Review Specialty Diagnoses / Procedures Referred By Jake t Referred To Contact [facility] Diagnoses Encounter for screening mammogram for breast cancer Procedures BG SCREENING W DION SCREENING DIGITAL BREAST TOMOSYNTHESIS BI SCREENING MAMMOGRAPHY BI 2-VIEW BREAST INC CAD Annie Cohen APRN.MASON HELPER [address] [place] [address] [facility] [address] [place] [address] Referral ID Status Reason Start Date Expiration Date Visits Requested Visits Authorized [id number] Pending Review Auto-Generat ed Referral 03/31/2024 04/30/2025 1 1 [facility] Reason for Referral Specialty Diagnoses / Procedures Referred By Jake t Referred To Contact Diagnoses Mild intermittent asthma without complication Annie Cohen APRN.MASON HELPER [address] [place] [address] Referral ID Status Reason Start Date Expiration Date Visits Re quested Visits Authorized [id number] Closed 1 1 Referral ID Status Reason Start Date Expiration Date Visits Re quested Visits Authorized [id number] Closed 1 1 Specialty Diagnoses / Procedures Referred By Jake t Referred To Contact Nutrition Diagnoses Gastroesophageal reflux disease, unspecified whether esophagitis present Class 3 severe obesity with body mass index (BMI) of 40.0 to 44.9 in adult, unspecified obesity type, unspecified whether serious comorbidity present (HCC) Procedures CONSULT TO NUTRITION THERAPY MEDICAL NUTRITION ASSMT&IVNTJ INDIV EACH 15 ID MEDICAL NUTRITION ASSMT&IVNTJ INDIV EACH 15 ID MEDICAL NUTRITION ASSMT&IVNTJ INDIV EACH 15 ID MEDICAL NUTRITION ASSMT&IVNTJ INDIV EACH 15 ID Stephanie Gayle APRN.MASON HELPER [address] [place] [address] Referral ID Status Reason Start Date Expiration Date Visits Requested Visits Authorized [id number] Authorized PCP Requested Referral 11/28/2023 11/27/2024 1 1 Specialty Diagnoses / Procedures Referred By Contmerrill t Referred To Contact Diagnoses Excessive daytime sleepiness Morning headache Malaise and fatigue Class 3 severe obesity with body mass index (BMI) of 40.0 to 44.9 in adult, unspecified obesity type, unspecified whether serious comorbidity present (HCC) Procedures CONSULT TO SLEEP MEDICINE - ADULT OFFICE/OUTPATIENT [facility] 60 MINUTES Stephanie Gayle, SYLVESTER.MASON HELPER [address] [place] [address] Referral ID Status Reason Start Date Expiration Date Visits Requested Visits Authorized [id number] Authorized PCP Requested Referral 11/28/2023 11/27/2024 1 1 Advance Directives No Advanced Directives Records FoundDocuments on File Type Date Recorded Patient Delivery Nurse Expl anation Advance Directive(s) Advance Directive Response Recorded Date/ Time Advance Directives No September 3:58am Living Will No October 05 013 3:58am [employer] of [employer] System Maintenance Supervisor No October 05, 2013 3:58am Advance Directive Response Recorded Date/ Time Advance Directives No May 22, 2023 5:29pm Living Will No May 22 3 5:29pm [employer] of [employer] System Maintenance Supervisor No May 22 2 023 5:29pm Chief Complaint and Reason for Visit Chief Complaint [employer]EE [employer] RIGHT LEG/CONCERN FOR SCIATICA EST CARE SCIATICA, UNSPECIFIED SIDE. RX HERE Reason for Visit Sciatica Sciatica Segmental and somatic dysfunction of lumbar region Segmental and somatic dysfunction of pelvic region Chief Complaint RIGHT LEG/CONCERN FO R SCIATICA EST CARE Back pain Back pain SCIATICA, UNSPECIFIED SIDE. RX HERE Back pain SCIATICA, SEGMENTAL/SOMATIC DYSFUNCTION PELVIC/LUM Back pain Reason for Visit Sciatica Sciatica Segmental and somatic dysfunction of lumbar region Segmental and somatic dysfunction of pelvic region Sciatica Segmental and somatic dysfunction of lumbar region Segmental and somatic dysfunction of pelvic region Back pain Sciatica Segmental and somatic dysfunction of lumbar region Segmental and somatic dysfunction of pelvic region Back pain Sciatica Segmental and somatic dysfunction of lumbar region Segmental and somatic dysfunction of pelvic region Back pain Herniation of lumbar intervertebral disc with radiculopathy Sciatica Segmental and somatic dysfunction of lumbar region Segmental and somatic dysfunction of pelvic region Back pain Summary Purpose Family History No Family History Records FoundNo Family History Records Found Additional Source Comments Source Comments (unrecognize d section and content) In the event this informatio n is protected by the Federal Confidentiality of Alcohol and Drug Abuse Patient Records regulations: The Federal rules restrict any use of the information to criminally investigate or prosecute any alcohol or drug abuse patient.[facility] the event this information is protected by the Federal Confidentiality of Alcohol and Drug Abuse Patient Records regulations: The Federal rules restrict any use of the information to criminally investigate or prosecute any alcohol or drug abuse patient.[facility] the event this information is protected by the Federal Confidentiality of Alcohol and Drug Abuse Patient Records regulations: The Federal rules restrict any use of the information to criminally investigate or prosecute any alcohol or drug abuse patient.[facility] System[facility] the event this information is protected by the Federal Confidentiality of Alcohol and Drug Abuse Patient Records regulations: The Federal rules restrict any use of the information to criminally investigate or prosecute any alcohol or drug abuse patient.[facility] System[facility] the event this information is protected by the Federal Confidentiality of Alcohol and Drug Abuse Patient Records regulations: The Federal rules restrict any use of the information to criminally investigate or prosecute any alcohol or drug abuse patient.[facility] System[facility] the event this information is protected by the Federal Confidentiality of Alcohol and Drug Abuse Patient Records regulations: The Federal rules restrict any use of the information to criminally investigate or prosecute any alcohol or drug abuse patient.[facility] System[facility] the event this information is protected by the Federal Confidentiality of Alcohol and Drug Abuse Patient Records regulations: The Federal rules restrict any use of the information to criminally investigate or prosecute any alcohol or drug abuse patient.[facility] System[facility] the event this information is protected by the Federal Confidentiality of Alcohol and Drug Abuse Patient Records regulations: The Federal rules restrict any use of the information to criminally investigate or prosecute any alcohol or drug abuse patient.[facility] System[facility] the event this information is protected by the Federal Confidentiality of Alcohol and Drug Abuse Patient Records regulations: The Federal rules restrict any use of the information to criminally investigate or prosecute any alcohol or drug abuse patient.[facility] System[facility] the event this information is protected by the Federal Confidentiality of Alcohol and Drug Abuse Patient Records regulations: The Federal rules restrict any use of the information to criminally investigate or prosecute any alcohol or drug abuse patient.[facility] System[facility] the event this information is protected by the Federal Confidentiality of Alcohol and Drug Abuse Patient Records regulations: The Federal rules restrict any use of the information to criminally investigate or prosecute any alcohol or drug abuse patient.[facility] System[facility] the event this information is protected by the Federal Confidentiality of Alcohol and Drug Abuse Patient Records regulations: The Federal rules restrict any use of the information to criminally investigate or prosecute any alcohol or drug abuse patient.[facility] System[facility] the event this information is protected by the Federal Confidentiality of Alcohol and Drug Abuse Patient Records regulations: The Federal rules restrict any use of the information to criminally investigate or prosecute any alcohol or drug abuse patient.[facility] System[facility] the event this information is protected by the Federal Confidentiality of Alcohol and Drug Abuse Patient Records regulations: The Federal rules restrict any use of the information to criminally investigate or prosecute any alcohol or drug abuse patient.[facility] System[facility] the event this information is protected by the Federal Confidentiality of Alcohol and Drug Abuse Patient Records regulations: The Federal rules restrict any use of the information to criminally investigate or prosecute any alcohol or drug abuse patient.[facility] System[facility] the event this information is protected by the Federal Confidentiality of Alcohol and Drug Abuse Patient Records regulations: The Federal rules restrict any use of the information to criminally investigate or prosecute any alcohol or drug abuse patient.[facility] System[facility] the event this information is protected by the Federal Confidentiality of Alcohol and Drug Abuse Patient Records regulations: The Federal rules restrict any use of the information to criminally investigate or prosecute any alcohol or drug abuse patient.[facility] Reason for Visit (unrecogniz ed section and content) Reason Comments Recheck 1 month follow up Ad ipex Reason Onset Date Comments Refill Request 05/26/2022 [...] serious comorbidity present (HCC) Procedures CONSULT TO [facility] OFFICE/OUTPATIENT NEW HIGH MDM 60 MINUTES Annie Cohen, MODEL BUILDER DISPLAY.MASON HELPER [address] [place] [address] Referral ID Status Reason Start Date Expiration Date V isits Requested Visits Authorized [id number] Closed PCP Requested Referral Auto-Generated Referral 10/13/2023 10/12/2024 1 1 Reason Comments referral update Care Teams (unrecognized sec tion and content) Foreign Food Cook Specialty Relationship Specialty Start Date End Date Annie Cohen, MODEL BUILDER DISPLAY.MASON HELPER [address] [place] [address] PCP - General Family Practice 02/22/19 Foreign Food Cook Specialty Relationship Specialty Start Date End Date Annie Cohen, MODEL BUILDER DISPLAY.MASON HELPER [address] [place] [address] PCP - General Family Practice 02/22/19 Foreign Food Cook Specialty Relationship Specialty Start Date End Date Annie Cohen, MODEL BUILDER DISPLAY.MASON HELPER [address] [place] [address] PCP - General Family Practice 02/22/19 Foreign [employer] Specialty Relationship Specialty Start Date End Date Annie Cohen, [employer]DEL [employer] HEL[employer] [address] [place] [address] PCP - General Family Practice 02/22/19 Foreign [employer] Cook Specialty Relationship Specialty Start Date End Date Annie Cohen, [employer]DEL [employer]ON HELPER [address] [place] [address] PCP - General Family Medicine 02/22/19 Foreign Food Cook Specialty Relationship Specialty Start Date End Date Annie Cohen, MODEL BU[employer]ON HELPER [address] [place] [address] PCP - General Family Medicine 02/22/19 Foreign Food Cook Specialty Relationship Specialty Start Date End Date Annie Cohen, MODEL BUILDER [employer]ON HELPER [address] [place] [address] PCP - General Family Medicine 02/22/19 Foreign Food Cook Specialty Relationship Specialty Start Date End Date Haagen, Annie, MODEL BUILDER [employer]ON HELPER [address], [place] [id number] PCP - General Family Medicine 02/22/19 Foreign Food Cook Specialty Relationship Specialty Start Date End Date Haagen, Annie, MODEL [employer]ON HELPER [address], [place] [address] PCP - General Family Medicine 02/22/19 Foreign [employer] Cook Specialty Relationship Specialty Start Date End Date Haagen, Annie, [employer] HEL[employer] [address], [place] [id number] PCP - General Family Medicine 02/22/19 Team Status: Active Member Role Status Dates Out of Town Doctor Family Provider Active Dr. Zeke Xavier MD Primary Care Provider Active Team Status: Inactive Member Role Status Dates [employer] Virk Attending Provider Active Team Status: Inactive Member Role Status Dates Dr. Alida Andrade [place] Attending Provider Active Team Status: Active Member Role Status Dates Employee Health Attending Provider Active Team Status: Active Member Role Status Dates Health Risk Assessment Attending Provider, Referring P krystal Active Team Status: Active Member Role Status Dates [facility] Virk Attending Provider, Referring Provi scott Active Team Status: Inactive Member Role Status Dates Dr. Zeke Xavier MD Primary Care Provider Active Dr. Alida Andrade DC Attending Provider, Referring Pro vider Active Team Status: Inactive Member Role Status Dates Dr. Alida Andrade DC Attending Provider Active Dr. Zeke Xavier MD Primary Care Provider, Refer ring Provider Active Team Status: Active Member Role Status Dates Dr. Zeke Xavier MD Primary Care Provider Active Dr. Alida Andrade DC Attending Provider Active Team Status: Inactive Member Role Status Dates Dr. Zeke Xavier MD Primary Care Provider, Refer ring Provider Active Dr. Alida Andrade DC Attending Provider Active [employer] Specialty Relationship Specialty Start Date End Date Haagen, Annie, [employer]DEL [employer]IL[employer] HEL[employer] [address], [place] [id number] PCP - General Family Medicine 02/22/19 Foreign Food Cook Specialty Relationship Specialty Start Date End Date Annie Cohen APRN.M[employer] HEL[employer] [address] [place] [address] PCP - General Family Medicine 02/22/19 Foreign Food Cook Specialty Relationship Specialty Start Date End Date Annie Cohen APRN.M[employer]ON HEL[employer] [address] [place] [address] PCP - General Family Medicine 02/22/19 Foreign Food Cook Specialty Relationship Specialty Start Date End Date Annie Cohen APRN.M[employer] HEL[employer] [address] [place] [address] PCP - General Family Medicine 02/22/19 Foreign Food Cook Specialty Relationship Specialty Start Date End Date Annie Cohen APRN.M[employer]ON HELPER [address] [place] [address] PCP - General Family Medicine 02/22/19 INFORMATION SOURCE (unrecogn ized section and content) DATE CREATED AUTHOR 04/02/2025 [facility] DATE CREATED AUTHOR AUTHOR'S GLEN KRISHNAMURTHY 08/15/2025 [facility] FOR RECORDS PERTAINING TO PATIENTS WHO ARE [...] BE BASED ON THE PRIMARY CLINICAL RECORDS. [facility]. provides no warranty or guarantee of the accuracy or completeness of information in this document.
[2025-08-23 09:44] LABS: AST(SGOT) 20 U/L (<=31); Alanine Aminotransfer ALT/SGPT 21 U/L (<=34); Albumin, Serum 4.1 g/dL (3.5-5.0); Alkaline Phosphatase 67 U/L (35-104); Anion Gap 10 (5-15); BUN 10 mg/dL (4-19); BUN/Creat Ratio 12.4 RATIO (10-20); Calcium,Total 8.8 mg/dL (7.6-11.0); Carbon Dioxide 25.0 mmol/L (21.0-32.0); Chloride 106 mmol/L (98-108); Cholesterol 159 mg/dL (<=200); Globulin 3.0 g/dL (2.2-4.2); Glucose 99 mg/dL (70-99); Iron 79 ug/dL (50-170); Low Density Lipoprotein Calc. 91 mg/dL; Potassium 4.3 mmol/L (3.3-5.1); Triglycerides 95 mg/dL; Very Low Density Lipoprotein 19 mg/dL (5-40); cholesterol:hdl ratio screen 3.17
[2025-08-23 09:48] LABS: Ferritin 59 ng/mL (22-378); Vitamin B12 824 pg/mL (180-914); Vitamin D,25 Hydroxy 38.4 ng/mL (30-100)
[2025-08-23 16:46] LABS: Xtra Tube Kwok EXTRA TUBE
== END | disposition home or self-care (01) ==
PROVIDERS: PCP Physician Assistant; Visit Provider Nurse Practitioner Family
DX: I10 Essential (primary) hypertension (principal); R53.83 Other fatigue; E66.9 Obesity, unspecified
CPT/HCPCS: 36415; 80053; 80061; 82306; 82607; 82728; 83540; 84443; 85025